=== PATIENT | female | born 1940 | race Caucasian/White ===

== ENCOUNTER 2019-07-09 17:12 | Inpatient (IN) ==
[2019-07-09 17:50] LABS: Anion Gap 14.4 mEq/L (5-15); Bilirubin,Total 0.4 mg/dL (0.2-1.0); Globulin 4.1 gm/dl (1.3-3.2); Total Protein,Serum 8.1 gm/dL (6.4-8.2)
[2019-07-09 18:00] LABS: Basophils % 0.5 % (0.1-2.0); Eosinophils # 0.1 K/mm3 (0.0-0.4); Eosinophils % 0.8 % (0.1-12.0); Hematocrit 38.9 % (37.0-47.0); Hemoglobin 12.2 g/dL (12.2-16.2); Lymphocytes # 2.2 K/mm3 (0.7-4.5); Mean Corpuscular HGB Conc 31.4 g/dL (31.8-35.4); Mean Corpuscular Volume 96.5 fl (81-99); Mean Platelet Volume 8.8 fl (7.4-10.4); Monocytes # 0.5 K/mm3 (0.1-1.0); Monocytes % 6.1 % (1.7-9.3); Neutrophils # 4.9 K/mm3 (1.8-7.8); Neutrophils % 63.6 % (37.0-80.0); Platelet Count 229 K/mm3 (142-424); Red Blood Count 4.04 M/mm3 (4.20-5.40); Red Cell Distribution Width 12.8 % (11.5-17.5); White Blood Count 7.7 K/mm3 (4.8-10.8)
--- NOTE | 2019-07-09 18:17 | Emergency Department Note ---
ED Disposition Clinical Impression: Closed right humeral fracture Qualifiers: Encounter type: initial encounter Humerus Location: proximal Fracture morphology: other fracture Fracture alignment: nondisplaced Qualified Code(s): S42.294A - Other nondisplaced fracture of upper end of right humerus, initial encounter for closed fracture Femur fracture, right Qualifiers: Encounter type: initial encounter Femur location: intertrochanteric Fracture type: closed Fracture alignment: nondisplaced Qualified Code(s): S72.144A - Nondisplaced intertrochanteric fracture of right femur, initial encounter for closed fracture Fall Qualifiers: Encounter type: initial encounter Qualified Code(s): W19.XXXA - Unspecified fall, initial encounter Hypothermia Qualifiers: Encounter type: initial encounter Qualified Code(s): T68.XXXA - Hypothermia, initial encounter Sepsis Qualifiers: Sepsis type: sepsis due to unspecified organism Sepsis acute organ dysfunction status: without acute organ dysfunction Qualified Code(s): A41.9 - Sepsis, unspecified organism Disposition: Admitted As Inpatient Condition on Discharge: [facility] - Critical Care Critical Care Time: Yes (45) Attestation: On 07/09/19, the high probability of a clinically significant, sudden or life threatening deterioration of the following system(s) required my full and direct attention, intervention and personal management. The time I documented below is in addition to time spent performing reported procedures but includes the following listed in this critical care notation. Vital system(s) involved:: Circulatory Failure, Metabolic Failure My critical care processes included: Assessment & monitoring of V/S, Initial and Re-exams, Data Review/Interpretation, Coordinating Care, Medication Orders and management, Documentation Medical Decision Making - Devin Inquiry Pt receiving controlled substance: No Vital Signs: 07/09/19 17:12 07/09/19 17:26 07/09/19 18:22 Temperature 93.6 F L 95.9 F L Temperature Source Rectal Rectal Pulse Rate Pulse Rate [Right Brachial] 92 H 96 H 95 H Respiratory Rate 18 Blood Pressure Blood Pressure [Right Arm] 198/89 H 178/87 H Blood Pressure Mean [Right Arm] 125 117 Blood Pressure Source Blood Pressure Source [Right Arm] Automatic Cuff Blood Pressure Position Blood Pressure Position [Right Arm] Supine 02 Sat by Pulse Oximetry 97 93 L 93 L Oxygen Delivery Method Room Air Room Air Room Air 07/09/19 20:20 07/09/19 20:26 07/09/19 21:42 Temperature 98.2 F 99.2 F 98.2 F Temperature Source Oral Oral Oral Pulse Rate 81 Pulse Rate [Right Brachial] 89 92 H Respiratory Rate 18 16 19 Blood Pressure 142/80 H Blood Pressure [Right Arm] 148/67 H 148/67 H Blood Pressure Mean [Right Arm] 94 94 Blood Pressure Source Automatic Cuff Blood Pressure Source [Right Arm] Automatic Cuff Blood Pressure Position Sitting Blood Pressure Position [Right Arm] Supine 02 Sat by Pulse Oximetry 92 L 95 Oxygen Delivery Method Room Air Room Air Room Air - Lab Data Lab results reviewed: Yes: I reviewed the patient's lab results. Lab Results 07/09/19 17:00: WBC 7.7, RBC 4.04 L, Hgb 12.2, Hct 38.9, MCV 96.5, MCH 30.3, MCHC 31.4 L, RDW 12.8, Plt Count 229, MPV 8.8, Neut % (Auto) 63.6, Lymph % (Auto) 29.0, [place] % (Auto) 6.1, Eos % (Auto) 0.8, Baso % (Auto) 0.5, Neut # (Auto) 4.9, Lymph # (Auto) 2.2, [place] # (Auto) 0.5, Eos # (Auto) 0.1, Baso # (Auto) 0.0 07/09/19 17:00: Sodium 140, Potassium 4.4, Chloride 101, Carbon Dioxide 29, An ion Gap 14.4, BUN 21 H, Creatinine 0.93, Estimated Creat Clear 40, Estimated GFR 58 L, Est GFR ( Amer) 71, Glucose 139 H, Calcium 10.0, Total Bilirubin 0.4, AST 25, ALT 17, Alkaline Phosphatase 90, Total Protein 8.1, Albumin 4.0, Globulin 4.1 H, Albumin/Globulin Ratio 1.0 L 07/09/19 17:00: Troponin I < 0.02 07/09/19 17:00: PT 10.2, INR 0.98 07/09/19 21:40: Urine Color Yellow, Urine Appearance Clear, Urine pH 6.0, Ur Specific Rufus 1.020, Urine Protein Negative, Urine Glucose (UA) Negative, Urine Ketones Trace, Urine Blood Negative, Urine Nitrate Negative, Urine Bilirubin Negative, Urine Urobilinogen 0.2, Ur Leukocyte Esterase Trace, Urine WBC Occasional, Ur Squamous Epith Cells Occasional, Urine Bacteria 2+ Result diagrams: 07/09/19 17:00 07/09/19 17:00 Orders (Tests/Meds): ED MEDICATIONS Generic Name Dose Route Start Last Admin Trade Name Freq PRN Reason Stop Dose Admin Amlodipine Besylate 5 mg 07/10/19 09:00 Norvasc 5mg Tablet PO 08/09/19 08:59 DAILY [facility] Buspirone HCl 5 mg 07/09/19 21:31 07/09/19 22:39 Buspar 5mg Tablet PO 08/08/19 21:30 Not Given BID ABIEL Dextrose/Sodium Chloride 1,000 mls @ 75 mls/hr 07/09/19 21:31 07/09/19 22:22 Dextrose 5%-0.45% Nacl Iv Soln IV 08/08/19 21:30 75 mls/hr .[id number] ABIEL Administration Metolazone 2.5 mg 07/10/19 09:00 Metolazone 2.5mg Tablet PO 08/09/19 08:59 DAILY [facility] Morphine Sulfate 2 mg 07/09/19 21:31 07/09/19 22:52 Morphine 2mg/Ml Syringe IV 08/08/19 21:30 2 mg Q2HP PRN Administration Severe Pain Non-Formulary Medication 20 mg 07/10/19 09:00 Benazepril Hcl PO 08/09/19 08:59 DAILY [facility] Non-Formulary Medication 10 meq 07/10/19 09:00 Potassium Chloride [Pot Chlor 10 Meq Tab] PO 08/09/19 08:59 DAILY [facility] Non-Formulary Medication 40 mg 07/10/19 21:00 Simvastatin PO 08/09/19 20:59 HS [facility] Ondansetron HCl 4 mg 07/09/19 21:31 Zofran 4mg/2ml Vial IV 08/08/19 21:30 Q8HP PRN Nausea Pantoprazole Sodium 40 mg 07/10/19 09:00 Protonix 40mg Tablet PO 08/09/19 08:59 DAILY [facility] Promethazine HCl 25 mg 07/09/19 21:31 Phenergan 25mg/Ml 1ml Vial IV 08/08/19 21:30 Q6HP PRN Nausea And Vomiting Sodium Chloride 25 ml 12/04/19 21:31 Sod Chlor 0.9% 25ml Bag IV 08/08/19 21:30 NEEDED PRN for Use with IV Promethazine Sodium Chloride 10 ml 07/09/19 21:31 Saline Flush 10ml Syringe IV 08/08/19 21:30 NEEDED PRN Maintain IV Site Discontinued Medications Generic Name Dose Route Start Last Admin Trade Name Freq PRN Reason Stop Dose Admin Sodium Chloride 1,000 mls @ 999 mls/hr 07/09/19 17:30 07/09/19 17:19 Sod Chlor 0.9% 1000ml Bag IV 07/09/19 18:30 999 mls/hr .Q1H1M ABIEL Administration Morphine Sulfate 4 mg 07/09/19 18:46 07/09/19 18:52 Morphine 4mg/Ml Syringe IV 07/09/19 18:47 4 mg ONCE ONE Administration Ondansetron HCl 4 mg 07/09/19 18:46 07/09/19 18:52 Zofran 4mg/2ml Vial IV 07/09/19 18:47 4 mg ONCE ONE Administration ORDERS Category Date Time Status CT pelvis wo con Stat Cat Scan 07/09/19 18:30 Taken Basic Metabolic Panel AMLAB Lab 07/10/19 06:00 Ordered Complete Blood Count Auto Diff AMLAB Lab 07/10/19 06:00 Ordered Troponin I Q3H Lab 07/10/19 00:30 Ordered Troponin I Q6H Lab 07/10/19 00:30 Ordered Troponin I Q6H Lab 07/10/19 06:30 Ordered Urine Culture Stat Micro 07/09/19 21:40 Received EKG Request [ECG Request by /Nse] Stat Y 07/09/19 18:21 Stop Req - Radiology Data #1 Image(s): Pelvis, Other IMPRESSION: Nondisplaced intertrochanteric fracture of the right hip Dictated by: Cecil Norwood MD 07/09/2019 18:31 Electronically signed by Cecil Norwood MD in [place] 07/09/2019 18:31 FINDINGS: There is a nondisplaced intertrochanteric fracture of the right hip. There is diffuse osteopenia. Moderate amount of feces is present in the rectum. IMPRESSION: Nondisplaced intertrochanteric fracture of the right hip Dictated by: Cecil Norwood MD 07/09/2019 18:31 Electronically signed by Cecil Norwood MD in [place] 07/09/2019 18:31 #2 Image(s): Shoulder (X-ray of the right shoulder joint reports) IMPRESSION: Avulsion fracture of the greater tuberosity of the humerus with possible nondisplaced humeral neck fracture which may be confirmed with CT Dictated by: Cecil Norwood MD 07/09/2019 18:33 Electronically signed by Cecil Norwood MD in [place] 07/09/2019 18:33 #3 Image(s): Chest FINDINGS: The cardiomediastinal silhouette and pulmonary vascularity are within normal limits. There are mild atelectatic changes in the right lung base. The remaining lungs are clear. Minimally displaced greater tuberosity fracture of the right humerus IMPRESSION: Atelectatic change right lung base. Avulsion fracture of the right humerus greater tuberosity with possible humeral neck fracture. Dictated by: Cecil Norwood MD 07/09/2019 18:35 Electronically signed by Cecil Norwood MD in [place] 07/09/2019 18:35 - CT Data CT Scan: Head Time Received: 19:[address] Reviewed: Yes: I have reviewed the patient's CT results, I have viewed the radiologist's interpretation Findings Narrative: CT of the head reports FINDINGS: No midline shift, mass effect, intracranial hemorrhage, hydrocephalus, or extra-axial fluid collection is evident. There is generalized atrophy with hypoattenuation of the periventricular white matter consistent with microangiopathic changes.. There are mild encephalomalacia changes in the left parietal lobe. The calvarium has an unremarkable appearance. No mastoid effusion. There is opacification of the right maxillary sinus. IMPRESSION: No acute intracranial finding Dictated by: Cecil Norwood MD 07/09/2019 18:09 Electronically signed by Cecil Norwood MD in [place] 07/09/2019 18:09 CT of the C-spine reports FINDINGS: There is diffuse osteopenia. There is upper thoracic kyphosis. No acute fracture or dislocation is evident. Lung apices are clear. No prevertebral soft tissue swelling is evident. The there is mild multilevel cervical spondylosis with mild degenerative disc disease and facet arthritic change. No bony canal stenosis. There is mild wedging anteriorly of T1-T2 and T3 which may be chronic. IMPRESSION: 1. No acute fracture. 2. Cervical spondylosis with upper thoracic kyphosis with mild wedging of T1, T2, and T3 which may be chronic. Dictated by: Cecil Norwood MD 07/09/2019 18:12 Electronically signed by Cecil Norwood MD in [place] 07/09/2019 18:12 - Physician Consults Physician Consulted: Dr. De La Rosa Time: 19:00 Reason -: Admission Comment/Response: Discussed with Dr. De La Rosa regarding the patient and he wanted the patient to be admitted to the hospitalist service. He wanted to do a CT scan of the hip to confirm about the fracture. Planned to do a CT scan and then discussed the case with the hospitalist. Additional Consult: Dr. Kincaid Time: 20:00 Reason -: Admission Comment/Response: Discussed with Dr. Kincaid, regarding the patient and planned to get the patient admitted to the floor - Reevaluation(s) Reevaluation #1: Patient was stable while in the emergency department. Her temperatures were checked regularly. Her temperature gradually increased from 97 3-96 and then to 99 degrees. Bear hugger was removed after it was more than 96 degrees. Patient was given pain medications in the emergency department. She was resuscitated with IV fluids. - Tissue Perfus/Sepsis Re-Eval Sepsis Re-Evaluation Performed: Yes Date Performed: 07/09/19 Time Performed: 18:00 Fall HPI - General Chief Complaint: Fall Stated Complaint: FALL Time Seen by Provider: 07/09/19 18:12 Mode of Arrival: EMS Limitations: Physical Limitations Description of Symptoms (Recalled from ER Triage Doc. by RN): PT STATES THAT AT APPROX 1530 SHE SLIPPED AND FELL OUTSIDE AND WAS NOT FOUND FOR 1.5 HOURS. PT IS HYPOTHERMIC. PT REPORTS RIGHT SHOULDER AND RIGHT HIP PAIN. -LOC - History of Present Illness HPI Narrative: 78-year-old female was brought in to the emergency department after she had a fall at her house and she was outside in the cold weather for almost more than an hour. She was found by a bystander and the help was called. Patient states she was trying to take the grocery up to her room when she slipped and fell on her right side. After she fell she was not able to move her right lower extremity. She has been having pain in the right upper arm and the right hip area. She states she laid outside for more than an hour or so. Due to the cold weather her core temperature was 93 degrees on arrival to the emergency department. Patient was put on bear hugger's and started on warm fluids immediately after she came to the emergency department. She was able to give history slowly on arrival. Was shivering and cold chills. Denies having chest pain. Denies having nausea or vomiting. Denies having any fever or chills. He states he has history of high blood pressure and high cholesterol but no othe r acute medical problems. complaint: fall - Related Data Home Medications Medication Instructions Recorded Confirmed Amlodipine Besylate [Amlodipine 5 mg PO DAILY 07/09/19 07/09/19 5mg tab] Benazepril HCl 20 mg PO DAILY 07/09/19 07/09/19 Buspirone HCl [Buspar 5mg tablet] 5 mg PO BID 07/09/19 07/09/19 Cholecalciferol (Vitamin D3) 1,000 unit PO DAILY 07/09/19 07/09/19 [Vitamin D3 1,000 Unit Cap] Potassium Chloride [Pot Chlor 10 10 meq PO DAILY 07/09/19 07/09/19 mEq Tab] Simvastatin 40 mg PO HS 07/09/19 07/09/19 metOLazone [metOLazone 2.5mg 2.5 mg PO DAILY 07/09/19 07/09/19 Tablet] Allergies Allergy/AdvReac Type Severity Reaction Status Date / Time No Known Allergies Allergy Verified 07/09/19 17:16 [facility] History - Hepatitis A Screen Drug use history?: No High risk sexual behaviors?: No History of sexually transmitted infection?: No Currently employed?: No Childcare worker?: No Do you have indoor plumbing?: Yes Do you have electricity?: Yes Attestation statement:: This patient has been screened for Hepatitis A risk factors. I have reviewed the patient's past medical history: Yes Medical History: Reports:: Hypertension Denies:: Diabetes Mellitus Type 1, Diabetes Mellitus Type 2 - Social History Alcohol Intake: never Occupational Status: retired ROS Obtained: Yes All systems reviewed & no additional complaints Physical Exam - General General appearance: alert, lethargic (Patient feels very cold to touch.), other (Patient was very hypothermic on arrival. Her core body temperature rectally was 93 degrees. She was placed in a bear hugger and warm liquids were started through the IV.) - Head Head exam: atraumatic, normocephalic, normal inspection - Eye Eye exam: Present: normal appearance, PERRL, EOMI - ENT ENT exam: Present: normal exam, normal oropharynx, mucous membranes moist, normal external ear exam (No bleeding from the ENT site.), other (No bleeding from the ENT sites) - Neck Neck exam: Present: normal inspection, meningismus - Chest Chest inspection: Present: normal inspection, symmetric chest wall rise. Absent: tenderness - Respiratory Respiratory exam: Present: normal lung sounds bilaterally, other (Chest is nontender on palpation.). Absent: respiratory distress - Cardiovascular Cardiovascular exam: Present: regular rate, normal rhythm - Abdominal Exam Abdominal exam: Present: soft, normal bowel sounds. Absent: distention, tenderness, guarding - Extremities Exam Extremities exam: Present: other (Patient is tender on the right upper arm area near the shoulder joint. Has normal distal pulses. Right elbow is nontender. Right wrist is nontender.) - Expanded Upper Extremity Exam Right Shoulder exam: Present: tenderness (Tender on the right shoulder joint area.), tenderness over AC joint Arm exam: Present: tenderness (Tenderness on the proximal humerus.) Elbow exam: Present: normal inspection, full ROM Forearm/Wrist exam: Present: normal inspection, full ROM Hand exam: Present: normal inspection, full ROM - Expanded Lower Extremity Exam Right Hip/Pelvis exam: Present: tenderness (Right hip is tender on palpation.), shortening of leg, pain on hip/pelvis palpation, hip pain on leg movement Knee exam: Present: normal inspection. Absent: tenderness, swelling, abrasion, laceration Lower leg exam: Present: normal inspection, full ROM. Absent: tenderness, swelling, abrasion Ankle exam: Present: normal inspection. Absent: full ROM, tenderness, swelling, abrasion Neurovascular/Tendon exam: Present: extremity cold to touch - Back Exam Back exam: Present: tenderness - Neurological Exam Neurological exam: Present: alert, oriented X3, CN II-XII intact - Psychiatric Psychiatric exam: Present: normal affect, normal mood - Skin Skin exam: Present: dry, intact, mottled, other (Patient is very cold to touch.)
[2019-07-09 21:50] LABS: Microscopic, Urine URINE MICROSCOPIC (MICROSCOPIC)
[2019-07-09 21:52] LABS: INR 0.98 (0.9-1.1); Prothrombin Time 10.2 seconds (9.4-11.8)
[2019-07-09 21:56] LABS: Appearance,Urine CLEAR (Clear); Bilirubin,Urine Negative (Negative); Blood, Urine Negative (Negative); Color,Urine YELLOW (Yellow); Glucose,Urine (UA) Negative (Negative); Ketones,Urine TRACE (Negative); Leukocyte Esterase,Urine TRACE (Negative); Protein,Urine Negative (Negative); Urobilinogen,Urine 0.2 EU/dl (0.2)
[2019-07-09 22:17] LABS: Bacteria,Urine 2+ /lpf; Squamous Epithelial Cell,Urine Occasional #/hpf (0-5); WBC,Urine Occasional #/hpf (0-3)
[2019-07-10 06:22] LABS: Basophils % 0.1 % (0.1-2.0); Eosinophils % 0.2 % (0.1-12.0); Hematocrit 30.3 % (37.0-47.0); Lymphocytes % 13.3 % (10-50); Mean Corpuscular HGB Conc 31.8 g/dL (31.8-35.4); Mean Platelet Volume 8.8 fl (7.4-10.4); Monocytes # 0.5 K/mm3 (0.1-1.0); Monocytes % 7.2 % (1.7-9.3); Neutrophils # 5.6 K/mm3 (1.8-7.8); Neutrophils % 79.3 % (37.0-80.0); Platelet Count 166 K/mm3 (142-424); Red Blood Count 3.23 M/mm3 (4.20-5.40); Red Cell Distribution Width 12.8 % (11.5-17.5); White Blood Count 7.1 K/mm3 (4.8-10.8)
[2019-07-10 06:33] LABS: Hemoglobin 9.7 g/dL (12.2-16.2)
--- NOTE | 2019-07-10 07:29 | Pharmacy Consult Notes ---
[facility] Pharmacy VTE Monitoring - Patient Demographics Admission date: 07/09/19 Report Date: 07/10/19 Time: 07:28 Allergies/Adverse Reactions: Patient Allergies No Known Allergies Allergy (Verified 07/09/19 17:16) Height: 1.55 m Weight: 63.412 kg Patient Problems: Current Active Problems Closed right humeral fracture (Acute) Femur fracture, right (Acute) Fall (Acute) Hypothermia (Acute) Sepsis (Acute) - VTE Risk Labs: VTE Related Lab Results Hgb 9.7 g/dL (12.2-16.2) L D 07/10/19 06:10 Hct 30.3 % (37.0-47.0) L 07/10/19 06:10 Plt Count 166 K/mm3 (142-424) D 07/10/19 06:10 PT 10.2 seconds (9.4-11.8) 07/09/19 17:00 INR 0.98 (0.9-1.1) 07/09/19 17:00 BUN 20 mg/dL (7-18) H 07/10/19 06:10 Creatinine 0.75 mg/dL (0.55-1.02) 07/10/19 06:10 Estimated Creat Clear 46 mL/min (50-200) 07/10/19 06:10 VTE Score: 4 VTE Risk Level: Low Risk Clinical Trial Participant: No - Prophylaxis VTE Prophylaxis Ordered?: Yes Types of VTE Prophylaxis: TEDS Knee High
[2019-07-10 08:05] LABS: Calcium 8.6 mg/dL (8.5-10.1)
--- NOTE | 2019-07-10 08:38 | History & Physical Report ---
*Admission Date: 07/09/19 <Mya Arenas 07/10/19 08:47> *Chief complaint: right arm and hip pain <Mya Arenas 07/10/19 08:47> *History of present illness: Ms. Velazquez is a 78-year-old relatively healthy female who was carrying groceries from her car yesterday afternoon and slipped in the mud and fell landing on her right arm and right hip. She states she laid on the ground for approximately 1-1/2 hours until someone found her and she was transported to [facility] via ambulance. She states her temperature was extremely low when she first presented to the emergency room but has since increased. Imaging in the emergency room revealed an avulsion fractur e of the greater tuberosity of the humerus with a possible nondisplaced humeral neck fracture. Right hip x-ray showed a nondisplaced intertrochanteric fracture. She was admitted and the right leg was placed in traction. She was started on pain medication and Ortho was consulted for surgery. <Mya Arenas 07/10/19 08:47> [facility] History I have reviewed the patient's past medical history: Yes <Mya Arenas 07/10/19 08:47> Medical History: Reports:: Hyperlipidemia, Hypertension Denies:: Cancer, Diabetes Mellitus Type 1, Diabetes Mellitus Type 2, MRSA <Mya Arenas 07/10/19 08:47> *Have you ever received a pneumonia vaccine?: Yes <Mya Arenas 07/10/19 08:47> *Have you received a flu vaccine this season?: No <Mya Arenas 07/10/19 08:47> Other Medical History: Reports: Other (Vitamin D deficiency, venous insufficiency) <Mya Arenas 07/10/19 08:47> Other Surgeries: Yes: Appendectomy, Cholecystectomy, Hysterectomy-Total, Other (ovarian cyst removed) <Mya Arenas 07/10/19 08:47> Amputation: No <Mya Arenas 07/10/19 08:47> - *Social History Educational Level: Completed High School <Mya Arenas 07/10/19 08:47> Alcohol Intake: never <Mya Arenas 07/10/19 08:47> *Occupational Status:: retired <Mya Arenas 07/10/19 08:47> Housing: house <Mya Arenas 07/10/19 08:47> *Travel in the last 8 weeks: None <Mya Arenas 07/10/19 08:47> Family Hx:: Coronary Artery Disease, Diabetes, Hypertension, Mental illness <Mya Arenas 07/10/19 08:47> Review of Systems - Constitutional Reports weakness, Denies body ache(s), Denies chills, Denies fever(s) <Mya Arenas 07/10/19 08:47> - Eyes Denies blurry vision, Denies double vision <Mya Arenas 07/10/19 08:47> - ENT Reports sore throat, Denies nasal congestion <Mya Arenas 07/10/19 08:47> - *Cardiovascular Denies chest pain, Denies shortness of breath <Mya Arenas 07/10/19 08:47> - *Respiratory Denies chest congestion, Denies cough, Denies shortness of breath <Mya Arenas 07/10/19 08:47> - *Gastrointestinal Denies abdominal pain, Denies loose stools, Denies nausea, Denies vomiting <Mya Arenas 07/10/19 08:47> - *Genitourinary Denies difficulty urinating, Denies painful urination <Mya Arenas 07/10/19 08:47> - *Musculoskeletal Reports joint pain (right arm and right hip) <Mya Arenas 07/10/19 08:47> - *Neurologic Reports weakness, Denies seizure-like activity, Denies headache(s), Denies dizziness <Mya Arenas 07/10/19 08:47> Meds Home Medications Medication Instructions Recorded Confirmed Type Amlodipine Besylate [Amlodipine 5 mg PO DAILY 07/09/19 07/09/19 History 5mg tab] Benazepril HCl 20 mg PO DAILY 07/09/19 07/09/19 History Buspirone HCl [Buspar 5mg tablet] 5 mg PO BID 07/09/19 07/09/19 History Cholecalciferol (Vitamin D3) 1,000 unit PO DAILY 07/09/19 07/09/19 History [Vitamin D3 1,000 Unit Cap] Potassium Chloride [Pot Chlor 10 10 meq PO DAILY 07/09/19 07/09/19 History mEq Tab] Simvastatin 40 mg PO HS 07/09/19 07/09/19 History metOLazone [metOLazone 2.5mg 2.5 mg PO DAILY 07/09/19 07/09/19 History Tablet] <Manuel Cho - 07/10/19 16:05> Allergies Allergy/AdvReac Type Severity Reaction Status Date / Time No Known Allergies Allergy Verified 07/09/19 17:16 <TammieManuel David - 07/10/19 16:05> Exam Vital signs and Labs for Last 24 Hours: Temp Pulse Resp BP Pulse Ox 98.2 F 80 17 131/61 90 L 07/10/19 15:39 07/10/19 15:39 07/10/19 15:39 07/10/19 15:39 07/10/19 15:39 Laboratory Results - last 24 hr 07/09/19 17:00: WBC 7.7, RBC 4.04 L, Hgb 12.2, Hct 38.9, MCV 96.5, MCH 30.3, MCHC 31.4 L, RDW 12.8, Plt Count 229, MPV 8.8, Neut % (Auto) 63.6, Lymph % (Auto) 29.0, [place] % (Auto) 6.1, Eos % (Auto) 0.8, Baso % (Auto) 0.5, Neut # (Auto) 4.9, Lymph # (Auto) 2.2, [place] # (Auto) 0.5, Eos # (Auto) 0.1, Baso # (Au to) 0.0 07/09/19 17:00: Sodium 140, Potassium 4.4, Chloride 101, Carbon Dioxide 29, Anion Gap 14.4, BUN 21 H, Creatinine 0.93, Estimated Creat Clear 40, Estimated GFR 58 L, Est GFR ( Amer) 71, Glucose 139 H, Calcium 10.0, Total Bilirubin 0.4, AST 25, ALT 17, Alkaline Phosphatase 90, Total Protein 8.1, Albumin 4.0, Globulin 4.1 H, Albumin/Globulin Ratio 1.0 L 07/09/19 17:00: Troponin I < 0.02 07/09/19 17:00: PT 10.2, INR 0.98 07/09/19 21:40: Urine Color Yellow, Urine Appearance Clear, Urine pH 6.0, Ur Specific [place] 1.020, Urine Protein Negative, Urine Glucose (UA) Negative, Urine Ketones Trace, Urine Blood Negative, Urine Nitrate Negative, Urine Bilirubin Negative, Urine Urobilinogen 0.2, Ur Leukocyte Esterase Trace, Urine WBC Occasional, Ur Squamous Epith Cells Occasional, Urine Bacteria 2+ 07/10/19 00:45: Troponin I 0.11 H 07/10/19 06:10: WBC 7.1, RBC 3.23 L, Hgb 9.7 L D, Hct 30.3 L, MCV 94.0, MCH 29.9, MCHC 31.8, RDW 12.8, Plt Count 166 D, MPV 8.8, Neut % (Auto) 79.3, Lymph % (Auto) 13.3, [place] % (Auto) 7.2, Eos % (Auto) 0.2, Baso % (Auto) 0.1, Neut # (Auto) 5.6, Lymph # (Auto) 1.0, [place] # (Auto) 0.5, Eos # (Auto) 0.0, Baso # (Auto) 0.0 07/10/19 06:10: Sodium 135 L, Potassium 4.0, Chloride 100, Carbon Dioxide 30, Anion Gap 9.0, BUN 20 H, Creatinine 0.75, Estimated Creat Clear 46, Estimated GFR 75, Est GFR ( Amer) 90 D, Glucose 126 H, Calcium 8.6 D, Troponin I 0.14 H 07/10/19 06:10: Lactate 0.5 07/10/19 12:10: Blood Type A Positive, Antibody Screen Negative, Crossmatch (AHG) See Detail 07/10/19 13:07: Blood Type Confirm A Positive <Manuel Cho - 07/10/19 16:05> Temp Pulse Resp BP Pulse Ox 98.6 F 81 17 141/60 H 94 L 07/10/19 08:00 07/10/19 08:00 07/10/19 08:00 07/10/19 08:00 07/10/19 08:00 Laboratory Results - last 24 hr 07/09/19 17:00: WBC 7.7, RBC 4.04 L, Hgb 12.2, Hct 38.9, MCV 96.5, MCH 30.3, MCHC 31.4 L, RDW 12.8, Plt Count 229, MPV 8.8, Neut % (Auto) 63.6, Lymph % (Auto) 29.0, [place] % (Auto) 6.1, Eos % (Auto) 0.8, Baso % (Auto) 0.5, Neut # (Auto) 4.9, Lymph # (Auto) 2.2, [place] # (Auto) 0.5, Eos # (Auto) 0.1, Baso # (Auto) 0.0 07/09/19 17:00: Sodium 140, Potassium 4.4, Chloride 101, Carbon Dioxide 29, Anion Gap 14.4, BUN 21 H, Creatinine 0.93, Estimated Creat Clear 40, Estimated GFR 58 L, Est GFR ( Amer) 71, Glucose 139 H, Calcium 10.0, Total Bilirubin 0.4, AST 25, ALT 17, Alkaline Phosphatase 90, Total Protein 8.1, Albumin 4.0, Globulin 4.1 H, Albumin/Globulin Ratio 1.0 L 07/09/19 17:00: Troponin I < 0.02 07/09/19 17:00: PT 10.2, INR 0.98 07/09/19 21:40: Urine Color Yellow, Urine Appearance Clear, Urine pH 6.0, Ur Specific [place] 1.020, Urine Protein Negative, Urine Glucose (UA) Negative, Urine Ketones Trace, Urine Blood Negative, Urine Nitrate Negative, Urine Bilirubin Negative, Urine Urobilinogen 0.2, Ur Leukocyte Esterase Trace, Urine WBC Occasional, Ur Squamous Epith Cells Occasional, Urine Bacteria 2+ 07/10/19 00:45: Troponin I 0.11 H 07/10/19 06:10: WBC 7.1, RBC 3.23 L, Hgb 9.7 L D, Hct 30.3 L, MCV 94.0, MCH 29.9, MCHC 31.8, RDW 12.8, Plt Count 166 D, MPV 8.8, Neut % (Auto) 79.3, Lymph % (Auto) 13.3, [place] % (Auto) 7.2, Eos % (Auto) 0.2, Baso % (Auto) 0.1, Neut # (Auto) 5.6, Lymph # (Auto) 1.0, [place] # (Auto) 0.5, Eos # (Auto) 0.0, Baso # (Auto) 0.0 07/10/19 06:10: Sodium 135 L, Potassium 4.0, Chloride 100, Carbon Dioxide 30, Anion Gap 9.0, BUN 20 H, Creatinine 0.75, Estimated Creat Clear 46, Estimated GFR 75, Est GFR ( Amer) 90 D, Glucose 126 H, Calcium 8.6 D, Troponin I 0.14 H 07/10/19 06:10: Lactate 0.5 <Mya Arenas - 07/10/19 08:47> I & O for Last 24 hours: Intake & Output 07/08/19 07/09/19 07/10/19 07/11/19 11:59 11:59 11:59 11:59 Intake Total 733 / 733 0 / 0 Output Total 600 / 600 300 / 300 Balance 133 / 133 -300 / -300 Weight 139 lb 12.8 oz <Manuel Cho - 07/10/19 16:05> Intake & Output 07/07/19 07/08/19 07/09/19 07/10/19 11:59 11:59 11:59 11:59 Intake Total 733 / 733 Output Total 600 / 600 Balance 133 / 133 Weight 139 lb 12.8 oz <Mya Arenas - 07/10/19 08:47> Microbiology Reports for the Last 24 Hours: Microbiology 07/09/19 21:40 Urine,Catheterized Urine Culture - Preliminary <Manuel Cho - 07/10/19 16:05> - Constitutional no acute distress <Mya Arenas - 07/10/19 08:47> - *Routine HEENT Exam Head: Present: normocephalic <Mya Arenas 07/10/19 08:47> Eye: Present: EOMI, PERRL <Mya Arenas 07/10/19 08:47> ENT: Present: mucous membranes dry <Mya Arenas 07/10/19 08:47> - *Routine Neck Exam Present: supple. Absent: lymphadenopathy <Mya Arenas 07/10/19 08:47> - *Routine Respiratory Exam Present: CTA bilaterally <Mya Arenas 07/10/19 08:47> - *Routine Cardiovascular Exam Present: RRR [facility] 08:47> - *Routine Abdominal Exam Present: soft, normoactive bowel sounds. Absent: tenderness <Mya Arenas 07/10/19 08:47> - *Routine Extremities Exam Absent: cyanosis, clubbing, edema <Pelon Arenasa 07/10/19 08:47> Comments: Right leg is in traction, there is tenderness along the lateral side of the right hip and in the right groin. There is tenderness along the AC joint and the upper aspect of the right humerus. Patient cannot move her right leg her right arm without having pain. <Mya Arenas 07/10/19 08:47> - *Routine Skin Exam Present: warm. Absent: rash <Mya Arenas 07/10/19 08:47> - *Routine Neurological Exam Present: alert, oriented X3 <Pelon Arenasa 07/10/19 08:47> H&P: Result - Impressions Cervical Spine CT 1. No acute fracture. 2. Cervical spondylosis with upper thoracic kyphosis with mild wedging of T1, T2, and T3 which may be chronic. CXR - Atelectatic change right lung base. Avulsion fracture of the right humerus greater tuberosity with possible humeral neck fracture. Head CT - nothing acute Right Shoulder X-ray - Avulsion fracture of the greater tuberosity of the humerus with possible nondisplaced humeral neck fracture which may be confirmed with CT Right hip x-ray - Nondisplaced intertrochanteric fracture of the right hip Pelvic CT - Comminuted fracture of the right proximal femur with intertrochanteric and basicervical component with impaction and mild varus angulation of the distal fracture fragment <Mya Arenas 07/10/19 08:47> Assessment and Plan (1) Closed right humeral fracture Current visit: Yes Status: Acute Qualifiers: Encounter type: initial encounter Humerus Location: proximal Fracture morphology: other fracture Fracture alignment: nondisplaced Qualified Code(s): S42.294A - Other nondisplaced fracture of upper end of right humerus, initial encounter for closed fracture Category: Medical Code(s): S42.301A - Unspecified fracture of shaft of humerus, right arm, initial encounter for closed fracture (2) Fall Current visit: Yes Status: Acute Qualifiers: Encounter type: initial encounter Qualified Code(s): W19.XXXA - Unspecified fall, initial encounter Category: Medical Code(s): W19.XXXA - Unspecified fall, initial encounter (3) Femur fracture, right Current visit: Yes Status: Acute Qualifiers: Encounter type: initial encounter Femur location: intertrochanteric Fracture type: closed Fracture alignment: nondisplaced Qualified Code(s): S72.144A - Nondisplaced intertrochanteric fracture of right femur, initial encounter for closed fracture Category: Medical Code(s): S72.91XA - Unspecified fracture of right femur, initial encounter for closed fracture (4) Hypothermia Current visit: Yes Status: Acute Qualifiers: Encounter type: initial encounter Qualified Code(s): T68.XXXA - Hypothermia, initial encounter Category: Medical Code(s): T68.XXXA - Hypothermia, initial encounter (5) Elevated troponin Current visit: Yes Status: Acute Category: Medical Code(s): R79.89 - Other specified abnormal findings of blood chemistry (6) Hypertension Current visit: Yes Status: Chronic Category: Medical Code(s): I10 - Essential (primary) hypertension (7) Hyperlipidemia Current visit: Yes Status: Chronic Category: Medical Code(s): E78.5 - Hyperlipidemia, unspecified <Mya Arenas - 07/10/19 08:35> (1) Elevated troponin Current visit: Yes Status: Acute Category: Medical Code(s): R79.89 - Other specified abnormal findings of blood chemistry (2) Closed right humeral fracture Start date: 07/09/19 Current visit: Yes Status: Acute Qualifiers: Encounter type: initial encounter Humerus Location: proximal Fracture morphology: other fracture Fracture alignment: nondisplaced Qualified Code(s): S42.294A - Other nondisplaced fracture of upper end of right humerus, initial encounter for closed fracture Category: Medical Code(s): S42.301A - Unspecified fracture of shaft of humerus, right arm, initial encounter for closed fracture (3) Fall Current visit: Yes Status: Acute Qualifiers: Encounter type: initial encounter Qualified Code(s): W19.XXXA - Unspecified fall, initial encounter Category: Medical Code(s): W19.XXXA - Unspecified fall, initial encounter (4) Femur fracture, right Current visit: Yes Status: Acute Qualifiers: Encounter type: initial encounter Fracture type: closed Fracture morphology: comminuted Fracture alignment: displaced Category: Medical Code(s): S72.91XA - Unspecified fracture of right femur, initial encounter for closed fracture (5) Hypertension Current visit: Yes Status: Chronic Category: Medical Code(s): I10 - Essential (primary) hypertension (6) Hyperlipidemia Current visit: Yes Status: Chronic Category: Medical Code(s): E78.5 - Hyperlipidemia, unspecified <Manuel Cho - 07/10/19 16:05> - Assessment and plan all Dx Assessment and Plan for all problems:: Patient seen and examined. Concur with above. Elevated troponins likely related to fall and hyhpothermia. Will check echo and obtain cardiology clearance. <Manuel Cho - 07/10/19 16:05> Ortho has been consulted for patient's fractures. Will consult cardiology and get an echo due to her elevated troponins before surgery. <Mya Arenas - 07/10/19 08:47>
--- NOTE | 2019-07-10 09:23 | Consult Report ---
History of Present Illness Consult date: 07/10/19 Requesting physician: Mamadou Kincaid Consult reason: pre-op evaluation Chief complaint: R hip pain and R arm pain Additional Medical History:: 1. HTN 2. HLD History of present illness: This is a 78-year-old white female who was admitted to the hospital after falling while carrying groceries from her car to her home. The patient states that her yard, sits on a heel and she slipped in the mud and landed on her right arm and right hip. The patient reports that she laid on the ground for about an hour and a half before someone driving down the road saw her and came to help her. The patient was transported to [facility] via ambulance. She was having pain in her right hip and right shoulder. The patient was found to have an avulsion fracture of the greater tuberosity of the humerus and a non- displaced humeral neck fracture. She also had a nondisplaced intertrochanteric fracture. The patient is currently in traction and is scheduled to undergo surgical intervention on her right hip. The patient was also found to have an elevated troponin on her admission. She denies any chest pain or pressure. She denies any shortness of breath. She denies any history of coronary artery disease, AR or heart disease. She does state that she has some edema in her lower extremities and has had this chronically since she was a teenager. She de nies any fever, chills, nausea, vomiting, diarrhea, PND or orthopnea. Her preliminary echocardiogram shows a normal ejection fraction with thickened valves but they all function properly. [facility] History I have reviewed the patient's past medical history: Yes Medical History: Reports:: Hyperlipidemia, Hypertension Denies:: Cancer, Diabetes Mellitus Type 1, Diabetes Mellitus Type 2, MRSA *Have you ever received a pneumonia vaccine?: Yes *Have you received a flu vaccine this season?: No Other Medical History: Reports: Other (Vitamin D deficiency, venous insufficiency) Other Surgeries: Yes: Appendectomy, Cholecystectomy, Hysterectomy-Total, Other (ovarian cyst removed) Amputation: No - *Social History Educational Level: Completed High School Alcohol Intake: never *Occupational Status:: retired Housing: house *Travel in the last 8 weeks: None Family Hx:: Coronary Artery Disease, Diabetes, Heart Attack, Hypertension, Mental illness Meds Home Medications Medication Instructions Recorded Confirmed Type Amlodipine Besylate [Amlodipine 5 mg PO DAILY 07/09/19 07/09/19 History 5mg tab] Benazepril HCl 20 mg PO DAILY 07/09/19 07/09/19 History Buspirone HCl [Buspar 5mg tablet] 5 mg PO BID 07/09/19 07/09/19 History Cholecalciferol (Vitamin D3) 1,000 unit PO DAILY 07/09/19 07/09/19 History [Vitamin D3 1,000 Unit Cap] Potassium Chloride [Pot Chlor 10 10 meq PO DAILY 07/09/19 07/09/19 History mEq Tab] Simvastatin 40 mg PO HS 07/09/19 07/09/19 History metOLazone [metOLazone 2.5mg 2.5 mg PO DAILY 07/09/19 07/09/19 History Tablet] Allergies Allergy/AdvReac Type Severity Reaction Status Date / Time No Known Allergies Allergy Verified 07/09/19 17:16 Review of Systems - Review of Systems Review of systems:: pertinent systems reviewed and negative unless documented below - *Cardiovascular Reports leg swelling - *Musculoskeletal Reports joint pain, Reports joint swelling - *Neurologic Reports weakness, Denies seizure-like activity, Denies headache(s), Denies dizziness Exam Vital signs and Labs for Last 24 Hours: Temp Pulse Resp BP Pulse Ox 98.6 F 81 17 141/60 H 94 L 07/10/19 08:00 07/10/19 08:00 07/10/19 08:00 07/10/19 08:00 07/10/19 08:00 Laboratory Results - last 24 hr 07/09/19 17:00: WBC 7.7, RBC 4.04 L, Hgb 12.2, Hct 38.9, MCV 96.5, MCH 30.3, MCHC 31.4 L, RDW 12.8, Plt Count 229, MPV 8.8, Neut % (Auto) 63.6, Lymph % (Auto) 29.0, [place] % (Auto) 6.1, Eos % (Auto) 0.8, Baso % (Auto) 0.5, Neut # (Auto) 4.9, Lymph # (Auto) 2.2, [place] # (Auto) 0.5, Eos # (Auto) 0.1, Baso # (Auto) 0.0 07/09/19 17:00: Sodium 140, Potassium 4.4, Chloride 101, Carbon Dioxide 29, Anion Gap 14.4, BUN 21 H, Creatinine 0.93, Estimated Creat Clear 40, Estimated GFR 58 L, Est GFR ( Amer) 71, Glucose 139 H, Calcium 10.0, Total Bilirubin 0.4, AST 25, ALT 17, Alkaline Phosphatase 90, Total Protein 8.1, Albumin 4.0, Globulin 4.1 H, Albumin/Globulin Ratio 1.0 L 07/09/19 17:00: Troponin I < 0.02 07/09/19 17:00: PT 10.2, INR 0.98 07/09/19 21:40: Urine Color Yellow, Urine Appearance Clear, Urine pH 6.0, Ur Specific [place] 1.020, Urine Protein Negative, Urine Glucose (UA) Negative, Urine Ketones Trace, Urine Blood Negative, Urine Nitrate Negative, Urine Bilirubin Negative, Urine Urobilinogen 0.2, Ur Leukocyte Esterase Trace, Urine WBC Occasional, Ur Squamous Epith Cells Occasional, Urine Bacteria 2+ 07/10/19 00:45: Troponin I 0.11 H 07/10/19 06:10: WBC 7.1, RBC 3.23 L, Hgb 9.7 L D, Hct 30.3 L, MCV 94.0, MCH 29.9, MCHC 31.8, RDW 12.8, Plt Count 166 D, MPV 8.8, Neut % (Auto) 79.3, Lymph % (Auto) 13.3, [place] % (Auto) 7.2, Eos % (Auto) 0.2, Baso % (Auto) 0.1, Neut # (Auto) 5.6, Lymph # (Auto) 1.0, [place] # (Auto) 0.5, Eos # (Auto) 0.0, Baso # (Auto) 0.0 07/10/19 06:10: Sodium 135 L, Potassium 4.0, Chloride 100, Carbon Dioxide 30, Anion Gap 9.0, BUN 20 H, Creatinine 0.75, Estimated Creat Clear 46, Estimated GFR 75, Est GFR ( Amer) 90 D, Glucose 126 H, Calcium 8.6 D, Troponin I 0.14 H 07/10/19 06:10: Lactate 0.5 I & O for Last 24 hours: Intake & Output 07/07/19 07/08/19 07/09/19 07/10/19 23:59 23:59 23:59 23:59 Intake Total 733 / 733 Output Total 600 / 600 Balance 133 / 133 Weight 133 lb 1 oz 139 lb 12.8 oz Microbiology Reports for the Last 24 Hours: Microbiology 07/09/19 21:40 Urine,Catheterized Urine Culture - Preliminary Narrative: Her EKG is sinus rhythm with a rate of 86. Next Her telemetry strip is sinus rhythm with a rate of 81. - Constitutional no acute distress, average body habitus - *Routine HEENT Exam Head: Present: normocephalic, atraumatic Eye: Present: EOMI, PERRL ENT: Present: mucous membranes moist - *Routine Neck Exam Present: supple, full ROM, normal carotid upstroke. Absent: JVD, carotid bruit, lymphadenopathy - *Routine Respiratory Exam Present: CTA bilaterally - *Routine Cardiovascular Exam Present: RRR, Normal S1, Normal S2, murmur. Absent: gallop - *Routine Abdominal Exam Present: soft, normoactive bowel sounds. Absent: tenderness, distended - *Routine Extremities Exam Present: full ROM (Except right arm and right leg), pulses intact, normal capillary refill, joint swelling. Absent: cyanosis, clubbing, edema Comments: Right lower extremity in traction - *Routine Skin Exam Present: intact, warm. Absent: erythema, rash - *Routine Neurological Exam Present: alert, oriented X3, CN II-XII intact. Absent: sensory deficit, motor deficit - Routine Psychiatric Exam Present: normal affect, normal thought process - Detailed Eye Exam Eyelids: Left normal inspection Assessment and Plan (1) Elevated troponin Current visit: Yes Status: Acute Category: Medical Code(s): R79.89 - Other specified abnormal findings of blood chemistry (2) Closed right humeral fracture Current visit: Yes Status: Acute Qualifiers: Encounter type: initial encounter Humerus Location: proximal Fracture morphology: other fracture Fracture alignment: nondisplaced Qualified Code(s): S42.294A - Other nondisplaced fracture of upper end of right humerus, initial encounter for closed fracture Category: Medical Code(s): S42.301A - Unspecified fracture of shaft of humerus, right arm, initial encounter for closed fracture (3) Fall Current visit: Yes Status: Acute Qualifiers: Encounter type: initial encounter Qualified Code(s): W19.XXXA - Unspecified fall, initial encounter Category: Medical Code(s): W19.XXXA - Unspecified fall, initial encounter (4) Femur fracture, right Current visit: Yes Status: Acute Qualifiers: Encounter type: initial encounter Femur location: intertrochanteric Fracture type: closed Fracture alignment: nondisplaced Qualified Code(s): S72.144A - Nondisplaced intertrochanteric fracture of right femur, initial encounter for closed fracture Category: Medical Code(s): S72.91XA - Unspecified fracture of right femur, initial encounter for closed fracture (5) Hypertension Current visit: Yes Status: Chronic Category: Medical Code(s): I10 - Essential (primary) hypertension (6) Hyperlipidemia Current visit: Yes Status: Chronic Category: Medical Code(s): E78.5 - Hyperlipidemia, unspecified - Assessment and plan all Dx Assessment and Plan for all problems:: Plan: 1. The patient is status post fall at which time she sustained an avulsion fracture of the right humerus as well as a inter-trochanteric fracture of the right hip. The patient is scheduled to undergo surgery today for repair of her hip. However cardiology was consulted due to an elevated troponin. The patient denies any chest pain or pressure. She denies any shortness of breath. Her EKG is normal. She has no known history of coronary artery disease or AR. Her preliminary echo results show a normal EF and thickened valves but they function properly. The patient does have a small amount of TR but this is not significant. Awaiting official read. 2. Per Dr. Lopes, the patient is acceptable risk from the cardiac standpoint to proceed with hip repair surgery. 3. We do recommend perioperatively starting aspirin 81 mg daily, bisoprolol 5 mg daily and isosorbide mononitrate 30 mg daily. 4. No plans for invasive cardiac testing at this time as the patient is asymptomatic and the elevated troponin could be from her recent fall. 5. Her blood pressure is acceptable but will improve with the addition of bisoprolol and isosorbide mononitrate. 6. LDL goal is less than 100. 7. Further recommendations will be made pending the patient's response to treatment. Thank you for the opportunity to help participate in the care of this patient.
--- NOTE | 2019-07-10 09:54 | Cardiology Report ---
APPROVED REPORT EXAM: Comprehensive 2D, Doppler, and color-flow Echocardiogram Metal Treater: Ailyn Ibrahim RDCS Ht: 5 ft 1 in Wt: 139lbs BSA: 1.62 BP: 141/60 mmHg Indications: ELEVATED TROP,FX HIP/LEG,HTN,HLP 2D Dimensions LVOT 1.77 cm (M/F) 1.5-2.5 M-Mode Dimensions RVDd 0.91 cm (0.9-2.6)LVDd 5.47 cm (3.5-5.7) LVDs 3.72 cm (3.5-5.7)IVSd 0.94 cm (0.6-1.1) PWd 0.87 cm (0.6-1.1)EF (Teich) 59.50% FS 32.00% EDV (Teich) 145.60 mL ESV (Teich) 58.90 mL Left Ventricle Left atrium is mildly enlarged, left ventricle is normal size, mild concentric left ventricular hypertrophy, hyperdynamic left ventricular systolic function, visually estimated ejection fraction over 65% with no regional wall motion abnormality, grade 1 diastolic dysfunction seen without tissue Doppler evidence of raise left atrial pressure. Right Ventricle Right atrium and right ventricular mildly enlarged with normal contractility. Aortic Valve Aortic valve is minimally thickened and fibrosed. Leaflet continue to display good mobility, there is no aortic stenosis or aortic insufficiency. Mitral Valve Mitral valve is grossly normal, there is mild mitral regurgitation. Tricuspid Valve Tricuspid valve is grossly normal, there is mild tricuspid regurgitation, calculated right ventricular systolic pressure is 55 mmHg which is moderately elevated. Pulmonic Valve Pulmonic valve is poorly visualized. Great Vessels Aortic root is normal size. Pericardium There is trivial pericardial effusion and left-sided pleural effusion seen. Conclusion 1. Left atrium is mildly enlarged, left ventricle is normal size, mild concentric left ventricular hypertrophy, hyperdynamic left ventricular systolic function, visually estimated ejection fraction over 65% with no regional wall motion abnormality. Grade 1 diastolic dysfunction seen without tissue Doppler evidence of raise left atrial pressure. 2. Mild mitral and tricuspid regurgitation, calculated right ventricular systolic pressure is 55 mmHg consistent with moderately elevated right ventricular systolic pressure. 3. Trivial pericardial and left-sided pleural effusion seen. Electronically signed by : Horace Molina, 07/10/2019 09:53:59
--- NOTE | 2019-07-10 12:48 | Consult Report ---
*Admission Date: 07/09/19 *Reason for consult:: 1. Fracture neck of femur, right 2. Fracture proximal humerus, right *History of present illness: Ms. Velazquez is a 78-year-old relatively healthy female who was carrying groceries from her car yesterday afternoon and slipped in the mud and fell landing on her right arm and right hip. She states she laid on the ground for approximately 1- 1/2 hours until someone found her and she was transported to [facility] via ambulance. She states her temperature was extremely low when she first presented to the emergency room but has since increased. Imaging in the emergency room revealed an avulsion fracture of the greater tuberosity of the humerus with a possible nondisplaced humeral neck fracture. Right hip x-ray showed a nondisplaced intertrochanteric fracture. She was admitted and the right leg was placed in traction. She was started on pain medication and Ortho was consulted for surgery. Review of Systems - Review of Systems Review of systems:: pertinent systems reviewed and negative unless documented below - Constitutional Reports weakness, Denies chills, Denies fever(s), Denies headache(s) - Eyes Denies blurry vision, Denies double vision - *Cardiovascular Denies chest pain, Denies shortness of breath - *Respiratory Denies chest congestion, Denies cough, Denies shortness of breath - *Gastrointestinal Denies abdominal pain, Denies nausea, Denies vomiting - *Genitourinary Denies difficulty urinating, Denies painful urination - *Musculoskeletal Reports abnormal walking, Reports joint pain - *Neurologic Reports weakness, Denies seizure-like activity, Denies headache(s), Denies dizziness [facility] History I have reviewed the patient's past medical history: Yes Medical History: Reports:: Hyperlipidemia, Hypertension Denies:: Cancer, Diabetes Mellitus Type 1, Diabetes Mellitus Type 2, MRSA *Have you ever received a pneumonia vaccine?: Yes *Have you received a flu vaccine this season?: No Other Medical History: Reports: Other (Vitamin D deficiency, venous insufficiency) Other Surgeries: Yes: Appendectomy, Cholecystectomy, Hysterectomy-Total, Other (ovarian cyst removed) Amputation: No - *Social History Educational Level: Completed High School Alcohol Intake: never *Occupational Status:: retired Housing: house *Travel in the last 8 weeks: None Family Hx:: Coronary Artery Disease, Diabetes, Heart Attack, Hypertension, Mental illness Meds Home Medications Medication Instructions Recorded Confirmed Type Amlodipine Besylate [Amlodipine 5 mg PO DAILY 07/09/19 07/09/19 History 5mg tab] Benazepril HCl 20 mg PO DAILY 07/09/19 07/09/19 History Buspirone HCl [Buspar 5mg tablet] 5 mg PO BID 07/09/19 07/09/19 History Cholecalciferol (Vitamin D3) 1,000 unit PO DAILY 07/09/19 07/09/19 History [Vitamin D3 1,000 Unit Cap] Potassium Chloride [Pot Chlor 10 10 meq PO DAILY 07/09/19 07/09/19 History mEq Tab] Simvastatin 40 mg PO HS 07/09/19 07/09/19 History metOLazone [metOLazone 2.5mg 2.5 mg PO DAILY 07/09/19 07/09/19 History Tablet] Allergies Allergy/AdvReac Type Severity Reaction Status Date / Time No Known Allergies Allergy Verified 07/09/19 17:16 Exam Vital signs and Labs for Last 24 Hours: Temp Pulse Resp BP Pulse Ox 97.8 F 74 18 134/60 91 L 07/10/19 11:12 07/10/19 11:12 07/10/19 11:12 07/10/19 11:12 07/10/19 11:12 Laboratory Results - last 24 hr 07/09/19 17:00: WBC 7.7, RBC 4.04 L, Hgb 12.2, Hct 38.9, MCV 96.5, MCH 30.3, MCH C 31.4 L, RDW 12.8, Plt Count 229, MPV 8.8, Neut % (Auto) 63.6, Lymph % (Auto) 29.0, [place] % (Auto) 6.1, Eos % (Auto) 0.8, Baso % (Auto) 0.5, Neut # (Auto) 4.9, Lymph # (Auto) 2.2, [place] # (Auto) 0.5, Eos # (Auto) 0.1, Baso # (Auto) 0.0 07/09/19 17:00: Sodium 140, Potassium 4.4, Chloride 101, Carbon Dioxide 29, Anion Gap 14.4, BUN 21 H, Creatinine 0.93, Estimated Creat Clear 40, Estimated GFR 58 L, Est GFR ( Amer) 71, Glucose 139 H, Calcium 10.0, Total Bilirubin 0.4, AST 25, ALT 17, Alkaline Phosphatase 90, Total Protein 8.1, Albumin 4.0, Globulin 4.1 H, Albumin/Globulin Ratio 1.0 L 07/09/19 17:00: Troponin I < 0.02 07/09/19 17:00: PT 10.2, INR 0.98 07/09/19 21:40: Urine Color Yellow, Urine Appearance Clear, Urine pH 6.0, Ur Specific [place] 1.020, Urine Protein Negative, Urine Glucose (UA) Negative, Urine Ketones Trace, Urine Blood Negative, Urine Nitrate Negative, Urine Bilirubin Negative, Urine Urobilinogen 0.2, Ur Leukocyte Esterase Trace, Urine WBC Occasional, Ur Squamous Epith Cells Occasional, Urine Bacteria 2+ 07/10/19 00:45: Troponin I 0.11 H 07/10/19 06:10: WBC 7.1, RBC 3.23 L, Hgb 9.7 L D, Hct 30.3 L, MCV 94.0, MCH 29.9, MCHC 31.8, RDW 12.8, Plt Count 166 D, MPV 8.8, Neut % (Auto) 79.3, Lymph % (Auto) 13.3, [place] % (Auto) 7.2, Eos % (Auto) 0.2, Baso % (Auto) 0.1, Neut # (Auto) 5.6, Lymph # (Auto) 1.0, [place] # (Auto) 0.5, Eos # (Auto) 0.0, Baso # (Auto) 0.0 07/10/19 06:10: Sodium 135 L, Potassium 4.0, Chloride 100, Carbon Dioxide 30, Anion Gap 9.0, BUN 20 H, Creatinine 0.75, Estimated Creat Clear 46, Estimated GFR 75, Est GFR ( Amer) 90 D, Glucose 126 H, Calcium 8.6 D, Troponin I 0.14 H 07/10/19 06:10: Lactate 0.5 07/10/19 12:10: Crossmatch (AHG) See Detail I & O for Last 24 hours: Intake & Output 07/08/19 07/09/19 07/10/19 07/11/19 11:59 11:59 11:59 11:59 Intake Total 733 / 733 0 / 0 Output Total 600 / 600 Balance 133 / 133 0 / 0 Weight 139 lb 12.8 oz Microbiology Reports for the Last 24 Hours: Microbiology 07/09/19 21:40 Urine,Catheterized Urine Culture - Preliminary - Constitutional no acute distress, cooperative Results - Labs Result Diagrams: 07/10/19 06:10 07/10/19 06:10 Labs: Abnormal lab results 07/09/19 07/09/19 07/10/19 Range/Units 17:00 17:00 00:45 RBC 4.04 L (4.20-5.40) M/mm3 Hgb (12.2-16.2) g/dL Hct (37.0-47.0) % MCHC 31.4 L (31.8-35.4) g/dL Sodium (136-145) mmol/L BUN 21 H (7-18) mg/dL Estimated GFR 58 L (>60) ml/min Glucose 139 H (74-106) mg/dL Troponin I 0.11 H (0.00-0.06) ng/ml Globulin 4.1 H (1.3-3.2) gm/dl Albumin/Globulin Ratio 1.0 L (1.1-1.8) Crossmatch (AHG) 07/10/19 07/10/19 07/10/19 Range/Units 06:10 06:10 12:10 RBC 3.23 L (4.20-5.40) M/mm3 Hgb 9.7 L D (12.2-16.2) g/dL Hct 30.3 L (37.0-47.0) % MCHC (31.8-35.4) g/dL Sodium 135 L (136-145) mmol/L BUN 20 H (7-18) mg/dL Estimated GFR (>60) ml/min Glucose 126 H (74-106) mg/dL Troponin I 0.14 H (0.00-0.06) ng/ml Globulin (1.3-3.2) gm/dl Albumin/Globulin Ratio (1.1-1.8) Crossmatch ([facility]) See Detail H & H 07/09/19 07/10/19 Range/Units 17:00 06:10 Hgb 12.2 9.7 L D (12.2-16.2) g/dL Hct 38.9 30.3 L (37.0-47.0) % Coagulation 07/09/19 Range/Units 17:00 INR 0.98 (0.9-1.1) All other labs normal. Assessment and Plan (1) Elevated troponin Current visit: Yes Status: Acute Category: Medical Code(s): R79.89 - Other specified abnormal findings of blood chemistry (2) Closed right humeral fracture Start date: 07/09/19 Current visit: Yes Status: Acute Qualifiers: Encounter type: initial encounter Humerus Location: proximal Fracture morphology: other fracture Fracture alignment: nondisplaced Qualified Code(s): S42.294A - Other nondisplaced fracture of upper end of right humerus, initial encounter for closed fracture Category: Medical Code(s): S42.301A - Unspecified fracture of shaft of humerus, right arm, initial encounter for closed fracture I have reviewed the clinical and imaging findings with the patient and her broth er. I discussed the diagnosis, natural history and management options in detail including both nonsurgical and surgical. Following a detailed discussion about the various surgical and nonsurgical options, she has opted for an open reduction and internal fixation of the fracture. I discussed details of the open reduction and plating of the proximal humerus fracture with or without bone grafting. I have discussed the proposed surgical procedure, risks and benefits and alternatives. We've outlined where the incision will be on the skin. Risks of surgery discussed include but are not limited to- infection, bleeding injury to nerves, tendons and blood vessels, bleeding, primary/secondary screw perforation of the humeral head, subacromial impingement, nerve injury/ palsy especially the axillary nerve, avascular necrosis of humeral head, incisional scar (cosmesis), DVT/PE, malunion, nonunion/delayed union, refracture, shoulder/elbow stiffness, persistent pain, CRPS (complex regional pain syndrome- pain, sensory and temperature changes, swelling and stiffness), painful/prominent hardware, loss of fixation/hardware failure, incomplete relief of pain, incomplete return of function, and likely need for further surgery in future and also the risks of anesthesia including heart attack, stroke, and even . We've discussed how there is a small but real possibility of loss of use of the arm, loss of the limb or loss of life itself. We've also explained how additional surgery may be required if there are any complications or the fracture fails to heal. We explained the postoperative pain management, recovery and rehabilitation, immobilization required, the likely need for physical t herapy, the possibility of stiffness, chronic pain and we've also discussed the option of nonsurgical treatment. We also discussed about possible need for bone grafting including use of synthetic bone graft substitutes. We discussed about possible autologous bone harvesting sites including her iliac crest and middle third of fibula. The patient and her nephew expressed good understanding and have asked appropriate questions. All their questions were answered and they verbalized a good understanding. She desires to proceed with the open reduction internal fixation of her right proximal humerus fracture. (3) Fall Current visit: Yes Status: Acute Qualifiers: Encounter type: initial encounter Qualified Code(s): W19.XXXA - Unspecified fall, initial encounter Category: Medical Code(s): W19.XXXA - Unspecified fall, initial encounter (4) Femur fracture, right Current visit: Yes Status: Acute Qualifiers: Encounter type: initial encounter Fracture type: closed Fracture m orphology: comminuted Fracture alignment: displaced Category: Medical Code(s): S72.91XA - Unspecified fracture of right femur, initial encounter for closed fracture I reviewed the clinical and x-ray findings with the patient and her family including 2 of her sisters and her niece who were with her in the room. I have discussed the diagnosis and management options in detail including both nonsurgical and surgical. I have told the patient and family that the fracture is complex in that there is a comminuted peritrochanteric fracture with extension into the basicervical region of the femoral neck. I have recommended surgical remediation in the form of either a cephalo-medullary nailing left femur or a hemiarthroplasty of the left hip as deemed appropriate at the time of surgery. If performing a hemiarthroplasty, we would use a long-stem prosthesis with cementing of the stem if needed. We may also need to perform cerclage wiring/trochanteric cable plating for the proximal femur. I explained the procedure, risks and benefits, alternatives and the expected postoperative course. I have shown them copies of her x-rays and explained to the patient and her family with drawings of the fracture and the proposed surgical procedure. The complications discussed include but are not limited to infection, injury to nerves and blood vessels, DVT and PE, femur fracture, screw cut-out/implant failure, loss of fixation, nonunion, malunion/malrotation, osteonecrosis of the femoral head, femoral shaft fracture, painful hardware, limb length inequality, dislocation, implant failure, loosening, acetabular wear, osteolysis, periprosthetic femur fracture, heterotopic ossification, abductor weakness and a limp, incomplete relief of pain, incomplete return of function or motion, likely need for further surgery in future including revision, and anesthetic/medical complications including heart attack, stroke, transfusion reactions and even . We discussed how any of these events can be devastating. I have told her that we may need to perform additional fixation including a cable plating of the trochanteric region as necessary. We have discussed nonsurgical alternatives as well. I've explained that the patient is at a significant surgical risk due to her age, medical issues, and fragility of the bone. Family and patient seemed to understand and accept these risks. We have discussed nonsurgical alternatives as well. The nonoperative management would essentially consist of prolonged bed rest and traction (skeletal/skin) in bed and pain medication and has exceptionally poor outcome. This could result in nonunion and malunion of the fracture and almost certainly, the patient has a very high risk of decubitus ulcers, UTI, respiratory tract infections, DVT/PE and other complications from being bedridden. I have explained to them that the standard of care for this sort of injuries is surgical throughout the country unless the patient is very ill for surgical management. We also discussed the postoperative course including the rehab and physical therapy required. She lives with her niece and may need to go to a shelter facility for rehab after surgery. All their questions were answered and they verbalized a good understanding. Patient was cleared for surgery by Dr. Meyer with appropriate risk stratification. Well also obtain a preoperative anesthetic evaluation. The limb was marked appropriately and initialed by me. I have recommended- Type and screen; crossmatch 2 units of PRBC Continue nothing by mouth Continue IV fluids Analgesia as needed DVT prophylaxis as per protocol Consent patient for- 1. "Hemiarthroplasty RIGHT hip. 2. "Open reduction and internal fixation RIGHT proximal humerus". Order 2 g of IV Ancef for preoperative prophylaxis to start half an hour before surgery. I am planning to take her for surgery at the earliest opportunity today. Continue medical management as per Dr. Meyer. Thank you for the opportunity to take part in the care of this very pleasant patient. (5) Hypertension Current visit: Yes Status: Chronic Category: Medical Code(s): I10 - Essential (primary) hypertension (6) Hyperlipidemia Current visit: Yes Status: Chronic Category: Medical Code(s): E78.5 - Hyperlipidemia, unspecified
--- NOTE | 2019-07-10 16:27 | Progress Note ---
[facility] Anesthesia Checklist - Patient Identification Patient Identification: Arm Band - Structural Data Admitted From: Inpatient Planned Operative Procedure/s: ORIF right proximal humerous, right Hemiarthroplasty Consent for Planned Operative Procedure(s) Verified: Yes Verified Documents: Surgical Consent, History and Physical - NPO Status Verified Time NPO: 00:00 - Additional verifications Anesthesia Reactions: No - Airway Assessment C-Spine Mobility Assessed: Yes (mp2) TMJ Mobility Assessed: Yes Dentition: Poor Dentition - Neurological Assessment Level of Consciousness: Awake, Alert - Anesthesia Plan Anesthesia Risk discussed: Yes Anesthesia Plan: Verified ASA Class: II (e) Anesthesia Type: General (with ISB. Risks/benefits of nerve block explained. Pt verbalizes understanding) [facility] History I have reviewed the patient's past medical history: Yes Medical History: Reports:: Hyperlipidemia, Hypertension Denies:: Cancer, Diabetes Mellitus Type 1, Diabetes Mellitus Type 2, MRSA *Have you ever received a pneumonia vaccine?: Yes *Have you received a flu vaccine this season?: No Other Medical History: Reports: Other (Vitamin D deficiency, venous insufficiency) Anesthesia experience/problems:: nac Other Surgeries: Yes: Appendectomy, Cholecystectomy, Hysterectomy-Total, Other (ovarian cyst removed) Amputation: No - *Social History Educational Level: Completed High School Alcohol Intake: never Substance Use Type: denies use *Occupational Status:: retired Housing: house *Travel in the last 8 weeks: None Family Hx:: Coronary Artery Disease, Diabetes, Heart Attack, Hypertension, Mental illness
--- NOTE | 2019-07-11 01:05 | Progress Note ---
[facility] Anesthesia Record Part II Discharge Time: 01:25 Destination: Medical Surgical Department PACU nurse assessment reviewed?: Yes Patient Condition:: Good Anesthesia Complications:: None Swallowing reflex intact?: Yes Cyanosis?: No
--- NOTE | 2019-07-11 01:05 | Progress Note ---
[facility] Anesthesia Record Part I Intake, IV Amount: 3,000 Estimated blood loss (mL): 400 Urine output (mL): 600 Blood Pressure: 114/64 SaO2: 95 Pulse Rate: 65 Respiratory Rate: 16 Temperature: 97.7 F Patient is:: Drowsy, Stable Stable to PACU at:: 00:55
--- NOTE | 2019-07-11 02:03 | Operative Note ---
Date of procedure: 07/10/19 Pre-op Diagnosis:: 1. Closed, comminuted, displaced proximal humerus fracture, right shoulder 2. Closed, complex, comminuted, displaced femoral neck fracture, right hip Post-op Diagnosis:: Same Procedure performed:: 1. Open reduction and internal fixation, right proximal humerus 2. Uncemented bipolar hemiarthroplasty with long revision femoral stem, right hip 3. Quinton-Ranjeet trochanteric wardrobe assistant plate fixation, right proximal femur Surgeon:: Uday De La Rosa MD CAR SEAT UPHOLSTERER:: Last Field Anesthesia: GETA, regional (Interscalene block) Estimated blood loss (mL): 400 Clinical Note:: Patient is a 78-year-old female who sustained a displaced, comminuted complex fracture of the right proximal femur and displaced impacted proximal humerus fracture right shoulder following a mechanical fall. A right hip hemiarthroplasty with trochanteric wardrobe assistant plate fixation and open reduction internal fixation of right proximal humerus is indicated to relieve pain and restore function. The operation is clinically indicated and is the standard of care for this type of fracture. Given the multiple fractures it is felt necessary to fix the right proximal humerus fracture as well to relieve her pain and help with mobilization. Please refer to my consult note for full details. Operative findings:: 1. Complex, displaced femoral neck fracture of the right hip as noted on the preoperative hip x-rays and CT scan. The articular cartilage of the acetabulum is well maintained without evidence of significant arthritis. The proximal femur bone quality is poor with significant osteopenia. 2. Comminuted and displaced fracture of the proximal humerus with the varus impaction of the proximal fragment. There was some medial comminution along the calcar as noted on the preoperative imaging. The rotator cuff was noted to be intact. Significant osteopenia of the proximal humerus noted. Operative note:: On the day of the procedure the patient and family were met on the floor, and a physical examination was performed and documented. The operating side and sites were marked and initialed by me. I have again reviewed the diagnosis, natural history and management options in detail including both the nonsurgical and surgical. Given the nature of the fractures, I have recommended surgery in the form of a hemiarthroplasty of the left hip and an open reduction internal fixation of the left proximal humerus. I have discussed the procedure, risks and benefits, alternatives, potential complications and expected outcomes with the patient and family. The complications discussed include but are not limited to infection, injury to nerves and blood vessels, DVT and PE, femur fracture, limb length inequality, dislocation, implant failure, loosening, acetabular wear, osteolysis, periprosthetic femur fracture, heterotopic ossification, abductor weakness and a limp, implant failure, screw penetration to the shoulder joint, avascular necrosis of the humeral head, axillary nerve injury, incomplete relief of pain, incomplete return of function or motion, likely need for further surgery in future including revision, anesthetic/medical complications including heart attack, stroke, transfusion reactions and even . We discussed how any of these events can be devastating. We have discussed nonsurgical alternatives as well. We also discussed the postoperative course including the rehab and physical therapy required. Patient/family understood the risks, agreed to proceed with surgery, signed the consent form and no guarantees or assurances were given or implied. 1. Hemiarthroplasty right hip: The patient was brought to the operating room and a general anesthesia was administered by the drilling machine runner. The patient was then transferred onto the operating table and positioned in the left lateral decubitus position with the left hip facing upwards. All the bony prominences were well-padded. The right lower extremity was then prepped and draped in the usual sterile fashion. The entire operative team used isolation suits and room traffic was controlled. The surgical landmarks and incision was marked over the skin with a marking pen. Ioban sterile drape was used to cover the operative site and isolate the perineum completely from the operative field. Administration of 2 g of prophylactic IV Ancef was confirmed with the drilling machine runner. A preprocedure timeout was performed as per hospital protocol. A posterior approach was used to the hip joint. An electrocautery was used for hemostasis. The skin incision was made centering over the posterior border of the greater trochanter extending posteriorly in a curvilinear fashion across the buttock. The dissection was carried through subcutaneous tissue down to the fascia gurdeep. The fascia gurdeep and gluteus fascia were split and a Charnley retractor was placed. The trochanteric bursa was then removed with blunt dissection. The sciatic nerve was identified and kept out of the harm's way throughout the rest of the procedure. The hip was then internally rotated and the fat over the external rotators was cleared with a sponge. The short external rotator muscles were identified, a tag stitch was placed near their insertion, and they were divided close to the greater trochanter with electrocautery. This exposed the joint capsule which was opened with a T shaped incision and tag stitches were applied to both the leaves of the capsule. Upon entering the joint capsule, a fracture hematoma was noted as well as the displaced sub-capital femoral neck fracture. A corkscrew was then used to remove the femoral head from the acetabulum and passed to the lead slot technician to be sized on the back table. It measured 46 mm. All bony fragments were then removed from the acetabulum and surrounding soft tissue. The acetabulum was then inspected and found to be clear. The articular cartilage was noted to be well maintained without any significant arthritic changes. Our attention was then turned to the preparation of proximal femur where a cutting guide was used to jess the neck for the femoral neck cut. An oscillating saw was then used to finish the femoral cut. A box osteotome was then used to remove the bone from the proximal femur. A canal entry reamer was then used to open the femoral canal paying close attention to keep the reamer in a lateral position. Next we performed femoral broaching starting with a small broach, making efforts to lateralize the broach. The broaching was continued sequentially up to size 8 broach. We found this to be a very good fit without any rocking. We then used the calcar reamer to finish the femoral preparation. We then performed a trial reduction using the size 8 broach, -4 neck and 46 mm bipolar head. The hip was taken through range of motion and tested in adduction, internal and external rotation as well as with a shuck and posteriorly directed force on a flexed hip. It was noted that the hip was very stable with these trial components throughout the range of motion. We also noted that the limb lengths were equal with these components. Next, the trial components were removed and the femur and acetabulum were irrigated with pulse lavage and suctioned out. The size 8 [place] accolade 127 degree femoral stem was introduced and seated to the appropriate level. This gave us a very good fit without any play whatsoever. We then irrigated and dried the Bridges taper and then placed the definitive 46 mm bipolar femoral head assembly on the stem and tapped into place. The hip was then reduced and again taken through range of motion and noted to be stable. The limb length was also well corrected. We obtained intraoperative fluoroscopic images to make sure the alignment is satisfactory and no periprosthetic fractures or other complications occurred during the procedure. The hip joint was then soaked with dilute Betadine solution for 3 minutes, then suctioned out and irrigated with normal saline pulse lavage. We confirmed good hemostasis and then proceeded to close the wound. The capsule was closed with interrupted #1 Vicryl sutures followed by reattachment of the external rotators to the greater trochanter with #1 Vicryl sutures. Next the fascia gurdeep and the gluteus fascia were closed with #1 Vicryl sutures. The wound was then again irrigated copiously with pulse lavage and suctioned dry. Next the subcutaneous tissues were closed with 2-0 Vicryl sutures. The skin was closed with 4-0 Monocryl subcuticular sutures, Dermabond and Steri-Strips. Sterile dressings were applied consisting of Xeroform, 4 x 4 and ABDs as well as adhesive tape]. No drains were placed. The patient was then turned into supine position on the operating table to proceed with fixation of left proximal humerus fracture as documented below. The leg lengths were again checked in supine position and noted to be equal. An abduction pillow was placed between the legs. Patient tolerated the procedure well and there were no immediate complications. Swab, needle and instrument counts were correct according to the scrub team at the end of the procedure. EBL: 300 mL Implants: Fawn Latter-Day Modular Hip System- 152 mm x 19 mm stem [place] Latter-Day Modular Hip System-23, +10, V 40 Fawn LFIT V40 femoral head, 28 mm outer diameter, +0 mm offset [place] UHR universal head bipolar component-45 mm outer diameter/28 mm inner diameter Greg trochanteric replete with 2 cables, medium 100 mm (Industry sales representative advertising: Brown Madrigal from [id number]) 2. ORIF right proximal humerus: After completion of the left hip hemiarthroplasty, the patient was turned into supine position on the operating table. A general anesthesia and interscalene nerve block was administered by the drilling machine runner. She was placed in a well- padded beach chair position. The C-arm was brought from the top and the fracture was screened under fluoroscopic guidance in multiple planes. The right upper ex tremity was then prepped and draped in the usual sterile fashion. Administration of prophylactic antibiotics was confirmed with the drilling machine runner. A preprocedure timeout was performed as per the hospital protocol. An anterolateral acromial approach was planned for the proximal humerus fixation. The bony landmarks of the shoulder were marked with a skin marker on the location of the axillary nerve was marked on the skin at about 6 cm from the acromial edge. Then the skin incision was made starting at the anterolateral edge of the acromion and extending distally just proximal to the deltoid insert ion. The dissection was carried through the subcutaneous tissue down to the deltoid muscle. The anterior raphae of the deltoid was identified and the muscle was split in line with the fibers. A wad of muscle tissue was left as a bridge at the level of the axillary nerve to protect the nerve from injury. The muscle was again split below the level of the nerve. This gave us a very good exposure to the proximal humerus. Then the subdeltoid and subacromial bursa was excised exposing the rotator cuff and proximal humerus. The rotator cuff was noted to be intact. Then the biceps tendon was identified in the groove and protected throughout. Stay sutures were placed through the subscapularis, supraspinatus and infraspinatus tendons near their insertion. Then the fracture line was identified and dis-impacted with an elevator. The fracture was essentially a two-part fracture with the tuberosities intact. There was some medial comminution along the calcar. The fracture was then reduced and provisionally fixed in position with K wires. Then a 3 holed [place] proximal humerus locking plate was selected and slid along the lateral border of the proximal humerus under the axillary nerve. The nerve was carefully protected throughout the procedure. The plate was then provisionally fixed to the distal fragment with a cortical screw through the oval hole. Then the humeral head was reduced back o nto the plate under fluoroscopic guidance and provisionally fixed with K wires. After confirming satisfactory reduction and provisional fixation under fluoroscopic guidance in multiple planes we proceeded with definitive fixation. Using the angle guides multiple locking screws were placed into the humeral head sequentially from proximal to distal. After this the plate was fixed to the distal fragment with cortical screws. This gave us a very stable construct. This was screened under fluoroscopic guidance in multiple planes and we made sure that none of the screws were penetrating through the humeral head. Then the previously placed sutures through the rotator cuff tendons were passed through the suture holes in the plate and tied securely providing a very good hybrid fixation. After this, through the central hole in the plate Hydroset synthetic bone graft was injected into the fracture site. We screened the construct under image intensifier and noted that overall a very satisfactory reduction was obtained and stable fixation was performed. Fluoroscopic images were obtained and stored digitally. The wound was then thoroughly irrigated with normal saline. Hemostasis was obtained with diathermy cautery. The wound was then closed in layers with 2-0 Vicryl, 2-0 Vicryl and 4-0 subcuticular Monocryl sutures and Steri-Strips to the skin. Sterile dressings were applied. The arm was then placed in an arm sling. The patient was then reversed from the anesthetic and transferred onto the bed. She was then transferred to the postoperative recovery area in a stable condition. She tolerated the procedures well and there were no immediate complications. At the end of the procedure swab, needle and instrument counts were correct according to the scrub team. Portable x-rays of the left hip and left shoulder were obtained in the recovery area showing a satisfactory reduction and fixation of the fracture proximal humerus fracture and a well-placed left hip hemiarthroplasty. After recovering from the anesthesia, patient was transferred to the floor. Postoperatively, continue standard precautions for a posterior hip approach and continue arm sling to the left shoulder. To mobilize weightbearing as tolerated on the left lower extremity with the help of physical therapy and to commence standard physical therapy and precautions for a posterior hip approach; recommend strict nonweightbearing on the left shoulder. EBL (ml): 200 Implant: [place] AxSOS 3 Titanium Locking Plate and screws- 3 holed plate and multiple locking and nonlocking screws used. (Industry sales representative advertising: Delfin Florence from [employer]) Condition: stable Disposition: PACU Specimens:: None Complications:: None
--- NOTE | 2019-07-11 08:40 | Progress Note ---
<Mya Arenas - Last Filed: 07/11/19 08:34> Internal Medicine - PN: Subj *Date: 07/11/19 *Time: 08:34 Interval history: Patient had surgery on her shoulder and her hip yesterday. She states her pain has been pretty severe. She rates it as a 6 out of 10 now, but just received pain medication. She was able to rest throughout the night with pain medication. She does not feel like eating breakfast this morning. Exam Vital signs and Labs for Last 24 Hours: Temp Pulse Resp BP Pulse Ox 98.7 F 89 18 111/53 L 95 07/11/19 07:30 07/11/19 07:30 07/11/19 07:30 07/11/19 07:30 07/11/19 07:30 Laboratory Results - last 24 hr 07/09/19 21:40: Urine Color Yellow, Urine Appearance Clear, Urine pH 6.0, Ur Specific [place] 1.020, Urine Protein Negative, Urine Glucose (UA) Negative, Urine Ketones Trace, Urine Blood Negative, Urine Nitrate Negative, Urine Bilirubin Negative, Urine Urobilinogen 0.2, Ur Leukocyte Esterase Trace, Urine WBC Occasional, Ur Squamous Epith Cells Occasional, Urine Bacteria 2+ 07/10/19 12:10: Blood Type A Positive, Antibody Screen Negative, Crossmatch (AHG) See Detail 07/10/19 13:07: Blood Type Confirm A Positive I & O for Last 24 hours: Intake & Output 07/08/19 07/09/19 07/10/19 07/11/19 11:59 11:59 11:59 11:59 Intake Total 733 / 733 3000 / 3000 Output Total 600 / 600 300 / 300 Balance 133 / 133 2700 / 2700 Weight 139 lb 12.8 oz Microbiology Reports for the Last 24 Hours: Microbiology 07/09/19 21:40 Urine,Catheterized Urine Culture - Preliminary Gram Negative Rods - Constitutional no acute distress - *Routine Respiratory Exam Present: CTA bilaterally - *Routine Cardiovascular Exam Present: RRR - *Routine Abdominal Exam Present: soft, normoactive bowel sounds. Absent: tenderness - *Routine Extremities Exam Present: edema (bilateral LE's, slightly worse on the right). Absent: cyanosis, clubbing - *Routine Skin Exam Present: warm. Absent: rash - *Routine Neurological Exam Present: alert, oriented X3 Assessment and Plan (1) Elevated troponin Current visit: Yes Status: Acute Category: Medical Code(s): R79.89 - Other specified abnormal findings of blood chemistry (2) Closed right humeral fracture Start date: 07/09/19 Current visit: Yes Status: Acute Qualifiers: Encounter type: initial encounter Humerus Location: proximal Fracture morphology: other fracture Fracture alignment: nondisplaced Qualified Code(s): S42.294A - Other nondisplaced fracture of upper end of right humerus, initial encounter for closed fracture Category: Medical Code(s): S42.301A - Unspecified fracture of shaft of humerus, right arm, initial encounter for closed fracture (3) Fall Current visit: Yes Status: Acute Qualifiers: Encounter type: initial encounter Qualified Code(s): W19.XXXA - Unspecified fall, initial encounter Category: Medical Code(s): W19.XXXA - Unspecified fall, initial encounter (4) Femur fracture, right Current visit: Yes Status: Acute Qualifiers: Encounter type: initial encounter Fracture type: closed Fracture morphology: comminuted Fracture alignment: displaced Category: Medical Code(s): S72.91XA - Unspecified fracture of right femur, initial encounter for closed fracture (5) Hypertension Current visit: Yes Status: Chronic Category: Medical Code(s): I10 - Esse ntial (primary) hypertension (6) Hyperlipidemia Current visit: Yes Status: Chronic Category: Medical Code(s): E78.5 - Hyperlipidemia, unspecified - Assessment and plan all Dx Assessment and Plan for all problems:: We will get labs today. As per Dr. De La Rosa's note, patient will commence with physical therapy. This will likely be difficult at this time due to the humerus fracture. <Manuel Cho - Last Filed: 07/11/19 13:16> Internal Medicine - PN: Subj *Date: 07/11/19 *Time: 13:14 Exam Vital signs and Labs for Last 24 Hours: Temp Pulse Resp BP Pulse Ox 98.6 F 78 20 106/51 L 96 07/11/19 09:00 07/11/19 09:00 07/11/19 09:00 07/11/19 09:00 07/11/19 09:06 Laboratory Results - last 24 hr 07/09/19 21:40: Urine Color Yellow, Urine Appearance Clear, Urine pH 6.0, Ur Specific [place] 1.020, Urine Protein Negative, Urine Glucose (UA) Negative, Urine Ketones Trace, Urine Blood Negative, Urine Nitrate Negative, Urine Bilirubin Negative, Urine Urobilinogen 0.2, Ur Leukocyte Esterase Trace, Urine WBC Occasional, Ur Squamous Epith Cells Occasional, Urine Bacteria 2+ 07/10/19 12:10: Blood Type A Positive, Antibody Screen Negative, Crossmatch (AHG) See Detail 07/10/19 13:07: Blood Type Confirm A Positive 07/11/19 09:07: WBC 11.0 H D, RBC 2.61 L, Hgb 7.9 L*, Hct 24.9 L, MCV 95.5, MCH 30.1, MCHC 31.5 L, RDW 12.8, Plt Count 160, MPV 8.6, Neut % (Auto) 82.2 H, Lymph % (Auto) 11.2, Kane % (Auto) 6.4, Eos % (Auto) 0.2, Baso % (Auto) 0.1, Neut # (Auto) 9.1 H, Lymph # (Auto) 1.2, [place] # (Auto) 0.7, Eos # (Auto) 0.0, Baso # (Auto) 0.0 07/11/19 09:07: Sodium 131 L, Potassium 3.9, Chloride 98, Carbon Dioxide 27, Anion Gap 9.9, BUN 20 H, Creatinine 1.10 H D, Estimated Creat Clear 42, Estimated GFR 48 L, Est GFR ( Amer) 58 L D, Glucose 122 H, Calcium 7.9 L I & O for Last 24 hours: Intake & Output 07/09/19 07/10/19 07/11/19 07/12/19 11:59 11:59 11:59 11:59 Intake Total 733 / 733 3360 / 3360 Output Total 600 / 600 300 / 300 Balance 133 / 133 3060 / 3060 Weight 139 lb 12.8 oz Microbiology Reports for the Last 24 Hours: Microbiology 07/09/19 21:40 Urine,Catheterized Urine Culture - Preliminary Gram Negative Rods Assessment and Plan (1) Elevated troponin Current visit: Yes Status: Acute Category: Medical Code(s): R79.89 - Other specified abnormal findings of blood chemistry (2) Closed right humeral fracture Start date: 07/09/19 Current visit: Yes Status: Acute Qualifiers: Encounter type: initial encounter Humerus Location: proximal Fracture morphology: other fracture Fracture alignment: nondisplaced Qualified Code(s): S42.294A - Other nondisplaced fracture of upper end of right humerus, initial encounter for closed fracture Category: Medical Code(s): S42.301A - Unspecified fracture of shaft of humerus, right arm, initial encounter for closed fracture (3) Fall Current visit: Yes Status: Acute Qualifiers: Encounter type: initial encounter Qualified Code(s): W19.XXXA - Unspecified fall, initial encounter Category: Medical Code(s): W19.XXXA - Unspecified fall, initial encounter (4) Femur fracture, right Current visit: Yes Status: Acute Qualifiers: Encounter type: initial encounter Fracture type: closed Fracture morphology: comminuted Fracture alignment: displaced Category: Medical Code(s): S72.91XA - Unspecified fracture of right femur, initial encounter for closed fracture (5) Hypertension Current visit: Yes Status: Chronic Category: Medical Code(s): I10 - Essential (primary) hypertension (6) Hyperlipidemia Current visit: Yes Status: Chronic Category: Medical Code(s): E78.5 - Hyperlipidemia, unspecified (7) UTI (urinary tract infection) Current visit: Yes Status: Acute Category: Medical Code(s): N39.0 - Urinary tract infection, site not specified (8) Postoperative anemia Current visit: Yes Status: Acute Category: Medical Code(s): D64.9 - Anemia, unspecified - Assessment and plan all Dx Assessment and Plan for all problems:: Patient seen and examined. Concur with above. Will add Levaquin for her UTI pending cultures. Blood transfusion per Dr. De La Rosa. Cardiology recommendations noted.
--- NOTE | 2019-07-11 08:53 | Progress Note ---
Subjective Date: 07/11/19 Time: 08:50 Principal diagnosis: Hip and humerus fracture after fall, elevated troponin Interval history: 78-year-old white female in bed in no acute distress. Discomfort related to the surgery sites but denies chest pain, pressure or tightness. Some swelling of the right side of the face without loss of vision or use of the right side of the face. Question related to patient's fall. Exam Vital signs and Labs for Last 24 Hours: Temp Pulse Resp BP Pulse Ox 98.7 F 89 18 111/53 L 95 07/11/19 07:30 07/11/19 07:30 07/11/19 07:30 07/11/19 07:30 07/11/19 07:30 Laboratory Results - last 24 hr 07/09/19 21:40: Urine Color Yellow, Urine Appearance Clear, Urine pH 6.0, Ur Specific [place] 1.020, Urine Protein Negative, Urine Glucose (UA) Negative, Ur ine Ketones Trace, Urine Blood Negative, Urine Nitrate Negative, Urine Bilirubin Negative, Urine Urobilinogen 0.2, Ur Leukocyte Esterase Trace, Urine WBC Occasional, Ur Squamous Epith Cells Occasional, Urine Bacteria 2+ 07/10/19 12:10: Blood Type A Positive, Antibody Screen Negative, Crossmatch (AHG) See Detail 07/10/19 13:07: Blood Type Confirm A Positive I & O for Last 24 hours: Intake & Output 07/08/19 07/09/19 07/10/19 07/11/19 11:59 11:59 11:59 11:59 Intake Total 733 / 733 3000 / 3000 Output Total 600 / 600 300 / 300 Balance 133 / 133 2700 / 2700 Weight 139 lb 12.8 oz Microbiology Reports for the Last 24 Hours: Microbiology 07/09/19 21:40 Urine,Catheterized Urine Culture - Preliminary Gram Negative Rods - *Routine Respiratory Exam Present: CTA bilaterally. Absent: accessory muscle use, rales, rhonchi, wheezes - *Routine Cardiovascular Exam Present: RRR. Absent: murmur, gallop, rubs - *Routine Extremities Exam Absent: edema, calf tenderness Comments: Right shoulder postop bandage in place. - *Routine Neurological Exam Present: alert, oriented X3, moving all extremities Progress Note: A&P (1) Elevated troponin Status: Acute Current Visit: Yes (2) Closed right humeral fracture Status: Acute Current Visit: Yes (3) Fall Status: Acute Current Visit: Yes (4) Femur fracture, right Status: Acute Current Visit: Yes (5) Hypertension Status: Chronic Current Visit: Yes (6) Hyperlipidemia Status: Chronic Current Visit: Yes Assessment and Plan for All Diagnoses:: 1. Status post surgical correction of right humerus and right hip fracture after fall. 2. Elevated troponin possibly related to demand ischemia surrounding the fall a nd pain related to fractures. Echocardiogram shows normal left ventricular ejection fraction. Patient treated medically with aspirin, beta-karla and isosorbide. No further cardiac work-up at this time. Consider further evaluation as an outpatient after patient is recovered from her surgery. 3. Elevated end-diastolic pressure noted on echocardiogram with evidence of hypertensive heart disease and hyperdynamic left ventricular ejection fraction on echocardiogram. Would recommend discontinuing metolazone and changing lisinopril from 20 mg daily to 10 mg daily with the addition of HCTZ 12.5 mg daily. Continue beta-karla and amlodipine at this time. May need to consider switching amlodipine to verapamil or diltiazem for better treatment of her hypertensive heart disease in the future. 4. Follow-up in our office in 1 to 2 weeks after discharge.
[2019-07-11 09:31] LABS: Basophils % 0.1 % (0.1-2.0); Eosinophils % 0.2 % (0.1-12.0); Hematocrit 24.9 % (37.0-47.0); Lymphocytes # 1.2 K/mm3 (0.7-4.5); Lymphocytes % 11.2 % (10-50); Mean Corpuscular HGB Conc 31.5 g/dL (31.8-35.4); Mean Corpuscular Volume 95.5 fl (81-99); Mean Platelet Volume 8.6 fl (7.4-10.4); Monocytes # 0.7 K/mm3 (0.1-1.0); Monocytes % 6.4 % (1.7-9.3); Neutrophils # 9.1 K/mm3 (1.8-7.8); Neutrophils % 82.2 % (37.0-80.0); Platelet Count 160 K/mm3 (142-424); Red Blood Count 2.61 M/mm3 (4.20-5.40); Red Cell Distribution Width 12.8 % (11.5-17.5)
[2019-07-11 09:42] LABS: Anion Gap 9.9 mEq/L (5-15); Calcium 7.9 mg/dL (8.5-10.1)
[2019-07-11 09:43] LABS: Hemoglobin 7.9 g/dL (12.2-16.2)
--- NOTE | 2019-07-11 12:56 | Progress Note ---
Subjective Date: 07/11/19 Time: 11:30 Principal diagnosis: Hip and humerus fracture after fall, elevated troponin Interval history: Patient is status post right hip bipolar hemiarthroplasty and ORIF right proximal humerus post op day #1. Patient is lying down on the bed and says she is doing well and reports no problems. Patient has some right hip pain and says it's well-controlled with medication. No history of any nausea or vomiting. No history of any cough, chest pain, shortness of breath or palpitations. PN: Obj Ex Vital signs: Temp Pulse Resp BP Pulse Ox 98.6 F 78 20 106/51 L 96 07/11/19 09:00 07/11/19 09:00 07/11/19 09:00 07/11/19 09:00 07/11/19 09:06 Narrative: Laboratory Results - last 24 hr 07/09/19 21:40: Urine Color Yellow, Urine Appearance Clear, Urine pH 6.0, Ur Specific [place] 1.020, Urine Protein Negative, Urine Glucose (UA) Negative, Urine Ketones Trace, Urine Blood Negative, Urine Nitrate Negative, Urine Bilirubin Negative, Urine Urobilinogen 0.2, Ur Leukocyte Esterase Trace, Urine WBC Occasional, Ur Squamous Epith Cells Occasional, Urine Bacteria 2+ 07/10/19 12:10: Blood Type A Positive, Antibody Screen Negative, Crossmatch (AHG) See Detail 07/10/19 13:07: Blood Type Confirm A Positive 07/11/19 09:07: WBC 11.0 H D, RBC 2.61 L, Hgb 7.9 L*, Hct 24.9 L, MCV 95.5, MCH 30.1, MCHC 31.5 L, RDW 12.8, Plt Count 160, MPV 8.6, Neut % (Auto) 82.2 H, Lymph % (Auto) 11.2, [place] % (Auto) 6.4, Eos % (Auto) 0.2, Baso % (Auto) 0.1, Neut # (Auto) 9.1 H, Lymph # (Auto) 1.2, [place] # (Auto) 0.7, Eos # (Auto) 0.0, Baso # (Auto) 0.0 07/11/19 09:07: Sodium 131 L, Potassium 3.9, Chloride 98, Carbon Dioxide 27, Anion Gap 9.9, BUN 20 H, Creatinine 1.10 H D, Estimated Creat Clear 42, Estimated GFR 48 L, Est GFR ( Amer) 58 L D, Glucose 122 H, Calcium 7.9 L Intake & Output 07/09/19 07/10/19 07/11/19 07/12/19 11:59 11:59 11:59 11:59 Intake Total 733 / 733 3360 / 3360 Output Total 600 / 600 300 / 300 Balance 133 / 133 3060 / 3060 Weight 139 lb 12.8 oz Microbiology 07/09/19 21:40 Urine,Catheterized Urine Culture - Preliminary Gram Negative Rods Exam General appearance: alert, active, awake, no acute distress Cardiovascular: regular rate & rhythm, normal peripheral pulses Respiratory: No respiratory distress noted, speaks in full sentences ABD: soft and non tender Neuro: alert, awake, oriented x 3 Psych: normal mood and affect Genitourinary: Catheter in situ. On examination of the lower extremities the limb lengths are equal. She has abduction wedge between the legs. Thigh and calf are soft and nontender. On examination of the right hip the surgical dressings are clean, dry and intact. There is no soakage of the dressings. No evidence of any infection or other complications is noted. Chronic bilateral lower extremity edema present; distal pulses are 1+. Distal sensation is intact to light touch throughout. No motor d eficits noted distally. On examination of her right shoulder, the arm is in a sling. The surgical dressings over the right shoulder are clean, dry and intact. No soakage or strikethrough noted. Distal pulses are 2+ and capillary refill is brisk. She has active range of finger movements. Diagnostic imaging: Postoperative check x-rays of her right shoulder and right hip reviewed along with the radiologist report. The x-rays are satisfactory with good alignment and no complications are noted. I have given paper copies of the x-rays to patient. - Urinary Catheter Management Juarez Cath placed during this visit: no Urethral indwelling: Yes Reason for continuing: Surgical procedure Progress Note: A&P (1) Elevated troponin Status: Acute Current Visit: Yes (2) Closed right humeral fracture Status: Acute Current Visit: Yes (3) Fall Status: Acute Current Visit: Yes (4) Femur fracture, right Status: Acute Current Visit: Yes (5) Hypertension Status: Chronic Current Visit: Yes (6) Hyperlipidemia Status: Chronic Current Visit: Yes Assessment and Plan for All Diagnoses:: I have reviewed the clinical and operative findings and procedure performed progress with the patient. Postoperative H&H is low-recommend transfusion of 2 units of PRBC today. Recheck labs tomorrow morning. Start PT/OT today; mobilize weightbearing as tolerated on the right lower extremity; nonweightbearing on the right upper extremity. Rehab is going to be difficult given the right proximal humerus fracture. Continue DVT prophylaxis. Continue abduction pillow when in bed and continue standard precautions for the posterior approach hip replacement. Discontinue IV fluids when eating and drinking well. Discontinue the urinary catheter. Microbiology results suggest possible UTI- management according to Dr. Cho. Case management consult regarding discharge planning. Continue medical management as per Dr. Cho.
--- NOTE | 2019-07-11 16:38 | Electrocardiograph Report ---
APPROVED REPORT Exam: Resting ECG HR:86 bpm ECG Measurements Heart Rate [address] 158 P 63 QRSd 76 QRS 60 QT 388 T59 QTc 464 <Conclusion> Normal sinus rhythm Normal ECG Electronically signed by : Dov Meyer, 07/11/2019 16:38:16
[2019-07-12 06:53] LABS: Monocytes # 0.5 K/mm3 (0.1-1.0); Monocytes % 5.2 % (1.7-9.3); Red Blood Count 3.27 M/mm3 (4.20-5.40)
[2019-07-12 07:03] LABS: Eosinophils % 0.1 % (0.1-12.0); Lymphocytes % 9.6 % (10-50); Mean Corpuscular Volume 91.8 fl (81-99); Neutrophils # 8.5 K/mm3 (1.8-7.8); Platelet Count 126 K/mm3 (142-424)
[2019-07-12 07:05] LABS: Hemoglobin 9.9 g/dL (12.2-16.2)
[2019-07-12 07:42] LABS: Albumin Level 2.1 gm/dL (3.4-5.0); Albumin/Globulin Ratio 0.6 (1.1-1.8); Anion Gap 10.4 mEq/L (5-15); Bilirubin,Total 0.7 mg/dL (0.2-1.0); Calcium 7.9 mg/dL (8.5-10.1); Globulin 3.3 gm/dl (1.3-3.2); Total Protein,Serum 5.4 gm/dL (6.4-8.2)
[2019-07-12 08:14] LABS: Eosinophils % 1 % (0-3); Lymphocytes % 8 % (10-50); Monocytes % 8 % (2-9); Neutrophils % 83 % (42-76); Nucleated Red Blood Cells 1; RBC Morphology Normal; Total Cells Counted 100
--- NOTE | 2019-07-12 09:22 | Progress Note ---
Internal Medicine - PN: Subj *Date: 07/12/19 *Time: 09:31 Interval history: She rested a little better last night but still having a fair amount of pain. She tolerated her blood transfusion well yesterday. Still not eating well. No nausea or abdominal pain. Exam Vital signs and Labs for Last 24 Hours: Temp Pulse Resp BP Pulse Ox 98.4 F 78 20 135/59 L 93 L 07/12/19 08:00 07/12/19 08:00 07/12/19 08:00 07/12/19 08:00 07/12/19 08:00 Laboratory Results - last 24 hr 07/10/19 12:10: Blood Type A Positive, Antibody Screen Negative, Crossmatch (AHG) See Detail 07/11/19 09:07: WBC 11.0 H D, RBC 2.61 L, Hgb 7.9 L*, Hct 24.9 L, MCV 95.5, MCH 30.1, MCHC 31.5 L, RDW 12.8, Plt Count 160, MPV 8.6, Neut % (Auto) 82.2 H, Lymph % (Auto) 11.2, [place] % (Auto) 6.4, Eos % (Auto) 0.2, Baso % (Auto) 0.1, Neut # (Auto) 9.1 H, Lymph # (Auto) 1.2, [place] # (Auto) 0.7, Eos # (Auto) 0.0, Baso # (Auto) 0.0 07/11/19 09:07: Sodium 131 L, Potassium 3.9, Chloride 98, Carbon Dioxide 27, Anion Gap 9.9, BUN 20 H, Creatinine 1.10 H D, Estimated Creat Clear 42, Estimated GFR 48 L, Est GFR ( Amer) 58 L D, Glucose 122 H, Calcium 7.9 L 07/12/19 06:00: WBC 10.0, RBC 3.27 L D, Hgb 9.9 L D, Hct 30.0 L, MCV 91.8, MCH 30.3, MCHC 33.0, RDW 14.0, Plt Count 126 L, MPV 9.0, Neut % (Auto) 85.0 H, Lymph % (Auto) 9.6 L, [place] % (Auto) 5.2, Eos % (Auto) 0.1, Baso % (Auto) 0.0 L, Neut # (Auto) 8.5 H, Lymph # (Auto) 1.0, [place] # (Auto) 0.5, Eos # (Auto) 0.0, Baso # (Auto) 0.0, Total Counted 100, Neutrophils % (Manual) 83 H, Lymphocytes % (Manual) 8 L, Monocytes % (Manual) 8, Eosinophils % (Manual) 1, Nucleated RBCs 1, Platelet Estimate Normal, RBC Morphology Normal 07/12/19 06:00: Sodium 130 L, Potassium 3.4 L, Chloride 94 L, Carbon Dioxide 29, Anion Gap 10.4, BUN 24 H, Creatinine 1.15 H, Estimated Creat Clear 42, Estimated GFR 46 L, Est GFR ( Amer) 55 L, Glucose 103, Calcium 7.9 L, Total Bilirubin 0.7, AST 87 H D, ALT 20, Alkaline Phosphatase 59, Total Protein 5.4 L D, Albumin 2.1 L, Globulin 3.3 H, Albumin/Globulin Ratio 0.6 L I & O for Last 24 hours: Intake & Output 07/09/19 07/10/19 07/11/19 07/12/19 11:59 11:59 11:59 11:59 Intake Total 733 / 733 3360 / 3360 1797 / 1797 Output Total 600 / 600 300 / 300 600 / 600 Balance 133 / 133 3060 / 3060 1197 / 1197 Weight 139 lb 12.8 oz 147 lb 1 oz Microbiology Reports for the Last 24 Hours: Microbiology 07/09/19 21:40 Urine,Catheterized Urine Culture - Final Escherichia coli 07/10/19 06:10 Blood Blood Culture - Preliminary NO GROWTH AFTER 48 HOURS 07/10/19 06:10 Blood Blood Culture - Preliminary NO GROWTH AFTER 48 HOURS Narrative: She is alert and oriented. Color is improved. Lungs are clear anteriorly. Few crackles in the bases. Heart is regular with a grade 2/6 systolic murmur. Abdomen is soft and nondistended with no tenderness. Extremities with trace edema. Assessment and Plan (1) Elevated troponin Current visit: Yes Status: Acute Category: Medical Code(s): R79.89 - Other specified abnormal findings of blood chemistry (2) Closed right humeral fracture Start date: 07/09/19 Current visit: Yes Status: Acute Qualifiers: Encounter type: initial encounter Humerus Location: proximal Fracture morphology: other fracture Fracture alignment: nondisplaced Qualified Code(s): S42.294A - Other nondisplaced fracture of upper end of right humerus, initial encounter for closed fracture Category: Medical Code(s): S42.301A - Unspecified fracture of shaft of humerus, right arm, initial encounter for closed fracture (3) Fall Current visit: Yes Status: Acute Qualifiers: Encounter type: initial encounter Qualified Code(s): W19.XXXA - Unspecified fall, initial encounter Category: Medical Code(s): W19.XXXA - Unspecified fall, initial encounter (4) Femur fracture, right Current visit: Yes Status: Acute Qualifiers: Encounter type: initial encounter Fracture type: closed Fracture morphology: comminuted Fracture alignment: displaced Category: Medical Code(s): S72.91XA - Unspecified fracture of right femur, initial encounter for closed fracture (5) Hypertension Current visit: Yes Status: Chronic Category: Medical Code(s): I10 - Essential (primary) hypertension (6) Hyperlipidemia Current visit: Yes Status: Chronic Category: Medical Code(s): E78.5 - Hyperlipidemia, unspecified (7) UTI (urinary tract infection) Current visit: Yes Status: Acute Category: Medical Code(s): N39.0 - Urinary tract infection, site not specified (8) Postoperative anemia Current visit: Yes Status: Acute Category: Medical Code(s): D64.9 - Anemia, unspecified - Assessment and plan all Dx Assessment and Plan for all problems:: H&H has improved after transfusion. Blood pressure has been a little low but stable. We will continue with physical therapy today. Care management is arranging skilled care placement for discharge.
--- NOTE | 2019-07-12 20:23 | Progress Note ---
Subjective Date: 07/12/19 Time: 19:35 Principal diagnosis: Hip and humerus fracture after fall, elevated troponin Interval history: Patient is status post right hip bipolar hemiarthroplasty and ORIF right proximal humerus post op day # 2. Patient is lying down on the bed and says she is doing well and reports no problems. She says she is feeling a lot better today than yesterday. Patient still has some right hip and shoulder pain and says it's well-controlled with pain medication. No history of any nausea or vomiting. No history of any cough, chest pain, shortness of breath or palpitations. She says she sat out in the chair for few hours today. PN: Obj Ex Vital signs: Temp Pulse Resp BP Pulse Ox 98.3 F 79 18 112/58 L 90 L 07/12/19 19:39 07/12/19 19:39 07/12/19 19:39 07/12/19 19:39 07/12/19 19:39 Narrative: Laboratory Results - last 24 hr 07/10/19 12:10: Crossmatch (AHG) See Detail 07/12/19 06:00: WBC 10.0, RBC 3.27 L D, Hgb 9.9 L D, Hct 30.0 L, MCV 91.8, MCH 30.3, MCHC 33.0, RDW 14.0, Plt Count 126 L, MPV 9.0, Neut % (Auto) 85.0 H, Lymph % (Auto) 9.6 L, [place] % (Auto) 5.2, Eos % (Auto) 0.1, Baso % (Auto) 0.0 L, Neut # (Auto) 8.5 H, Lymph # (Auto) 1.0, [place] # (Auto) 0.5, Eos # (Auto) 0.0, Baso # (Auto) 0.0, Total Counted 100, Neutrophils % (Manual) 83 H, Lymphocytes % (Manual) 8 L, Monocytes % (Manual) 8, Eosinophils % (Manual) 1, Nucleated RBCs 1, Platelet Estimate Normal, RBC Morphology Normal 07/12/19 06:00: Sodium 130 L, Potassium 3.4 L, Chloride 94 L, Carbon Dioxide 29, Anion Gap 10.4, BUN 24 H, Creatinine 1.15 H, Estimated Creat Clear 42, Estimated GFR 46 L, Est GFR ( Amer) 55 L, Glucose 103, Calcium 7.9 L, Total Bilirubin 0.7, AST 87 H D, ALT 20, Alkaline Phosphatase 59, Total Protein 5.4 L D, Albumin 2.1 L, Globulin 3.3 H, Albumin/Globulin Ratio 0.6 L Exam General appearance: alert, active, awake, no acute distress Cardiovascular: regular rate & rhythm, normal peripheral pulses Respiratory: No respiratory distress noted, speaks in full sentences ABD: soft and non tender Neuro: alert, awake, oriented x 3 Psych: normal mood and affect On examination of the lower extremities the limb lengths are equal. She has abduction wedge between the legs. Thigh and calf are soft and nontender. On examination of the right hip the surgical dressings are clean, dry and intact. There is no soakage of the dressings. No evidence of any infection or other complications is noted. Chronic bilateral lower extremity edema present; distal pulses are 1+. Distal sensation is intact to light touch throughout. No motor deficits noted distally. On examination of her right shoulder, the arm is in a sling. The surgical dressings over the right shoulder are clean, dry and intact. No soakage or strikethrough noted. Distal pulses are 2+ and capillary refill is brisk. She has good active range of elbow, wrist and finger movements. - Urinary Catheter Management Juarez Cath placed during this visit: no Urethral indwelling: Yes Progress Note: A&P (1) Elevated troponin Status: Acute Current Visit: Yes (2) Closed right humeral fracture Status: Acute Current Visit: Yes (3) Fall Status: Acute Current Visit: Yes (4) Femur fracture, right Status: Acute Current Visit: Yes (5) Hypertension Status: Chronic Current Visit: Yes (6) Hyperlipidemia Status: Chronic Current Visit: Yes (7) UTI (urinary tract infection) Status: Acute Current Visit: Yes (8) Postoperative anemia Status: Acute Current Visit: Yes Assessment and Plan for All Diagnoses:: I have reviewed the clinical findings and progress with the patient. Her H&H bumped up appropriately after 2 units of blood transfusion yesterday. Patient is looking and feeling better today compared to the previous day. Continue PT/OT and mobilize weightbearing as tolerated on the right lower extremity; strict nonweightbearing on the right upper extremity. Her rehab is going to be difficult given the right proximal humerus fracture along with the hip fracture. Continue DVT prophylaxis. Continue abduction pillow when in bed and continue standard precautions for the posterior approach hip replacement. Discontinue IV fluids when eating and drinking well. Care management management to look into discharge planning. Continue medical management as per Dr. Cho.
[2019-07-13 06:58] LABS: Basophils % 0.1 % (0.1-2.0); Eosinophils % 0.2 % (0.1-12.0); Hematocrit 30.9 % (37.0-47.0); Hemoglobin 9.8 g/dL (12.2-16.2); Lymphocytes # 0.8 K/mm3 (0.7-4.5); Lymphocytes % 8.7 % (10-50); Mean Corpuscular HGB Conc 31.8 g/dL (31.8-35.4); Mean Corpuscular Volume 92.4 fl (81-99); Mean Platelet Volume 8.2 fl (7.4-10.4); Monocytes # 0.5 K/mm3 (0.1-1.0); Monocytes % 5.3 % (1.7-9.3); Neutrophils # 8.1 K/mm3 (1.8-7.8); Neutrophils % 85.7 % (37.0-80.0); Platelet Count 137 K/mm3 (142-424); Red Blood Count 3.34 M/mm3 (4.20-5.40); Red Cell Distribution Width 13.5 % (11.5-17.5); White Blood Count 9.4 K/mm3 (4.8-10.8)
[2019-07-13 07:04] LABS: Anion Gap 11.4 mEq/L (5-15); Calcium 8.2 mg/dL (8.5-10.1)
[2019-07-13 07:27] LABS: Hypochromasia 1+; Lymphocytes % 7 % (10-50); Neutrophils % 89 % (42-76); Total Cells Counted 100
--- NOTE | 2019-07-13 09:10 | Progress Note ---
Internal Medicine - PN: Subj *Date: 07/13/19 *Time: 09:06 Interval history: She rested fairly well last night. She was able to sit up in the chair for a few hours yesterday but states she had a lot of hip pain. Appetite is a little better. Denies shortness of breath, pleuritic chest pain, cough, abdominal pain or nausea. Exam Vital signs and Labs for Last 24 Hours: Temp Pulse Resp BP Pulse Ox 98.1 F 86 19 135/48 L 98 07/13/19 08:00 07/13/19 08:00 07/13/19 08:00 07/13/19 08:00 07/13/19 08:00 Laboratory Results - last 24 hr 07/13/19 06:26: WBC 9.4, RBC 3.34 L, Hgb 9.8 L, Hct 30.9 L, MCV 92.4, MCH 29.4, MCHC 31.8, RDW 13.5, Plt Count 137 L, MPV 8.2, Neut % (Auto) 85.7 H, Lymph % (Auto) 8.7 L, [place] % (Auto) 5.3, Eos % (Auto) 0.2, Baso % (Auto) 0.1, Neut # (Auto) 8.1 H, Lymph # (Auto) 0.8, [place] # (Auto) 0.5, Eos # (Auto) 0.0, Baso # (Auto) 0.0, Total Counted 100, Neutrophils % (Manual) 89 H, Band Neutrophils % 4.0, Lymphocytes % (Manual) 7 L, Platelet Estimate Slight decrease, Hypochromasia 1+ 07/13/19 06:26: Sodium 130 L, Potassium 3.4 L, Chloride 93 L, Carbon Dioxide 29, Anion Gap 11.4, BUN 15 D, Creatinine 0.90 D, Estimated Creat Clear 50, Estimated GFR 61, Est GFR ( Amer) 73 D, Glucose 107 H, Calcium 8.2 L I & O for Last 24 hours: Intake & Output 07/10/19 07/11/19 07/12/19 07/13/19 11:59 11:59 11:59 11:59 Intake Total 733 / 733 3360 / 3360 1797 / 1797 1750 / 1750 Output Total 600 / 600 300 / 300 600 / 600 1000 / 1000 Balance 133 / 133 3060 / 3060 1197 / 1197 750 / 750 Weight 139 lb 12.8 oz 147 lb 1 oz 151 lb 3 oz Microbiology Reports for the Last 24 Hours: Microbiology 07/09/19 21:40 Urine,Catheterized Urine Culture - Final Escherichia coli 07/10/19 06:10 Blood Blood Culture - Preliminary NO GROWTH AFTER 48 HOURS 07/10/19 06:10 Blood Blood Culture - Preliminary NO GROWTH AFTER 48 HOURS Narrative: He is more alert this morning and color is normal. Lungs are clear anteriorly. Heart is regular. Extremities with no edema. Assessment and Plan (1) Elevated troponin Current visit: Yes Status: Acute Category: Medical Code(s): R79.89 - Other specified abnormal findings of blood chemistry (2) Closed right humeral fracture Start date: 07/09/19 Current visit: Yes Status: Acute Qualifiers: Encounter type: initial encounter Humerus Location: proximal Fracture morphology: other fracture Fracture alignment: nondisplaced Qualified Code(s): S42.294A - Other nondisplaced fracture of upper end of right humerus, initial encounter for closed fracture Category: Medical Code(s): S42.301A - Unspecified fracture of shaft of humerus, right arm, initial encounter for closed fracture (3) Fall Current visit: Yes Status: Acute Qualifiers: Encounter type: initial encounter Qualified Code(s): W19.XXXA - Unspecified fall, initial encounter Category: Medical Code(s): W19.XXXA - Unspecified fall, initial encounter (4) Femur fracture, right Current visit: Yes Status: Acute Qualifiers: Encounter type: initial encounter Fracture type: closed Fracture morphology: comminuted Fracture alignment: displaced Category: Medical Code(s): S72.91XA - Unspecified fracture of right femur, initial encounter for closed fracture (5) Hypertension Current visit: Yes Status: Chronic Category: Medical Code(s): I10 - Essential (primary) hypertension (6) Hyperlipidemia Current visit: Yes Status: Chronic Category: Medical Code(s): E78.5 - Hyperlipidemia, unspecified (7) UTI (urinary tract infection) Current visit: Yes Status: Acute Category: Medical Code(s): N39.0 - Urinary tract infection, site not specified (8) Postoperative anemia Current visit: Yes Status: Acute Category: Medical Code(s): D64.9 - Anemia, unspecified - Assessment and plan all Dx Assessment and Plan for all problems:: She is progressing as expected. Blood pressure has improved. Encourage more out of bed activity today. Care management is arranging disposition in consultation with her brother who is her [id number].
--- NOTE | 2019-07-13 14:12 | Progress Note ---
Subjective Date: 07/13/19 Time: 13:30 Principal diagnosis: Hip and humerus fracture after fall, elevated troponin Interval history: Patient is status post right hip bipolar hemiarthroplasty with the trochanteric coo & co founder plate fixation and ORIF right proximal humerus post op day # 3. Patient is sitting out on a chair and says she is doing well. She says she is feeling a lot better today compared to last couple of days. Patient still has mainly some right hip pain and says it's well-controlled with pain medication. No history of any nausea or vomiting. No history of any cough, chest pain, shortness of breath or palpitations. She also seems a lot more alert and active today. PN: Obj Ex Vital signs: Temp Pulse Resp BP Pulse Ox 97.9 F 66 20 101/47 L 96 07/13/19 12:00 07/13/19 12:00 07/13/19 12:00 07/13/19 12:00 07/13/19 12:00 Narrative: Laboratory Results - last 24 hr 07/10/19 12:10: Crossmatch ([facility]) See Detail 07/13/19 06:26: WBC 9.4, RBC 3.34 L, Hgb 9.8 L, Hct 30.9 L, MCV 92.4, MCH 29.4, MCHC 31.8, RDW 13.5, Plt Count 137 L, MPV 8.2, Neut % (Auto) 85.7 H, Lymph % (Auto) 8.7 L, Russell % (Auto) 5.3, Eos % (Auto) 0.2, Baso % (Auto) 0.1, Neut # (Auto) 8.1 H, Lymph # (Auto) 0.8, Russell # (Auto) 0.5, Eos # (Auto) 0.0, Baso # (Auto) 0.0, Total Counted 100, Neutrophils % (Manual) 89 H, Band Neutrophils % 4.0, Lymphocytes % (Manual) 7 L, Platelet Estimate Slight decrease, Hypochromasia 1+ 07/13/19 06:26: Sodium 130 L, Potassium 3.4 L, Chloride 93 L, Carbon Dioxide 29, Anion Gap 11.4, BUN 15 D, Creatinine 0.90 D, Estimated Creat Clear 50, Estimated GFR 61, Est GFR ( Amer) 73 D, Glucose 107 H, Calcium 8.2 L Exam General appearance: alert, active, awake, no acute distress Cardiovascular: regular rate & rhythm, normal peripheral pulses Respiratory: No respiratory distress noted, speaks in full sentences ABD: soft and non tender Neuro: alert, awake, oriented x 3 Psych: normal mood and affect On examination of the lower extremities the limb lengths are equal. Thigh and calf are soft and nontender. On examination of the right hip the surgical dressings are clean, dry and intact. There is no soakage of the dressings. I have changed the dressings and the incision looks nice and clean. No erythema, induration or discharge noted. No evidence of any infection or other co mplications is noted. Chronic bilateral lower extremity edema present; distal pulses are 1+. Distal sensation is intact to light touch throughout. No motor deficits noted distally. On examination of her right shoulder, the arm is in a sling. The surgical dressings over the right shoulder are clean, dry and intact. No soakage or strikethrough noted. I have changed the dressings and the incision looks clean and healthy. No signs of any infection or complications noted. Sensation intact over the axillary nerve distribution. Distal pulses are 2+ and capillary refill is brisk. She has good active range of elbow, wrist and finger movements. Distal sensation is intact to light touch throughout. - Urinary Catheter Management Juarez Cath placed during this visit: no Urethral indwelling: Yes Progress Note: A&P (1) Elevated troponin Status: Acute Current Visit: Yes (2) Closed right humeral fracture Status: Acute Current Visit: Yes (3) Fall Status: Acute Current Visit: Yes (4) Femur fracture, right Status: Acute Current Visit: Yes (5) Hypertension Status: Chronic Current Visit: Yes (6) Hyperlipidemia Status: Chronic Current Visit: Yes (7) UTI (urinary tract infection) Status: Acute Current Visit: Yes (8) Postoperative anemia Status: Acute Current Visit: Yes Assessment and Plan for All Diagnoses:: I have reviewed the clinical findings and progress with the patient. The surgical dressings were changed and both the incisions are looking healthy. Patient is looking and feeling a lot better today compared to the previous couple of days. Continue PT/OT and mobilize weightbearing as tolerated on the right lower extremity; continue strict nonweightbearing on the right upper extremity. Her rehab is going to be difficult given the right proximal humerus fracture along with the hip fracture. Continue DVT prophylaxis. Continue abduction pillow when in bed and continue standard precautions for the posterior approach hip replacement. Care management to look into discharge planning. Continue medical management as per Dr. Cho.
[2019-07-14 06:19] LABS: Anion Gap 10.4 mEq/L (5-15); Calcium 8.3 mg/dL (8.5-10.1)
--- NOTE | 2019-07-14 08:18 | Progress Note ---
<Larissa Phillips - Last Filed: 07/14/19 08:24> Internal Medicine - PN: Subj *Date: 07/14/19 *Time: 08:24 Interval history: Patient feels she is doing better. Pain in the right arm is less. She states that she did not sit in the chair yesterday although notes indicate that she was up in the chair.. She was somewhat nauseated this morning. She does not have an appetite and not eating as usual. She denies chest pain and shortness of breath. She is using the incentive spirometer. She is voiding without difficulty. She thinks her bowels did move a couple of days ago. She is passing flatus. Urine culture reveals E. coli sensitive to the Levaquin Exam Vital signs and Labs for Last 24 Hours: Temp Pulse Resp BP Pulse Ox 98.5 F 70 17 121/49 L 100 07/14/19 04:00 07/14/19 04:00 07/14/19 04:00 07/14/19 04:00 07/14/19 04:00 Laboratory Results - last 24 hr 07/10/19 12:10: Crossmatch ([facility]) See Detail 07/14/19 05:37: Sodium 131 L, Potassium 3.4 L, Chloride 96 L, Carbon Dioxide 28, Anion Gap 10.4, BUN 21 H D, Creatinine 0.96, Estimated Creat Clear 50, Estimated GFR 56 L, Est GFR ( Amer) 68, Glucose 111 H, Calcium 8.3 L I & O for Last 24 hours: Intake & Output 07/11/19 07/12/19 07/13/19 07/14/19 11:59 11:59 11:59 11:59 Intake Total 3360 / 3360 1797 / 1797 1750 / 1750 540 / 540 Output Total 300 / 300 600 / 600 1200 / 1200 Balance 3060 / 3060 1197 / 1197 550 / 550 540 / 540 Weight 147 lb 1 oz 151 lb 3 oz 151 lb 3 oz - Constitutional no acute distress - *Routine Respiratory Exam Present: CTA bilaterally (Anteriorly and posteriorly) - *Routine Cardiovascular Exam Present: RRR - *Routine Abdominal Exam Present: soft, normoactive bowel sounds. Absent: tenderness - *Routine Extremities Exam Absent: edema Comments: Right arm and right upper leg dressings are clean dry and intact. Full range of motion of fingers and hands and toes. Circulation intact. Assessment and Plan (1) Elevated troponin Current visit: Yes Status: Acute Category: Medical Code(s): R79.89 - Other specified abnormal findings of blood chemistry (2) Closed right humeral fracture Start date: 07/09/19 Current visit: Yes Status: Acute Qualifiers: Encounter type: initial encounter Humerus Location: proximal Fracture morphology: other fracture Fracture alignment: nondisplaced Qualified Code(s): S42.294A - Other nondisplaced fracture of upper end of right humerus, initial encounter for closed fracture Category: Medical Code(s): S42.301A - Unspecified fracture of shaft of humerus, right arm, initial encounter for closed fracture (3) Fall Current visit: Yes Status: Acute Qualifiers: Encounter type: initial encounter Qualified Code(s): W19.XXXA - Unspecified fall, initial encounter Category: Medical Code(s): W19.XXXA - Unspecified fall, initial encounter (4) Femur fracture, right Current visit: Yes Status: Acute Qualifiers: Encounter type: initial encounter Fracture type: closed Fracture morphology: comminuted Fracture alignment: displaced Category: Medical Code(s): S72.91XA - Unspecified fracture of right femur, initial encounter for closed fracture (5) Hypertension Current visit: Yes Status: Chronic Category: Medical Code(s): I10 - Essential (primary) hypertension (6) Hyperlipidemia Current visit: Yes Status: Chronic Category: Medical Code(s): E78.5 - Hyperlipidemia, unspecified (7) UTI (urinary tract infection) Current visit: Yes Status: Acute Category: Medical Code(s): N39.0 - Urinary tract infection, site not specified (8) Postoperative anemia Current visit: Yes Status: Acute Category: Medical Code(s): D64.9 - Anemia, unspecified (9) E. coli urinary tract infection Current visit: Yes Status: Acute Category: Medical Code(s): N39.0 - Urinary tract infection, site not specified; B96.20 - Unspecified Escherichia coli [E. coli] as the cause of diseases classified elsewhere - Assessment and plan all Dx Assessment and Plan for all problems:: Continue with Levaquin for UTI. Ready for discharge for rehab. According to notes location for rehab is not final. <Manuel Cho - Last Filed: 07/14/19 13:59> Internal Medicine - PN: Subj *Date: 07/14/19 *Time: 13:59 Exam Vital signs and Labs for Last 24 Hours: Temp Pulse Resp BP Pulse Ox 98.4 F 65 20 119/51 L 90 L 07/14/19 12:00 07/14/19 12:00 07/14/19 12:00 07/14/19 12:00 07/14/19 12:00 Laboratory Results - last 24 hr 07/14/19 05:37: Sodium 131 L, Potassium 3.4 L, Chloride 96 L, Carbon Dioxide 28, Anion Gap 10.4, BUN 21 H D, Creatinine 0.96, Estimated Creat Clear 50, Estimated GFR 56 L, Est GFR ( Amer) 68, Glucose 111 H, Calcium 8.3 L I & O for Last 24 hours: Intake & Output 07/12/19 07/13/19 07/14/19 07/15/19 11:59 11:59 11:59 11:59 Intake Total 1797 / 1797 1750 / 1750 780 / 780 Output Total 600 / 600 1200 / 1200 1000 / 1000 Balance 1197 / 1197 550 / 550 -220 / -220 Weight 147 lb 1 oz 151 lb 3 oz 151 lb 3 oz Assessment and Plan (1) Elevated troponin Current visit: Yes Status: Acute Category: Medical Code(s): R79.89 - Other specified abnormal findings of blood chemistry (2) Closed right humeral fracture Start date: 07/09/19 Current visit: Yes Status: Acute Qualifiers: Encounter type: initial encounter Humerus Location: proximal Fracture morphology: other fracture Fracture alignment: nondisplaced Qualified Code(s): S42.294A - Other nondisplaced fracture of upper end of right humerus, initial encounter for closed fracture Category: Medical Code(s): S42.301A - Unspecified fracture of shaft of humerus, right arm, initial encounter for closed fracture (3) Fall Current visit: Yes Status: Acute Qualifiers: Encounter type: initial encounter Qualified Code(s): W19.XXXA - Unspecified fall, initial encounter Category: Medical Code(s): W19.XXXA - Unspecified fall, initial encounter (4) Femur fracture, right Current visit: Yes Status: Acute Qualifiers: Encounter type: initial encounter Fracture type: closed Fracture morphology: comminuted Fracture alignment: displaced Category: Medical Code(s): S72.91XA - Unspecified fracture of right femur, initial encounter for closed fracture (5) Hypertension Current visit: Yes Status: Chronic Category: Medical Code(s): I10 - Essential (primary) hypertension (6) Hyperlipidemia Current visit: Yes Status: Chronic Category: Medical Code(s): E78.5 - Hyperlipidemia, unspecified (7) UTI (urinary tract infection) Current visit: Yes Status: Acute Category: Medical Code(s): N39.0 - Urinary tract infection, site not specified (8) Postoperative anemia Current visit: Yes Status: Acute Category: Medical Code(s): D64.9 - Anemia, unspecified (9) E. coli urinary tract infection Current visit: Yes Status: Acute Category: Medical Code(s): N39.0 - Urinary tract infection, site not specified; B96.20 - Unspecified Escherichia coli [E. coli] as the cause of diseases classified elsewhere - Assessment and plan all Dx Assessment and Plan for all problems:: Patient seen and examined this morning. She is medically stable for discharge to skilled rehab for ongoing therapy when disposition is arranged for care management.
--- NOTE | 2019-07-14 09:06 | Progress Note ---
Internal Medicine - PN: Subj *Date: 07/14/19 *Time: 09:06 Exam Vital signs and Labs for Last 24 Hours: Temp Pulse Resp BP Pulse Ox 99.0 F 78 18 128/92 H 94 L 07/14/19 08:00 07/14/19 08:00 07/14/19 08:00 07/14/19 08:00 07/14/19 08:00 Laboratory Results - last 24 hr 07/10/19 12:10: Crossmatch ([facility]) See Detail 07/14/19 05:37: Sodium 131 L, Potassium 3.4 L, Chloride 96 L, Carbon Dioxide 28, Anion Gap 10.4, BUN 21 H D, Creatinine 0.96, Estimated Creat Clear 50, Estimated GFR 56 L, Est GFR ( Amer) 68, Glucose 111 H, Calcium 8.3 L I & O for Last 24 hours: Intake & Output 07/11/19 07/12/19 07/13/19 07/14/19 23:59 23:59 23:59 23:59 Intake Total 4210 / 4210 2517 / 2517 480 / 480 480 / 480 Output Total 1600 / 1600 200 / 200 1000 / 1000 Balance 4210 / 3810 917 / 917 280 / 280 -520 / -520 Weight 66.706 kg 68.577 kg 68.577 kg Assessment and Plan (1) Elevated troponin Current visit: Yes Status: Acute Category: Medical Code(s): R79.89 - Other specified abnormal findings of blood chemistry (2) Closed right humeral fracture Start date: 07/09/19 Current visit: Yes Status: Acute Qualifiers: Encounter type: initial encounter Humerus Location: proximal Fracture morphology: other fracture Fracture alignment: nondisplaced Qualified Code(s): S42.294A - Other nondisplaced fracture of upper end of right humerus, initial encounter for closed fracture Category: Medical Code(s): S42.301A - Unspecified fracture of shaft of humerus, right arm, initial encounter for closed fracture (3) Fall Current visit: Yes Status: Acute Qualifiers: Encounter type: initial encounter Qualified Code(s): W19.XXXA - Unspecified fall, initial encounter Category: Medical Code(s): W19.XXXA - Unspecified fall, initial encounter (4) Femur fracture, right Current visit: Yes Status: Acute Qualifiers: Encounter type: initial encounter Fracture type: closed Fracture morphology: comminuted Fracture alignment: displaced Category: Medical Code(s): S72.91XA - Unspecified fracture of right femur, initial encounter for closed fracture (5) Hypertension Current visit: Yes Status: Chronic Category: Medical Code(s): I10 - Essential (primary) hypertension (6) Hyperlipidemia Current visit: Yes Status: Chronic Category: Medical Code(s): E78.5 - Hyperlipidemia, unspecified (7) UTI (urinary tract infection) Current visit: Yes Status: Acute Category: Medical Code(s): N39.0 - Urinary tract infection, site not specified (8) Postoperative anemia Current visit: Yes Status: Acute Category: Medical Code(s): D64.9 - Anemia, unspecified (9) E. coli urinary tract infection Current visit: Yes Status: Acute Category: Medical Code(s): N39.0 - Urinary tract infection, site not specified; B96.20 - Unspecified Escherichia coli [E. coli] as the cause of diseases classified elsewhere The patient's infection will respond to the chosen ABx?: Yes Is the patient receiving the right drug, dose, and route?: Yes Could a more targeted ABx be ordered?: No (E COLI SENSITIVE TO LEVAQUIN)
--- NOTE | 2019-07-14 10:21 | Discharge Summary ---
General - General Admission date:: 07/09/19 <TammieManuel ricketts - 07/26/19 08:47> 07/09/19 <Larissa Phillips - 07/14/19 10:21> Discharge date: 07/14/19 <JacquelineLarissa - 07/14/19 10:21> HPI HPI: Ms. Velazquez is a 78-year-old relatively healthy female who was carrying groceries from her car when she slipped in the mud and fell landing on her right arm and right hip. She stated she laid on the ground for approximately 1-1/2 hours until someone found her. She was transported to [facility] via ambulance. She stated her temperature was extremely low when she first presented to the emergency room but has since increased. Imaging in the emergency room revealed an avulsion fracture of the greater tuberosity of the humerus with a possible nondisplaced humeral neck fracture. Right hip x-ray showed a nondisplaced intertrochanteric fracture. She was admitted and the right leg was placed in traction. She was started on pain medication and Ortho was consulted for surgery. <Larissa Phillips - 07/14/19 10:21> Hospital Course Hospital Course: With evaluation on admission patient was found to have an elevated troponin. Therefore cardiology was consulted for clearance for surgical intervention of the fractured right humerus and right femur. With cardiology felt troponin elevation was felt due to demand ischemia surrounding the fall and the pain related to the fractures. EKG was normal. Cardiology cleared the patient for surgery and did follow patient throughout her stay. Dr. De La Rosa the orthopedic surgeon performed Hemiarthroplasty of the right hip and open ORIF of the right proximal humerus on 07/10/2019. Patient's hemoglobin postoperatively did drop to 7.9 and she received 2 units of packed red blood cells after which hemoglobin improved to 9.9 and remained stable. She did have quite a bit of pain postoperatively which was controlled with pain medicine. She started physical therapy on 07/11/2019. She was also noted to have a urinary tract infection with cultures revealing E. coli sensitive to the Levaquin which she was already receiving. Potassium was low at 3.4 and she received p.o. potassium. She had ongoing DVT prophylaxis. Patient was nonweightbearing for the right arm and weightbearing for the right leg. She was able to sit up in a wheelchair and tolerated this well. At one point she did have a low blood pressure but this stabilized. Right arm and right leg incisions were found to be healthy when assessed by Dr. De La Rosa with dressing changes. Patient's appetite did improve slightly although she continued with brief nausea at times. She was voiding QS and bowels did move. On 07/14/2019 care management worked with the son and patient and obtained a bed at [facility]. On this date she was felt to have improved and was stable for transfer to this facility for ongoing rehab. Thus she was transferred in stable and satisfactory condition. She was to continue with her abduction pillow and with physical and Occupational Therapy. Medications as per discharge instructions. Follow-up to be at [facility] per physician in that facility. <Larissa Phillips - 07/14/19 13:16> Objective Vital signs: Temp Pulse Resp BP Pulse Ox 98.4 F 65 20 119/51 L 90 L 07/14/19 12:00 07/14/19 12:00 07/14/19 12:00 07/14/19 12:00 07/14/19 12:00 <Manuel Cho - 07/26/19 08:47> Temp Pulse Resp BP Pulse Ox 99.0 F 78 18 128/92 H 94 L 07/14/19 08:00 07/14/19 08:00 07/14/19 08:00 07/14/19 08:00 07/14/19 08:00 <Larissa Phillips - 07/14/19 10:21> Narrative: Exam Vital signs and Labs for Last 24 Hours: Temp Pulse Resp BP Pulse Ox 98.5 F 70 17 121/49 L 100 07/14/19 04:00 07/14/19 04:00 07/14/19 04:00 07/14/19 04:00 07/14/19 04:00 Laboratory Results - last 24 hr 07/10/19 12:10: Crossmatch (AHG) See Detail 07/14/19 05:37: Sodium 131 L, Potassium 3.4 L, Chloride 96 L, Carbon Dioxide 28, Anion Gap 10.4, BUN 21 H D, Creatinine 0.96, Estimated Creat Clear 50, Estimated GFR 56 L, Est GFR ( Amer) 68, Glucose 111 H, Calcium 8.3 L I & O for Last 24 hours: Intake & Output 07/11/19 07/12/19 07/13/19 07/14/19 11:59 11:59 11:59 11:59 Intake Total 3360 / 3360 1797 / 1797 1750 / 1750 540 / 540 Output Total 300 / 300 600 / 600 1200 / 1200 Balance 3060 / 3060 1197 / 1197 550 / 550 540 / 540 Weight 147 lb 1 oz 151 lb 3 oz 151 lb 3 oz - Constitutional no acute distress - *Routine Respiratory Exam Present: CTA bilaterally (Anteriorly and posteriorly) - *Routine Cardiovascular Exam Present: RRR - *Routine Abdominal Exam Present: soft, normoactive bowel sounds. Absent: tenderness - *Routine Extremities Exam Absent: edema Comments: Right arm and right upper leg dressings are clean dry and intact. Full range of motion of fingers and hands and toes. Circulation intact. <Larissa Phillips - 07/14/19 12:50> Results Completed studies during hospitalization [Text1]: 07/09/2019 CT of cervical spine IMPRESSION: 1. No acute fracture. 2. Cervical spondylosis with upper thoracic kyphosis with mild wedging of T1, T2, and T3 which may be chronic. 07/09/2019 chest x-ray IMPRESSION: Atelectatic change right lung base. Avulsion fracture of the right humerus greater tuberosity with possible humeral neck fracture. 07/09/2019 CT of the head IMPRESSION: No acute intracranial finding 07/09/2019 right shoulder x-ray IMPRESSION: Avulsion fracture of the greater tuberosity of the humerus with possible nondisplaced humeral neck fracture which may be confirmed with CT 07/09/2019 x-ray of the right hip IMPRESSION: Nondisplaced intertrochanteric fracture of the right hip 07/09/2019 CT of the pelvis IMPRESSION: Comminuted fracture of the right proximal femur with intertrochanteric and basicervical component with impaction and mild varus angulation of the distal fracture fragment 07/09/2019 CT of the right shoulder IMPRESSION: Impacted mildly displaced right humeral neck fracture with associated avulsion of the greater tuberosity 07/10/2019 echocardiogram Conclusion 1. Left atrium is mildly enlarged, left ventricle is normal size, mild concentric left ventricular hypertrophy, hyperdynamic left ventricular systolic function, visually estimated ejection fraction over 65% with no regional wall motion abnormality. Grade 1 diastolic dysfunction seen without tissue Doppler evidence of raise left atrial pressure. 2. Mild mitral and tricuspid regurgitation, calculated right ventricular systolic pressure is 55 mmHg consistent with moderately elevated right ventricular systolic pressure. 3. Trivial pericardial and left-sided pleural effusion seen. 07/10/2019 x-ray of the right femur IMPRESSION: Known right femoral neck fracture poorly demonstrated on these images.. Mid distal aspect of the right femur are unremarkable. 07/10/2019 right femur x-ray IMPRESSION: Status post right hip hemiarthroplasty with good alignment 07/10/2019 right humerus x-ray IMPRESSION: Good alignment status post ORIF humeral neck fracture 07/11/2019 right femur x-ray IMPRESSION: Good alignment status post right hip hemiarthroplasty placement 07/11/2019 right humeral x-ray IMPRESSION: Good alignment status post ORIF humeral neck fracture <Larissa Phillips - 07/14/19 10:37> Labs on day of discharge: Labs from last 24 hours 07/14/19 07/10/19 05:37 12:10 Sodium 131 L Potassium 3.4 L Chloride 96 L Carbon Dioxide 28 Anion Gap 10.4 BUN 21 H D Creatinine 0.96 Estimated Creat Clear 50 Estimated GFR 56 L Est GFR ( Amer) 68 Glucose 111 H Calcium 8.3 L Crossmatch (AHG) See Detail Preliminary micro results at discharge 07/10/19 06:10 Blood Culture - Preliminary Blood NO GROWTH AFTER 48 HOURS 07/10/19 06:10 Blood Culture - Preliminary Blood NO GROWTH AFTER 48 HOURS <Larissa Phillips - 07/14/19 10:21> DS: Diagnosis - Discharge Diagnosis (1) Elevated troponin Status: Acute (2) Closed right humeral fracture Status: Acute (3) Fall Status: Acute (4) Femur fracture, right Status: Acute (5) Hypertension Status: Chronic (6) Hyperlipidemia Status: Chronic (7) UTI (urinary tract infection) Status: Acute (8) Postoperative anemia Status: Acute (9) E. coli urinary tract infection Status: Acute <Manuel Cho - 07/26/19 08:47> (1) Elevated troponin Status: Acute (2) Closed right humeral fracture Status: Acute (3) Fall Status: Acute (4) Femur fracture, right Status: Acute (5) Hypertension Status: Chronic (6) Hyperlipidemia Status: Chronic (7) UTI (urinary tract infection) Status: Acute (8) Postoperative anemia Status: Acute (9) E. coli urinary tract infection Status: Acute <PhillipsLarissa - 07/14/19 13:05> Discharge Plan - Patient Discharge Instructions ACTIVITY: Continue current activity <JacquelineLarissa - 07/14/19 10:21> DIET: low salt diet <Linda Phillipshy - 07/14/19 10:21> Patient Instructions: Femoral Fracture, Anemia, DI for Femoral Fracture, DI for Hip Replacement, DI for Urinary Tract Infection (UTI), How to Prevent Falls, Open Reduction and Internal Fixation Surgery, DI for Open Reduction Internal Fixation Surgery, DI for Surgical Site Infection, DI for Humeral Fracture <Manuel Cho - 07/26/19 08:47> Forms: <Manuel Cho - 07/26/19 08:47> - Follow up Plan Follow up with: Manuel Cho MD [Primary Care Provider] - Uday De La Rosa MD [Staff Physician] - 07/23/19 1:30 pm (please arrive at 1:00 for x-ray prior to appointment with Dr. De La Rosa) <Manuel Cho - 07/26/19 08:47> Disposition: Xfer SNF <Manuel Cho - 07/26/19 08:47> Home Medications: Home Medications Medication Instructions Recorded Confirmed Type Amlodipine Besylate [Amlodipine 5 mg PO DAILY 07/09/19 07/09/19 History 5mg tab] Cholecalciferol (Vitamin D3) 1,000 unit PO DAILY 07/09/19 07/09/19 History [Vitamin D3 1,000 Unit Cap] Simvastatin 40 mg PO HS 07/09/19 07/09/19 History Acetaminophen [Tylenol 325mg 650 mg PO Q6HP PRN #30 tab 07/14/19 Rx Tablet] Aspirin [Aspirin 81mg EC Tab] 81 mg PO DAILY #30 tablet. 07/14/19 Rx Bisoprolol Fumarate [Bisoprolol 5 mg PO DAILY #30 tab 07/14/19 Rx 5mg Tablet] Ferrous Sulfate 325 mg PO DAILY #30 tab 07/14/19 Rx Hydrocodone/Acetaminophen [[place] 1 each PO Q4HP PRN #30 tab 07/14/19 Rx 5-325 Tablet] Omeprazole [Omeprazole 40mg 40 mg PO DAILY #30 cap 12/09/19 Rx Capsule] Polyethylene Glycol 3350 [Miralax 17 gm PO DAILYP PRN #1 bottle 07/14/19 Rx 17gm Packet] Rivaroxaban [Xarelto 10mg tablet] 10 mg PO DAILY #35 tab 07/14/19 Rx hydroCHLOROthiazide [HCTZ 12.5mg 12.5 mg PO DAILY #30 cap 07/14/19 Rx capsule] levoFLOXacin [Levaquin 500mg 500 mg PO DAILY #7 tab 07/14/19 Rx tab] lisinopriL [Lisinopril 10mg Tab] 10 mg PO DAILY #30 tab 07/14/19 Rx <Manuel Cho - 07/26/19 08:47> Prescriptions/Medication Reconciliation: New Hydrocodone/Acetaminophen [[place] 5-325 Tablet] 1 each PO Q4HP PRN #30 tab PRN Reason: Moderate To Severe Pain Bisoprolol Fumarate [Bisoprolol 5mg Tablet] 5 mg PO DAILY #30 tab Ferrous Sulfate 325 mg PO DAILY #30 tab hydroCHLOROthiazide [HCTZ 12.5mg capsule] 12.5 mg PO DAILY #30 cap levoFLOXacin [Levaquin 500mg tab] 500 mg PO DAILY #7 tab lisinopriL [Lisinopril 10mg Tab] 10 mg PO DAILY #30 tab Polyethylene Glycol 3350 [Miralax 17gm Packet] 17 gm PO DAILYP PRN #1 bottle PRN Reason: Constipation Omeprazole [Omeprazole 40mg Capsule] 40 mg PO DAILY #30 cap Rivaroxaban [Xarelto 10mg tablet] 10 mg PO DAILY #35 tab Aspirin [Aspirin 81mg EC Tab] 81 mg PO DAILY #30 tablet.dr Acetaminophen [Tylenol 325mg Tablet] 650 mg PO Q6HP PRN #30 tab PRN Reason: As Needed For Fever Or Pain Continued Cholecalciferol (Vitamin D3) [Vitamin D3 1,000 Unit Cap] 1,000 unit PO DAILY Simvastatin 40 mg PO HS Amlodipine Besylate [Amlodipine 5mg tab] 5 mg PO DAILY Discontinued Buspirone HCl [Buspar 5mg tablet] 5 mg PO BID Potassium Chloride [Pot Chlor 10 mEq Tab] 10 meq PO DAILY metOLazone [metOLazone 2.5mg Tablet] 2.5 mg PO DAILY Benazepril HCl 20 mg PO DAILY <Manuel Cho - 07/26/19 08:47> - Problem Reconciliation Problems Reviewed?: Yes <Manuel Cho - 07/26/19 08:47> Yes <Larissa Phillips - 07/14/19 13:16> - Additional Information Additional Information: Patient seen and examined. Concur with plan for discharge as outlined above. <Manuel Cho - 07/26/19 08:47>
== END 2019-07-14 16:42 | DRG 470 ==
LOC: ER 17:12 → 2ND 20:42
PROVIDERS: ADMIT Family Medicine; ATTEND Family Medicine
CPT/HCPCS: 36415; 70450; 71010; 71045; 72125; 72192; 73030; 73060; 73200; 73502; 73552; 76000; 80048; 80053; 81001; 83605; 84484; 85007; 85025; 85610; 86850; 87040; 87086; 87088; 87186; 93005; 93306; 94761; 96365; 97163; 97166; 97530; 99284; C1713; C1776; J2405; J2710; P9016

== ENCOUNTER → 2019-07-23 13:54 | Outpatient (CLI) | payer MEDICARE, OTHER, SELFPAY ==
--- NOTE | 2019-07-23 14:02 | XR_ITS ---
PROCEDURE: XR FEMUR RT 2V CLINICAL INDICATION: sp RT bipolar matthew, dos 07/10/19 Follow-up surgery COMPARISON: CT PELVIS WO CON from 07/09/2019 XR FEMUR RT 2V from 07/10/2019 XR HIP RT 2-3V W/PELVIS from 07/11/2019 FINDINGS: Status post right hip hemiarthroplasty with medium size intramedullary kerry and curves bone plate proximally and laterally. Proximal aspect of the plate is over the greater tuberosity with 2 cerclage wires. Good alignment. No evidence of Orthopedic complication. There is a transverse lucency along the inferior aspect of the superior pubic ramus. Nondisplaced fracture is a consideration. IMPRESSION: Status post ORIF right hip with good alignment as described above Possible nondisplaced fracture along the inferior aspect of the superior pubic ramus Dictated by: Cecil Norwood MD 07/23/2019 16:20 Electronically signed by Cecil Norwood MD in [place] 07/23/2019 16:20
--- NOTE | 2019-07-23 14:02 | XR_ITS ---
PROCEDURE: XR SHOULDER RT MIN 2V CLINICAL INDICATION: sp RT proximal humerus ORIF, dos 07/10/19 Follow-up fracture/ COMPARISON: XR SHOULDER RT MIN 2V from 07/09/2019 XR HUMERUS RT from 07/11/2019 FINDINGS: Lateral bone plate is been placed along the proximal humerus stabilizing the comminuted humeral neck fracture. There is good alignment. No significant displacement. The humeral head is located. IMPRESSION: No change, good alignment status post ORIF humeral neck fracture Dictated by: Cecil Norwood MD 07/23/2019 15:00 Electronically signed by Cecil Norwood MD in [facility] 07/23/2019 15:00
== END ==
PROVIDERS: PCP Family Medicine; Visit Provider Orthopaedic Surgery
DX: Z48.89 Encounter for other specified surgical aftercare (principal); S42.301A Unspecified fracture of shaft of humerus, right arm, initial encounter for closed fracture
CPT/HCPCS: 73030; 73552

== ENCOUNTER → 2019-08-20 13:59 | Outpatient (CLI) | payer MEDICARE, OTHER, SELFPAY ==
--- NOTE | 2019-08-20 14:06 | XR_ITS ---
PROCEDURE: XR SHOULDER RT MIN 2V CLINICAL INDICATION: sp ORIF rt humerus Follow-up ORIF COMPARISON: 07/23/2019 FINDINGS: Status post ORIF right humeral neck with lateral bone plate with good alignment of the fracture fragments and no evidence of dislocation or prosthesis malfunction. IMPRESSION: No change good alignment status post ORIF of the right proximal humerus Dictated by: Cecil Norwood MD 08/20/2019 17:48 Electronically signed by Cecil Norwood MD in [facility] 08/20/2019 17:48
--- NOTE | 2019-08-20 14:06 | XR_ITS ---
PROCEDURE: XR HIP RT 2-3V W/PELVIS CLINICAL INDICATION: right hip bipolar hemiarthroplasty Follow-up hip replacement COMPARISON: XR HIP RT 2-3V W/PELVIS from 07/11/2019 FINDINGS: Right bipolar hemiarthroplasty noted with lateral curvilinear bone plate and cerclage wires. The intramedullary component extends to the mid femur region. There is good alignment with no evidence of new fracture or dislocation. IMPRESSION: Good alignment status post right hip hemiarthroplasty with no complications apparent Dictated by: Cecil Norwood MD 08/20/2019 17:47 Electronically signed by Cecil Norwood MD in [facility] 08/20/2019 17:47
== END ==
PROVIDERS: PCP Family Medicine; Visit Provider Orthopaedic Surgery
DX: Z87.81 Personal history of (healed) traumatic fracture (principal); Z98.890 Other specified postprocedural states; Z09 Encounter for follow-up examination after completed treatment for conditions other than malignant neoplasm; Z96.641 Presence of right artificial hip joint
CPT/HCPCS: 73030; 73502

== ENCOUNTER → 2019-10-01 14:03 | Outpatient (CLI) | payer MEDICARE, OTHER, SELFPAY ==
--- NOTE | 2019-10-01 14:10 | XR_ITS ---
PROCEDURE: XR SHOULDER RT MIN 2V CLINICAL INDICATION: sp ORIF RT proximal humerus, DOS 07/10/19 Follow-up fracture/ORIF COMPARISON: XR SHOULDER RT MIN 2V from 07/09/2019 XR SHOULDER RT MIN 2V from 07/23/2019 XR SHOULDER RT MIN 2V from 08/20/2019 FINDINGS: Lateral bone plate with multiple screws remain in place along the proximal aspect of the humerus. Fracture lines are less apparent consistent with healing. The humeral head is located. IMPRESSION: Good alignment status post ORIF healing proximal humeral fracture Dictated by: Cecil Norwood MD 10/01/2019 15:35 Electronically signed by Cecil Norwood MD in [facility] 10/01/2019 15:35
--- NOTE | 2019-10-01 14:10 | XR_ITS ---
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 Good alignment. No evidence of orthopedic complication. IMPRESSION: Status post bipolar prosthesis placement as described above with no significant change Dictated by: Cecil Norwood MD 10/01/2019 15:46 Electronically signed by Cecil Norwood MD in [facility] 10/01/2019 15:46
== END ==
PROVIDERS: PCP Internal Medicine Adolescent Medicine; Visit Provider Orthopaedic Surgery
DX: S72.001A Fracture of unspecified part of neck of right femur, initial encounter for closed fracture (principal); Z96.641 Presence of right artificial hip joint; S42.301A Unspecified fracture of shaft of humerus, right arm, initial encounter for closed fracture; Z09 Encounter for follow-up examination after completed treatment for conditions other than malignant neoplasm
CPT/HCPCS: 73030; 73502

== ENCOUNTER 2019-11-28 13:54 | Inpatient (IN) | payer MEDICARE, OTHER, SELFPAY ==
[2019-11-28] VITALS (18 sets, daily range): BP systolic 83–208; BP diastolic 39–120; PULSE 65–120; RESP 18–32; TEMP 36.1–36.6; O2SAT 68–100; BMI 27.4; BMI 27.6
--- NOTE | 2019-11-28 13:52 | ECG_ITS ---
APPROVED REPORT Exam: Resting ECG HR:96 bpm ECG Measurements Heart Rate 96 AXES HI 128 P 56 QRSd 72 QRS 80 QT 366 T 40 QTc 462 <Conclusion> Normal sinus rhythm Motion artifact Otherwise a normal ECG Electronically signed by : Kade Munoz, 11/30/2019 17:25:04
--- NOTE | 2019-11-28 14:00 | XR_ITS ---
PROCEDURE: XR CHEST PORTABLE CLINICAL HISTORY: chest pain COMPARISON: XR CHEST AP from 07/09/2019 FINDINGS: There is cardiomegaly with pulmonary venous congestion consistent with CHF. There is bilateral lower lobe airspace disease with small bilateral effusions. The left hilum is prominent. These findings have developed since the previous exam. Postsurgical changes noted of the right humerus IMPRESSION: Cardiomegaly with CHF. Bilateral lower lobe pneumonia with effusions Dictated by: Cecil Norwood MD 11/28/2019 14:50 Electronically signed by Cecil Norwood MD in [facility] 11/28/2019 14:50
[2019-11-28 14:28] LABS: Basophils # 0.1 K/mm3 (0-0.2); Basophils % 0.8 % (0.1-2.0); Eosinophils # 0.1 K/mm3 (0.0-0.4); Hematocrit 34.6 % (37.0-47.0); Hemoglobin 10.8 g/dL (12.2-16.2); Lymphocytes # 0.8 K/mm3 (0.7-4.5); Lymphocytes % 10.8 % (10-50); Mean Corpuscular HGB Conc 31.2 g/dL (31.8-35.4); Mean Corpuscular Hemoglobin 30.4 pg (27.0-31.2); Mean Corpuscular Volume 97.3 fl (81-99); Mean Platelet Volume 7.9 fl (7.4-10.4); Monocytes # 0.3 K/mm3 (0.1-1.0); Monocytes % 3.9 % (1.7-9.3); Neutrophils # 6.5 K/mm3 (1.8-7.8); Neutrophils % 83.5 % (37.0-80.0); Platelet Count 390 K/mm3 (142-424); Red Blood Count 3.56 M/mm3 (4.20-5.40); Red Cell Distribution Width 13.8 % (11.5-17.5); White Blood Count 7.8 K/mm3 (4.8-10.8)
[2019-11-28 14:42] LABS: Anion Gap 9.1 mEq/L (5-15); Blood Urea Nitrogen 21 mg/dl (7-17); Calcium 9.8 mg/dl (8.4-10.2); Carbon Dioxide 29 mmol/L (22.0-30.0); Chloride 103 mmol/L (98-107); Creatinine Clearance Estimated 49 mL/min (50-200); Estimated Glomerular Filt Rate 81 ml/min (>60); GFR (African American) 98 ML/MIN (>60); Glucose 121 mg/dl (74-100); Potassium 4.1 mmoL/L (3.5-5.1); Sodium 137 mmol/L (136-145)
[2019-11-28 14:55] LABS: Troponin I < 0.01 ng/ml (0.00-0.034)
[2019-11-28 15:07] LABS: ABG Base Excess -1.6 mmol/L (-2.4-2.3); ABG HCO3 23.1 mmhg (22.0-26.0); ABG Oxygen Saturation 90 % (90-100); ABG PCO2 37.7 mmhg (35.0-45.0); ABG PH 7.41 mmol/L (7.35-7.45); ABG PO2 62.4 mmhg (80-100); ABG TCO2 24.3 mmhg (23-27)
[2019-11-28 15:08] LABS: Allen's Test ACCEPTABLE; Oxygen 3 %; Source RADIAL
--- NOTE | 2019-11-28 15:12 | CT_ITS ---
PROCEDURE: CT CHEST WO CON CLINICAL INDICATION: abnormal chest xray Shortness of air, chest pain COMPARISON: XR CHEST PORTABLE from 11/28/2019 TECHNIQUE: Axial images obtained with sagittal and coronal reformats. All CT scans at the facility use one or more dose reduction, viz: automated exposure control, ma/kV adjustment per patient size (including targeted exams where dose is matched to indication, i.e. head), or iterative reconstruction technique. The FINDINGS: There is moderate cardiomegaly. Coronary artery calcifications are present. There is a medium-sized right pleural effusion and a small left pleural effusion with subpulmonic components on both sides. There are scattered areas of dense consolidation in the right upper lobe centrally and right lower lobe with moderate volume loss of the right lower lobe. There is also consolidation in the right middle lobe. There are areas of consolidation in the left upper lobe and left lower lobe with consolidation/volume loss of the lingula. IMPRESSION: Multifocal bilateral pneumonia with bilateral pleural effusions with volume loss of the lower lobes on both sides along with cardiomegaly and severe coronary artery calcification. Dictated by: Cecil Nrowood MD 11/28/2019 15:57 Electronically signed by Cecil Norwood MD in [facility] 11/28/2019 15:57
--- NOTE | 2019-11-28 15:26 | [facility].EDCP ---
ED Disposition Clinical Impression: Chest pain, Atypical chest pain, Hypertension, Suspected COVID-19 virus infection, Bilateral pneumonia, Pneumonia, Hypertensive urgency Disposition: Admitted as Observation Condition on Discharge: Serious - Critical Care Critical Care Time: Yes (20) Attestation: On 11/28/19, the high probability of a clinically significant, sudden or life threatening deterioration of the following system(s) required my full and direct attention, intervention and personal management. The time I documented below is in addition to time spent performing reported procedures but includes the following listed in this critical care notation. Patient also became extremely hypertensive 10 mg hydralazine is given IV patient's blood pressure is somewhat stable we will start her on p.o. clonidine on the floor. Total Critical Care Time: 20 Vital system(s) involved:: Respiratory Failure, Renal Failure My critical care processes included: Assessment & monitoring of V/S, Initial and Re-exams, Data Review/Interpretation, Coordinating Care, Medication Orders and management, Documentation Medical Decision Making - Medical Records Medical records reviewed: Yes: I reviewed the patient's medical records. - Devin Inquiry Pt receiving controlled substance: No Vital Signs: 11/28/19 13:55 11/28/19 15:40 Pulse Rate [Radial] 90 120 H Respiratory Rate 18 30 H Blood Pressure [Right Arm] 193/97 H Blood Pressure Mean [Right Arm] 129 Blood Pressure Source [Right Arm] Automatic Cuff Blood Pressure Position [Right Arm] Sitting 02 Sat by Pulse Oximetry 85 L 79 L Oxygen Delivery Method Room Air Nasal Cannula Oxygen Flow Rate (LPM) 4 - Lab Data Lab results reviewed: Yes: I reviewed the patient's lab results. Lab Results 11/28/19 14:00: WBC 7.8, RBC 3.56 L, Hgb 10.8 L, Hct 34.6 L, MCV 97.3, MCH 30.4, MCHC 31.2 L, RDW 13.8, Plt Count 390, MPV 7.9, Neut % (Auto) 83.5 H, Lymph % (Auto) 10.8, [place] % (Auto) 3.9, Eos % (Auto) 1.0, Baso % (Auto) 0.8, Neut # (Auto) 6.5, Lymph # (Auto) 0.8, [place] # (Auto) 0.3, Eos # (Auto) 0.1, Baso # (Auto) 0.1 11/28/19 14:26: Sodium 137, Potassium 4.1, Chloride 103, Carbon Dioxide 29, Anion Gap 9.1, BUN 21 H, Creatinine 0.70, Estimated Creat Clear 49, Estimated GFR 81, Est GFR ( Amer) 98, Glucose 121 H, Calcium 9.8, Troponin I < 0.01 11/28/19 14:49: Specimen Source Radial, O2 % 3, ABG pH 7.41, ABG pCO2 37.7, ABG pO2 62.4 L, ABG HCO3 23.1, ABG Total CO2 24.3, ABG O2 Saturation 90, ABG Base Excess -1.6, Cecil Test Acceptable Result diagrams: 11/28/19 14:00 11/28/19 14:26 Orders (Tests/Meds): ED MEDICATIONS Discontinued Medications Generic Name Dose Route Start Last Admin Trade Name Freq PRN Reason Stop Dose Admin Aspirin 324 mg 11/28/19 14:00 11/28/19 14:03 Aspirin 81mg Chewable Tablet PO 11/28/19 14:01 324 mg ONCE ONE Administration Furosemide 80 mg 11/28/19 16:06 Lasix 100mg/10ml Vial IV 11/28/19 16:07 ONCE ONE Hydralazine HCl 10 mg 11/28/19 15:56 Apresoline 20mg/Ml 1ml Vial IV 11/28/19 15:57 ONCE ONE ORDERS Category Date Time Status Lactic Acid Stat Lab 11/28/19 15:20 Ordered SARS-CoV-2, MAX Stat Lab 11/28/19 15:51 Ordered Troponin I Q3H Lab 11/28/19 17:00 Ordered Troponin I Q3H Lab 11/28/19 20:00 Ordered Blood Culture Stat Micro 11/28/19 15:20 Ordered - Radiology Data #1 Image(s): Chest Image Reviewed: Yes I reviewed the patient's radiology image w/the ED provider Preliminary Findings: Abnormal (Patient has a bilateral lower lobe pneumonias with effusions) - CT Data CT Scan: Chest Time Received: 15:[address] Reviewed: Yes: I discussed the CT results w/the radiologist, I have viewed the radiologist's interpretation Preliminary Findings: Abnormal (Multifocal bilateral pneumonia with bilateral pleural effusions with volume loss of the lower lobes on both sides along with cardiomegaly and severe coronary artery calcification
--- NOTE | 2019-11-28 15:41 | PC.NURSE ---
PT BECAME INCREASING SOA AND SATS BEGAN TO DROP INTO 70S, PT MOVED TO ROOM 4 AND OUT IN ISOLATION PRECAUTIONS
--- NOTE | 2019-11-28 16:06 | PC.NURSE ---
NOTIFIED THAT PT WAS 68 ON 5L NC, STATED TO PUT PT ON 100% NRB
--- NOTE | 2019-11-28 16:15 | PC.NURSE ---
PT BROTHER CALLED FOR UPDATE, GAVE BROTHER UPDATE ON CARE
--- NOTE | 2019-11-28 16:22 | HMH.HP ---
*Admission Date: 11/28/19 <Mya Arenas - 11/28/19 16:30> *Chief complaint: chest pain <Mya Arenas 11/28/19 16:30> *History of present illness: Ms. Velazquez is a 79-year-old female who was just recently discharged from the [facility] after a stay for rehab following a right hip and right humerus fracture. She presented to the ER with c/o chest pain for approx 24 hours. It is worse with exertion, coughing, and sneezing and better with rest. She has had fatigue and generally not felt well for the last 3 days. She did not complain of cough but started to struggle breathing while in the ER. Her blood pressure was very elevated. Her sats were initally 96% on room air but she was having difficulty forming complete sentences. She denied any fever, shakes, or chills. She stated that she had coughed a couple of times and it had been productive. She denies any sore throat or headache. She has not had any cardiac issues, but she does have a strong family history of heart disease. She had a CXR while in the ER showing bilateral lower lobe pneumonia with effusions. A chest CT was ordered. It showed multifocal bilateral pneumonia with bilateral pleural effusions with volume loss of the lower lobes on both sides along with cardiomegaly and severe coronary artery calcification. She started to desat when she came back from CT with sats in the low 80s. She was repositioned and given an albuterol neb and her sats did return back into the low 90s. ABG's showed a pO2 of 62.4. She was given hydralazine, clonidine, and lasix along with a neb treatment in the ER. She was also started on zosyn and levaquin. She was placed on a nonrebreather and she was also COVID tested and moved to the ICU. Once in the ICU, she was placed on BIPAP. <Mya Arenas 11/28/19 17:22> [facility] History I have reviewed the patient's past medical history: Yes <Mya Arenas 11/28/19 16:39> Medical History: Reports:: Hyperlipidemia, Hypertension Denies:: Cancer, Diabetes Mellitus Type 1, Diabetes Mellitus Type 2, MRSA <Mya Arenas 11/28/19 16:30> *Have you ever received a pneumonia vaccine?: Yes <Mya Arenas 11/28/19 16:30> *Have you received a flu vaccine this season?: Yes <Mya Arenas 11/28/19 16:30> Other Medical History: Reports: Other (vit D deficiency, venous insufficiency, ORIF R Humerus, Hemiarthroplasty R ) <Mya Arenas 11/28/19 16:39> Other Surgeries: Yes: Appendectomy, Cholecystectomy, Hysterectomy-Total, Other <Mya Arenas 11/28/19 16:39> Amputation: No <Mya Arenas 11/28/19 16:30> Comment: vit D deficiency, venous insufficiency, ORIF R Humerus, Hemiarthroplasty R hip <Mya Arenas 11/28/19 16:39> - *Social History Educational Level: Completed High School <Mya Arenas 11/28/19 16:30> Smoking Status: Never smoker <Mya Arenas 11/28/19 16:30> Alcohol Intake: never <Mya Arenas 11/28/19 16:30> Substance Use Type: denies use <Mya Arenas 11/28/19 16:30> *Occupational Status:: disabled <Mya Arenas 11/28/19 16:30> Housing: [facility] <Mya Arenas 11/28/19 16:30> *Travel in the last 8 weeks: None <Mya Arenas 11/28/19 16:30> Family Hx:: Coronary Artery Disease, Diabetes, Heart Attack, Hypertension, Mental illness <Mya Arenas 11/28/19 16:30> Review of Systems - Review of Systems Review of systems:: other (difficult to get complete ROS due he dyspnea and being on BiPAP) <Manuel Cho 11/28/19 18:43> - Constitutional Reports fatigue, Reports lack of energy, Denies fever(s) <Manuel Cho 11/28/19 18:43> - Eyes Denies irritation <Manuel Cho 11/28/19 18:43> - ENT Reports nasal congestion, Denies sinus pain <Manuel Cho 11/28/19 18:43> - *Cardiovascular Reports shortness of breath with activity, Reports leg swelling (started last week), Denies chest pain with activity <Manuel Cho - 11/28/19 18:43> - *Respiratory R
[2019-11-28 16:32] LABS: Microscopic, Urine URINE MICROSCOPIC (MICROSCOPIC)
[2019-11-28 16:33] LABS: Appearance,Urine CLEAR (Clear); Bilirubin,Urine Negative (Negative); Blood, Urine 1+ (Negative); Color,Urine YELLOW (Yellow); Glucose,Urine (UA) TRACE (Negative); Ketones,Urine Negative (Negative); Leukocyte Esterase,Urine Negative (Negative); Nitrate,Urine Negative (Negative); Protein,Urine 2+ (Negative); Specific Gravity, Urine 1.025 (1.005-1.030); Urobilinogen,Urine 0.2 EU/dl (0.2)
[2019-11-28 16:40] LABS: Mucus,Urine 2+ /lpf; WBC,Urine 20-50 #/hpf (0-3)
--- NOTE | 2019-11-28 17:15 | PC.NURSE ---
Due to CDC guidelines of limited use of Bipap with r/o Covid patients, verified order for BIPAP with Dr Cho was obtained. Pt in negative pressure isolation room and extra viral/bacterial filter added between mask and circuit.
[2019-11-28 17:59] LABS: ABG Base Excess 3.4 mmol/L (-2.4-2.3); ABG HCO3 27.4 mmhg (22.0-26.0); ABG Oxygen Saturation 97 % (90-100); ABG PCO2 40.4 mmhg (35.0-45.0); ABG PH 7.45 mmol/L (7.35-7.45); ABG PO2 96.3 mmhg (80-100); ABG TCO2 28.6 mmhg (23-27)
[2019-11-28 18:02] LABS: Allen's Test ACCEPTABLE; Oxygen 50 %; Source Left Radial; Vent Rate 20
[2019-11-28 18:18] LABS: Troponin I 0.04 ng/ml (0.00-0.034)
--- NOTE | 2019-11-28 18:35 | PC.NURSE ---
spoke with family/attending md. he is aware of sudden drop of bp and relating to bp meds given in er. md finds patient at this time in no need of intubation. to call md prevocational/rehabilitation counselor with any changes. patient tolerating bipap well. decrease in respiratory rate from 30s to mid 20s. heart rate 70s. complaints of some abdominal and back pain md aware. will continue to monitor.
--- NOTE | 2019-11-28 18:40 | PC.NURSE ---
admission limited because of bipap
--- NOTE | 2019-11-28 18:47 | PC.NURSE ---
patient kaity called stating he did not want information given out to other people except the the noc engineer milad benitez. however patient is alert and oriented x4. she requests that information be able to be given to to yessenia briceno, [place] and her niece alec
[2019-11-28 20:43] LABS: Basophils # 0.1 K/mm3 (0-0.2); Basophils % 0.6 % (0.1-2.0); Eosinophils # 0.1 K/mm3 (0.0-0.4); Eosinophils % 0.7 % (0.1-12.0); Hematocrit 32.2 % (37.0-47.0); Hemoglobin 10.1 g/dL (12.2-16.2); Lymphocytes # 0.7 K/mm3 (0.7-4.5); Lymphocytes % 7.7 % (10-50); Mean Corpuscular HGB Conc 31.5 g/dL (31.8-35.4); Mean Corpuscular Hemoglobin 29.7 pg (27.0-31.2); Mean Corpuscular Volume 94.3 fl (81-99); Mean Platelet Volume 7.7 fl (7.4-10.4); Monocytes # 0.5 K/mm3 (0.1-1.0); Monocytes % 5.1 % (1.7-9.3); Neutrophils # 7.8 K/mm3 (1.8-7.8); Platelet Count 346 K/mm3 (142-424); Red Blood Count 3.41 M/mm3 (4.20-5.40); Red Cell Distribution Width 13.6 % (11.5-17.5)
[2019-11-28 20:48] LABS: MANUAL DIFFERENTIAL MANUAL DIFFERENTIAL (MANUAL DIFF)
[2019-11-28 21:25] LABS: Chloride 101 mmol/L (98-107); Sodium 138 mmol/L (136-145)
[2019-11-28 21:28] LABS: Alanine Aminotransferase 36 U/L (12-78); Albumin Level 3.2 g/dl (3.5-5.0); Alkaline Phosphatase 130 U/L (38-126); Aspartate Amino Transferase 47 U/L (14-36); Bilirubin,Total 0.4 mg/dl (0.2-1.3); Blood Urea Nitrogen 20 mg/dl (7-17); Carbon Dioxide 30 mmol/L (22.0-30.0); Creatinine Clearance Estimated 49 mL/min (50-200); Estimated Glomerular Filt Rate 81 ml/min (>60); GFR (African American) 98 ML/MIN (>60); Globulin 3.1 g/dL (1.3-3.2); Total Protein,Serum 6.3 g/dl (6.3-8.2)
[2019-11-28 21:29] LABS: Calcium 9.3 mg/dl (8.4-10.2); Glucose 112 mg/dl (74-100)
[2019-11-28 21:40] LABS: Troponin I 0.05 ng/ml (0.00-0.034)
[2019-11-28 21:40] LABS: Lymphocytes % 14 % (10-50); Monocytes % 5 % (2-9); Neutrophils % 81 % (42-76); Platelet Estimate Normal; RBC Morphology Normal; Total Cells Counted 100
--- NOTE | 2019-11-28 22:11 | PC.NURSE ---
updated on last troponin of 0.05 and status of pt. Pt is currently resting well at this time. Pt denies any pain or discomfort at this time. VSS. Pt is currently NSR on telemetry. She remains on Bipap. Abdomen distended. No N/V noted. BLE +2 edematous and skin scaly. F/C draining to bedside with pale, yellow urine. 525 cc urine output. Call light at bedside. Will continue to monitor.
[2019-11-29] VITALS (17 sets, daily range): BP systolic 110–166; BP diastolic 51–82; PULSE 62–100; RESP 18–23; TEMP 36.6–37.4; O2SAT 90–100; BMI 24.9
--- NOTE | 2019-11-29 04:44 | PC.NURSE ---
Pt A&O x3, sitting up in bed eating applesauce at this time. She is currently on 2L NC with O2 sats maintaining in lower 90s. Pt c/o this AM of headache. Temp 99.3 Axillary. Tylenol 1000 mg PO administered per oct. Pt has also c/o discomfort to back. She continues to decline to turn. Pt states that it will make her back hurt more. She did say that it has improved since yesterday. Pt has remained NSR on telemetry. BP has been stable this shift. BLE edematous and scaly. Erythema also noted. Abdomen continues to be distended and firm. Pt denies any tenderness. BS x4. Pt states BM have been regular. F/C draining to bedside. Total urine output 1075 cc. No other concerns at this time. Will continue to monitor.
[2019-11-29 06:11] LABS: Basophils % 0.3 % (0.1-2.0); Eosinophils # 0.1 K/mm3 (0.0-0.4); Lymphocytes # 1.2 K/mm3 (0.7-4.5); Lymphocytes % 18.8 % (10-50); Mean Corpuscular HGB Conc 31.4 g/dL (31.8-35.4); Mean Corpuscular Hemoglobin 29.8 pg (27.0-31.2); Mean Corpuscular Volume 94.9 fl (81-99); Mean Platelet Volume 7.4 fl (7.4-10.4); Monocytes # 0.4 K/mm3 (0.1-1.0); Monocytes % 6.4 % (1.7-9.3); Neutrophils # 4.8 K/mm3 (1.8-7.8); Neutrophils % 73.5 % (37.0-80.0); Platelet Count 323 K/mm3 (142-424); Red Cell Distribution Width 13.7 % (11.5-17.5); White Blood Count 6.6 K/mm3 (4.8-10.8)
[2019-11-29 06:15] LABS: Chloride 101 mmol/L (98-107); Potassium 3.9 mmoL/L (3.5-5.1); Sodium 136 mmol/L (136-145)
[2019-11-29 06:18] LABS: Alanine Aminotransferase 26 U/L (12-78); Albumin Level 2.8 g/dl (3.5-5.0); Alkaline Phosphatase 101 U/L (38-126); Anion Gap 8.9 mEq/L (5-15); Aspartate Amino Transferase 33 U/L (14-36); Bilirubin,Total 0.5 mg/dl (0.2-1.3); Blood Urea Nitrogen 20 mg/dl (7-17); Carbon Dioxide 30 mmol/L (22.0-30.0); Creatinine Clearance Estimated 44 mL/min (50-200); Estimated Glomerular Filt Rate 60 ml/min (>60); GFR (African American) 73 ML/MIN (>60); Globulin 2.8 g/dL (1.3-3.2); Total Protein,Serum 5.6 g/dl (6.3-8.2)
[2019-11-29 06:19] LABS: Glucose 90 mg/dl (74-100)
[2019-11-29 07:26] LABS: Hematocrit 26.6 % (37.0-47.0); Hemoglobin 8.4 g/dL (12.2-16.2); Red Blood Count 2.81 M/mm3 (4.20-5.40)
--- NOTE | 2019-11-29 08:00 | XR_ITS ---
PROCEDURE: XR CHEST PORTABLE CLINICAL HISTORY: pneumonia COMPARISON: XR CHEST AP from 07/09/2019 XR CHEST PORTABLE from 11/28/2019 CT CHEST WO CON from 11/28/2019 FINDINGS: There is cardiomegaly without failure. There is continued bilateral lower lobe consolidation with effusions. The consolidation appears slightly worse compared to the previous exam. Upper lobes are clear. The left hilum is less prominent on today's exam. Prior ORIF of the right humerus IMPRESSION: Slight worsening bilateral lower lobe pneumonia with bilateral effusions Dictated by: Cecil Norwood MD 11/29/2019 09:41 Electronically signed by Cecil Norwood MD in [place] 11/29/2019 09:41
[2019-11-29 08:50] LABS: Covid-19 Nasal PCR Sendout Lex Not Detected
--- NOTE | 2019-11-29 10:00 | HMH.ACPN2 ---
Internal Medicine - PN: Subj *Date: 11/29/19 *Time: 10:00 Interval history: She did well through the night. She was weaned off the BiPAP and onto 2 L of nasal oxygen at about 4 AM and is done well with sats in the low 90s since then. Subjectively states she feels much better and is breathing easier. She still has some mild left-sided pleuritic pain. No significant cough. She ate breakfast this morning. No nausea or abdominal pain. Exam Vital signs and Labs for Last 24 Hours: Temp Pulse Resp BP Pulse Ox 97.9 F 80 23 111/54 L 93 L 11/29/19 08:00 11/29/19 08:00 11/29/19 08:00 11/29/19 08:00 11/29/19 08:00 Laboratory Results - last 24 hr 11/28/19 14:00: WBC 7.8, RBC 3.56 L, Hgb 10.8 L, Hct 34.6 L, MCV 97.3, MCH 30.4, MCHC 31.2 L, RDW 13.8, Plt Count 390, MPV 7.9, Neut % (Auto) 83.5 H, Lymph % (Auto) 10.8, [place] % (Auto) 3.9, Eos % (Auto) 1.0, Baso % (Auto) 0.8, Neut # (Auto) 6.5, Lymph # (Auto) 0.8, [place] # (Auto) 0.3, Eos # (Auto) 0.1, Baso # (Auto) 0.1 11/28/19 14:26: Sodium 137, Potassium 4.1, Chloride 103, Carbon Dioxide 29, Anion Gap 9.1, BUN 21 H, Creatinine 0.70, Estimated Creat Clear 49, Estimated GFR 81, Est GFR ( Amer) 98, Glucose 121 H, Calcium 9.8, Troponin I < 0.01 11/28/19 14:49: Specimen Source Radial, O2 % 3, ABG pH 7.41, ABG pCO2 37.7, ABG pO2 62.4 L, ABG HCO3 23.1, ABG Total CO2 24.3, ABG O2 Saturation 90, ABG Base Excess -1.6, Cecil Test Acceptable 11/28/19 15:40: Lactate 2.0 04/24/20 15:55: COVID-19 (MAX) Not detected 11/28/19 16:00: Urine Color Yellow, Urine Appearance Clear, Urine pH 7.0, Ur Specific [place] 1.025, Urine Protein 2+, Urine Glucose (UA) Trace, Urine Ketones Negative, Urine Blood 1+, Urine Nitrate Negative, Urine Bilirubin Negative, Urine Urobilinogen 0.2, Ur Leukocyte Esterase Negative, Urine RBC 5-10, Urine WBC 20-50, Ur Squamous Epith Cells 3-5, Urine Mucus 2+ 11/28/19 17:45: Troponin I 0.04 H 11/28/19 17:56: Specimen Source Left radial, O2 % 50, ABG pH 7.45, ABG pCO2 40.4, ABG pO2 96.3, ABG HCO3 27.4 H, ABG Total CO2 28.6 H, ABG O2 Saturation 97, ABG Base Excess 3.4 H, Cecil Test Acceptable, Vent Rate 20 11/28/19 20:15: WBC 9.0, RBC 3.41 L, Hgb 10.1 L, Hct 32.2 L, MCV 94.3, MCH 29.7, MCHC 31.5 L, RDW 13.6, Plt Count 346, MPV 7.7, Neut % (Auto) 86.0 H, Lymph % (Auto) 7.7 L, [place] % (Auto) 5.1, Eos % (Auto) 0.7, Baso % (Auto) 0.6, Neut # (Auto) 7.8, Lymph # (Auto) 0.7, [place] # (Auto) 0.5, Eos # (Auto) 0.1, Baso # (Auto) 0.1, Total Counted 100, Neutrophils % (Manual) 81 H, Lymphocytes % (Manual) 14, Monocytes % (Manual) 5, Platelet Estimate Normal, RBC Morphology Normal 11/28/19 20:48: Troponin I 0.05 H 11/28/19 20:48: Sodium 138, Potassium 4.0, Chloride 101, Carbon Dioxide 30, Anion Gap 11.0, BUN 20 H, Creatinine 0.70, Estimated Creat Clear 49, Estimated GFR 81, Est GFR ( Amer) 98, Glucose 112 H, Calcium 9.3, Total Bilirubin 0.4, AST 47 H, ALT 36, Alkaline Phosphatase 130 H, Total Protein 6.3, Albumin 3.2 L, Globulin 3.1, Albumin/Globulin Ratio 1.0 L 11/29/19 05:30: WBC 6.6 D, RBC 2.81 L, Hgb 8.4 L D, Hct 26.6 L, MCV 94.9, MCH 29.8, MCHC 31.4 L, RDW 13.7, Plt Count 323, MPV 7.4, Neut % (Auto) 73.5, Lymph % (Auto) 18.8, [place] % (Auto) 6.4, Eos % (Auto) 1.0, Baso % (Auto) 0.3, Neut # (Auto) 4.8, Lymph # (Auto) 1.2, [place] # (Auto) 0.4, Eos # (Auto) 0.1, Baso # (Auto) 0.0 11/29/19 05:30: Sodium 136, Potassium 3.9, Chloride 101, Carbon Dioxide 30, Anion Gap 8.9, BUN 20 H, Creatinine 0.90 D, Estimated Creat Clear 44, Estimated GFR 60, Est GFR ( Amer) 73 D, Glucose 90, Calcium 9.0, Total Bilirubin 0.5, AST 33 D, ALT 26 D, Alkaline Phosphatase 101, Total Protein 5.6 L, Albumin 2.8 L D, Globulin 2.8, Albumin/Globulin Ratio 1.0 L I & O for Last 24 hours: Intake & Output 11/26/19 11/27/19 11/28/19 11/29/19 11:59 11:59 11:59 11:59 Intake Total 1059 / 1059 Output Total 1875 / 1875 Balance -816 / -816 Weight 135 lb 4 oz Microbiology Reports for the Last 24 Hours: Microbiol
--- NOTE | 2019-11-29 10:12 | PC.NURSE ---
Notified Dr Bejarano of negative covid results and faxed to [facility]. Notified nurses supervisor that patient could be moved to the medsurge floor per dr bejarano, he stated he would assess the patient first, then decide if she would be moved to stepdown bed or acute bed.
--- NOTE | 2019-11-29 10:53 | PC.NURSE ---
pt moved to med/surg bed per md. bejarano at [phone]
--- NOTE | 2019-11-29 11:29 | HMH.PHAVTE ---
[facility] Pharmacy VTE Monitoring - Patient Demographics Admission date: 11/29/19 Report Date: 11/29/19 Time: 11:29 Allergies/Adverse Reactions: Patient Allergies No Known Allergies Allergy (Verified 10/01/19 15:56) Height: 1.57 m Weight: 61.348 kg Patient Problems: Current Active Problems Hypertension (Chronic) Chest pain (Acute) Atypical chest pain (Acute) Suspected COVID-19 virus infection (Acute) Bilateral pneumonia (Acute) Pneumonia (Acute) Hypertensive urgency (Acute) Hypertension (Chronic) Pleural effusion (Acute) Anemia (Acute) Hypoxia (Acute) (HFpEF) heart failure with preserved ejection fraction (Acute) - VTE Risk Labs: VTE Related Lab Results Hgb 8.4 g/dL (12.2-16.2) L D 11/29/19 05:30 Hct 26.6 % (37.0-47.0) L 11/29/19 05:30 Plt Count 323 K/mm3 (142-424) 11/29/19 05:30 BUN 20 mg/dl (7-17) H 11/29/19 05:30 Creatinine 0.90 mg/dl (0.52-1.04) D 11/29/19 05:30 Estimated Creat Clear 44 mL/min (50-200) 11/29/19 05:30 VTE Score: 3 VTE Risk Level: Low Risk - Prophylaxis Types of VTE Prophylaxis: TEDS Knee High (JEANIE HOSE ORDER PLACED)
[2019-11-29 12:04] LABS: Ferritin 128 ng/ml (11.1-264)
--- NOTE | 2019-11-29 18:30 | PC.NURSE ---
Pt has rested in bed this afternoon. Denies shortness of breath/pain. Spoke with brother at length this afternoon on phone, and expressed that she felt much better being able to speak with him.
[2019-11-30] VITALS (17 sets, daily range): BP systolic 133–157; BP diastolic 60–92; PULSE 70–99; RESP 18–24; TEMP 36.5–37.6; O2SAT 84–100; BMI 25.4
--- NOTE | 2019-11-30 04:43 | PC.NURSE ---
A&OX4. PT TOLERATING 2.5LNC WHILE AWAKE AND BIPAP WHILE ASLEEP. PT STATED SHE WAS HAVING SOME TROUBLE BREATHING AT THE BEGINNING OF SHIFT. O2 SAT WAS 93%, AND PT STATED THAT SHE FELT SCARED AND ANXIOUS. ON REASSESSMENT, PT RESTING IN BED. PT HAS +2 EDEMA, REDNESS, AND WARMTH PRESENT TO BLE. ELEVATED T/O SHIFT. F/C PRESENT DRAINING BRIGHT YELLOW URINE. PT HAS HAD NO C/O PAIN, NA/VO THIS SHIFT. PT HAS SLEPT WELL MAJORITY OF SHIFT. PT TOLERATED SNACK. VSS WILL CONTINUE TO MONITOR.
[2019-11-30 06:48] LABS: Basophils % 0.5 % (0.1-2.0); Eosinophils # 0.1 K/mm3 (0.0-0.4); Eosinophils % 1.6 % (0.1-12.0); Hemoglobin 8.3 g/dL (12.2-16.2); Lymphocytes # 1.2 K/mm3 (0.7-4.5); Mean Corpuscular HGB Conc 30.2 g/dL (31.8-35.4); Mean Corpuscular Hemoglobin 29.3 pg (27.0-31.2); Mean Corpuscular Volume 97.2 fl (81-99); Mean Platelet Volume 7.6 fl (7.4-10.4); Monocytes # 0.4 K/mm3 (0.1-1.0); Monocytes % 7.2 % (1.7-9.3); Neutrophils % 69.7 % (37.0-80.0); Platelet Count 290 K/mm3 (142-424); Red Blood Count 2.82 M/mm3 (4.20-5.40); Red Cell Distribution Width 13.8 % (11.5-17.5); White Blood Count 5.8 K/mm3 (4.8-10.8)
[2019-11-30 06:49] LABS: Hematocrit 27.4 % (37.0-47.0)
[2019-11-30 06:58] LABS: Anion Gap 7.6 mEq/L (5-15); Blood Urea Nitrogen 24 mg/dl (7-17); Calcium 8.8 mg/dl (8.4-10.2); Carbon Dioxide 32 mmol/L (22.0-30.0); Chloride 101 mmol/L (98-107); Creatinine Clearance Estimated 45 mL/min (50-200); Estimated Glomerular Filt Rate 60 ml/min (>60); GFR (African American) 73 ML/MIN (>60); Glucose 95 mg/dl (74-100); Potassium 3.6 mmoL/L (3.5-5.1); Sodium 137 mmol/L (136-145)
[2019-11-30 07:07] LABS: Iron 31 ug/dL (27-139); Iron Saturation 14 % (15-55); UIBC 198 ug/dL (118-369)
[2019-11-30 08:11] LABS: Folate 9.9 ng/mL (>3.0); Vitamin B12 151 pg/mL (232-1245)
--- NOTE | 2019-11-30 08:36 | PC.NURSE ---
my observation at 0730, no oral care was given on machine bender. PT's mouth was clean thoroughly by me this morning pt was very grateful and also did not recall oral care given throughout the night. RN was notified of observation.
--- NOTE | 2019-11-30 09:52 | HMH.ACPN2 ---
Internal Medicine - PN: Subj *Date: 11/30/19 *Time: 10:36 Interval history: She had some difficulty falling asleep last night which she attributed to anxiety but then slept well through the night. She still feels a bit short of breath but overall much better. She has minimal cough. The left-sided pleuritic chest pain has improved. Appetite is good. Exam Vital signs and Labs for Last 24 Hours: Temp Pulse Resp BP Pulse Ox 97.7 F 79 24 137/92 H 100 11/30/19 08:00 11/30/19 08:00 11/30/19 08:00 11/30/19 08:00 11/30/19 08:00 Laboratory Results - last 24 hr 11/28/19 16:00: Urine Color Yellow, Urine Appearance Clear, Urine pH 7.0, Ur Specific [place] 1.025, Urine Protein 2+, Urine Glucose (UA) Trace, Urine Ketones Negative, Urine Blood 1+, Urine Nitrate Negative, Urine Bilirubin Negative, Urine Urobilinogen 0.2, Ur Leukocyte Esterase Negative, Urine RBC 5-10, Urine WBC 20-50, Ur Squamous Epith Cells 3-5, Urine Mucus 2+ 11/29/19 11:12: Ferritin 128 11/29/19 11:12: Vitamin B12 151 L 11/29/19 11:12: Iron 31, TIBC 229 L, Iron Saturation 14 L, Unsaturated IBC 198, Folate 9.9 11/30/19 06:31: WBC 5.8, RBC 2.82 L, Hgb 8.3 L, Hct 27.4 L, MCV 97.2, MCH 29.3, MCHC 30.2 L, RDW 13.8, Plt Count 290, MPV 7.6, Neut % (Auto) 69.7, Lymph % (Auto) 21.0, [place] % (Auto) 7.2, Eos % (Auto) 1.6, Baso % (Auto) 0.5, Neut # (Auto) 4.0, Lymph # (Auto) 1.2, [place] # (Auto) 0.4, Eos # (Auto) 0.1, Baso # (Auto) 0.0 11/30/19 06:31: Sodium 137, Potassium 3.6, Chloride 101, Carbon Dioxide 32 H, Anion Gap 7.6, BUN 24 H, Creatinine 0.90, Estimated Creat Clear 45, Estimated GFR 60, Est GFR ( Amer) 73, Glucose 95, Calcium 8.8 I & O for Last 24 hours: Intake & Output 11/27/19 11/28/19 11/29/19 11/30/19 11:59 11:59 11:59 11:59 Intake Total 1159 / 1159 1099 / 1099 Output Total 1875 / 1875 975 / 975 Balance -716 / -716 124 / 124 Weight 135 lb 4 oz 138 lb 4 oz Microbiology Reports for the Last 24 Hours: Microbiology 11/28/19 16:00 Urine,Catheterized Urine Culture - Preliminary Gram Positive Cocci Narrative: She is sitting up in the bed, alert and oriented. Color is good. Chest reveals diminished breath sounds in the bases bilaterally a few fine rales. No wheezes. Heart is regular. Extremities show trace to 1+ edema bilaterally. Assessment and Plan (1) Bilateral pneumonia Current visit: Yes Status: Acute Category: Medical Code(s): J18.9 - Pneumonia, unspecified organism (2) Hypoxia Current visit: Yes Status: Acute Category: Medical Code(s): R09.02 - Hypoxemia (3) Pleural effusion Current visit: Yes Status: Acute Category: Medical Code(s): J90 - Pleural effusion, not elsewhere classified (4) Atypical chest pain Current visit: Yes Status: Acute Category: Medical Code(s): R07.89 - Other chest pain (5) Hypertensive urgency Current visit: Yes Status: Acute Category: Medical Code(s): I16.0 - Hypertensive urgency (6) Suspected COVID-19 virus infection Current visit: Yes Status: Acute Category: Medical Code(s): Z20.828 - Contact with and (suspected) exposure to other viral communicable diseases (7) Hyperlipidemia Current visit: No Status: Chronic Category: Medical Code(s): E78.5 - Hyperlipidemia, unspecified (8) Hypertension Current visit: Yes Status: Chronic Category: Medical Code(s): I10 - Essential (primary) hypertension (9) Anemia Current visit: Yes Status: Acute Category: Medical Code(s): D64.9 - Anemia, unspecified (10) (HFpEF) heart failure with preserved ejection fraction Current visit: Yes Status: Acute Category: Medical Code(s): I50.30 - Unspecified diastolic (congestive) heart failure - Assessment and plan all Dx Assessment and Plan for all problems:: Clinically stable and slowly improving. Blood pressure is beginning to run a little high therefore will resume some of her home medication.
--- NOTE | 2019-11-30 15:41 | PC.NURSE ---
PATIENT ON NC O2 SINCE THIS AM. O2 STATS RANGE FROM LOW 90'S TO MID 90'S. PATIENT OFFERED TO SIT IN CHAIR THRU THIS RN SHIFT, PATIENT HAS REFUSED, STATING SHE IS TOO TIRED. PATIENT FED SELF AND TOLERATED MEALS. THIS RN SPOKE WITH PATIENT'S BROTHER, TANNER WHOM INQUIRED ABOUT STAFF ENCOURAGING HIS SISTER TO GET UP AND WALK. THIS RN INFORMED BROTHER THAT STAFF HERE IS DOING ALL WE CAN TO ENCOURAGE HER. NO OTHER CONCERNS AT THIS TIME.
--- NOTE | 2019-11-30 18:45 | PC.NURSE ---
Addendum entered by Elyssa Soriano RN 11/30/19 19:33: WHILE PATIENT WAS SITTING IN SHOWER CHAIR, THIS RN ASSESSED PATIENT ON ROOM AIR. PATIENT WAS 84 ON ROOM AIR. NC O2 2.5L APPLIED, O2 STATS 95 Original Note: THIS RN ASSISTED BREANNA RAYMOND IN PROVIDING PATIENT WITH A SHOWER USING THE SHOWER CHAIR. PATIENT TOLERATED WELL. PATIENT'S FEET BECAME RED WHILE IN A SITTING POSITION. PATIENT WEAK WHEN STANDING TO GO FROM BED TO SHOWER CHAIR. NO OTHER CONCERNS AT THIS TIME.
--- NOTE | 2019-11-30 19:15 | PC.NURSE ---
WEANED PT TO 2 LNC AT THIS TIME. NO C/O SOA. 02 SATS REMAIN AT 95% ON 2 LNC. WILL CONTINUE TO MONITOR. HOB ELEVATED AT THIS TIME.
[2019-12-01] VITALS (27 sets, daily range): BP systolic 127–177; BP diastolic 61–85; PULSE 60–112; RESP 16–24; TEMP 36.4–37.1; O2SAT 87–100; BMI 24.7
--- NOTE | 2019-12-01 | IR_ITS ---
APPROVED REPORT Patient Location: Inpatient Speeder Hand: JOHN Salazar RT (R) PROCEDURES Left heart catheterization Left ventriculogram Selective coronary angiogram Drug-eluting stent deployment to the proximal and mid LAD in a contiguous manner using 3 drug-eluting stents Drug-eluting stent deployment to the ostial proximal mid large first diagonal artery Serial proximal and mid dominant right coronary artery INDICATION Coronary artery disease, Acute non-ST elevation myocardial infarction Informed consent was obtained prior to the procedure. COMPLICATIONS NONE Estimated Blood Loss: LESS THAN 10 MLS TECHNIQUE One percent lidocaine used to anesthetize the right anterior aspect of the wrist. The right radial artery was accessed via the Seldinger technique. A 6 Arabic sheath was placed in the right radial artery. 2.5 mg of verapamil, 800 mcg of nitroglycerin, 1mg Lidocaine and 5000 U Heparin were given through the arterial sheath. The trap catheter was also used to perform left heart catheterization, left ventriculogram and selective coronary angiogram. At the end of the diagnostic angiogram additional heparin was administered producing a therapeutic ACT. And I Kelly left guide catheter was placed in the left main artery and a Choice PT extra-support wire was placed in the LAD. The guide liner was used for additional support and multiple balloons were used to predilate the stenosis. See nursing report for specifics. Ultimately a resolute 2.75 x 38 mm barrett stent was deployed at 20 nicki in the proximal to mid LAD. An additional 3 mm x 15 mm resolute barrett stent was deployed at 20 nicki in the proximal LAD. An additional 2.5 x 12 mm resolute barrett stent was then placed distal to the first stent placed yet still overlapping it and deployed at 20 nicki. The balloon was brought back and deployed at 24 nicki up and down the LAD. Previously a wire was placed in the diagonal artery where it was predilated and a 2 mm x 22 mm resolute barrett stent was deployed at 20 nicki in the ostial proximal mid segment of this large diagonal artery. Following the stent in the diagonal artery multiple balloons were used to dilate the LAD. Excellent angiographic results were obtained with QUINTON-3 flow down the LAD and diagonal artery before and after the procedure. Following this the same catheter was used to intubate the right coronary artery and the guide liner was advanced along with a Choice PT extra-support wire. Predilatation was made with a 2.5 mm balloon and a 2.75 x 38 mm resolute barrett stent was deployed at 20 nicki in the mid to proximal LAD. An additional 3 mm x 15 mm resolute barrett stent was then placed proximal to this in the very proximal segment and deployed at 20 nicki to post dilate. QUINTON-3 flow was present before and after the procedure. After achieving excellent angiographic results the apparatus was removed the sheath was removed good hemostasis was achieved using TR banding patient was transferred to the postop waiting in stable condition ANGIOGRAPHIC RESULTS The left main artery Normal The left anterior descending artery Has proximal complex concentric 80 to 90% stenoses which extend through the entire proximal LAD into the mid LAD. There are additional 40% stenoses in the mid to distal LAD. A large first diagonal artery has an ostial and proximal 90% stenosis The circumflex artery Is a large nondominant vessel and has mild 10 to 20% [id number] calcified stenosis The right coronary artery Is a dominant vessel and has proximal 50% stenosis along with a mid vessel 90% stenosis and distal 30 to 40% stenoses The MEDINA ventriculogram reveals Hyperdynamic at 70% The left ventricular end-diastolic pressure 20
--- NOTE | 2019-12-01 03:41 | PC.NURSE ---
A&O X4. PT DID NOT REST WELL THIS SHIFT. PT STATES SHE DOES NOT SLEEP AT HOME, AND HAS BEEN SLEEPING IN A CHAIR. ALSO STATES SHE HAS NOT MADE HER PCP AWARE OF HER INSOMNIA. WILL PASS ALONG TO ONCOMING NURSE THIS AM. PT STATES SHE HAS BEEN WANTING TO TRY MELATONIN GUMMIES AT HOME FOR SLEEP AID, BUT HAS NOT GONE TO THE STORE SINCE THE QUARANTINE STARTED TO PURCHASE SOME. SHE HAS CONSULTED WITH HER PHARMACIST, AND WAS GIVEN THE OKAY TO TAKE MELATONIN PRN AT HOME. PT REFUSED FOR THE LIGHTS TO BE TURNED OUT IN HER ROOM, DOOR HAD TO REMAIN OPEN, AND TV HAD TO REMAIN ON. THIS RN ENCOURAGED HER TO TURN OFF TV, CLOSE DOOR TO BLOCK LIGHT AND SOUND, AND TURN ON A DIMMER LIGHT IN THE ROOM TO FENCE GATE ASSEMBLER IN SLEEP THIS SHIFT. PT CONTINUED TO REFUSE. BILATERAL LUNGS NOTED CLEAR T/O. PT STATES HAVING A DRY INTERMITTENT COUGH, MAINLY POST BREATHING TX. ENCOURAGED PT TO COUGH AND EXPECTORATE ANY PHLEGM SHE MAY HAVE COME UP. REMAINS ON 2LNC T/O SHIFT, TOLERATING WELL. WILL OBTAIN A RA SAT ON 0400 ROUND AND CONTINUE TO WEAN O2 IF POSSIBLE. DENIES SOA. NO RESPIRATORY DISTRESS NOTED. NO BM THUS FAR THIS SHIFT. STILL NEEDS OCCULT STOOL SAMPLE. F/C SITE NOTED C/D/I. URINE NOTED CLEAR, BRIGHT YELLOW WITH NORMAL ODOR. ADEQUATE URINE NOTED THIS SHIFT THUS FAR. MILD NON-PITTING EDEMA NOTED IN BLE. NSR AND SINUS TACH NOTED ON MATH PROFESSOR. PT TURNS SELF. VSS. REFUSED TEDS. REMAINS SAFE. CALL LIGHT WITHIN REACH. WILL CONTINUE TO MONITOR.
[2019-12-01 06:56] LABS: Chloride 99 mmol/L (98-107); Sodium 135 mmol/L (136-145)
[2019-12-01 06:57] LABS: Basophils % 0.5 % (0.1-2.0); Eosinophils # 0.1 K/mm3 (0.0-0.4); Hematocrit 29.7 % (37.0-47.0); Hemoglobin 9.1 g/dL (12.2-16.2); Lymphocytes % 15.5 % (10-50); Mean Corpuscular HGB Conc 30.7 g/dL (31.8-35.4); Mean Corpuscular Hemoglobin 29.5 pg (27.0-31.2); Mean Corpuscular Volume 95.9 fl (81-99); Mean Platelet Volume 7.6 fl (7.4-10.4); Monocytes # 0.4 K/mm3 (0.1-1.0); Monocytes % 6.2 % (1.7-9.3); Neutrophils # 4.9 K/mm3 (1.8-7.8); Neutrophils % 75.8 % (37.0-80.0); Platelet Count 322 K/mm3 (142-424); Potassium 4.1 mmoL/L (3.5-5.1); Red Cell Distribution Width 13.7 % (11.5-17.5); White Blood Count 6.4 K/mm3 (4.8-10.8)
[2019-12-01 06:59] LABS: Blood Urea Nitrogen 16 mg/dl (7-17); Creatinine Clearance Estimated 44 mL/min (50-200); Estimated Glomerular Filt Rate 60 ml/min (>60); GFR (African American) 73 ML/MIN (>60)
[2019-12-01 07:00] LABS: Anion Gap 9.1 mEq/L (5-15); Carbon Dioxide 31 mmol/L (22.0-30.0); Glucose 95 mg/dl (74-100)
--- NOTE | 2019-12-01 07:40 | PC.NURSE ---
pt c/o soa at this time. o2 sats noted at 91% on 1.5 lnc. increased o2 to 2.5 at this time. o2 sats now noted at 93%.
--- NOTE | 2019-12-01 07:51 | ECG_ITS ---
APPROVED REPORT Exam: Resting ECG HR:112 bpm ECG Measurements Heart Rate 112 AXES [place] 148 P 17 QRSd 70 QRS 16 QT 328 T 11 QTc 447 <Conclusion> Sinus tachycardia with premature atrial complexes and premature ventricular complexes or fusion complexes Otherwise normal ECG Electronically signed by : Kade Munoz, 12/02/2019 14:41:00
--- NOTE | 2019-12-01 07:52 | XR_ITS ---
PROCEDURE: XR CHEST PORTABLE CLINICAL HISTORY: CP and increase SOB COMPARISON: XR CHEST AP from 07/09/2019 XR CHEST PORTABLE from 11/28/2019 CT CHEST WO CON from 11/28/2019 XR CHEST PORTABLE from 11/29/2019 FINDINGS: There is cardiomegaly without failure. Bilateral lower lobe pneumonia with bilateral effusions are once again noted. The right-sided pneumonia may be slightly worse in the mid lung region. The lungs are clear without infiltrates, suspicious nodules, or pleural effusions. No acute bony abnormalities. Prior ORIF right shoulder. IMPRESSION: Bilateral pneumonia with bilateral effusions slightly worse on the right Dictated by: Cecil Norwood MD 12/01/2019 08:56 Electronically signed by Cecil Norwood MD in [place] 12/01/2019 08:56
--- NOTE | 2019-12-01 07:54 | HMH.ACPN2 ---
<Larissa Phillips - Last Filed: 12/01/19 08:20> Internal Medicine - PN: Subj *Date: 12/01/19 *Time: 08:20 Interval history: MSCP began this AM right before started eating breakfast; became worse when trying to eat with SOB; feels like something stuck in the middle of her chest; then SOB imoproved and pain eased. Patient notes that bowels have not moved since admission. Patient states she did not sleep at all last night. She states she is does get anxious. She continues with Juarez catheter to bedside drainage. Labs revealed a low vitamin B12 at 151 and cardiac enzymes this morning with a troponin I of 0.08. Renal function is normal and blood chemistries otherwise satisfactory. Urine culture reveals Enterococcus faecalis sensitive to penicillin. Exam Vital signs and Labs for Last 24 Hours: Temp Pulse Resp BP Pulse Ox 98.7 F 88 20 153/77 H 91 L 12/01/19 04:26 12/01/19 06:17 12/01/19 04:26 12/01/19 04:26 12/01/19 06:17 Laboratory Results - last 24 hr 11/28/19 16:00: Urine Color Yellow, Urine Appearance Clear, Urine pH 7.0, Ur Specific [place] 1.025, Urine Protein 2+, Urine Glucose (UA) Trace, Urine Ketones Negative, Urine Blood 1+, Urine Nitrate Negative, Urine Bilirubin Negative, Urine Urobilinogen 0.2, Ur Leukocyte Esterase Negative, Urine RBC 5-10, Urine WBC 20-50, Ur Squamous Epith Cells 3-5, Urine Mucus 2+ 11/29/19 11:12: Vitamin B12 151 L 11/29/19 11:12: Iron 31, TIBC 229 L, Iron Saturation 14 L, Unsaturated IBC 198, Folate 9.9 12/01/19 06:25: WBC 6.4, RBC 3.10 L, Hgb 9.1 L, Hct 29.7 L, MCV 95.9, MCH 29.5, MCHC 30.7 L, RDW 13.7, Plt Count 322, MPV 7.6, Neut % (Auto) 75.8, Lymph % (Auto) 15.5, Day % (Auto) 6.2, Eos % (Auto) 2.0, Baso % (Auto) 0.5, Neut # (Auto) 4.9, Lymph # (Auto) 1.0, Day # (Auto) 0.4, Eos # (Auto) 0.1, Baso # (Auto) 0.0 12/01/19 06:25: Sodium 135 L, Potassium 4.1, Chloride 99, Carbon Dioxide 31 H, Anion Gap 9.1, BUN 16 D, Creatinine 0.90, Estimated Creat Clear 44, Estimated GFR 60, Est GFR ( Amer) 73, Glucose 95, Calcium 9.0 I & O for Last 24 hours: Intake & Output 11/28/19 11/29/19 11/30/19 12/01/19 11:59 11:59 11:59 11:59 Intake Total 1159 / 1159 1199 / 1199 1107 / 1107 Output Total 1875 / 1875 975 / 975 4025 / 4025 Balance -716 / -716 224 / 224 -2918 / -2918 Weight 135 lb 4 oz 138 lb 4 oz 134 lb 7 oz Microbiology Reports for the Last 24 Hours: Microbiology 11/28/19 16:00 Urine,Catheterized Urine Culture - Preliminary Enterococcus faecalis 11/28/19 15:40 Blood Blood Culture - Preliminary NO GROWTH AFTER 48 HOURS 11/28/19 15:40 Blood Blood Culture - Preliminary NO GROWTH AFTER 48 HOURS - Constitutional no acute distress Comments: sitting up in the bed; breathing is easy - Routine Chest/Breast/Axilla Exam Chest wall: Absent: tenderness - *Routine Respiratory Exam Present: wheezes (few and scattered), crackles (fine), diminished air movement - *Routine Cardiovascular Exam Present: RRR Comments: SR - *Routine Abdominal Exam Present: soft. Absent: tenderness Comments: Juarez catheter to bedside drainage patent and draining - *Routine Extremities Exam Present: edema. Absent: calf tenderness - *Routine Neurological Exam Present: alert, oriented X3 Assessment and Plan (1) Bilateral pneumonia Current visit: Yes Status: Acute Category: Medical Code(s): J18.9 - Pneumonia, unspecified organism (2) Hypoxia Current visit: Yes Status: Acute Category: Medical Code(s): R09.02 - Hypoxemia (3) Pleural effusion Current visit: Yes Status: Acute Category: Medical Code(s): J90 - Pleural effusion, not elsewhere classified (4) Atypical chest pain Current visit: Yes Status: Acute Category: Medical Code(s): R07.89 - Other chest pain (5) Hypertensive urgency Current visit: Yes Status: Acute Category: Medical Code(s)
[2019-12-01 08:02] LABS: Creatine Kinase 31 U/L (30-135)
--- NOTE | 2019-12-01 08:07 | PC.NURSE ---
while Franklin Phillips APRN was at bedside pt c/o chest pain, main complaint was soa, Franklin Phillips put in orders for chest xray, labs, and ekg. ekg was obtained at while RUBINA was bedside at 0750. RUBINA stated EKG was sinus tach and we would let Dr. Cho look at the ekg when he got here, no need to take it to er. pt now has no complaints.
[2019-12-01 08:12] LABS: CKMB Relative Index 1.3 U/L (0-4.0); Creatine Kinase MB 0.4 ng/ml (0.0-2.03)
[2019-12-01 08:15] LABS: Troponin I 0.08 ng/ml (0.00-0.034)
--- NOTE | 2019-12-01 08:29 | CA_ITS ---
APPROVED REPORT EXAM: Comprehensive 2D, Doppler, and color-flow Echocardiogram Packer Inspector: Dalia Phillips CRT Ht: 5 ft 1 in Wt: 134lbs BSA: 1.59 BP: 153/77 mmHg Indications: Chest Pain, Congestive Heart Failure, Shortness of Breath, Fatigue, Peripheral Edema, CAD, Hyperlipidemia, Pleural Effusion, Hypertension/HDD 2D Dimensions LVOT 1.85 cm (M/F) 1.5-2.5 M-Mode Dimensions RVDd 2.17 cm (0.9-2.6) LVDd 3.35 cm (3.5-5.7) LVDs 2.44 cm (3.5-5.7) IVSd 2.04 cm (0.6-1.1) PWd 0.88 cm (0.6-1.1) EF (Teich) 54.10% FS 27.20% EDV (Teich) 45.80 mL ESV (Teich) 21.00 mL LV Diastology E/A Ratio 0.81 Mitral Valve MV A Velocity 95.00 (40-130 cm/s) Left Ventricle Left atrium is moderately enlarged, left ventricle is normal size, mild concentric left ventricular hypertrophy, visually estimated ejection fraction 55% with no regional wall motion abnormality, grade 1 diastolic dysfunction seen without tissue Doppler evidence of raise left atrial pressure. Right Ventricle Right atrium right ventricle mildly enlarged with normal contractility. Aortic Valve Aortic valve is thickened and calcified leaflet chordae display mobility, there is no aortic stenosis or aortic insufficiency. Mitral Valve Mitral valve is minimally thickened, there is mild mitral regurgitation. Tricuspid Valve Tricuspid valve is minimally thickened, there is mild tricuspid regurgitation, calculated right ventricular systolic pressure is 53 mmHg. Pulmonic Valve Pulmonic valve is poorly visualized. Great Vessels Aortic root is normal size. Pericardium No significant pericardial effusion noted. Conclusion 1. Biatrial enlargement, normal left ventricular size, mild concentric left ventricular hypertrophy, visually estimated ejection fraction 55% with no regional wall motion abnormality, grade 1 diastolic dysfunction seen without tissue Doppler evidence of raise left atrial pressure. 2. Mildly enlarged right ventricle with normal contractility. 3. Mild mitral and tricuspid regurgitation, calculated right ventricular systolic pressure is 53 mmHg, inferior vena cava is normal size with normal inspiratory collapse 4. No significant pericardial effusion noted, there is left-sided pleural effusion seen. Electronically signed by : Horace Molina, 12/01/2019 20:53:41
--- NOTE | 2019-12-01 09:04 | HMH.ACPN ---
Internal Medicine - PN: Subj *Date: 12/01/19 *Time: 09:04 Exam Vital signs and Labs for Last 24 Hours: Temp Pulse Resp BP Pulse Ox 98.0 F 112 H 20 177/79 H 94 L 12/01/19 07:50 12/01/19 07:50 12/01/19 07:50 12/01/19 07:50 12/01/19 07:50 Laboratory Results - last 24 hr 12/01/19 06:25: WBC 6.4, RBC 3.10 L, Hgb 9.1 L, Hct 29.7 L, MCV 95.9, MCH 29.5, MCHC 30.7 L, RDW 13.7, Plt Count 322, MPV 7.6, Neut % (Auto) 75.8, Lymph % (Auto) 15.5, [place] % (Auto) 6.2, Eos % (Auto) 2.0, Baso % (Auto) 0.5, Neut # (Auto) 4.9, Lymph # (Auto) 1.0, [place] # (Auto) 0.4, Eos # (Auto) 0.1, Baso # (Auto) 0.0 12/01/19 06:25: Sodium 135 L, Potassium 4.1, Chloride 99, Carbon Dioxide 31 H, Anion Gap 9.1, BUN 16 D, Creatinine 0.90, Estimated Creat Clear 44, Estimated GFR 60, Est GFR ( Amer) 73, Glucose 95, Calcium 9.0 12/01/19 06:25: Total Creatine Kinase 31, CK-MB (CK-2) 0.4, CK-MB (CK-2) Rel Index 1.3, Troponin I 0.08 H I & O for Last 24 hours: Intake & Output 11/28/19 11/29/19 11/30/19 12/01/19 23:59 23:59 23:59 23:59 Intake Total 270 / 270 1229 / 1229 1524 / 1524 682 / 682 Output Total 1250 / 1250 1200 / 1200 3725 / 3725 700 / 700 Balance -980 / -980 -2200 / -2200 -18 / -18 Weight 68.039 kg 61.348 kg 62.709 kg 60.98 kg Microbiology Reports for the Last 24 Hours: Microbiology 11/28/19 16:00 Urine,Catheterized Urine Culture - Preliminary Enterococcus faecalis 11/28/19 15:40 Blood Blood Culture - Preliminary NO GROWTH AFTER 48 HOURS 11/28/19 15:40 Blood Blood Culture - Preliminary NO GROWTH AFTER 48 HOURS Assessment and Plan (1) Bilateral pneumonia Current visit: Yes Status: Acute Category: Medical Code(s): J18.9 - Pneumonia, unspecified organism (2) Hypoxia Current visit: Yes Status: Acute Category: Medical Code(s): R09.02 - Hypoxemia (3) Pleural effusion Current visit: Yes Status: Acute Category: Medical Code(s): J90 - Pleural effusion, not elsewhere classified (4) Atypical chest pain Current visit: Yes Status: Acute Category: Medical Code(s): R07.89 - Other chest pain (5) Hypertensive urgency Current visit: Yes Status: Acute Category: Medical Code(s): I16.0 - Hypertensive urgency (6) Suspected COVID-19 virus infection Current visit: Yes Status: Acute Category: Medical Code(s): Z20.828 - Contact with and (suspected) exposure to other viral communicable diseases (7) Hyperlipidemia Current visit: No Status: Chronic Category: Medical Code(s): E78.5 - Hyperlipidemia, unspecified (8) Hypertension Current visit: Yes Status: Chronic Category: Medical Code(s): I10 - Essential (primary) hypertension (9) Anemia Current visit: Yes Status: Acute Category: Medical Code(s): D64.9 - Anemia, unspecified (10) (HFpEF) heart failure with preserved ejection fraction Current visit: Yes Status: Acute Category: Medical Code(s): I50.30 - Unspecified diastolic (congestive) heart failure (11) UTI (urinary tract infection) due to Enterococcus Current visit: Yes Status: Acute Category: Medical Code(s): N39.0 - Urinary tract infection, site not specified; B95.2 - Enterococcus as the cause of diseases classified elsewhere The patient's infection will respond to the chosen ABx?: Yes Is the patient receiving the right drug, dose, and route?: Yes Could a more targeted ABx be ordered?: No (ENTEROCOCCUS IN URINE SENSITIVE TO PCN. ON ZOSYN.)
--- NOTE | 2019-12-01 09:20 | HMH.CNCARD ---
History of Present Illness Consult date: 12/01/19 Requesting physician: Manuel Cho Consult reason: chest pain Chief complaint: CP, NSTEMI Additional Medical History:: 1. Coronary artery calcification noted on CT of the chest, 11/2019 2. Non-ST elevation [place], 12/01/2019 3. Hypertension A. Echocardiogram, 07/2019,1. Left atrium is mildly enlarged, left ventricle is normal size, mild concentric left ventricular hypertrophy, hyperdynamic left ventricular systolic function, visually estimated ejection fraction over 65% with no regional wall motion abnormality. Grade 1 diastolic dysfunction seen without tissue Doppler evidence of raise left atrial pressure. 2. Mild mitral and tricuspid regurgitation, calculated right ventricular systolic pressure is 55 mmHg consistent with moderately elevated right ventricular systolic pressure. 3. Trivial pericardial and left-sided pleural effusion seen B. Acute on chronic diastolic congestive heart failure, 11/2019 4. Hyperlipidemia 5. Family history of coronary artery disease in her mother who in her mid 60s from an [place] 6. Recent fall with traumatic right hip and shoulder fracture status post surgical correction, 09/2019 7. Bilateral pneumonia, 11/2019 History of present illness: 79-year-old white female admitted for increasing shortness of breath over the last week. Patient noted to be hypertensive on admission along with evidence of bilateral pneumonia and pleural effusions on chest x-ray and CT of the chest. Patient was treated with IV Lasix, hydralazine, clonidine and nebulizer treatment along with BiPAP therapy for hypoxemia with subsequent improvement. Patient's initial troponin was normal but subsequent troponins have slowly elevated to a peak of 0.08 this a.m. following the patient's complains of substernal chest pain and pressure last night. Repeat EKG this morning shows no acute change with patient having sinus rhythm. Cardiology was consulted for evaluation recommendations. Patient was hospitalized in September of this year after fall with traumatic fractures of the hip and right shoulder. During that hospitalization patient was noted to have mildly elevated troponins at that time but echocardiogram performed showed normal to slightly hyperdynamic left ventricular ejection fraction with evidence of diastolic dysfunction due to LVH. No significant valvular heart disease was noted. It was elected to treat her medically at that time. Plan was to proceed with further outpatient evaluation after the patient completed her rehab. Patient was finishing up her rehab when the episodes of shortness of breath began last week. Shortness of breath was worse with activity and improved with rest. Patient was tested for the COVID-19 virus and was negative. [facility] History Medical History: Reports:: Hyperlipidemia, Hypertension Denies:: Cancer, Diabetes Mellitus Type 1, Diabetes Mellitus Type 2, MRSA *Have you ever received a pneumonia vaccine?: Yes *Have you received a flu vaccine this season?: No Other Medical History: Reports: Other (vit D deficiency, venous insufficiency, ORIF R Humerus, Hemiarthroplasty R ) Other Surgeries: Yes: Appendectomy, Cholecystectomy, Hysterectomy-Total, Other Amputation: No - *Social History Educational Level: Completed High School Smoking Status: Never smoker Alcohol Intake: never Substance Use Type: denies use *Occupational Status:: retired Housing: intermediate *Travel in the last 8 weeks: None Family Hx:: Unable to obtain Meds Home Medications Medication Instructions Recorded Confirmed Type Bisoprolol Fumarate [Bisoprolol 5 mg PO DAILY 11/28/19 11/28/19 History 5mg Tablet] Mirtazapine 7.5 mg PO HS 11/28/19 11/28/19 History Omeprazole [Omeprazole 40mg 40 mg PO DAILY 11/28/19 11/28/19 History Capsule] Furosemide [Furosemide 40MG tAB] 40 mg PO DAILY 11/29/19 11/29/19 History lisinopriL [Lisinopril 20mg Tab] 20 mg PO DAILY 11/29/19
--- NOTE | 2019-12-01 10:38 | PC.NURSE ---
cathlab nurses to floor early to get patient for heart cath. told them she was in there getting an echo still and consent had not been signed yet but was ready to be signed this RN had already educated patient on consent, nor was she clipped yet, cath was scheduled for 1100. stated they wanted to go on and take her down and would clip her down there, no problem. consent signed prior to leaving floor.
[2019-12-01 14:00] LABS: CATHL Activated Clotting Time 210 SEC (74-125)
[2019-12-01 14:00] LABS: CATHL Activated Clotting Time 237 SEC (74-125)
--- NOTE | 2019-12-01 18:47 | PC.NURSE ---
patient has done well since return from hear cath. has been slightly drowsy. r radial site has no signs fo hematoma or bleeding. telfa and tegaderm applied to site. o2 sats have done well and weaned o2 down to 1.5 l at this time. ;ess shortness of breath noted. vitals stable will continue to monitor.
--- NOTE | 2019-12-01 19:28 | PC.NURSE ---
report given to paty
[2019-12-02] VITALS (14 sets, daily range): BP systolic 113–142; BP diastolic 59–82; PULSE 60–90; RESP 15–20; TEMP 36.6–37.4; O2SAT 91–98; BMI 23.4
--- NOTE | 2019-12-02 03:58 | PC.NURSE ---
2199 pt c/o headache, tylenol given, pt has rested well since that time
[2019-12-02 06:21] LABS: Hematocrit 27.7 % (37.0-47.0); Hemoglobin 8.7 g/dL (12.2-16.2)
[2019-12-02 06:29] LABS: Anion Gap 8.3 mEq/L (5-15); Blood Urea Nitrogen 13 mg/dl (7-17); Calcium 9.2 mg/dl (8.4-10.2); Carbon Dioxide 31 mmol/L (22.0-30.0); Chloride 97 mmol/L (98-107); Creatinine Clearance Estimated 44 mL/min (50-200); Estimated Glomerular Filt Rate 60 ml/min (>60); GFR (African American) 73 ML/MIN (>60); Glucose 83 mg/dl (74-100); Potassium 4.3 mmoL/L (3.5-5.1); Sodium 132 mmol/L (136-145)
--- NOTE | 2019-12-02 08:14 | HMH.PNCARD ---
Subjective Date: 12/02/19 Time: 08:14 Principal diagnosis: NSTEMI Interval history: 79-year-old white female in bed eating breakfast in no acute distress. States she feels better than yesterday. She denies any chest pain, pressure or tightness. Her breathing is slowly improving. The results of her cardiac catheterization and stenting were reviewed with her. Exam Vital signs and Labs for Last 24 Hours: Temp Pulse Resp BP Pulse Ox 99.3 F 79 18 132/61 96 12/02/19 04:00 12/02/19 06:12 12/02/19 06:00 12/02/19 06:00 12/02/19 06:12 Laboratory Results - last 24 hr 12/01/19 06:25: CK-MB (CK-2) 0.4, CK-MB (CK-2) Rel Index 1.3, Troponin I 0.08 H 12/01/19 10:40: Activated Clotting Time 210 H* 12/01/19 11:59: Activated Clotting Time 237 H* 12/02/19 05:50: Hgb 8.7 L, Hct 27.7 L 12/02/19 05:50: Sodium 132 L, Potassium 4.3, Chloride 97 L, Carbon Dioxide 31 H, Anion Gap 8.3, BUN 13, Creatinine 0.90, Estimated Creat Clear 44, Estimated GFR 60, Est GFR ( Amer) 73, Glucose 83, Calcium 9.2 I & O for Last 24 hours: Intake & Output 11/29/19 11/30/19 12/01/19 12/02/19 11:59 11:59 11:59 11:59 Intake Total 1159 / 1159 1199 / 1199 1447 / 1447 466 / 466 Output Total 1875 / 1875 975 / 975 4025 / 4025 2750 / 2750 Balance -716 / -716 224 / 224 -2578 / -2578 -2284 / -2284 Weight 135 lb 4 oz 138 lb 4 oz 134 lb 7 oz 127 lb 7 oz Microbiology Reports for the Last 24 Hours: Microbiology 11/28/19 16:00 Urine,Catheterized Urine Culture - Preliminary Enterococcus faecalis - *Routine Respiratory Exam Absent: accessory muscle use, rales, rhonchi, wheezes Comments: Continues to have diminished breath sounds in the bases. - *Routine Cardiovascular Exam Present: RRR. Absent: murmur, gallop, rubs - *Routine Extremities Exam Present: edema. Absent: calf tenderness - *Routine Neurological Exam Present: alert, oriented X3, moving all extremities Progress Note: A&P (1) Bilateral pneumonia Status: Acute Current Visit: Yes (2) Hypoxia Status: Acute Current Visit: Yes (3) Pleural effusion Status: Acute Current Visit: Yes (4) Hypertensive urgency Status: Acute Current Visit: Yes (5) Hyperlipidemia Status: Chronic Current Visit: No (6) Hypertension Status: Chronic Current Visit: Yes (7) Anemia Status: Acute Current Visit: Yes (8) (HFpEF) heart failure with preserved ejection fraction Status: Acute Current Visit: Yes (9) UTI (urinary tract infection) due to Enterococcus Status: Acute Current Visit: Yes (10) Coronary artery calcification seen on CT scan Status: Acute Current Visit: Yes (11) Non-ST elevation [place] (NSTEMI) Status: Acute Current Visit: Yes (12) Hypertensive heart disease with acute on chronic diastolic congestive heart failure Status: Acute Current Visit: Yes Assessment and Plan for All Diagnoses:: 1. Non-ST elevation [place] status post multivessel stenting to the RCA, LAD and diagonal arteries yesterday. Patient is on aspirin and Brilinta. She has preserved ejection fraction by echocardiogram. 2. Hypertension, controlled on current medical therapy. 3. Hyperdynamic left ventricular ejection fraction with evidence of diastolic dysfunction, continue beta-karla and Lasix therapy. Monitoring renal and potassium status. 4. Hyperlipidemia, start statin therapy. 5. Bilateral pneumonia, per Dr. Cho 6. Anemia, stable
--- NOTE | 2019-12-02 08:39 | HMH.ACPN2 ---
<Larissa Phillips - Last Filed: 12/02/19 08:39> Internal Medicine - PN: Subj *Date: 12/02/19 *Time: 08:39 Interval history: Patient states she is much better today. She was able to sleep last night. She denies chest pain and feels her breathing is also better. She is anxious to be out of the bed. She does not have much of an appetite. She denies nausea. Her bowels did move last night. As per cardiology: Assessment and Plan for All Diagnoses:: 1. Non-ST elevation [place] status post multivessel stenting to the RCA, LAD and diagonal arteries yesterday. Patient is on aspirin and Brilinta. She has preserved ejection fraction by echocardiogram. 2. Hypertension, controlled on current medical therapy. 3. Hyperdynamic left ventricular ejection fraction with evidence of diastolic dysfunction, continue beta-karla and Lasix therapy. Monitoring renal and potassium status. 4. Hyperlipidemia, start statin therapy. 5. Bilateral pneumonia, per Dr. Cho 6. Anemia, stable Laboratory data this a.m. revealed a hemoglobin of 8.7 hematocrit of 27.7. Blood chemistries reveal normal potassium and normal renal function. Exam Vital signs and Labs for Last 24 Hours: Temp Pulse Resp BP Pulse Ox 98.2 F 89 16 138/65 93 L 12/02/19 08:00 12/02/19 08:00 12/02/19 08:00 12/02/19 08:00 12/02/19 08:00 Laboratory Results - last 24 hr 12/01/19 10:40: Activated Clotting Time 210 H* 12/01/19 11:59: Activated Clotting Time 237 H* 12/02/19 05:50: Hgb 8.7 L, Hct 27.7 L 12/02/19 05:50: Sodium 132 L, Potassium 4.3, Chloride 97 L, Carbon Dioxide 31 H, Anion Gap 8.3, BUN 13, Creatinine 0.90, Estimated Creat Clear 44, Estimated GFR 60, Est GFR ( Amer) 73, Glucose 83, Calcium 9.2 I & O for Last 24 hours: Intake & Output 11/29/19 11/30/19 12/01/19 12/02/19 11:59 11:59 11:59 11:59 Intake Total 1159 / 1159 1199 / 1199 1447 / 1447 706 / 706 Output Total 1875 / 1875 975 / 975 4025 / 4025 2750 / 2750 Balance -716 / -716 224 / 224 -2578 / -2578 -2044 / -2044 Weight 135 lb 4 oz 138 lb 4 oz 134 lb 7 oz 127 lb 7 oz Microbiology Reports for the Last 24 Hours: Microbiology 11/28/19 16:00 Urine,Catheterized Urine Culture - Preliminary Enterococcus faecalis Radiology Reports for the Last 24 Hours: 12/01/2019 echocardiogram Conclusion 1. Biatrial enlargement, normal left ventricular size, mild concentric left ventricular hypertrophy, visually estimated ejection fraction 55% with no regional wall motion abnormality, grade 1 diastolic dysfunction seen without tissue Doppler evidence of raise left atrial pressure. 2. Mildly enlarged right ventricle with normal contractility. 3. Mild mitral and tricuspid regurgitation, calculated right ventricular systolic pressure is 53 mmHg, inferior vena cava is normal size with normal inspiratory collapse 4. No significant pericardial effusion noted, there is left-sided pleural effusion seen. - Constitutional no acute distress Comments: Sitting up in the bed and eating her breakfast. - *Routine Respiratory Exam Comments: Bilateral basilar crackles. Better air movement today throughout. - *Routine Cardiovascular Exam Present: RRR, murmur - *Routine Abdominal Exam Present: soft, normoactive bowel sounds. Absent: tenderness - *Routine Extremities Exam Absent: edema, calf tenderness - *Routine Neurological Exam Present: alert, oriented X3 Assessment and Plan (1) Bilateral pneumonia Current visit: Yes Status: Acute Category: Medical Code(s): J18.9 - Pneumonia, unspecified organism (2) Hypoxia Current visit: Yes Status: Acute Category: Medical Code(s): R09.02 - Hypoxemia (3) Pleural effusion Current visit: Yes Status: Acute Category: Medical Code(s): J90 - Pleural effusion, not elsewhere classified (4) Hypertensive urgency Current visit: Yes Status: Acute Category: Medical Code(s): I16.0 -
--- NOTE | 2019-12-02 10:19 | HMH.PTEV ---
Physical Therapy Evaluation Rehab PT IP Evaluation Start: 12/02/19 08:31 Freq: ONCE Status: Active Protocol: Document 12/02/19 10:13 DANTE (Rec: 12/02/19 10:18 DANTE [id number]) Subjective/History History History 79-year-old female presented to the ED complaining of chest pain x24 hours. Patient also states that she has had general malaise and fatigue for the last 3 days. Patient did not complain of cough but in the ED she is starting to struggle breathing. She denied any fever shakes or chills. She states that she is coughed a couple of times and has been productive. Patient denies any sore throat or headache. Patient states that she has not had any cardiac issues but she does have a strong family history of heart disease. Patient states that her pain is a pressure-like sensation and complains that it is 3 out of 10. She states alleviating factors include rest. Pt had cardiac stenting procedure yesterday 12/01/19 w/ 3 stents placed. Subjective Subjective Pt reports c/o fatigue, weajness and SOA Rehab PT IP Eval Objective Appearance Patient Behavior Appropriate,Cooperative Patient Orientation Person,Place,Time Difficulty following instructions none Speech Pattern Clear,Appropriate,Coherent Ambulation Patient Able to Ambulate Yes Ambulation Observation IP General Gait Pattern Observation Shuffling Step Ambulation Distance (feet) 7 Ambulation Assistive Device None Ambulation Ability Contact Guard/Hand Hold Balance Ability to Arise Able, uses arms to help Sitting Balance Steady, safe Standing Balance Steady, wide stance Dynamic Sitting Balance Ability Good Dynamic Standing Balance Ability Fair Transfers Bed Transfer Ability Independent,Supervision/Stand by Chair Transfer Ability Independent,Supervision/Stand by Sit to Stand Bed Transfer Ability Supervision/Che[place]
[2019-12-02 12:28] LABS: Occult Blood,Stool Negative (Negative)
--- NOTE | 2019-12-02 12:48 | PC.NURSE ---
PLACE PUREWICK ON PATIENT
--- NOTE | 2019-12-02 17:01 | PC.NURSE ---
PATIENT HAS BEEN UP TO THE CHAIR MOST OF THIS SHIFT. SHE HAS A PUREWICK ON DUE TO HER URGENCY AND INCONTINENCE. ARMENTA CATH WAS DC EARLY IN SHIFT. PATIENT HAS BEEN VOIDING AND HAD 1 LARGE BM. DENIES PAIN AT THIS TIME. REMAINS ON 2LNC. CALL LIGHT WITHIN REACH WILL CONTINUE TO MONITOR.
[2019-12-03] VITALS (10 sets, daily range): BP systolic 112–141; BP diastolic 54–67; PULSE 70–90; RESP 16–18; TEMP 36.6–37; O2SAT 85–99; BMI 22.1; BMI 22.3
--- NOTE | 2019-12-03 04:16 | PC.NURSE ---
No acute changes noted. Pt remains A&Ox4. Has remained on 2L NC with sats in upper 90s. Will obtain RA this am. Has not c/o soa or discomfort this shift. VSS. Medication administered per oct. Daquan remains in place for incontinence. No other concerns at this time. Will continue to monitor.
[2019-12-03 06:46] LABS: Basophils % 0.2 % (0.1-2.0); Eosinophils # 0.1 K/mm3 (0.0-0.4); Eosinophils % 1.6 % (0.1-12.0); Hematocrit 28.5 % (37.0-47.0); Hemoglobin 9.1 g/dL (12.2-16.2); Lymphocytes # 0.9 K/mm3 (0.7-4.5); Lymphocytes % 12.4 % (10-50); Mean Corpuscular HGB Conc 31.9 g/dL (31.8-35.4); Mean Corpuscular Hemoglobin 30.1 pg (27.0-31.2); Mean Corpuscular Volume 94.3 fl (81-99); Mean Platelet Volume 7.5 fl (7.4-10.4); Monocytes # 0.4 K/mm3 (0.1-1.0); Monocytes % 5.8 % (1.7-9.3); Platelet Count 309 K/mm3 (142-424); Red Blood Count 3.02 M/mm3 (4.20-5.40); Red Cell Distribution Width 13.6 % (11.5-17.5); White Blood Count 7.5 K/mm3 (4.8-10.8)
[2019-12-03 06:58] LABS: Chloride 91 mmol/L (98-107); Potassium 4.3 mmoL/L (3.5-5.1); Sodium 131 mmol/L (136-145)
[2019-12-03 07:01] LABS: Anion Gap 11.3 mEq/L (5-15); Blood Urea Nitrogen 13 mg/dl (7-17); Carbon Dioxide 33 mmol/L (22.0-30.0); Chol/HDL Ratio 3.3 (1-3.5); Cholesterol 164 mg/dl (140-200); Creatinine Clearance Estimated 36 mL/min (50-200); Estimated Glomerular Filt Rate 48 ml/min (>60); GFR (African American) 58 ML/MIN (>60); HDL Cholesterol 49 mg/dl (40-60); Triglycerides 75 mg/dl (30-150); VLDL Cholesterol 15 mg/dL (0-40)
[2019-12-03 07:02] LABS: Calcium 9.1 mg/dl (8.4-10.2); Glucose 91 mg/dl (74-100)
[2019-12-03 07:12] LABS: Direct LDL Cholesterol 117.98 mg/dL (100-129)
--- NOTE | 2019-12-03 07:40 | SW/DCPLANNER ---
WENT IN TO SEE PATIENT THIS MORNING AND SPOKE WITH NURSE, TAYLER REGARDING PATIENTS 02 SATS... PATIENT HAS BEEN RUNNING IN THE LOW 80'S ON ROOM AIR AND IT APPEARS SHE MAY NEED HOME OXYGEN ONCE SHE IS READY FOR DISCHARGE... WILL COLLABORATE WITH MD AND SET PATIENT UP FOR ANY SERVICES SHE MAY NEED AT TIME OF DISPOSITION...
--- NOTE | 2019-12-03 08:44 | HMH.ACPN2 ---
<Mya Arenas - Last Filed: 12/03/19 08:44> Internal Medicine - PN: Subj *Date: 12/03/19 *Time: 08:44 Interval history: Patient is feeling better this morning. She states she actually rested last night. She denies any chest pain. She states she is still very weak, but her shortness of breath is improved. She is sitting up eating breakfast this morning. Exam Vital signs and Labs for Last 24 Hours: Temp Pulse Resp BP Pulse Ox 98.3 F 80 16 141/67 H 98 12/03/19 04:00 12/03/19 05:53 12/03/19 04:00 12/03/19 04:00 12/03/19 05:53 Laboratory Results - last 24 hr 12/02/19 11:15: Stool Occult Blood Negative 12/03/19 06:08: Sodium 131 L, Potassium 4.3, Chloride 91 L, Carbon Dioxide 33 H, Anion Gap 11.3, BUN 13, Creatinine 1.10 H D, Estimated Creat Clear 36, Estimated GFR 48 L, Est GFR ( Amer) 58 L D, Glucose 91, Calcium 9.1 12/03/19 06:08: WBC 7.5, RBC 3.02 L, Hgb 9.1 L, Hct 28.5 L, MCV 94.3, MCH 30.1, MCHC 31.9, RDW 13.6, Plt Count 309, MPV 7.5, Neut % (Auto) 80.0, Lymph % (Auto) 12.4, Boyd % (Auto) 5.8, Eos % (Auto) 1.6, Baso % (Auto) 0.2, Neut # (Auto) 6.0, Lymph # (Auto) 0.9, Boyd # (Auto) 0.4, Eos # (Auto) 0.1, Baso # (Auto) 0.0 12/03/19 06:08: Triglycerides 75, Cholesterol 164, LDL Cholesterol Direct 117.98, VLDL Cholesterol 15, HDL Cholesterol 49, Cholesterol/HDL Ratio 3.3 I & O for Last 24 hours: Intake & Output 11/30/19 12/01/19 12/02/19 12/03/19 11:59 11:59 11:59 11:59 Intake Total 1199 / 1199 1447 / 1447 756 / 756 290 / 290 Output Total 975 / 975 4025 / 4025 3151 / 3151 1600 / 1600 Balance 224 / 224 -2578 / -2578 -2395 / -2395 -1310 / -1310 Weight 138 lb 4 oz 134 lb 7 oz 127 lb 7 oz 120 lb 5 oz - Constitutional no acute distress - *Routine Respiratory Exam Present: rales (faint bibasilar). Absent: rhonchi, wheezes - *Routine Cardiovascular Exam Present: RRR - *Routine Abdominal Exam Present: soft, normoactive bowel sounds. Absent: tenderness - *Routine Extremities Exam Present: edema (trace LE edema bilaterally). Absent: cyanosis, clubbing - *Routine Skin Exam Present: warm. Absent: rash - *Routine Neurological Exam Present: alert, oriented X3 Assessment and Plan (1) Bilateral pneumonia Current visit: Yes Status: Acute Category: Medical Code(s): J18.9 - Pneumonia, unspecified organism (2) Hypoxia Current visit: Yes Status: Acute Category: Medical Code(s): R09.02 - Hypoxemia (3) Pleural effusion Current visit: Yes Status: Acute Category: Medical Code(s): J90 - Pleural effusion, not elsewhere classified (4) Hypertensive urgency Current visit: Yes Status: Acute Category: Medical Code(s): I16.0 - Hypertensive urgency (5) Hyperlipidemia Current visit: No Status: Chronic Category: Medical Code(s): E78.5 - Hyperlipidemia, unspecified (6) Hypertension Current visit: Yes Status: Chronic Category: Medical Code(s): I10 - Essential (primary) hypertension (7) Anemia Current visit: Yes Status: Acute Category: Medical Code(s): D64.9 - Anemia, unspecified (8) (HFpEF) heart failure with preserved ejection fraction Current visit: Yes Status: Acute Category: Medical Code(s): I50.30 - Unspecified diastolic (congestive) heart failure (9) UTI (urinary tract infection) due to Enterococcus Current visit: Yes Status: Acute Category: Medical Code(s): N39.0 - Urinary tract infection, site not specified; B95.2 - Enterococcus as the cause of diseases classified elsewhere (10) Coronary artery calcification seen on CT scan Current visit: Yes Status: Acute Category: Medical Code(s): I25.10 - Atherosclerotic heart disease of [place] coronary artery without angina pectoris (11) Non-ST elevation [place] (NSTEMI) Current visit: Yes Status: Acute Category: Medical Code(s): I21.4 - Non-ST elevation (NSTEMI) myocardial infarction (12) Hypertensive heart disease with acute on chronic diastolic congestive heart
--- NOTE | 2019-12-03 09:42 | HMH.PNCARD ---
Subjective Date: 12/03/19 Time: 09:15 Principal diagnosis: NSTEMI Interval history: This is a 79-year-old female who underwent left cardiac catheterization with multiple stents placed. This morning she states she is feeling much better. She denies any chest pain or pressure. She denies any shortness of breath or edema. She denies any fever, chills, nausea, vomiting, diarrhea, PND or orthopnea. She denies any cough. The patient did diurese over 2 L yesterday. She states that she feels like her breathing and swelling are much better now. Exam Vital signs and Labs for Last 24 Hours: Temp Pulse Resp BP Pulse Ox 98.6 F 86 18 120/54 L 95 12/03/19 08:00 12/03/19 08:00 12/03/19 08:00 12/03/19 08:00 12/03/19 08:00 Laboratory Results - last 24 hr 12/02/19 11:15: Stool Occult Blood Negative 12/03/19 06:08: Sodium 131 L, Potassium 4.3, Chloride 91 L, Carbon Dioxide 33 H, Anion Gap 11.3, BUN 13, Creatinine 1.10 H D, Estimated Creat Clear 36, Estimated GFR 48 L, Est GFR ( Amer) 58 L D, Glucose 91, Calcium 9.1 12/03/19 06:08: WBC 7.5, RBC 3.02 L, Hgb 9.1 L, Hct 28.5 L, MCV 94.3, MCH 30.1, MCHC 31.9, RDW 13.6, Plt Count 309, MPV 7.5, Neut % (Auto) 80.0, Lymph % (Auto) 12.4, [place] % (Auto) 5.8, Eos % (Auto) 1.6, Baso % (Auto) 0.2, Neut # (Auto) 6.0, Lymph # (Auto) 0.9, [place] # (Auto) 0.4, Eos # (Auto) 0.1, Baso # (Auto) 0.0 12/03/19 06:08: Triglycerides 75, Cholesterol 164, LDL Cholesterol Direct 117.98, VLDL Cholesterol 15, HDL Cholesterol 49, Cholesterol/HDL Ratio 3.3 I & O for Last 24 hours: Intake & Output 11/30/19 12/01/19 12/02/19 12/03/19 23:59 23:59 23:59 23:59 Intake Total 1624 / 1624 712 / 712 1016 / 1016 360 / 360 Output Total 3725 / 3725 1999 3451 / 3451 Balance -2101 / -2101 -1288 / -1288 -2435 / -2435 360 / 360 Weight 138 lb 4 oz 134 lb 7 oz 127 lb 7 oz 120 lb 5 oz Narrative: Telemetry strip shows sinus rhythm with a rate of 82. - Constitutional no acute distress, average body habitus - *Routine HEENT Exam Head: Present: normocephalic Eye: Present: EOMI, PERRL ENT: Present: mucous membranes moist - *Routine Neck Exam Present: supple, full ROM, normal carotid upstroke. Absent: JVD, carotid bruit, lymphadenopathy - *Routine Respiratory Exam Present: CTA bilaterally - *Routine Cardiovascular Exam Present: RRR, Normal S1, Normal S2. Absent: murmur - *Routine Abdominal Exam Present: soft, normoactive bowel sounds. Absent: tenderness, distended - *Routine Extremities Exam Present: full ROM, pulses intact. Absent: cyanosis, clubbing, edema - *Routine Skin Exam Present: intact, warm. Absent: erythema, rash - *Routine Neurological Exam Present: alert, oriented X3, CN II-XII intact. Absent: sensory deficit, motor deficit Progress Note: A&P (1) Non-ST elevation [place] (NSTEMI) Status: Acute Current Visit: Yes (2) Bilateral pneumonia Status: Acute Current Visit: Yes (3) Hypoxia Status: Acute Current Visit: Yes (4) Pleural effusion Status: Acute Current Visit: Yes (5) Hypertensive urgency Status: Acute Current Visit: Yes (6) Hyperlipidemia Status: Chronic Current Visit: No (7) Hypertension Status: Chronic Current Visit: Yes (8) Anemia Status: Acute Current Visit: Yes (9) (HFpEF) heart failure with preserved ejection fraction Status: Acute Current Visit: Yes (10) UTI (urinary tract infection) due to Enterococcus Status: Acute Current Visit: Yes (11) Coronary artery calcification seen on CT scan Status: Acute Current Visit: Yes (12) Hypertensive heart disease with acute on chronic diastolic congestive heart failure Status: Acute Current Visit: Yes (13) Coronary artery disease Status: Acute Current Visit: Yes (14) Status post coronary artery stent placement Status: Acute Current Visit: Yes Assessment and Plan for All Diagnoses:: Plan: 1. Patient was admitted to the hospital and un
--- NOTE | 2019-12-03 09:53 | XR_ITS ---
PROCEDURE: XR CHEST 2V CLINICAL HISTORY: f/u pneumonia COMPARISON: XR CHEST PORTABLE from 11/28/2019 CT CHEST WO CON from 11/28/2019 XR CHEST PORTABLE from 11/29/2019 XR CHEST PORTABLE from 12/01/2019 FINDINGS: Mild cardiomegaly without failure. There is dense consolidation in the right lower lobe once again noted with effusion consistent with pneumonia. Left lower lobe pneumonia also noted with small effusion. Upper lobes are clear. There is increased density over lower right lower hemithorax some which is felt to be due to soft tissue attenuation along with a combination of pneumonia and volume loss and effusion. Thoracic kyphosis is noted. Coronary artery stents are present IMPRESSION: Persistent bilateral lower lobe pneumonia with effusions. The pneumonia may be slightly worse on the right compared to the previous exam Dictated by: Cecil Norwood MD 12/03/2019 11:41 Electronically signed by Cecil Norwood MD in [facility] 12/03/2019 11:41
--- NOTE | 2019-12-03 15:57 | PC.NURSE ---
Pt is alert and oriented and able to make needs known. Have encouraged use of incentive spirometer. Pt has been up to chair this shift. Have applied dsg to coccyx for redness. Pt has been educated to call for help when needing to use bathroom or when she has gone to make staff aware , therefore in efforts to decrease skin breakdown. She verbalizes understanding. Pt has been NSR on tele and continues on 02 @ 1.5 L NC. Will cont to mx this shift.
[2019-12-04] VITALS (17 sets, daily range): BP systolic 109–139; BP diastolic 50–65; PULSE 68–83; RESP 16–22; TEMP 36.4–36.8; O2SAT 89–99; BMI 20.9
--- NOTE | 2019-12-04 04:59 | PC.NURSE ---
A&OX4 . PT UP IN ROOM WITH WALKER AND STANDBY ASSIST. PT HAS HAD NO C/O PAIN/NA/VO OR SOA THIS SHIFT. CATH SITE TO R WRIST CDI. PT NSR ON TELE. PT HAS RESTED T/O SHIFT. NO COMPLAINTS THUS FAR, VSS WILL CONTINUE TO MONITOR.
--- NOTE | 2019-12-04 05:14 | PC.NURSE ---
RN NOTIFIED OF WEIGHT LOSS.
--- NOTE | 2019-12-04 07:44 | PC.NURSE ---
NOTIFIED DAY SHIFT NURSE OF WEIGHT LOSS TO PASS ON TO
--- NOTE | 2019-12-04 08:17 | HMH.ACPN2 ---
<Mya Arenas - Last Filed: 12/04/19 08:17> Internal Medicine - PN: Subj *Date: 12/04/19 *Time: 08:17 Interval history: Patient states she is feeling better today. She sat up a lot yesterday and was fatigued by last night. She slept well and has been up sitting in a chair and eating breakfast this morning. She denies any chest pain and her shortness of breath has improved. Swelling has also improved. Exam Vital signs and Labs for Last 24 Hours: Temp Pulse Resp BP Pulse Ox 97.6 F 82 18 139/65 94 L 12/04/19 07:57 12/04/19 07:57 12/04/19 07:57 12/04/19 07:57 12/04/19 07:57 I & O for Last 24 hours: Intake & Output 12/01/19 12/02/19 12/03/19 12/04/19 11:59 11:59 11:59 11:59 Intake Total 1447 / 1447 756 / 756 650 / 650 1060 / 1060 Output Total 4025 / 4025 3151 / 3151 1601 / 1601 500 / 500 Balance -2578 / -2578 -2395 / -2395 -951 / -951 560 / 560 Weight 134 lb 7 oz 127 lb 7 oz 120 lb 5 oz 113 lb 9 oz Microbiology Reports for the Last 24 Hours: Microbiology 11/28/19 15:40 Blood Blood Culture - Final NO GROWTH AFTER 5 DAYS 11/28/19 15:40 Blood Blood Culture - Final NO GROWTH AFTER 5 DAYS Radiology Reports for the Last 24 Hours: CXR Persistent bilateral lower lobe pneumonia with effusions. The pneumonia may be slightly worse on the right compared to the previous exam - Constitutional no acute distress - *Routine Respiratory Exam Present: rales (faint bibasilar). Absent: rhonchi, wheezes - *Routine Cardiovascular Exam Present: RRR - *Routine Abdominal Exam Present: soft, normoactive bowel sounds. Absent: tenderness - *Routine Extremities Exam Present: edema (1+ pretibial edema bilaterally) - *Routine Skin Exam Present: warm. Absent: rash - *Routine Neurological Exam Present: alert, oriented X3 Assessment and Plan (1) Non-ST elevation [place] (NSTEMI) Current visit: Yes Status: Acute Category: Medical Code(s): I21.4 - Non-ST elevation (NSTEMI) myocardial infarction (2) Bilateral pneumonia Current visit: Yes Status: Acute Category: Medical Code(s): J18.9 - Pneumonia, unspecified organism (3) Hypoxia Current visit: Yes Status: Acute Category: Medical Code(s): R09.02 - Hypoxemia (4) Pleural effusion Current visit: Yes Status: Acute Category: Medical Code(s): J90 - Pleural effusion, not elsewhere classified (5) Hypertensive urgency Current visit: Yes Status: Acute Category: Medical Code(s): I16.0 - Hypertensive urgency (6) Hyperlipidemia Current visit: No Status: Chronic Category: Medical Code(s): E78.5 - Hyperlipidemia, unspecified (7) Hypertension Current visit: Yes Status: Chronic Category: Medical Code(s): I10 - Essential (primary) hypertension (8) Anemia Current visit: Yes Status: Acute Category: Medical Code(s): D64.9 - Anemia, unspecified (9) (HFpEF) heart failure with preserved ejection fraction Current visit: Yes Status: Acute Category: Medical Code(s): I50.30 - Unspecified diastolic (congestive) heart failure (10) UTI (urinary tract infection) due to Enterococcus Current visit: Yes Status: Acute Category: Medical Code(s): N39.0 - Urinary tract infection, site not specified; B95.2 - Enterococcus as the cause of diseases classified elsewhere (11) Coronary artery calcification seen on CT scan Current visit: Yes Status: Acute Category: Medical Code(s): I25.10 - Atherosclerotic heart disease of [place] coronary artery without angina pectoris (12) Hypertensive heart disease with acute on chronic diastolic congestive heart failure Current visit: Yes Status: Acute Category: Medical Code(s): I11.0 - Hypertensive heart disease with heart failure; I50.33 - Acute on chronic diastolic (congestive) heart failure (13) Coronary artery disease Current visit: Yes Status: Acute Category: Medical Code(s): I
--- NOTE | 2019-12-04 11:13 | HMH.PNCARD ---
Subjective Date: 12/04/19 Time: 11:13 Principal diagnosis: NSTEMI Interval history: This is a 79-year-old white female who has undergone cardiac catheterization with multiple stents placed to her left anterior descending artery and right coronary artery. Temps morning the patient states that she feels even better today than she did yesterday. She states that her shortness of breath is much better. She states that her edema in her legs is much better. She denies any chest pain or pressure. She states that she did not realize how bad she felt until now that she is much better. She denies any fever, chills, nausea, vomiting, diarrhea, PND, orthopnea or cough. Exam Vital signs and Labs for Last 24 Hours: Temp Pulse Resp BP Pulse Ox 97.6 F 82 18 139/65 94 L 12/04/19 07:57 12/04/19 07:57 12/04/19 07:57 12/04/19 07:57 12/04/19 07:57 I & O for Last 24 hours: Intake & Output 12/01/19 12/02/19 12/03/19 12/04/19 23:59 23:59 23:59 23:59 Intake Total 712 / 712 1016 / 1016 1300 / 1300 120 / 120 Output Total 1999 / 1999 3451 / 3451 151 / 151 350 / 350 Balance -1288 / -1288 -2435 / -2435 1149 / 1149 -230 / -230 Weight 134 lb 7 oz 127 lb 7 oz 121 lb 4.068 oz 113 lb 9 oz Microbiology Reports for the Last 24 Hours: Microbiology 11/28/19 15:40 Blood Blood Culture - Final NO GROWTH AFTER 5 DAYS 11/28/19 15:40 Blood Blood Culture - Final NO GROWTH AFTER 5 DAYS Narrative: Telemetry strip is sinus rhythm with a rate of 72. - Constitutional no acute distress, average body habitus - *Routine HEENT Exam Head: Present: normocephalic, atraumatic Eye: Present: EOMI, PERRL ENT: Present: mucous membranes moist - *Routine Neck Exam Present: supple, full ROM, normal carotid upstroke. Absent: JVD, carotid bruit, lymphadenopathy - *Routine Respiratory Exam Present: CTA bilaterally - *Routine Cardiovascular Exam Present: RRR, Normal S1, Normal S2. Absent: murmur, gallop - *Routine Abdominal Exam Present: soft, normoactive bowel sounds. Absent: tenderness, distended - *Routine Extremities Exam Present: edema (Trace bilateral lower extremity edema), full ROM, pulses intact, normal capillary refill. Absent: cyanosis, clubbing - *Routine Skin Exam Present: intact, warm. Absent: erythema, rash - *Routine Neurological Exam Present: alert, oriented X3 Progress Note: A&P (1) Non-ST elevation [place] (NSTEMI) Status: Acute Current Visit: Yes (2) Bilateral pneumonia Status: Acute Current Visit: Yes (3) Hypoxia Status: Acute Current Visit: Yes (4) Pleural effusion Status: Acute Current Visit: Yes (5) Hypertensive urgency Status: Acute Current Visit: Yes (6) Hyperlipidemia Status: Chronic Current Visit: No (7) Hypertension Status: Chronic Current Visit: Yes (8) Anemia Status: Acute Current Visit: Yes (9) (HFpEF) heart failure with preserved ejection fraction Status: Acute Current Visit: Yes (10) UTI (urinary tract infection) due to Enterococcus Status: Acute Current Visit: Yes (11) Coronary artery calcification seen on CT scan Status: Acute Current Visit: Yes (12) Hypertensive heart disease with acute on chronic diastolic congestive heart failure Status: Acute Current Visit: Yes (13) Coronary artery disease Status: Acute Current Visit: Yes (14) Status post coronary artery stent placement Status: Acute Current Visit: Yes (15) Lower extremity edema Status: Acute Current Visit: Yes Assessment and Plan for All Diagnoses:: Plan: 1. The patient was admitted to the hospital and underwent left cardiac catheterization. She had multiple stents placed to her LAD and right coronary artery. She will remain on Brilinta and aspirin for dual antiplatelet therapy. The patient is tolerating medications well. 2. The patient's blood pressure is well controlled. 3.
--- NOTE | 2019-12-04 15:46 | PC.NURSE ---
patient has done okay this shift. she rings out as needed. has been incontinent of urine. had a short spell of vomiting and nausea but states it has gotten better. radial site c/d/i. no complaints. has been in chair most of day. did participate with pt in room. vitals stable will continue to monitor.
[2019-12-05] VITALS (7 sets, daily range): BP systolic 123–134; BP diastolic 55–60; PULSE 70–90; RESP 16–22; TEMP 36.7; O2SAT 91–94; BMI 21.3
--- NOTE | 2019-12-05 05:10 | PC.NURSE ---
A&OX4. PT TOLERATING 1LNC T/O MOST OF SHIFT, PT IS NOW ON RA. PT RESTING IN BED MAJORITY OF SHIFT. PT X1 ASSIST IN ROOM. PT HAS HAD NO C/O PAIN, SOA, NA/VO THIS SHIFT. R WRIST CATH SITE CDI. NO COMPLAINTS THUS FAR, VSS WILL CONTINUE TO MONITOR.
--- NOTE | 2019-12-05 08:23 | HMH.ACPN2 ---
<Mya Arenas - Last Filed: 12/05/19 08:23> Internal Medicine - PN: Subj *Date: 12/05/19 *Time: 08:23 Interval history: Patient states she feels better today. She has been off of oxygen since around 4 AM and her sats have been in the low 90s. She denies any chest pain or shortness of breath. She ate a good breakfast this morning. She did state she was up with physical therapy yesterday and using a walker. Exam Vital signs and Labs for Last 24 Hours: Temp Pulse Resp BP Pulse Ox 98.1 F 80 22 134/60 91 L 12/05/19 03:58 12/05/19 06:36 12/05/19 03:58 12/05/19 03:58 12/05/19 06:36 I & O for Last 24 hours: Intake & Output 12/02/19 12/03/19 12/04/19 12/05/19 11:59 11:59 11:59 11:59 Intake Total 756 / 756 650 / 650 1060 / 1060 480 / 480 Output Total 3151 / 3151 1601 / 1601 500 / 500 600 / 600 Balance -2395 / -2395 -951 / -951 560 / 560 -120 / -120 Weight 127 lb 7 oz 120 lb 5 oz 113 lb 9 oz 116 lb 2 oz Microbiology Reports for the Last 24 Hours: Microbiology 11/28/19 16:00 Urine,Catheterized Urine Culture - Final Enterococcus faecalis - Constitutional no acute distress - *Routine Respiratory Exam Present: rales (faint basilar). Absent: rhonchi, wheezes - *Routine Cardiovascular Exam Present: RRR - *Routine Abdominal Exam Present: soft, normoactive bowel sounds. Absent: tenderness - *Routine Extremities Exam Present: edema (1+ LE edema bilaterally). Absent: cyanosis, clubbing - *Routine Skin Exam Present: warm. Absent: rash - *Routine Neurological Exam Present: alert, oriented X3 Assessment and Plan (1) Non-ST elevation CT (NSTEMI) Status: Acute Category: Medical Code(s): I21.4 - Non-ST elevation (NSTEMI) myocardial infarction (2) Bilateral pneumonia Status: Acute Category: Medical Code(s): J18.9 - Pneumonia, unspecified organism (3) Hypoxia Status: Acute Category: Medical Code(s): R09.02 - Hypoxemia (4) Pleural effusion Status: Acute Category: Medical Code(s): J90 - Pleural effusion, not elsewhere classified (5) Hypertensive urgency Status: Acute Category: Medical Code(s): I16.0 - Hypertensive urgency (6) Hyperlipidemia Status: Chronic Category: Medical Code(s): E78.5 - Hyperlipidemia, unspecified (7) Hypertension Status: Chronic Category: Medical Code(s): I10 - Essential (primary) hypertension (8) Anemia Status: Acute Category: Medical Code(s): D64.9 - Anemia, unspecified (9) (HFpEF) heart failure with preserved ejection fraction Status: Acute Category: Medical Code(s): I50.30 - Unspecified diastolic (congestive) heart failure (10) UTI (urinary tract infection) due to Enterococcus Status: Acute Category: Medical Code(s): N39.0 - Urinary tract infection, site not specified; B95.2 - Enterococcus as the cause of diseases classified elsewhere (11) Coronary artery calcification seen on CT scan Status: Acute Category: Medical Code(s): I25.10 - Atherosclerotic heart disease of [place] coronary artery without angina pectoris (12) Hypertensive heart disease with acute on chronic diastolic congestive heart failure Status: Acute Category: Medical Code(s): I11.0 - Hypertensive heart disease with heart failure; I50.33 - Acute on chronic diastolic (congestive) heart failure (13) Coronary artery disease Status: Acute Category: Medical Code(s): I25.10 - Atherosclerotic heart disease of [place] coronary artery without angina pectoris (14) Status post coronary artery stent placement Status: Acute Category: Surgical Code(s): Z95.5 - Presence of coronary angioplasty implant and graft (15) Lower extremity edema Status: Acute Category: Medical Code(s): R60.0 - Localized edema - Assessment and plan all Dx Assessment and Plan for all problems:: Possible discharge home today. Patient will likely need a walking oxygen saturation to see if she andrew
--- NOTE | 2019-12-05 09:34 | HMH.PHAINT ---
SPOKE TO DR BELL ABOUT DISCHARGE ANTIBIOTICS. PATIENT HAS RECEIVED ZOSYN FOR UTI LONG ENOUGH AN INPATIENT AND DOES NOT NEED TO CONTINUE A PENICILLIN AT DISCHARGE. HE WILL ORDER REPEAT URINE CULTURES WITH HOME HEALTH. PATIENT WILL CONTINUE LEVAQUIN FOR PNA.
--- NOTE | 2019-12-05 09:37 | HMH.ACPN ---
Internal Medicine - PN: Subj *Date: 12/05/19 *Time: 09:38 Exam Vital signs and Labs for Last 24 Hours: Temp Pulse Resp BP Pulse Ox 98.1 F 83 16 123/55 L 93 L 12/05/19 08:00 12/05/19 08:00 12/05/19 08:00 12/05/19 08:00 12/05/19 08:00 I & O for Last 24 hours: Intake & Output 12/02/19 12/03/19 12/04/19 12/05/19 23:59 23:59 23:59 23:59 Intake Total 1016 / 1016 1300 / 1300 600 / 600 60 / 60 Output Total 3451 / 3451 151 / 151 950 / 950 Balance -2435 / -2435 1149 / 1149 -350 / -350 60 / 60 Weight 57.805 kg 55 kg 51.511 kg 52.673 kg Microbiology Reports for the Last 24 Hours: Microbiology 11/28/19 16:00 Urine,Catheterized Urine Culture - Final Enterococcus faecalis Assessment and Plan (1) Non-ST elevation [place] (NSTEMI) Current visit: Yes Status: Acute Category: Medical Code(s): I21.4 - Non-ST elevation (NSTEMI) myocardial infarction (2) Bilateral pneumonia Current visit: Yes Status: Acute Category: Medical Code(s): J18.9 - Pneumonia, unspecified organism (3) Hypoxia Current visit: Yes Status: Acute Category: Medical Code(s): R09.02 - Hypoxemia (4) Pleural effusion Current visit: Yes Status: Acute Category: Medical Code(s): J90 - Pleural effusion, not elsewhere classified (5) Hypertensive urgency Current visit: Yes Status: Acute Category: Medical Code(s): I16.0 - Hypertensive urgency (6) Hyperlipidemia Current visit: No Status: Chronic Category: Medical Code(s): E78.5 - Hyperlipidemia, unspecified (7) Hypertension Current visit: Yes Status: Chronic Category: Medical Code(s): I10 - Essential (primary) hypertension (8) Anemia Current visit: Yes Status: Acute Category: Medical Code(s): D64.9 - Anemia, unspecified (9) (HFpEF) heart failure with preserved ejection fraction Current visit: Yes Status: Acute Category: Medical Code(s): I50.30 - Unspecified diastolic (congestive) heart failure (10) UTI (urinary tract infection) due to Enterococcus Current visit: Yes Status: Acute Category: Medical Code(s): N39.0 - Urinary tract infection, site not specified; B95.2 - Enterococcus as the cause of diseases classified elsewhere (11) Coronary artery calcification seen on CT scan Current visit: Yes Status: Acute Category: Medical Code(s): I25.10 - Atherosclerotic heart disease of [place] coronary artery without angina pectoris (12) Hypertensive heart disease with acute on chronic diastolic congestive heart failure Current visit: Yes Status: Acute Category: Medical Code(s): I11.0 - Hypertensive heart disease with heart failure; I50.33 - Acute on chronic diastolic (congestive) heart failure (13) Coronary artery disease Current visit: Yes Status: Acute Category: Medical Code(s): I25.10 - Atherosclerotic heart disease of [place] coronary artery without angina pectoris (14) Status post coronary artery stent placement Current visit: Yes Status: Acute Category: Surgical Code(s): Z95.5 - Presence of coronary angioplasty implant and graft (15) Lower extremity edema Current visit: Yes Status: Acute Category: Medical Code(s): R60.0 - Localized edema The patient's infection will respond to the chosen ABx?: Yes Is the patient receiving the right drug, dose, and route?: Yes Could a more targeted ABx be ordered?: No (WILL CONTINUE LEVAQUIN FOR PNA AT DISCHARGE)
--- NOTE | 2019-12-05 10:25 | SW/DCPLANNER ---
RECEIVED REFERRAL FOR THIS PATIENT FOR HOME HEALTH SERVICES TO PROVIDE NURSING, RESPIRATORY /CARDIAC ASSESSMENT, MED MANAGEMENT AND PT AND HOME SAFETY.....PATIENT IS A PATIENT WITH [facility] AND IS ABOUT TO FINISH UP WITH THEM AND HAS HAD A NEW HOSPITAL ADMISSION AND WISHES TO USE THEIR SERVICES AGAIN.. I CALLED AND SENT ORDERS AND REFERRAL FOR SERVICES TO START ON SUNDAY.. PATIENT DID NOT QUALIFY FOR HOME 02.... SHE WAS UP AND MOVED AROUND AND DID NOT DROP LOW ENOUGH TO QUALIFY UNDER [facility] GUIDELINES.... DISCHARGE TO HOME TODAY....
--- NOTE | 2019-12-05 12:43 | PC.NURSE ---
NOTIFIED [facility] TO LET THEM KNOW PT HAS BEEN DISCHARGED SO SHE WILL NEED ALL OF HER MEDS DELIVERED TO HER. NOTIFIED PT'S BROTHER WHO IS LISTED PT'S CONTACT TO LET HIM KNOW THAT PT'S RIDE HAD ARRIVED AND IS TAKING HER HOME. PT WILL FOLLOW UP WITH AND CARDIOLOGY.
--- NOTE | 2019-12-09 22:05 | HMH.DCSUM ---
General - General Admission date:: 11/28/19 <Manuel Cho - 12/17/19 10:27> 11/28/19 <Mya Arenas - 12/09/19 22:25> Discharge date: 12/05/19 <yMa Arenas - 12/09/19 22:25> HPI HPI: Ms. Velazquez is a 79-year-old female who was just recently discharged from the half-way after a stay for rehab following a right hip and right humerus fracture. She presented to the ER with c/o chest pain for approx 24 hours. It was worse with exertion, coughing, and sneezing and better with rest. She had fatigue and had generally not felt well for 3 days prior to admission. She did not complain of cough but started to struggle breathing while in the ER. Her blood pressure was very elevated. Her sats were initally 96% on room air but she was having difficulty forming complete sentences. She denied any fever, shakes, or chills. She had coughed a couple of times and it had been productive. She denied any sore throat or headache. She had not had any cardiac issues, but she does have a strong family history of heart disease. She had a CXR while in the ER showing bilateral lower lobe pneumonia with effusions. A chest CT was ordered. It showed multifocal bilateral pneumonia with bilateral pleural effusions with volume loss of the lower lobes on both sides along with cardiomegaly and severe coronary artery calcification. She started to desat when she came back from CT with sats in the low 80s. She was repositioned and given an albuterol neb and her sats did return back into the low 90s. ABG's showed a pO2 of 62.4. She was given hydralazine, clonidine, and lasix along with a neb treatment in the ER. She was also started on zosyn and levaquin. She was placed on a nonrebreather and she was also COVID tested and moved to the ICU. Once in the ICU, she was placed on BIPAP. <Mya Arenas - 12/09/19 22:25> Hospital Course Hospital Course: The patient was started on Zosyn and Levaquin as well as clonidine for her blood pressure and she was moved to the ICU pending her COVID test results and placed on BiPAP. Urine and blood cultures were ordered as well as serial troponins. She diuresed over 1000 mL shortly after arriving to the ICU and her blood pressure dropped into the 90s over 50s and stabilized there. Her respirations slowed and her oxygen saturations were 98% on BiPAP settings. She had a repeat chest x-ray the day after admission which showed a slight worsening of bilateral lower lobe pneumonia with bilateral effusions. She was able to be weaned off of her BiPAP onto 2 L of nasal cannula and her sats were in the low 90s. She felt better and was breathing better. She did begin having some mild left-sided chest pain. Her H&H decreased and anemia studies were ordered. Electrolytes and renal function stabilized. Her COVID test came back negative and she was moved out of the stepdown unit and continued on antibiotics. Her blood pressure began running slightly high, therefore some of her home medications were resumed and she was continued on Lasix for diuresis. She began having chest pain again on 12/01/2019 and it became worse when she was trying to eat. Her anemia studies did reveal a low vitamin B12 at 151 and her cardiac enzymes were elevated. Her urine culture revealed Enterococcus faecalis which was sensitive to penicillin. Her blood cultures were negative. She was continued on piperacillin for her UTI pneumonia and was also continued on Levaquin. She was restarted back on her beta-karla. Her EKG revealed nothing acute. An echo was ordered and cardiology was consulted due to her chest pain and elevated troponin. A repeat chest x-ray was also ordered. It showed bilateral pneumonia with bilateral effusions worse on the right. She was seen in consultation by cardiology and they felt the patient was having an NSTEMI likely secondary to bilateral pneumonia on top of her hypertensive heart disease. They recommended a heart cath. T
== END 2019-12-05 12:35 | disposition home health service (06) | DRG 981 ==
LOC: ER 15:13 → ICU 16:12 → 2ND 11-29 12:27
PROVIDERS: Internal Medicine; Nurse Practitioner Family; Physician Assistant; Admitting Provider Family Medicine; Emergency Provider Family Medicine; PCP Family Medicine; Visit Provider Family Medicine
PROC: 027 Heart and Great Vessels, Dilation (ICD-10-PCS; principal; 2019-12-01 11:00)
DX: J18.9 Pneumonia, unspecified organism (principal); I21.4 Non-ST elevation (NSTEMI) myocardial infarction; I50.33 Acute on chronic diastolic (congestive) heart failure; N39.0 Urinary tract infection, site not specified; Z03.818 Encounter for observation for suspected exposure to other biological agents ruled out; I11.0 Hypertensive heart disease with heart failure; D64.9 Anemia, unspecified; E78.5 Hyperlipidemia, unspecified; I25.10 Atherosclerotic heart disease of native coronary artery without angina pectoris; Z79.899 Other long term (current) drug therapy; I16.0 Hypertensive urgency; R09.02 Hypoxemia; E55.9 Vitamin D deficiency, unspecified
CPT/HCPCS: 94660; 36415; 71045; 71046; 71250; 80048; 80053; 80061; 81001; 82272; 82550; 82553; 82607; 82728; 82746; 82803; 83540; 83550; 83605; 84484; 85007; 85014; 85018; 85025; 85347; 87040; 87086; 87088; 87186; 92928; 92929; 93005; 93306; 93458; 94640; 94760; 94761; 96374; 96375; 97110; 97116; 97161; 97530; 99152; 99153; 99285; C1725; C1769; C1876; C9600; C9601; G0328; J1644; J1956; J2405; J2543; Q9967; U0003

== ENCOUNTER → 2019-12-19 11:38 | Outpatient (CLI) | payer MEDICARE, OTHER, SELFPAY ==
[2019-12-19 12:04] LABS: Basophils % 0.3 % (0.1-2.0); Eosinophils # 0.1 K/mm3 (0.0-0.4); Eosinophils % 1.4 % (0.1-12.0); Hemoglobin 9.9 g/dL (12.2-16.2); Lymphocytes % 14.9 % (10-50); Mean Corpuscular HGB Conc 30.9 g/dL (31.8-35.4); Mean Corpuscular Hemoglobin 29.3 pg (27.0-31.2); Mean Corpuscular Volume 94.8 fl (81-99); Mean Platelet Volume 8.1 fl (7.4-10.4); Monocytes # 0.3 K/mm3 (0.1-1.0); Monocytes % 4.8 % (1.7-9.3); Neutrophils # 5.5 K/mm3 (1.8-7.8); Neutrophils % 78.7 % (37.0-80.0); Platelet Count 246 K/mm3 (142-424); Red Blood Count 3.38 M/mm3 (4.20-5.40); Red Cell Distribution Width 14.4 % (11.5-17.5)
[2019-12-19 12:47] LABS: Blood Urea Nitrogen 22 mg/dl (7-17); Calcium 9.7 mg/dl (8.4-10.2); Carbon Dioxide 26 mmol/L (22.0-30.0); Chloride 104 mmol/L (98-107); Estimated Glomerular Filt Rate 96 ml/min (>60); GFR (African American) 117 ML/MIN (>60); Glucose 101 mg/dl (74-100); Iron 50 ug/dL (37-170); Magnesium 1.9 mg/dl (1.6-2.3); Sodium 135 mmol/L (136-145)
[2019-12-19 12:54] LABS: NT Pro Brain Natriuretic Pep. 3090 pg/mL (0-450)
[2019-12-19 13:15] LABS: Thyroid Stimulating Hormone 4.21 uIU/mL (0.465-4.68)
== END ==
PROVIDERS: Internal Medicine Cardiovascular Disease; Visit Provider Family Medicine
DX: I50.33 Acute on chronic diastolic (congestive) heart failure; D64.9 Anemia, unspecified; E78.5 Hyperlipidemia, unspecified; I25.10 Atherosclerotic heart disease of native coronary artery without angina pectoris; J18.9 Pneumonia, unspecified organism; R60.0 Localized edema; Z95.5 Presence of coronary angioplasty implant and graft
CPT/HCPCS: 36415; 80048; 83540; 83735; 83880; 84443; 85025

== ENCOUNTER → 2019-12-30 13:05 | Outpatient (CLI) | payer MEDICARE, OTHER, SELFPAY ==
--- NOTE | 2019-12-30 13:12 | XR_ITS ---
PROCEDURE: XR SHOULDER RT MIN 2V CLINICAL INDICATION: sp ORIF RT proximal humerus, DOS 07/10/19 Follow-up surgery COMPARISON: XR SHOULDER RT MIN 2V from 07/09/2019 XR SHOULDER RT MIN 2V from 07/23/2019 XR SHOULDER RT MIN 2V from 08/20/2019 XR SHOULDER RT MIN 2V from 10/01/2019 FINDINGS: Status post ORIF proximal humerus with lateral bone plate and multiple screws with good alignment and no evidence of orthopedic complication. IMPRESSION: Good alignment status post ORIF right humeral fracture Dictated by: Cecil Norwood MD 12/30/2019 13:42 Electronically signed by Cecil Norwood MD in [place] 12/30/2019 13:42
--- NOTE | 2019-12-30 13:12 | XR_ITS ---
PROCEDURE: XR HIP RT 2-3V W/PELVIS CLINICAL INDICATION: sp rt bipolar hemiarthroplasty COMPARISON: XR HIP RT 2-3V W/PELVIS from 10/01/2019 FINDINGS: Good alignment status post right bipolar hemiarthroplasty placement with curved bone plate at the greater trochanteric region is with 2 cerclage wires and medium length stem of the proximal femur IMPRESSION: Good alignment status post ORIF right proximal femur fracture Dictated by: Cecil Norwood MD 12/30/2019 13:43 Electronically signed by Cecil Norwood MD in [place] 12/30/2019 13:43
[2019-12-30 16:25] LABS: Chloride 101 mmol/L (98-107); Potassium 4.5 mmoL/L (3.5-5.1); Sodium 137 mmol/L (136-145)
[2019-12-30 16:28] LABS: Blood Urea Nitrogen 31 mg/dl (7-17); Estimated Glomerular Filt Rate 60 ml/min (>60); GFR (African American) 73 ML/MIN (>60)
[2019-12-30 16:29] LABS: Anion Gap 9.5 mEq/L (5-15); Calcium 9.9 mg/dl (8.4-10.2); Carbon Dioxide 31 mmol/L (22.0-30.0); Glucose 92 mg/dl (74-100)
[2019-12-30 16:35] LABS: NT Pro Brain Natriuretic Pep. 1880 pg/mL (0-450)
== END ==
PROVIDERS: Physician Assistant; PCP Family Medicine; Visit Provider Orthopaedic Surgery
DX: S42.301A Unspecified fracture of shaft of humerus, right arm, initial encounter for closed fracture (principal); Z09 Encounter for follow-up examination after completed treatment for conditions other than malignant neoplasm; I11.0 Hypertensive heart disease with heart failure
CPT/HCPCS: 36415; 73030; 73502; 80048; 83880

== ENCOUNTER → 2020-07-07 14:24 | Outpatient (CLI) | payer MEDICARE, OTHER, SELFPAY ==
--- NOTE | 2020-07-07 14:30 | XR_ITS ---
PROCEDURE: XR HIP RT 2-3V W/PELVIS CLINICAL INDICATION: sp RT hip bipolar matthew with long stem COMPARISON: CR XR HIP RT 2-3V W/PELVIS from 12/30/2019 FINDINGS: Status post right hip hemiarthroplasty with good alignment. The femoral stem has an unremarkable appearance. Lateral curved bone plate over the greater trochanter remains in place with cerclage wires. IMPRESSION: No change, good alignment status post right hip hemiarthroplasty. Dictated by: Cecil Norwood MD 07/07/2020 18:09 Cecil Norwood MD in [place] 07/07/2020 18:09
--- NOTE | 2020-07-07 14:30 | XR_ITS ---
PROCEDURE: XR SHOULDER RT MIN 2V CLINICAL INDICATION: sp ORIF RT proximal humerus, dos 07/10/19 COMPARISON: CR XR SHOULDER RT MIN 2V from 07/23/2019 CR XR SHOULDER RT MIN 2V from 08/20/2019 CR XR SHOULDER RT MIN 2V from 10/01/2019 CR XR SHOULDER RT MIN 2V from 12/30/2019 FINDINGS: Status post ORIF right proximal humerus with lateral bone plate present. There is good alignment with no significant change. The humeral head is located with mild osteoarthritic changes of the glenohumeral joint. Other findings:None. IMPRESSION: Good alignment status post ORIF right humeral fracture Dictated by: Cecil Norwood MD 07/07/2020 17:53 Cecil Norwood MD in [place] 07/07/2020 17:53
== END ==
PROVIDERS: PCP Family Medicine; Visit Provider Orthopaedic Surgery
DX: Z09 Encounter for follow-up examination after completed treatment for conditions other than malignant neoplasm (principal); Z87.81 Personal history of (healed) traumatic fracture; Z98.890 Other specified postprocedural states
CPT/HCPCS: 73030; 73502

== ENCOUNTER 2020-08-02 11:44 | Emergency (ER) | payer MEDICARE, OTHER, SELFPAY ==
[2020-08-02 11:50] VITALS: BP 184/74; PULSE 79; RESP 16; TEMP 36.8; O2SAT 98; BMI 23.0
--- NOTE | 2020-08-02 12:07 | HMH.EDBACK ---
ED Disposition Clinical Impression: Strain of muscle, fascia and tendon of lower back, initial encounter, Constipation Disposition: Home, Self-Care Condition on Discharge: Good Instructions: DI for Low Back Pain Additional Instructions: Return to the ED for any new or worsening symptoms including leg weakness, difficulty urinating, numbness in your groin, inability to walk. Prescriptions: polyethylene glycoL 3350 [Miralax 17gm Packet] 17 gm PO DAILY #30 packet Transmission Status: Pending to [facility] Methocarbamol [Robaxin 500mg Tab*] 500 mg PO BID 5 Days #10 tab Transmission Status: Pending to [facility] Referrals: PCP,No [Non-Staff] - Time of Disposition: 13:33 - Critical Care Critical Care Time: No Attestation: On 08/02/20, the high probability of a clinically significant, sudden or life threatening deterioration of the following system(s) required my full and direct attention, intervention and personal management. The time I documented below is in addition to time spent performing reported procedures but includes the following listed in this critical care notation. Medical Decision Making - Medical Records Medical records reviewed: Yes: I reviewed the patient's medical records. MR Comment: Renal function appropriate with no significant chronic kidney disease - Devin Inquiry Pt receiving controlled substance: No Vital Signs: 08/02/20 11:50 08/02/20 13:10 Temperature 98.2 F Temperature Source Oral Pulse Rate [Right] 79 87 Respiratory Rate 16 16 Blood Pressure [Right Arm] 184/74 H 189/77 H Blood Pressure Mean [Right Arm] 110 114 Blood Pressure Source [Right Arm] Automatic Cuff Blood Pressure Position [Right Arm] Sitting 02 Sat by Pulse Oximetry 98 99 Oxygen Delivery Method Room Air Room Air Orders (Tests/Meds): ED MEDICATIONS Discontinued Medications Generic Name Dose Route Start Last Admin Trade Name Freq PRN Reason Stop Dose Admin Acetaminophen 650 mg 08/02/20 12:10 08/02/20 13:15 Acetaminophen 325mg Tab PO 08/02/20 12:11 650 mg ONCE ONE Administration Cyclobenzaprine HCl 5 mg 08/02/20 12:09 08/02/20 13:14 Cyclobenzaprine 10mg Tablet PO 08/02/20 12:10 5 mg ONCE ONE Administration Ketorolac Tromethamine 30 mg 08/02/20 12:09 08/02/20 13:15 Ketorolac 30mg/Ml Vial IM 08/02/20 12:10 30 mg ONCE ONE Administration - Radiology Data #1 Image(s): L-Spine Image Reviewed: Yes I have reviewed radiologist's interpretation Preliminary Findings: Normal/NAD (Chronic appearing L4 compression) Medical Decision Narrative: 80-year-old female who presents with lower back pain for 3 weeks intermittently. She is well-appearing and nontoxic initial examination. Has no recent trauma and no symptoms of compressive syndrome. L-spine x-ray will be ordered. She is given Tylenol, Toradol IM 30 mg, and Flexeril 5 mg. X-ray demonstrates chronic appearing compression deformity of L4 but no other acute abnormalities. Patient's exam is consistent with musculoskeletal back strain. Patient also noted to have constipation on lumbar spine x-ray. She does endorse less bowel movements but states is having them. She was instructed on how to use the MiraLAX that will be prescribed and will be given Robaxin and instructed to alternate Tylenol and ibuprofen and discharged home in good condition. Back Pain HPI - General Stated Complaint: back pain Time Seen by Provider: 08/02/20 11:55 Mode of Arrival: EMS Source of Information: Patient Limitations: No Limitations - History of Present Illness HPI Narrative: 80-year-old female who presents with left lower back pain states that she was lifting a bag of trash 3 weeks ago and felt a sharp pain across her left lateral back. It hurt for several days at which time she treated with rest however states that it is started to hurt again worse with movement and radiates around the left from paraspinal to later
--- NOTE | 2020-08-02 12:08 | XR_ITS ---
PROCEDURE: XR LUMBAR SPINE 2-3V CLINICAL INDICATION: lower back pain new onset COMPARISON: CR XR FEMUR RT 2V from 07/10/2019 FINDINGS: Is normal curvature. There is minor non recent compression L4 and with no more than 10 percent loss anteriorly. Generalized osteopenia. Is a large amount stool and bowel gas obscuring adequate visualization of lumbar spine particularly on the oblique views. Cannot accurately evaluate the pars interarticularis. There is orthopedic hardware right hip. Mild diffuse arthrosclerotic calcification of the abdominal aorta but there is no aneurysm. IMPRESSION: Generalized osteopenia along with very mild non recent compression fractures of L4-L5 Dictated by: Dr. Mekhi Prabhakar MD 08/02/2020 13:06 Dr. Mekhi Prabhakar MD in [place] 08/02/2020 13:06
--- NOTE | 2020-08-02 12:41 | PC.NURSE ---
Pt gone to radiology
--- NOTE | 2020-08-02 12:50 | PC.NURSE ---
Pt returned from rad
[2020-08-02 13:10] VITALS: BP 189/77; PULSE 87; RESP 16; O2SAT 99
[2020-08-02 13:40] VITALS: BP 192/72; PULSE 71; O2SAT 98
[2020-08-02 14:16] VITALS: BP 172/64; PULSE 87; RESP 16; TEMP 36.8; O2SAT 98
== END 2020-08-02 14:17 | disposition home or self-care (01) ==
PROVIDERS: Emergency Provider Student in an Organized Health Care Education/Training Program; PCP Family Medicine
DX: S39.012A Strain of muscle, fascia and tendon of lower back, initial encounter (principal); K59.00 Constipation, unspecified; X50.0XXA Overexertion from strenuous movement or load, initial encounter; Y92.019 Unspecified place in single-family (private) house as the place of occurrence of the external cause; I25.10 Atherosclerotic heart disease of native coronary artery without angina pectoris; I10 Essential (primary) hypertension; E78.5 Hyperlipidemia, unspecified
CPT/HCPCS: 72100; 96372; 99282

== ENCOUNTER → 2020-08-12 16:09 | Outpatient (CLI) | payer MEDICARE, OTHER, SELFPAY ==
--- NOTE | 2020-08-12 16:12 | MR_ITS ---
PROCEDURE: MR LUMBAR SPINE WO CON CLINICAL INDICATION: ACUTE LEFT SIDED LOW BACK PAIN WITHOUT SCIATICA LOW BACK PAIN INTO LEFT HIP X1 MONTH. NO INJURY. PRIOR XRAY 08-02-20 COMPARISON: CR XR LUMBAR SPINE 2-3V from 08/02/2020 TECHNIQUE: Standard multiplanar multiecho sequences are performed without contrast. 3-D MIP and myelographic images are also rendered and reviewed FINDINGS: There is mild lumbar curvature convex left. The spinal cord ends the L2 level. T11-T12: Mild concentric bulging disc slightly toward the right with facet and ligamentum hypertrophy and mild right lateral recess narrowing and right-sided foraminal narrowing. There is 2 mm retrolisthesis T11. T12-L1: There is diffuse decreased T1 and increased T2 signal involving the L1 vertebral body. There is some minimal buckling of the cortex posteriorly and minimal compression change involving the superior endplate. The abnormal signal intensity may be related to the compression changes. There is posterior buckling of the cortex superiorly on the left protruding into the canal posteriorly by approximately 3-4 mm with mild left lateral recess narrowing. L1-L2: Unremarkable. L2-L3: Abnormal signal intensity involves the L3 vertebral body superiorly with decreased T1 and slight increased STIR signal with a zone of slight decreased T2 signal superiorly which may be due to mildly impacted trabecula. There is posterior ridging at the L2-L3 interspace with mild facet ligamentum hypertrophy with mild bilateral foraminal narrowing and mild bilateral lateral recess narrowing. L3-L4: Mild bulging disc. Minimal decreased T1 and increased T2 signal along the superior endplate of L4 with a small Schmorl's node at this area. A curvilinear thin zone of decreased T1 signal is present along the superior endplate of L4 consistent with a nondisplaced fracture with minimal impaction. L4-5: Mild bulging disc with mild facet and ligamentum hypertrophy. There is minimal concavity of the superior endplate of L5 suggesting mild compression change which may be subacute or chronic. There is mild retropulsion of the posterior superior aspect of L5 by approximately 4 mm. L5-S1: Unremarkable. IMPRESSION: Abnormal MRI of the lumbar spine. There is multilevel lumbar spondylosis as well as multilevel mild compression changes which appear acute L1 and L3 and subacute or chronic at L4 and L5. Please see above for detailed description at each level. No canal stenosis or cord compression apparent. Dictated by: Cecil Norwood MD 08/14/2020 09:22 Cecil Norwood MD in [place] 08/14/2020 09:22
== END ==
PROVIDERS: PCP Family Medicine; Visit Provider Family Medicine
DX: M54.5 Low back pain (principal)
CPT/HCPCS: 72148; 76376

== ENCOUNTER → 2020-10-07 13:23 | Outpatient (POV) | payer MEDICARE, OTHER, SELFPAY ==
[2020-10-07 13:56] VITALS: BP 125/85; PULSE 74; RESP 18; O2SAT 98; BMI 24.6
--- NOTE | 2020-10-07 15:30 | HMH.PMCON ---
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 Ambriz did review the patient's imaging. After further discussion, she is noted to have an acute L1 L3 fracture. We will schedule her for kyphoplasty at L1 and L3. We will also send the patient for DEXA scan. We will give her a back brace today. She is on Brilinta that is prescribed by Dr. Lopes's office. She has taken Brilinta for what she reports to have had an FL in 2019 and received 6 cardiac stents in the past. We will see her back in the clinic after her kyphoplasty to reevaluate her symptoms. She has been instructed to continue to wear the back brace and will be notified of approval per Dr. Lopes to hold her Plavix. She has been instructed to contact clinic if she has any concerns before her next appointment. The patient and I specifically discussed risk factors for COVID19. These risks include, but are not limited to age greater than 60, heart or lung disease, diabetes, immunosuppression, and travel. We also discussed NSAIDs may worsen COVID19 infection or symptoms. Patient should not use NSAIDs to treat COVID19 signs or symptoms. Patient was also informed that any type of corticosteroid of any form (oral or injection) will decrease the patient's immune system response and may increase the likelihood of COVID19 infection and symptoms. Risks and benefits of the procedure have been explained to the patient. Patient would like to proceed with the procedure. Dr. Rubio has reviewed this note and agrees with this plan of care. This note was dictated using voice recognition software and make contain errors or omissions. HPI - Data of Consult Patient: new to practice Consult date: 10/07/20 Requesting Physician: Nicki Garner APRN Primary Care Provider: Manuel Cho MD - Consult Narrative Reason for consult: Mid back pain History of present illness: Ms. Velazquez is a 80 year old female who presents today for consultation for mid back pain to low back pain. Patient reports that she began to have severe mid and low back pain and reported to her primary care's office. Patient says that the pain progressively got worse. She says that she had significant back pain back and 2019 as well. She did fall and break her right hip and right shoulder at that time. She says the pain was so severe she was unsure if she had any back pain at that time. She is complaining today of mid back pain radiating into her low back. She says it is worse with any type of movement. Sitting does not cause her any pain. She can no longer bend forward to tie her shoes due to the pain. She rates her pain a 0 out of 10 with sitting and a 10 out of 10 with movement. Patient has not had a recent DEXA scan. She did have imaging that noted an L1 and L3 compression fracture along with chronic L4-L5 fractures. She has not been given a brace. She was referred to our clinic for possible kyphoplasty. CC: Nicki Garner APRN [facility] History I have reviewed the patient's past medical history: Yes Medical History: Reports:: Coronary Artery Disease, Hyperlipidemia, Hypertension, Myocardial Infarction Denies:: Cancer, Diabetes Mellitus Type 1, Diabetes Mellitus Type 2, MRSA *Have you ever received a pneumonia vaccine?: Yes *Have you received a flu vaccine this season?: Yes Other Medical History: Reports: Arthritis, Other Laterality Cases: Right: Total Hip Replacement Other Surgeries: Yes: Appendectomy, Cardiac Catheterization, Cholecystectomy, Hysterectomy-Total, Other [place]
== END ==
PROVIDERS: PCP Family Medicine; Visit Provider Clinical Nurse Specialist Family Health
DX: S32.000A Wedge compression fracture of unspecified lumbar vertebra, initial encounter for closed fracture (principal)
CPT/HCPCS: 99202; G0463

== ENCOUNTER → 2020-10-12 09:57 | Outpatient (CLI) | payer MEDICARE, OTHER, SELFPAY ==
--- NOTE | 2020-10-12 10:12 | XR_ITS ---
PROCEDURE: XR DEXA AXIAL SKELETON CLINICAL HISTORY: COMPRESSION FX,POST MENOPAUSAL currently on vitamin-D COMPARISON: CR XR HIP RT 2-3V W/PELVIS from 07/07/2020, post right hip arthroplasty 07/07/2020 FINDINGS: The right forearm BMD is 0.263 grams/centimeter squared with a T-score of -5.8. The left hip BMD is 0.308 grams/centimeter squared with a T-score of -5.2. The lumbar spine BMD is 0.626 grams/centimeter squared with a T-score of -3.8. IMPRESSION: Prominent osteoporotic values lumbar spine left hip and right forearm Based on these results a follow-up exam is recommended in 1-2 years . Dictated by: Dr. Mekhi Prabhakar MD 10/12/2020 14:11 Dr. Mekhi Prabhakar MD in [place] 10/12/2020 14:11
== END ==
PROVIDERS: PCP Family Medicine; Visit Provider Clinical Nurse Specialist Family Health
DX: M48.56XA Collapsed vertebra, not elsewhere classified, lumbar region, initial encounter for fracture (principal); Z78.0 Asymptomatic menopausal state
CPT/HCPCS: 77080

== ENCOUNTER → 2020-10-25 12:55 | Outpatient (CLI) | payer MEDICARE, OTHER, SELFPAY ==
[2020-10-25 14:27] LABS: Basophils % 0.3 % (0.1-2.0); Eosinophils # 0.1 K/mm3 (0.0-0.4); Eosinophils % 1.1 % (0.1-12.0); Hematocrit 35.8 % (37.0-47.0); Hemoglobin 11.5 g/dL (12.2-16.2); Lymphocytes # 1.3 K/mm3 (0.7-4.5); Lymphocytes % 22.6 % (10-50); Mean Corpuscular HGB Conc 32.1 g/dL (31.8-35.4); Mean Corpuscular Hemoglobin 31.6 pg (27.0-31.2); Mean Corpuscular Volume 98.2 fl (81-99); Mean Platelet Volume 7.4 fl (7.4-10.4); Monocytes # 0.3 K/mm3 (0.1-1.0); Monocytes % 5.6 % (1.7-9.3); Neutrophils # 4.2 K/mm3 (1.8-7.8); Neutrophils % 70.4 % (37.0-80.0); Platelet Count 246 K/mm3 (142-424); Red Blood Count 3.65 M/mm3 (4.20-5.40); Red Cell Distribution Width 14.3 % (11.5-17.5); White Blood Count 5.9 K/mm3 (4.8-10.8)
[2020-10-25 15:03] LABS: Chloride 104 mmol/L (98-107); Potassium 4.7 mmoL/L (3.5-5.1); Sodium 140 mmol/L (136-145)
[2020-10-25 15:06] LABS: Anion Gap 13.7 mEq/L (5-15); Blood Urea Nitrogen 20 mg/dl (7-17); Calcium 10.4 mg/dl (8.4-10.2); Carbon Dioxide 27 mmol/L (22.0-30.0); Estimated Glomerular Filt Rate 69 ml/min (>60); GFR (African American) 84 ML/MIN (>60); Glucose 109 mg/dl (74-100)
[2020-10-25 16:15] LABS: Coronavirus 19 IgG Antibody Negative (Negative); Coronavirus 19 IgM Antibody Negative (Negative)
== END ==
PROVIDERS: Visit Provider Anesthesiology
DX: Z01.818 Encounter for other preprocedural examination (principal); Z20.822 Contact with and (suspected) exposure to COVID-19
CPT/HCPCS: 80048; 85025; 86328

== ENCOUNTER 2020-10-27 09:48 | Day surgery (SDC) | payer MEDICARE, OTHER, SELFPAY ==
[2020-10-25 15:25] VITALS: BMI 23.8
[2020-10-27] VITALS (8 sets, daily range): BP systolic 133–190; BP diastolic 66–96; PULSE 65–77; RESP 16–18; TEMP 6.1–43; O2SAT 91–99
--- NOTE | 2020-10-27 10:40 | P.PN_ITS ---
[facility] Anesthesia Checklist - Patient Identification Patient Identification: Arm Band - Structural Data Admitted From: Home Planned Operative Procedure/s: L1, L3 kyphoplasty under fluoroscopy Consent for Planned Operative Procedure(s) Verified: Yes Verified Documents: Surgical Consent, History and Physical - NPO Status Verified Time NPO: 00:00 - Additional verifications Anesthesia Reactions: No Hx Blood Transfusions: No Blood Transfusion Reaction: No - Airway Assessment C-Spine Mobility Assessed: Yes (mp2) TMJ Mobility Assessed: Yes Dentition: Poor Dentition - Neurological Assessment Level of Consciousness: Awake, Alert - Anesthesia Plan Anesthesia Risk discussed: Yes Anesthesia Plan: Verified ASA Class: III Anesthesia Type: MAC - Preoperative Comments Pre-Operative Comments: [facility] History I have reviewed the patient's past medical history: Yes Medical History: Reports:: Coronary Artery Disease, Hyperlipidemia, Hypertens ion, Myocardial Infarction Denies:: Cancer, Diabetes Mellitus Type 1, Diabetes Mellitus Type 2, Internal Pacemaker, MRSA, Seizures *Have you ever received a pneumonia vaccine?: Yes *Have you received a flu vaccine this season?: Yes Other Medical History: Reports: Arthritis, Other. Denies: Blood Transfusion Reaction Anesthesia experience/problems:: nac Laterality Cases: Right: Total Hip Replacement Other Surgeries: Yes: Appendectomy, Cardiac Catheterization, Cholecystectomy, Hysterectomy-Total, Other. No: Pacemaker Amputation: No Fractures: Yes - *Social History Last grade of school completed: High school graduate Smoking Status: Never smoker Alcohol Intake: never Substance Use Type: denies use *Occupational Status:: retired Housing: house Household Members: none *Travel in the last 8 weeks: None Family Hx:: Unable to obtain
--- NOTE | 2020-10-27 12:51 | P.OP_ITS ---
Date of procedure: 10/27/20 Pre-op Diagnosis:: Compression fractures of the L1 and L3 vertebral bodies Post-op Diagnosis:: Same Procedure performed:: L1 and L3 kyphoplasty Surgeon:: Waqas Rubio MD [place] ADMINISTRATOR:: Other Anesthesia: GETA Estimated blood loss (mL): 5 Clinical Note:: This patient is a pleasant 80-year-old white female who has an L1 and L3 compression fracture. She does have chronic compression fractures of L4 and L5. She has been off of her blood thinners. She has been braced. She continues to have significant pain. On MRI these are acute compression fracture of L1 and subacute compression fracture of L3. She continues have significant pain we will do a kyphoplasty to the L1 and L3 vertebral bodies today. Operative findings:: None Operative note:: Informed consent was obtained and risks and benefits of the procedure was explained to the patient. Patient was taken to the OR and was placed prone on the procedure table. The patient was prepped and draped in sterile fashion. I used 2 C arms for AP and lateral view of the L1 vertebral body. The skin and subcutaneous tissues were anesthetized using lidocaine. Bone access trochars were placed through the LEFT and RIGHT pedicle and advanced into the vertebral body. After accessing the vertebral body a balloon was inserted first on the LEFT side followed by the RIGHT side with approximately 3 mL of contrast placed in each balloon with good insufflation. After adequate spread of contrast through the balloon, the balloons were deflated. We then viewed the L3 vertebral body. The skin and subcutaneous tissues were anesthetized using lidocaine. Bone access trochars were placed through the LEFT and RIGHT pedicle and advanced into the vertebral body. After accessing the vertebral body a balloon was inserted first on the LEFT side followed by the RIGHT side with approximately 3 mL of contrast placed in each balloon with good insufflation. After adequate spread of contrast through the balloon, the balloons were deflated and cement was introduced first on the LEFT side with placement of approximately 3-1/2 mL of cement with good spread throughout the vertebral body and then on the RIGHT side was approximately 3 1/2 mL cement with good spread throughout the vertebral body. We did have some extrusion of cement as the anterior wall was compromised at the L3 vertebral body. We did stop and moved to the L1 vertebral body. There was no extrusion of cement through the lateral sands, or posterior sands. Also no extrusion through superior or inferior sands. We then moved to the L1 vertebral body. Cement was introduced first on the LEFT side with placement of approximately 3-1/2 mL of cement with good spread th roughout the vertebral body and then on the RIGHT side was approximately 3 1/2 mL cement with good spread throughout the vertebral body. There was no extrusion of cement through the lateral sands, or posterior sands. Also no extrusion through superior or inferior sands.The bone access trochars were removed with some trailing of cement at the L3 vertebral body. This was broken off at the pedicle. And dressing was placed. The patient was taken back to recovery in stable condition. She had good resolution of her back pain 5 minutes after the procedure. She tolerated the procedure well with no complications and was discharged home neurologically intact. Condition: stable Disposition: PACU Complications:: None
--- NOTE | 2020-10-27 12:52 | HMH.ANESI ---
[facility] Anesthesia Record Part I Intake, IV Amount: 1,500 Estimated blood loss (mL): 5 Urine output (mL): 0 Blood Pressure: 144/96 SaO2: 95 Pulse Rate: 74 Respiratory Rate: 16 Temperature: 98.1 F Patient is:: Awake Stable to PACU at:: 12:49
--- NOTE | 2020-10-27 15:22 | P.PN_ITS ---
[facility] Anesthesia Record Part II Discharge Time: 13:35 Destination: Surgical Day Care (OP Surgery) PACU nurse assessment reviewed?: Yes Patient Condition:: Good Anesthesia Complications:: None Swallowing reflex intact?: Yes Cyanosis?: No Blood Pressure: 133/68 Pulse Rate: 65 Temperature: 98.1 F Mental Status: Alert & Oriented Pain level:: 0 Nausea and/or vomitting:: None Intake, IV Amount: 1,500
== END 2020-10-27 13:40 | disposition home or self-care (01) ==
LOC: OR 09:49
PROVIDERS: PCP Family Medicine; Visit Provider Anesthesiology
PROC: (CPT 22514; principal; 2020-10-27 11:30)
DX: S32.010A Wedge compression fracture of first lumbar vertebra, initial encounter for closed fracture (principal); S32.030A Wedge compression fracture of third lumbar vertebra, initial encounter for closed fracture; I25.10 Atherosclerotic heart disease of native coronary artery without angina pectoris; E78.5 Hyperlipidemia, unspecified; I10 Essential (primary) hypertension; I25.2 Old myocardial infarction; Z96.641 Presence of right artificial hip joint; Z79.82 Long term (current) use of aspirin; Z79.899 Other long term (current) drug therapy; M80.88XA Other osteoporosis with current pathological fracture, vertebra(e), initial encounter for fracture
CPT/HCPCS: 22514; 22515; 96374; J3370; Q9966

== ENCOUNTER → 2020-11-11 15:29 | Outpatient (POV) | payer MEDICARE, OTHER, SELFPAY ==
--- NOTE | 2020-11-11 15:48 | HMH.PAINSOAP ---
[facility] Pain Management SOAP Note Subjective:: Patient is a pleasant 80-year-old white female who presents today for follow-up after a L1 and L3 kyphoplasty. Patient has 0 pain overall doing extremely well would like to follow-up on an as-needed basis. Patient is utilizing Tylenol for her arthritic pain. ROS General: no recent weight change, no fever, no sleep disturbances Respiratory: no cough, no shortness of air, no recurring pulmonary infections Cardiovascular/Peripheral Vascular: No chest pain, No palpitations, no edema, no shortness of breath. Gastrointestinal: no new onset incontinence, normal bowel movements reported Genitourinary: no new onset incontinence Musculoskeletal: Back pain at times Psychiatric: normal mood/ affect Neurological: [denies new onset weakness in extremities], [denies new onset balance issues] Objective:: Physical Exam General: Alert and oriented x3, no acute distress, pleasant and cooperative, [on room air] Lungs: Resps E/U, Symmetrical chest expansion, Eyes: PERRL Musculoskeletal: Flexion and extension of lumbar spine somewhat guarded secondary to pain, deep tendon reflexes normal, strength in upper and lower extremities [5/5] Neurological: speech clear, continuous pickling line pickler helper equal, no gross sensory deficits Assessment:: Compression fracture L1 and L3 levels status post kyphoplasty Plan:: We will follow up with the patient on an as-needed basis overall she is doing well at this time she has no pain she states she had no pain after the kyphoplasty. She has been instructed to call our office if any pain begins to return or if she has any other issues or questions. Dr. Rubio has reviewed this note and agrees with this plan of care. This note was dictated using voice recognition software and may contain errors or omissions [facility] History I have reviewed the patient's past medical history: Yes Medical History: Reports:: Coronary Artery Disease, Hyperlipidemia, Hypertension, Myocardial Infarction Denies:: Cancer, Diabetes Mellitus Type 1, Diabetes Mellitus Type 2, Internal Pacemaker, MRSA, Seizures *Have you ever received a pneumonia vaccine?: Yes *Have you received a flu vaccine this season?: Yes Other Medical History: Reports: Arthritis, Other. Denies: Blood Transfusion Reaction Laterality Cases: Right: Total Hip Replacement Other Surgeries: Yes: Appendectomy, Cardiac Catheterization, Cholecystectomy, Hysterectomy-Total, Other. No: Pacemaker Amputation: No Fractures: Yes - *Social History Smoking Status: Never smoker Alcohol Intake: never Substance Use Type: denies use *Occupational Status:: retired Housing: house Household Members: none *Travel in the last 8 weeks: None Family Hx:: Unable to obtain
[2020-11-11 16:09] VITALS: BP 132/77; PULSE 74; RESP 18; O2SAT 98; BMI 24.6
== END ==
PROVIDERS: PCP Family Medicine; Visit Provider Clinical Nurse Specialist Family Health
DX: S32.010A Wedge compression fracture of first lumbar vertebra, initial encounter for closed fracture (principal); S32.030A Wedge compression fracture of third lumbar vertebra, initial encounter for closed fracture
CPT/HCPCS: 99212; G0463

== ENCOUNTER → 2022-05-29 14:05 | Outpatient (POV) | payer MEDICARE, OTHER, SELFPAY ==
[2022-05-29 14:39] VITALS: BP 183/71; PULSE 97; RESP 18; TEMP 37.1; O2SAT 99; BMI 24.6
--- NOTE | 2022-05-29 14:59 | A.OFFVIS_ITS ---
[facility] Pain Management SOAP Note Subjective:: Patient is a pleasant 81-year-old female who presents today for follow-up. We are currently treating the patient for compression fracture L1 and L3 levels status post kyphoplasty, low back pain. Today the patient rates her pain a 8 out of 10. She states her pain is in her low back that radiates into the left side down to her knee. Patient stated this pain started earlier this year and has worsened over time. Patient describes this as a aching sensation that is worse with increased activity as well as weather dependent. Patient does believe a lot of it has to do with her increasing arthritis and osteoporosis. Patient does use Tylenol arthritis along with a heating pad to provide some improvement of her symptoms. Patient denies any new trauma or injury. Patient does live alone and uses an ambulatory aid of a walker. Patient states she also uses upper back brace occasionally when she is doing certain activities. Patient does use Biofreeze [id number] that provides some improvement of her symptoms. Patient does have a cardiac history. She is not currently prescribed any scheduled medications. Her Devin is [id number]. It has been reviewed and appropriate. Review of Systems: General: No recent weight changes, no fever, no sleep disturbances Respiratory: No cough, no shortness of air, no recurring pulmonary infections Cardiovascular/peripheral vascular: No chest pain, no palpitations, no edema, no shortness of breath Gastrointestinal: No new onset incontinence, normal bowel movements reported Genitourinary: No new onset incontinence Musculoskeletal: Low back pain, left leg pain Psychiatric: [Normal mood/affect] Neurological: [Denies weakness in extremities], [denies balance issues] Objective:: Physical Exam: General: Alert and oriented x3, no acute distress, pleasant and cooperative Lungs: Respirations even and unlabored, symmetrical chest expansion Eyes: PERRL Musculoskeletal: Flexion and extension of lumbar [spine] somewhat guarded secondary to pain, [antalgic gait noted]. Point tenderness along left SI and positive left Esther's, Cyndi's, Gaenslen's, compression and distraction exam Neurological: Speech clear, no gross sensory deficit Assessment:: Compression fracture L1 and L3 levels status post kyphoplasty, low back pain, sacroiliitis Plan:: Patient is experiencing significant pain in her low back that radiates into her left leg to her knee. Patient did have limited range of motion of her lumbar spine and positive left Esther's, Cyndi's, Gaenslen's, compression and distraction exam as well as point tenderness along her left SI. I have discussed with the patient regarding scheduling a left SI injection. Risk and benefits were discussed with the patient. She would like to proceed forward with this injection. I will also order the patient a compounding cream at today's visit. We will schedule the patient for a left SI injection. Patient has been instructed to contact the clinic with any concerns before the next appointment. Dr. Rubio has reviewed this note and agrees with this plan of care. This note was dictated using voice recognition software and make contain errors or omissions. [facility] Medical History (Updated 10/07/20 @ 15:35 by Nicki Garner APRN) Abnormal EKG Daytime somnolence Restless sleeper Snoring Social History Smoking Status: Never smoker alcohol intake: never substance use type: denies use current occupational status: retired Travel in the last 8 weeks: None household members: none housing: house current occupational exposures/hazards: No caffeine: Yes
== END ==
PROVIDERS: PCP Family Medicine; Visit Provider Nurse Practitioner Family
DX: S32.000A Wedge compression fracture of unspecified lumbar vertebra, initial encounter for closed fracture; M46.1 Sacroiliitis, not elsewhere classified
CPT/HCPCS: 99212; G0463

== ENCOUNTER 2022-06-06 13:38 | Day surgery (SDC) | payer MEDICARE, OTHER, SELFPAY ==
[2022-06-06 13:56] VITALS: BP 183/78; PULSE 65; RESP 18; TEMP 36.7; O2SAT 98; BMI 23.0
[2022-06-06 14:15] VITALS: BP 176/75; PULSE 74; RESP 18; O2SAT 98
--- NOTE | 2022-06-06 14:16 | EXP.PAIN.PRO ---
Procedure Date: 06/06/22 Time: 14:00 Anesthesiologist:: Rodrigo Barkley CRNA Complications:: None Pre-procedure Diagnosis:: Left sacroiliitis Post-procedure Diagnosis:: Same Indications for Procedure:: Very pleasant 81-year-old female that comes our clinic today for left sacroiliac joint injection. Patient has extreme point tenderness over the left SI joint. She rates her pain 8/10. Procedure Details:: Procedure: Left sacroiliac injection under fluoroscopy Informed consent was obtained and the risk and benefits of the procedure were explained to the patient.~ The patient was taken to the procedure room and noninvasive monitors were placed including noninvasive blood pressure cuff and pulse oximeter.~ The patient was placed prone on the procedure table.~ The~ left hip was cleansed using Betadine as a cleansing solution.~ C-arm fluorosocpy was used to view the left SI joint.~ The skin and subcutaneous tissues were anesthetized using Lidocaine 1.5% and a 25-gauge needle.~ After this, a 22-gauge spinal needle was inserted under fluoroscopic guidance into the inferior aspect of the left SI joint.~ Omnipaque dye was injected and a good spread was seen throughout the joint.~ After this, approximately 5 mL of bupivacaine 0.25% and Depo-Medrol 40 mg was incrementally injected into the sacroiliac joint.~ The patient tolerated the procedure well with no complications.~ The patient was observed in the Pain Clinic for a period of 30-45 minutes, then discharged home neurologically intact.~ Plan and Disposition:: Patient was discharged without incident.
== END 2022-06-06 14:15 | disposition home or self-care (01) ==
PROVIDERS: PCP Family Medicine; Visit Provider Nurse Anesthetist, Certified Registered
DX: M46.1 Sacroiliitis, not elsewhere classified (principal)
CPT/HCPCS: 27096; G0260; J1040

== ENCOUNTER → 2022-06-20 13:12 | Outpatient (POV) | payer MEDICARE, OTHER, SELFPAY ==
--- NOTE | 2022-06-20 13:50 | A.OFFVIS_ITS ---
[facility] Pain Management SOAP Note Subjective:: Patient is a pleasant 81-year-old female who presents today for follow-up of left SI injection on 06/06/2022. We are currently treating the patient for compression fracture of L1 and L3 levels status post kyphoplasty, low back pain, left-sided sacroiliitis. Today the patient states she has had 100% relief following this injection and feels it is still continuing to provide relief. Patient states she has been able to increase her activity following this injection with improved functionality. Patient does present today in a wheelchair. Patient continues to live alone and uses an ambulatory aid of a walker. Patient does states she continues to occasionally use a back brace for certain activities and is prescribed compounding cream that provides significant improvement short-term. Patient does have a cardiac history. Her Devin is [id number]. It is been reviewed and appropriate. Review of Systems: General: No recent weight changes, no fever, no sleep disturbances Respiratory: No cough, no shortness of air, no recurring pulmonary infections Cardiovascular/peripheral vascular: No chest pain, no palpitations, no edema, no shortness of breath Gastrointestinal: No new onset incontinence, normal bowel movements reported Genitourinary: No new onset incontinence Musculoskeletal: Low back pain Psychiatric: [Normal mood/affect] Neurological: [Denies weakness in extremities], [denies balance issues] Objective:: Physical Exam: General: Alert and oriented x3, no acute distress, pleasant and cooperative Lungs: Respirations even and unlabored, symmetrical chest expansion Eyes: PERRL Musculoskeletal: Flexion and extension of lumbar [spine] somewhat guarded secondary to pain, [antalgic gait noted] Neurological: Speech clear, no gross sensory deficit Assessment:: Compression fracture of L1 and L3 levels status post kyphoplasty, low back pain, left-sided sacroiliitis Plan:: Patient has had 100% relief of her low back pain along the left SI that radiated into her lower left leg following her injection. At this time the patient does not require any additional injective therapy. We will follow-up with the patient in 1 month. Patient will return to clinic in 1 month for reevaluation of symptoms and follow-up. Patient has been instructed to contact the clinic with any concerns before the next appointment. Dr. Rubio has reviewed this note and agrees with this plan of care. This note was dictated using voice recognition software and make contain errors or omissions. [facility] Medical History Abnormal EKG Daytime somnolence Restless sleeper Snoring Family History (Updated 06/06/22 @ 13:57 by Floresita Lomas RN) Other No significant family history Social History Smoking Status: Never smoker alcohol intake: never substance use type: denies use current occupational status: retired Travel in the last 8 weeks: None household members: none housing: house current occupational exposures/hazards: No caffeine: Yes
[2022-06-20 14:10] VITALS: BP 185/62; PULSE 73; RESP 18; O2SAT 97; BMI 24.6
== END ==
PROVIDERS: PCP Family Medicine; Visit Provider Nurse Practitioner Family
DX: M46.1 Sacroiliitis, not elsewhere classified (principal); S32.019A Unspecified fracture of first lumbar vertebra, initial encounter for closed fracture; S32.039A Unspecified fracture of third lumbar vertebra, initial encounter for closed fracture
CPT/HCPCS: 99212; G0463

== ENCOUNTER → 2023-01-16 12:05 | Outpatient (CLI) | payer MEDICARE, OTHER, SELFPAY ==
[2023-01-16 12:43] LABS: Basophils % 0.6 % (0.1-2.0); Eosinophils # 0.1 K/mm3 (0.0-0.4); Eosinophils % 1.7 % (0.1-12.0); Hematocrit 40.9 % (37.0-47.0); Hemoglobin 12.6 g/dL (12.2-16.2); Lymphocytes # 1.6 K/mm3 (0.7-4.5); Lymphocytes % 28.1 % (10-50); Mean Corpuscular HGB Conc 30.8 g/dL (31.8-35.4); Mean Corpuscular Hemoglobin 30.9 pg (27.0-31.2); Mean Corpuscular Volume 100.1 fl (81-99); Mean Platelet Volume 7.9 fl (7.4-10.4); Monocytes # 0.3 K/mm3 (0.1-1.0); Monocytes % 5.1 % (1.7-9.3); Neutrophils # 3.6 K/mm3 (1.8-7.8); Neutrophils % 64.4 % (37.0-80.0); Platelet Count 193 K/mm3 (142-424); Red Blood Count 4.09 M/mm3 (4.20-5.40); Red Cell Distribution Width 12.4 % (11.5-17.5); White Blood Count 5.6 K/mm3 (4.8-10.8)
[2023-01-16 13:12] LABS: Alanine Aminotransferase 39 U/L (12-78); Albumin Level 4.5 g/dl (3.5-5.0); Alkaline Phosphatase 113 U/L (38-126); Anion Gap 16.7 mEq/L (5-15); Aspartate Amino Transferase 42 U/L (14-36); Bilirubin,Indirect 0.5 mg/dL (0.0-0.9); Bilirubin,Total 0.5 mg/dl (0.2-1.3); Bilirubin,Unconjugated 0.6 mg/dL (0.0-1.1); Blood Urea Nitrogen 30 mg/dl (7-17); Calcium 9.8 mg/dl (8.4-10.2); Carbon Dioxide 26 mmol/L (22.0-30.0); Chloride 101 mmol/L (98-107); Chol/HDL Ratio 2.7 (1-3.5); Cholesterol 171 mg/dl (140-200); Estimated Glomerular Filt Rate 60 ml/min (>60); GFR (African American) 73 ML/MIN (>60); Glucose 104 mg/dl (74-100); HDL Cholesterol 64 mg/dl (40-60); Potassium 4.7 mmoL/L (3.5-5.1); Sodium 139 mmol/L (136-145); Total Protein,Serum 7.5 g/dl (6.3-8.2); Triglycerides 89 mg/dl (30-150); VLDL Cholesterol 18 mg/dL (0-40)
[2023-01-16 13:23] LABS: Direct LDL Cholesterol 67.73 mg/dL (100-129)
[2023-01-16 13:42] LABS: Thyroid Stimulating Hormone 1.32 uIU/mL (0.465-4.68)
== END ==
PROVIDERS: PCP Family Medicine; Visit Provider Physician Assistant
DX: E78.5 Hyperlipidemia, unspecified (principal); I11.0 Hypertensive heart disease with heart failure; I25.10 Atherosclerotic heart disease of native coronary artery without angina pectoris; I50.30 Unspecified diastolic (congestive) heart failure; I50.33 Acute on chronic diastolic (congestive) heart failure; I63.9 Cerebral infarction, unspecified; R60.9 Edema, unspecified; R94.31 Abnormal electrocardiogram [ECG] [EKG]; Z95.5 Presence of coronary angioplasty implant and graft; R06.00 Dyspnea, unspecified; E11.9 Type 2 diabetes mellitus without complications
CPT/HCPCS: 36415; 80048; 80061; 80076; 84439; 84443; 85025

== ENCOUNTER → 2023-01-29 06:51 | Outpatient (CLI) | payer MEDICARE, OTHER, SELFPAY ==
--- NOTE | 2023-01-29 06:57 | NM_ITS ---
APPROVED REPORT Exam: Nuclear Stress Test Indication: abn ECG..high cholesterol..hypertension Patient Location: Outpatient Stress Tech: Mai Saldana NM Tech:Heidi Ray IVONNEKeerthi RT (R)(N)(M) Ht: 5 ft 0 in Wt: 126 lbs Bra Size: 36a HR: 76 bpm BP: 181/82 mmHg BSA: 1.53 m2 TID: 1.10 History: abn ECG..high cholesterol..hypertension Procedure: Patient received 0.4 mg of intravenous Lexiscan, resting heart rate 76 bpm, resting blood pressure 181/82 mmHg, with Lexiscan maximum heart rate achieved was 100 bpm which is 85 % of the maximum predicted heart rate and blood pressure was 181/82 mmHg. With Lexiscan, patient denied any complaint of chest pain. The patient was unable to lay on her abdomen for prone images. Cardiac Stress and Resting SPECT Images: Cardiac Stress and Resting SPECT images were obtained using technetium 99m Myoview 31.6 mCi stress and 10.48 mCi at rest. This study is limited due to inavailability of prone stress imaging as the patient was unable to lie on her abdomen. There is also significant proximity and high uptake of the GI tract that is overlying the inferior border of the heart in both resting and stress imaging. The inferior cardiac border is not well visualized. Resting and stress imaging in supine position demonstrate no definite fixed or reversible perfusion defect. Gated imaging demonstrates normal global and regional LV systolic function. LVEF is calculated at 72%. Conclusion: This study is limited due to inavailability of prone stress imaging as the patient was unable to lie on her abdomen. There is also significant proximity and high uptake of the GI tract that is overlying the inferior border of the heart in both resting and stress imaging. The inferior cardiac border is not well visualized. Resting and stress imaging in supine position demonstrate no definite fixed or reversible perfusion defect. Gated imaging demonstrates normal global and regional LV systolic function. LVEF is calculated at 72%. Electronically signed by : Verónica Alves, 01/29/2023 23:28:20
--- NOTE | 2023-01-29 09:27 | CA_ITS ---
APPROVED REPORT Exam: Pharmacologic Technologist: Mai Saldana Ht: 5 ft 0 in Wt: 126 lbs BSA: 1.53 m2 HR: 79 bpm BP: 181/82 mmHg Rhythm: NSR Indications: Heart failure, CAD, Abnormal EKG Medical History Medications: Amlodipine,,,,, Lisinopril,,,,, Omeprazole,,,,, Aspirin,,,,, Ferrous sulfate,,,,, Atorvastatin,,,,, Buspirone,,,,, BisOPROLOL,,,,, SpirOnolactone,,,,, Furosemide,,,,, PolyethYLENE GLYCOL,,,,, Stress Test Details Test: LEXISCAN HR Resting HR: 76 bpm Max Heart Rate (APMHR): 138 bpm Max HR Achieved: 100 bpm Target HR (85% APMHR): 117 bpm % of APMHR: 72 Recovery HR: 89 bpm BP Resting BP: 181.0/82.0 mmHg Max BP: 181.0/82.0 mmHg Recovery BP: 160.0/62.0 mmHg ECG Resting ECG: Normal sinus rhythm, T wave changes in inferior leads, cannot rule out old inferior [place] Stress ECG: No change Arrhythmia: PACs, PVCs Recovery ECG: No change Recovery Arrhythmia: PACs Clinical Exercise duration: 04:04 min Highest Stage Achieved: Exercise capacity: 1.0 METs Stress ECG Conclusion Symptoms: Nausea Arrhythmias/Ectopy: PACs, occassional PVC ST-T Changes: none Conclusion: Unremarkable Lexiscan stress test. Myoview images are reported separately. Test Summary REST . . . . . . . Resting REST 03:59 . . 76 . 181/ 82 . . Stage 1 . . . . . . . Myoview Injected Stage 1 01:00 . . 97 . . . . Stage 2 01:00 . . 99 . 163/ 82 . . Stage 3 01:00 . . 94 . 167/ 68 . . Stage 4 01:00 . . 92 . 161/ 68 . . Stage 4 01:04 . . 90 . 161/ 68 . Stop exercise at 04:04 RECOVERY 01:00 . . 92 . 150/ 71 . . RECOVERY 02:00 . . 90 . 161/ 65 . . RECOVERY 03:00 . . 91 . 161/ 65 . . RECOVERY 03:21 . . 90 . 160/ 62 . . Electronically signed by : Verónica Alves, 01/29/2023 23:23:06
== END ==
PROVIDERS: PCP Family Medicine; Visit Provider Internal Medicine
DX: E78.5 Hyperlipidemia, unspecified (principal); I11.0 Hypertensive heart disease with heart failure; I25.10 Atherosclerotic heart disease of native coronary artery without angina pectoris; I50.30 Unspecified diastolic (congestive) heart failure; I50.33 Acute on chronic diastolic (congestive) heart failure; R60.9 Edema, unspecified; R94.31 Abnormal electrocardiogram [ECG] [EKG]; Z95.5 Presence of coronary angioplasty implant and graft
CPT/HCPCS: 78452; 93017; 93306; A9502; J2785

== ENCOUNTER 2024-10-17 20:31 | Inpatient (IN) | payer MEDICARE, OTHER, SELFPAY ==
[2024-10-17] VITALS (9 sets, daily range): BP systolic 92–104; BP diastolic 40–68; PULSE 109–125; RESP 18–36; TEMP 38.3–38.4; O2SAT 92–100; BMI 24.5
--- NOTE | 2024-10-17 20:38 | HMH.EDCP ---
Discharge Plan Disposition Patient Disposition: Admitted Clinical Impressions Clinical Impression: Severe sepsis, Non-ST elevation DC (NSTEMI), CHF exacerbation, BRENTON (acute kidney injury), Acute hyponatremia Discharge ED Provider: Jelani Crawford HPI <Oly Nicholson APRN - Last Filed: 10/17/24 21:43> General Chief Complaint: Shortness of Breath/Dyspnea Stated Complaint: shortness of breath Time Seen by Provider: 10/17/24 20:35 Mode of Arrival: Ambulatory Source of Information: Patient Description of Symptoms (Recalled from ER Triage Doc. by RN): Pt assisted out of vehicle by staff. Per patient's family her o2 sat was in the 80s. Pt does not wear oxygen History of Present Illness HPI narrative: patient is a 84-year-old female PMHx hypertension, hyperlipidemia, history of chest pain, history of E. coli, HFpEF, Hx NSTEMI, HHD who presents to the ED for shortness of breath and fever that started today. Patient states she did not realize she was short of breath until her friend came over and advised her that she appeared short of breath. Related Data Home Medications ?Medication ?Instructions ?Recorded ?Confirmed buspirone 5 mg tablet 5 mg PO BID Depression 03/12/20 01/16/23 ferrous sulfate 325 mg (65 mg 325 mg PO BID anemia 09/30/20 01/16/23 iron) tablet aspirin 81 mg tablet,delayed 81 mg PO DAILY heart health 10/25/20 01/16/23 release polyethylene glycol 3350 17 gram 17 g PO DAILY bowel habits 10/25/20 01/16/23 oral powder packet lisinopril 20 mg tablet 20 mg PO BID BLOOD PRESSURE 04/14/21 01/16/23 bisoprolol fumarate 5 mg tablet See Rx Instructions .Route 05/29/22 01/16/23 .COMPLEX BLOOD PRESSURE Previous Rx's ?Medication ?Instructions ?Recorded amlodipine 5 mg tablet See Rx Instructions .Route 08/30/23 .COMPLEX #90 tabs furosemide 40 mg tablet 40 mg PO DIRECTED Fluid #60 tabs 10/29/23 atorvastatin 80 mg tablet See Rx Instructions .Route 01/28/24 .COMPLEX #90 tabs spironolactone 25 mg tablet See Rx Instructions .Route 06/09/24 .COMPLEX #90 tabs omeprazole 40 mg capsule,delayed See Rx Instructions .Route 07/08/24 release .COMPLEX #90 caps Allergies Allergy/AdvReac Type Severity Reaction Status Date / Time No Known Allergies Allergy Verified 01/16/23 11:09 [facility] <Oly Nicholson APRN - Last Filed: 10/17/24 21:43> [facility] Disclaimer: The information contained in this section may have been updated after the patient was seen, as this information can be updated by other users. Medical History Abnormal EKG Daytime somnolence Restless sleeper Snoring Family History Other No significant family history Social History Smoking Status: Never smoker alcohol intake: never substance use type: denies use current occupational status: retired Travel in the last 8 weeks: None household members: none housing: house current occupational exposures/hazards: No caffeine: Yes Have you lived/traveled outside [place] in past 30 days?: No Contact w/someone who lives/traveled outside US past 30 days?: No Exposure to someone with infectious disease in past 14 days?: No Do you have a fever (greater than 100.4 F or 38 C)?: No Have you tested positive for COVID-19: No Exposed to someone with COVID-19 in past 14 days?: No Do you have a sore throat?: No Do you have a cough?: No Do you have any weakness?: No Do you have any diarrhea?: No Are you experiencing any unusual bleeding?: No Do you have any muscle aches/pain?: No Do you have any abdominal pain?: No Are you experiencing loss of taste or smell?: No Other Medical History Have you received the Flu Vaccine for this season: No Have you received the Pneumonia Vaccine: Yes <Oly Nicholson APRN - Last Filed: 10/17/24 21:43> ROS Obtained: Yes Systems reviewed as appropriate & no additional complaints except as documented Physical Exam <Oly Nicholson APRN - Last Filed: 10/17/24 21:43> General General appearance: alert Head Head exam: atraumatic and normocephalic Eye Eye exam: Present normal appearance and PERRL ENT ENT exam: Present normal exam Neck Neck exam: Present normal inspection Chest Chest inspection: Present normal inspection and symmetric chest wall rise; Absent tenderness Respiratory Respiratory exam: Present other (decreased breath sounds bilaterally ) Cardiovascular Cardiovascular exam: Present tachycardia Abdominal Exam Abdominal exam: Present soft and normal bowel sounds; Absent tenderness Extremities Exam Extremities exam: Present normal inspection, full ROM and edema Back Exam Back exam: Present normal inspection and full ROM Neurological Exam Neurological exam: Present alert and oriented X3 Psychiatric Psychiatric exam: Present normal affect and normal mood Skin Skin exam: Present warm and dry HEART Score <Oly Nicholson APRN - Last Filed: 10/17/24 21:43> HEART Score HEART Score assessment performed?: Yes History (anamnesis): Moderately suspicious ECG: Non-specific disturbance Age: >65 years Risk factors: 3 or more risk factors Troponin: 1-3x normal limit HEART Score: 7 <Jelani Crawford MD - Last Filed: 10/17/24 22:01> HEART Score HEART Score: 7 Critical Care <Oly Nicholson APRN - Last Filed: 10/17/24 21:43> Critical Care Time Critical Care Time: No <Jelani Crawford MD - Last Filed: 10/17/24 22:01> Critical Care Time Critical Care Time: Yes (Cardiac, pulmonary, ID) Attestation: On 10/17/24, the high probability of a clinically significant, sudden or life threatening deterioration of the following system(s) required my full and direct attention, intervention and personal management. The time I documented below is in addition to time spent performing reported procedures but includes the following listed in this critical care notation. Total Time Total Critical Care Time: 45 Medical Decision Making <Oly Nicholson APRN - Last Filed: 10/17/24 21:43> Devin Inquiry Pt receiving controlled substance: No Vital Signs Vital Signs: 10/17/24 20:33 10/17/24 20:50 10/17/24 21:00 Temperature 101 F H 101.1 F H Temperature Source Temporal Artery Scan Oral Pulse Rate 114 H Pulse Rate [Right] 122 H Respiratory Rate 18 31 H Blood Pressure Blood Pressure [Right Arm] 104/68 L Blood Pressure Mean [Right Arm] 80 Blood Pressure Source [Right Arm] Automatic Cuff Blood Pressure Position [Right Arm] Sitting 02 Sat by Pulse Oximetry 99 100 Oxygen Delivery Method Room Air 10/17/24 21:15 10/17/24 21:30 10/17/24 21:37 Temperature Temperature Source Pulse Rate 115 H 122 H 125 H Pulse Rate [Right] Respiratory Rate 36 H 31 H 34 H Blood Pressure 92/57 L Blood Pressure [Right Arm] Blood Pressure Mean [Right Arm] Blood Pressure Source [Right Arm] Blood Pressure Position [Right Arm] 02 Sat by Pulse Oximetry 96 97 97 Oxygen Delivery Method Lab Data Labs: Lab Results 10/17/24 20:30: SARS-CoV-2 (PCR) Not detected, Influenza A Untype (PCR) Not detected, Influenza Type B (PCR) Not detected 10/17/24 20:38: WBC 13.9 H, RBC 3.49 L, Hgb 10.8 L, Hct 33.5 L, MCV 96.0, MCH 30.9, MCHC 32.2, RDW 13.3, Plt Count 177, MPV 10.0, Neut % (Auto) 87.8 H, Lymph % (Auto) 7.5 L, [place] % (Auto) 4.0, Eos % (Auto) 0.0 L, Baso % (Auto) 0.1, Neut # (Auto) 12.2 H, Lymph # (Auto) 1.1, [place] # (Auto) 0.6, Eos # (Auto) 0.0, Baso # (Auto) 0.0, Sodium 132 L, Potassium 4.5, Chloride 94 L, Carbon Dioxide 22, Anion Gap 20.5 H, BUN 74 H, Creatinine 2.00 H, Estimated Creat Clear 20, Estimated GFR 24 L, Est GFR ( Amer) 29 L, Glucose 118 H, Lactate 6.6 H, Calcium 9.6, Total Bilirubin 1.1, AST 45 H, ALT 42, Alkaline Phosphatase 91, Troponin I 0.12 H, NT-Pro-B Natriuret Pep 3650 H, Total Protein 7.7, Albumin 4.6, Globulin 3.1, Albumin/Globulin Ratio 1.5 10/17/24 20:58: VBG pH 7.31, VBG pCO2 39.9, VBG pO2 34.3, VBG HCO3 19.7 L, VBG Total CO2 20.9 L, VBG O2 Saturation 58.0, VBG Base Excess -6.6 L, VBG Lactic Acid 4.8 H 10/17/24 21:28: Urine Color Yellow, Urine Appearance Slightly cloudy, Urine pH 5.0, Ur Specific [place] 1.020, Urine Protein 2+ A, Urine Glucose (UA) Negative, Urine Ketones Negative, Urine Blood 2+ A, Urine Nitrate Negative, Urine Bilirubin Negative, Urine Urobilinogen 0.2, Ur Leukocyte Esterase 1+ A, Urine RBC 20-50, Urine WBC 5-10, Ur Squamous Epith Cells Occasional, Urine Bacteria 1+ 10/17/24 20:38 10/17/24 20:38 Response Orders (Tests/Meds): ED MEDICATIONS Generic Name Dose Route Start Last Admin Trade Name Freq PRN Reason Stop Dose Admin Sodium Chloride 1,000 mls @ 100 mls/hr 10/17/24 21:15 10/17/24 21:10 Sod Chlor 0.9% 1000ml Bag IV 11/16/24 21:14 100 mls/hr .Q10H ABIEL Administration Vancomycin/PEG/NADA/Lysine/Water 1.25 gm in 250 mls @ 125 mls/hr 10/17/24 21:30 Vancomycin 1.25gm/250ml (Peg) Premix IV 10/17/24 23:29 ONCE ONE Miscellaneous 1 each 10/17/24 21:15 10/17/24 21:20 Vancomycin Consult Request NOTAPPLIC 11/16/24 21:14 1 each CONSULT PHARMACY ABIEL Administration Discontinued Medications Generic Name Dose Route Start Last Admin Trade Name Freq PRN Reason Stop Dose Admin Acetaminophen 1,000 mg 10/17/24 21:35 10/17/24 21:50 Acetaminophen 1,000mg/100ml Vial IV 10/17/24 21:36 1,000 mg ONCE ONE Administration Piperacillin Sod/Tazobactam 100 mls @ 200 mls/hr 10/17/24 21:15 Sod 4.5 gm/ Sodium Chloride IV 10/17/24 21:44 ONCE ONE ORDERS Category Date Time Status CXR --portable [XR chest portable] Stat Exams 10/17/24 21:04 Taken POCUS Point of Care (ER Only) Stat Exams 10/17/24 21:14 Completed BNP [NT Pro Brain Natriuretic Pep.] Stat Lab 10/17/24 20:38 Completed CBC w/Auto Diff [Complete Blood Count Auto Diff] Stat Lab 10/17/24 20:38 Completed CMP [Comprehensive Metabolic Panel] Stat Lab 10/17/24 20:38 Completed Lactic Acid Stat Lab 10/17/24 20:38 Completed Rapid PCR Covid and Flu A/B Stat Lab 10/17/24 20:30 Completed Trop I [Troponin I] Stat Lab 10/17/24 20:38 Completed Troponin I Q3H Lab 10/17/24 23:45 Ordered Troponin I Q3H Lab 10/18/24 02:45 Ordered Urinalysis and Microscopic Stat Lab 10/17/24 21:28 Completed Blood Culture Stat Micro 10/17/24 20:39 Ordered Urine Culture Stat Micro 10/17/24 21:28 Received VBG [Venous Blood Gas] Stat RT 10/17/24 20:58 Completed MDM Narrative Medical Decision Narrative: In summary, patient is a 84-year-old female PMHx hypertension, hyperlipidemia, history of chest pain, history of E. coli, HFpEF, Hx NSTEMI, HHD who presents to the ED for shortness of breath and fever that started today. Patient states she did not realize she was short of breath until her friend came over and advised her that she appeared short of breath. Patient has no additional upon initial exam, patient is alert, oriented and cooperative. Patient is tachycardic. Physical exam remarkable for bilateral lower extremity edema, patient shivering upon initial exam. Has not taken any medications prior to arrival. Denies headache, visual disturbances, posterior neck pain, chest pain, abdominal pain, nausea, vomiting, back pain, dysuria, diarrhea. Differential diagnosis includes sepsis, ACS, cardiogenic shock, dissection, BRENTON, viral illness, pneumonia, pneumothorax. Initial workup will be conducted with hematologic labs, imaging, and sepsis protocol. Initial inventions include normal saline 100 mL /hr due to HFpEF. Acetaminophen IV administered for fever. Unable to administer sepsis bolus amount due to history of heart failure, patient has lower extremity edema. Initial workup reviewed by me. CBC remarkable for leukocytosis, WBC 13.9, stable H&H. CMP remarkable for sodium of 132, anion gap 20.5, BUN 74, creatinine 2, lactate 6.6. Troponin 0.12. BNP 3650. Negative COVID and influenza. I independently and informally interpreted the chest x-ray as no overt fluid noted. After visualizing chest x-ray, I made the decision to bolus in the first liter of IV fluids. Discussed with hospital medicine and he is agreeable for admission for sepsis and new BRENTON. Patient is agreeable to admission at this time <Jelani Crawford MD - Last Filed: 10/17/24 22:01> Vital Signs Vital Signs: 10/17/24 20:33 10/17/24 20:50 10/17/24 21:00 Temperature 101 F H 101.1 F H Temperature Source Temporal Artery Scan Oral Pulse Rate 114 H Pulse Rate [Right] 122 H Respiratory Rate 18 31 H Blood Pressure Blood Pressure [Right Arm] 104/68 L Blood Pressure Mean [Right Arm] 80 Blood Pressure Source [Right Arm] Automatic Cuff Blood Pressure Position [Right Arm] Sitting 02 Sat by Pulse Oximetry 99 100 Oxygen Delivery Method Room Air 10/17/24 21:15 10/17/24 21:30 10/17/24 21:37 Temperature Temperature Source Pulse Rate 115 H 122 H 125 H Pulse Rate [Right] Respiratory Rate 36 H 31 H 34 H Blood Pressure 92/57 L Blood Pressure [Right Arm] Blood Pressure Mean [Right Arm] Blood Pressure Source [Right Arm] Blood Pressure Position [Right Arm] 02 Sat by Pulse Oximetry 96 97 97 Oxygen Delivery Method Lab Data Labs: Lab Results 10/17/24 20:30: SARS-CoV-2 (PCR) Not detected, Influenza A Untype (PCR) Not detected, Influenza Type B (PCR) Not detected 10/17/24 20:38: WBC 13.9 H, RBC 3.49 L, Hgb 10.8 L, Hct 33.5 L, MCV 96.0, MCH 30.9, MCHC 32.2, RDW 13.3, Plt Count 177, MPV 10.0, Neut % (Auto) 87.8 H, Lymph % (Auto) 7.5 L, [place] % (Auto) 4.0, Eos % (Auto) 0.0 L, Baso % (Auto) 0.1, Neut # (Auto) 12.2 H, Lymph # (Auto) 1.1, [place] # (Auto) 0.6, Eos # (Auto) 0.0, Baso # (Auto) 0.0, Sodium 132 L, Potassium 4.5, Chloride 94 L, Carbon Dioxide 22, Anion Gap 20.5 H, BUN 74 H, Creatinine 2.00 H, Estimated Creat Clear 20, Estimated GFR 24 L, Est GFR ( Amer) 29 L, Glucose 118 H, Lactate 6.6 H, Calcium 9.6, Total Bilirubin 1.1, AST 45 H, ALT 42, Alkaline Phosphatase 91, Troponin I 0.12 H, NT-Pro-B Natriuret Pep 3650 H, Total Protein 7.7, Albumin 4.6, Globulin 3.1, Albumin/Globulin Ratio 1.5 10/17/24 20:58: VBG pH 7.31, VBG pCO2 39.9, VBG pO2 34.3, VBG HCO3 19.7 L, VBG Total CO2 20.9 L, VBG O2 Saturation 58.0, VBG Base Excess -6.6 L, VBG Lactic Acid 4.8 H 10/17/24 21:28: Urine Color Yellow, Urine Appearance Slightly cloudy, Urine pH 5.0, Ur Specific [place] 1.020, Urine Protein 2+ A, Urine Glucose (UA) Negative, Urine Ketones Negative, Urine Blood 2+ A, Urine Nitrate Negative, Urine Bilirubin Negative, Urine Urobilinogen 0.2, Ur Leukocyte Esterase 1+ A, Urine RBC 20-50, Urine WBC 5-10, Ur Squamous Epith Cells Occasional, Urine Bacteria 1+ Response Orders (Tests/Meds): ED MEDICATIONS Generic Name Dose Route Start Last Admin Trade Name Freq PRN Reason Stop Dose Admin Sodium Chloride 1,000 mls @ 100 mls/hr 10/17/24 21:15 10/17/24 21:10 Sod Chlor 0.9% 1000ml Bag IV 11/16/24 21:14 100 mls/hr .Q10H ABIEL Administration Vancomycin/PEG/[place]/Lysine/Water 1.25 gm in 250 mls @ 125 mls/hr 10/17/24 21:30 Vancomycin 1.25gm/250ml (Peg) Premix IV 10/17/24 23:29 ONCE ONE Miscellaneous 1 each 10/17/24 21:15 10/17/24 21:20 Vancomycin Consult Request NOTAPPLIC 11/16/24 21:14 1 each CONSULT PHARMACY ABIEL Administration Discontinued Medications Generic Name Dose Route Start Last Admin Trade Name Freq PRN Reason Stop Dose Admin Acetaminophen 1,000 mg 10/17/24 21:35 10/17/24 21:50 Acetaminophen 1,000mg/100ml Vial IV 10/17/24 21:36 1,000 mg ONCE ONE Administration Piperacillin Sod/Tazobactam 100 mls @ 200 mls/hr 10/17/24 21:15 Sod 4.5 gm/ Sodium Chloride IV 10/17/24 21:44 ONCE ONE ORDERS Category Date Time Status CXR --portable [XR chest portable] Stat Exams 10/17/24 21:04 Taken POCUS Point of Care (ER Only) Stat Exams 10/17/24 21:14 Completed BNP [NT Pro Brain Natriuretic Pep.] Stat Lab 10/17/24 20:38 Completed CBC w/Auto Diff [Complete Blood Count Auto Diff] Stat Lab 10/17/24 20:38 Completed CMP [Comprehensive Metabolic Panel] Stat Lab 10/17/24 20:38 Completed Lactic Acid Stat Lab 10/17/24 20:38 Completed Rapid PCR Covid and Flu A/B Stat Lab 10/17/24 20:30 Completed Trop I [Troponin I] Stat Lab 10/17/24 20:38 Completed Troponin I Q3H Lab 10/17/24 23:45 Ordered Troponin I Q3H Lab 10/18/24 02:45 Ordered Urinalysis and Microscopic Stat Lab 10/17/24 21:28 Completed Blood Culture Stat Micro 10/17/24 20:39 Ordered Urine Culture Stat Micro 10/17/24 21:28 Received VBG [Venous Blood Gas] Stat RT 10/17/24 20:58 Completed ECG Data Tracing #1: Attestation: I reviewed this ECG and interpreted as documented below: (First EKG indecipherable. Second EKG independently interpreted. Also difficult to decipher given electrical baseline. No obvious acute ischemic changes. Patient appears to be tachycardic around 120 bpm with narrow QRS and normal axis.) MDM Narrative Medical Decision Narrative: In summary, patient is a 84-year-old female PMHx hypertension, hyperlipidemia, history of chest pain, history of E. coli, HFpEF, Hx NSTEMI, HHD who presents to the ED for shortness of breath and fever that started today. Patient states she did not realize she was short of breath until her friend came over and advised her that she appeared short of breath. Patient has no additional upon initial exam, patient is alert, oriented and cooperative. Patient is tachycardic. Physical exam remarkable for bilateral lower extremity edema, patient shivering upon initial exam. Has not taken any medications prior to arrival. Denies headache, visual disturbances, posterior neck pain, chest pain, abdominal pain, nausea, vomiting, back pain, dysuria, diarrhea. Differential diagnosis includes sepsis, ACS, cardiogenic shock, dissection, [place], viral illness, pneumonia, pneumothorax. Initial workup will be conducted with hematologic labs, imaging, and sepsis protocol. Initial inventions include normal saline 100 mL /hr due to HFpEF. Acetaminophen IV administered for fever. Patient also given empiric vancomycin and Zosyn Unable to administer sepsis bolus amount due to history of heart failure, patient has lower extremity edema. Initial workup reviewed by me. CBC remarkable for leukocytosis, WBC 13.9, stable H&H. CMP remarkable for sodium of 132, anion gap 20.5, BUN 74, creatinine 2, lactate 6.6. Troponin 0.12. BNP 3650. Negative COVID and influenza. I independently and informally interpreted the chest x-ray as no overt fluid noted. After visualizing chest x-ray, I made the decision to bolus in the first liter of IV fluids. Discussed with hospital medicine and he is agreeable for admission for sepsis and new BRENT[place]. Patient is agreeable to admission at this time I was consulted by the CORBY, and we discussed the complexity of the problems being addressed. I approved the treatment and management plan for this patient's care in the Emergency Department, thus performing a substantive portion of the medical decision making. Jelani Crawford MD
[2024-10-17 20:43] LABS: Coronavirus 19, PCR Not Detected (NotDetected); Influenza A, PCR Not Detected (NotDetected); Influenza B, PCR Not Detected (NotDetected)
--- NOTE | 2024-10-17 20:44 | ECG_ITS ---
APPROVED REPORT Exam: Resting ECG HR:120 bpm ECG Measurements Heart Rate 120 AXES QRSd 77 QRS 5 QT 279 T -10 QTc 350 Conclusion Largely indecipherable exam Sinus tachycardia right around 120 bpm. No obvious acute ischemic change Electronically signed by : CARROLL CARPENTER, 10/18/2024 20:41:32
[2024-10-17 20:50] LABS: Basophils % 0.1 % (0.1-2.0); Hematocrit 33.5 % (37.0-47.0); Hemoglobin 10.8 g/dL (12.2-16.2); Lymphocytes # 1.1 K/mm3 (0.7-4.5); Lymphocytes % 7.5 % (10-50); Mean Corpuscular HGB Conc 32.2 g/dL (31.8-35.4); Mean Corpuscular Hemoglobin 30.9 pg (27.0-31.2); Monocytes # 0.6 K/mm3 (0.1-1.0); Neutrophils # 12.2 K/mm3 (1.8-7.8); Neutrophils % 87.8 % (37.0-80.0); Platelet Count 177 K/mm3 (142-424); Red Blood Count 3.49 M/mm3 (4.20-5.40); Red Cell Distribution Width 13.3 % (11.5-17.5); White Blood Count 13.9 K/mm3 (4.8-10.8)
[2024-10-17 20:55] LABS: Albumin Level 4.6 g/dl (3.5-5.0); Chloride 94 mmol/L (98-107); Potassium 4.5 mmoL/L (3.5-5.1); Sodium 132 mmol/L (136-145)
[2024-10-17 20:58] LABS: Alanine Aminotransferase 42 U/L (12-78); Albumin/Globulin Ratio 1.5 (1.1-1.8); Alkaline Phosphatase 91 U/L (38-126); Anion Gap 20.5 mEq/L (5-15); Aspartate Amino Transferase 45 U/L (14-36); Bilirubin,Total 1.1 mg/dl (0.2-1.3); Blood Urea Nitrogen 74 mg/dl (7-17); Calcium 9.6 mg/dl (8.4-10.2); Carbon Dioxide 22 mmol/L (22.0-30.0); Creatinine Clearance Estimated 20 mL/min (50-200); Estimated Glomerular Filt Rate 24 ml/min (>60); GFR (African American) 29 ML/MIN (>60); Globulin 3.1 g/dL (1.3-3.2); Glucose 118 mg/dl (74-100); Total Protein,Serum 7.7 g/dl (6.3-8.2)
[2024-10-17 21:00] LABS: VBG Base Excess -6.6 mmol/L (-2.4-2.3); VBG HCO3 19.7 mmol/L (23-30); VBG PCO2 39.9 mmol/L (35-51); VBG PH 7.31 mmol/L (7.31-7.41); VBG PO2 34.3 mmol/L (28-40); VBG Total CO2 20.9 mmol/L (23-27)
[2024-10-17 21:01] LABS: Lactic Acid 6.6 mmol/L (0.7-2.1)
[2024-10-17 21:03] LABS: Lactate Venous 4.8 mmol/L (0.4-2.0)
--- NOTE | 2024-10-17 21:04 | XR_ITS ---
PROCEDURE INFORMATION: Exam: XR Chest Exam date and time: 10/17/2024 9:22 PM Age: 84 years old Clinical indication: Shortness of breath; Additional info: MARISSA brown TECHNIQUE: Imaging protocol: Radiologic exam of the chest. Views: 1 view. Total images: 1 COMPARISON: CR XR CHEST 2V 12/03/2019 10:50 AM FINDINGS: Tubes, catheters and devices: EKG leads are present. Lungs: Minor bibasilar atelectasis versus infiltrate. No airspace consolidation or vascular congestion. No pulmonary edema. Upper lungs appear emphysematous. Pleural spaces: Unremarkable. No pleural effusion. No pneumothorax. Heart/Mediastinum: Probable hiatal hernia. Mild cardiomegaly. No mediastinal widening. Right paratracheal opacity compatible tortuous vasculature. Vasculature: Atherosclerotic and tortuous thoracic aorta. Severe coronary artery calcifications versus stent artifact. Bones/joints: Status post ORIF proximal right humerus. Severe osteopenia. Limited bone detail. IMPRESSION: 1. Minor bibasilar atelectasis versus infiltrate. 2. Multiple additional chronic and incidental findings
[2024-10-17 21:08] LABS: NT Pro Brain Natriuretic Pep. 3650 pg/mL (0-450)
[2024-10-17 21:10] LABS: Troponin I 0.12 ng/ml (0.00-0.034)
[2024-10-17] MEDS: 0.9 % SODIUM CHLORIDE 1000ML 1,000 ML 100 ML IV (21:10)
[2024-10-17] MEDS: VANCOMYCIN CONSULT REQUEST 1 EACH NOTAPPLIC (21:20)
[2024-10-17] MEDS: PIPERACILLIN/TAZO 4.5 GM in 0.9 % SODIUM CHLORIDE 100 ML IV (21:20)
[2024-10-17] MEDS: VANCOMYCIN/WATER FOR INJ (PEG) 1.25 GM/250 ML PIGGYBACK IV (21:30)
[2024-10-17 21:35] LABS: Microscopic, Urine URINE MICROSCOPIC (MICROSCOPIC)
--- NOTE | 2024-10-17 21:41 | PC.NURSE ---
double reamer operator to come and attempt blood cultures.
[2024-10-17 21:48] LABS: Appearance,Urine Slightly Cloudy (Clear); Color,Urine Yellow (Yellow); Glucose,Urine (UA) Negative (Negative); Ketones,Urine Negative (Negative); Protein,Urine 2+ (Negative)
[2024-10-17 21:49] LABS: Bilirubin,Urine Negative (Negative); Blood, Urine 2+ (Negative); Leukocyte Esterase,Urine 1+ (Negative); Nitrate,Urine Negative (Negative); Urobilinogen,Urine 0.2 EU/dl (0.2)
[2024-10-17] MEDS: ACETAMINOPHEN 1,000MG/100ML VIAL 1000 MG IV (21:50)
[2024-10-17 21:52] LABS: Bacteria,Urine 1+ /lpf; RBC,Urine 20-50 #/hpf (0-3); Squamous Epithelial Cell,Urine Occasional #/hpf (0-5)
--- NOTE | 2024-10-17 21:55 | PC.NURSE ---
lab at the bedside at this time
[2024-10-17] MEDS: 0.9 % SODIUM CHLORIDE 1000ML 1,000 ML 50 ML IV (22:15)
--- NOTE | 2024-10-17 22:15 | PC.NURSE ---
pure wick placed
--- NOTE | 2024-10-17 22:31 | P.HP_ITS ---
<Statement entered by Alex Quiroga MD - 10/20/24 19:50> Personally evaluated patient and agree with plan of care as outlined by the COMPUTER AIDED DESIGN OPERATOR. History of Present Illness *Admission Date: 10/17/24 *Reason for visit:: Sepsis, acute kidney injury, fever unknown origin *History of present illness: This 84-year-old female, who is a . Noted that 3 days ago she had diarrhea and then started to have fever.. She has become increasingly weak and when a friend visited today was brought to the emergency room. The patient does live alone is a nondrinker non-smoker. She is unsure about the Pneumovax immunization but says that she has had flu and COVID immunization. She has had really no exposure to any people but her friend who has said she has been well and not exposed to anyone.. So she is unsure where she has been exposed to any COVID or flu.. Per the ER note she really started to feel bad today.. And was seen in the emergency room. Given a diagnosis of sepsis, non-STEMI, congestive heart failure with a history of peripheral eczema, acute kidney injury, hyponatremia. COVID and flu swab came back negative.. Was found to have a UA that showed a urinary tract infection.. Per the patient and her friend with her that in the past she is normally had 4+ edema to the lower extremities but has been taking diuretics and her feet are much improved at the present time. In patient's history in 2019. Patient was found to have heart failure with a normal ejection fraction. Also had a non-STEMI PA with 2 stents placed. This was noted after the patient had fallen outside in July 2019 with a fractured humerus requiring surgical repair and a femoral fracture.. Patient also noted in history and 2020 of having an L1 L3 compression fracture that required surgery for stabilization. Notes describing lower extremity edema from April 2021. I have discussed with the patient about placing her upstairs that I do not have an actual source of the fever. That it may be a urinary tract infection or we have had a false negative of the flu or COVID swabs. And may need to repeat them. Antibiotics have been started in the emergency room which will be continued on the floor. Due to my exam of the chest x-ray question whether there is a early infiltrate in the middle right lung field. Minimum UTI results from, urinalysis question that she may have flu or COVID at this point in time. Due to her history of heart failure with edema being diuresed to get her legs looking normal here in the recent past and an increase in her creatinine from her last labs. Feel that we will go ahead and place her as a stepdown and keep her on cardiac monitoring. Will consult cardiology to come in to evaluate the patient. Will continue to monitor of how much fluid I need to give as far as her sepsis without complicating any underlying congestive heart failure.. Talk to the patient about resuscitation. The patient said that her of an PA while she was in the hospital and there was no way she would ever want to be resuscitated.. Since she has no family she is alert oriented and of sound mind and body. There is a relative that also has power of employee benefits attorney with her. I talked with her friend who is in the room with her and the friend notes that the patient totally alert and oriented in her normal self. [facility] Disclaimer: The information contained in this section may have been updated after the patient was seen, as this information can be updated by other users. Medical History (Updated 10/17/24 @ 22:59 by Tacho Shetty APRN) Strain of muscle, fascia and tendon of lower back, initial encounter HHD (hypertensive heart disease) Compression fracture of lumbar vertebra Constipation Mid back pain Low back pain Closed right femoral fracture Fracture of right shoulder Falls Snoring Daytime somnolence Restless sleeper Abnormal EKG Surgical History (Updated 10/17/24 @ 22:44 by Tacho Shetty APRN) History of lumbosacral spine surgery History of arthroplasty of right shoulder Status post coronary artery stent placement Family History Other No significant family history Social History Smoking Status: Never smoker alcohol intake: never substance use type: denies use current occupational status: retired Travel in the last 8 weeks: None household members: none housing: house current occupational exposures/hazards: No caffeine: Yes Have you lived/traveled outside [place] in past 30 days?: No Contact w/someone who lives/traveled outside US past 30 days?: No Exposure to someone with infectious disease in past 14 days?: No Do you have a fever (greater than 100.4 F or 38 C)?: No Have you tested positive for COVID-19: No Exposed to someone with COVID-19 in past 14 days?: No Do you have a sore throat?: No Do you have a cough?: No Do you have any weakness?: No Do you have any diarrhea?: No Are you experiencing any unusual bleeding?: No Do you have any muscle aches/pain?: No Do you have any abdominal pain?: No Are you experiencing loss of taste or smell?: No Other Medical History Have you received the Flu Vaccine for this season: Yes Have you received the Pneumonia Vaccine: No (Not sure of) Review of Systems Review of Systems Review of systems:: pertinent systems reviewed and negative unless documented below Constitutional Constitutional: Reports as per HPI, Reports chills and Reports fever(s) Comments: Patient is awake and alert during my assessment in the emergency room Eyes Eyes: Reports as per HPI ENT Ears, Nose, Mouth, and Throat: Reports as per HPI Comments: Has poor teeth *Cardiovascular Cardiovascular: Reports as per HPI, Reports dyspnea on exertion, Reports leg edema and Reports rapid heart rate *Respiratory Respiratory: Reports as per HPI and Reports dyspnea on exertion *Gastrointestinal Gastrointestinal: Reports as per HPI *Genitourinary Genitourinary: Reports as per HPI *Musculoskeletal Musculoskeletal: Reports as per HPI, Reports abnormal gait, Reports atrophy and Reports muscle weakness Integumentary/Breasts Skin/Breast: Reports as per HPI *Neurologic Neurologic: Reports abnormal gait and Reports tremor(s) Psychiatric Psychiatric: Reports as per HPI Endocrine Endocrine: Reports as per HPI Hematologic/Lymphatic Hematologic/Lymphatic: Reports as per HPI Allergic/Immunologic Allergic/Immunologic: Reports as per HPI Meds Home Medications and Allergies Home Medications ?Medication ?Instructions ?Recorded ?Confirmed ?Type buspirone 5 mg tablet 5 mg PO BID Depression 03/12/20 01/16/23 History ferrous sulfate 325 mg (65 mg 325 mg PO BID anemia 09/30/20 01/16/23 History iron) tablet aspirin 81 mg tablet,delayed 81 mg PO DAILY heart health 10/25/20 01/16/23 History release polyethylene glycol 3350 17 gram 17 g PO DAILY bowel habits 10/25/20 01/16/23 History oral powder packet lisinopril 20 mg tablet 20 mg PO BID BLOOD PRESSURE 04/14/21 01/16/23 History bisoprolol fumarate 5 mg tablet See Rx Instructions .Route 05/29/22 01/16/23 History .COMPLEX BLOOD PRESSURE amlodipine 5 mg tablet See Rx Instructions .Route 08/30/23 Rx .COMPLEX #90 tabs furosemide 40 mg tablet 40 mg PO DIRECTED Fluid #60 tabs 10/29/23 Rx atorvastatin 80 mg tablet See Rx Instructions .Route 01/28/24 Rx .COMPLEX #90 tabs spironolactone 25 mg tablet See Rx Instructions .Route 06/09/24 Rx .COMPLEX #90 tabs omeprazole 40 mg capsule,delayed See Rx Instructions .Route 07/08/24 Rx release .COMPLEX #90 caps New Prescriptions to Start Prescriptions: Allergies Allergy/AdvReac Type Severity Reaction Status Date / Time No Known Allergies Allergy Verified 01/16/23 11:09 Exam Data for Last 24 hours Vital signs and Labs for Last 24 Hours: Temp Pulse Resp BP Pulse Ox O2 Del Method 101 F H 116 H 32 H 102/41 L 97 Room Air 10/17/24 22:16 10/17/24 22:16 10/17/24 22:16 10/17/24 22:16 10/17/24 21:37 10/17/24 22:16 Laboratory Results - last 24 hr 10/17/24 20:30: SARS-CoV-2 (PCR) Not detected, Influenza A Untype (PCR) Not detected, Influenza Type B (PCR) Not detected 10/17/24 20:38: WBC 13.9 H, RBC 3.49 L, Hgb 10.8 L, Hct 33.5 L, MCV 96.0, MCH 30.9, MCHC 32.2, RDW 13.3, Plt Count 177, MPV 10.0, Neut % (Auto) 87.8 H, Lymph % (Auto) 7.5 L, [place] % (Auto) 4.0, Eos % (Auto) 0.0 L, Baso % (Auto) 0.1, Neut # (Auto) 12.2 H, Lymph # (Auto) 1.1, [place] # (Auto) 0.6, Eos # (Auto) 0.0, Baso # (Auto) 0.0, Sodium 132 L, Potassium 4.5, Chloride 94 L, Carbon Dioxide 22, Anion Gap 20.5 H, BUN 74 H, Creatinine 2.00 H, Estimated Creat Clear 20, Estimated GFR 24 L, Est GFR ( Amer) 29 L, Glucose 118 H, Lactate 6.6 H, Calcium 9.6, Total Bilirubin 1.1, AST 45 H, ALT 42, Alkaline Phosphatase 91, Troponin I 0.12 H, NT-Pro-B Natriuret Pep 3650 H, Total Protein 7.7, Albumin 4.6, Globulin 3.1, Albumin/Globulin Ratio 1.5 10/17/24 20:58: VBG pH 7.31, VBG pCO2 39.9, VBG pO2 34.3, VBG HCO3 19.7 L, VBG Total CO2 20.9 L, VBG O2 Saturation 58.0, VBG Base Excess -6.6 L, VBG Lactic Acid 4.8 H 10/17/24 21:28: Urine Color Yellow, Urine Appearance Slightly cloudy, Urine pH 5.0, Ur Specific [place] 1.020, Urine Protein 2+ A, Urine Glucose (UA) Negative, Urine Ketones Negative, Urine Blood 2+ A, Urine Nitrate Negative, Urine Bilirubin Negative, Urine Urobilinogen 0.2, Ur Leukocyte Esterase 1+ A, Urine RBC 20-50, Urine WBC 5-10, Ur Squamous Epith Cells Occasional, Urine Bacteria 1+ I & O for Last 24 hours: Intake & Output 10/15/24 10/16/24 10/17/24 10/18/24 05:59 05:59 05:59 05:59 Weight 134 lb Radiology Reports for the Last 24 Hours: Chest x-ray normal with some right lung consolidation middle lobe and lower lobe question whether infiltrate/pneumonia Narrative: Awaiting radiology reading of chest x-ray but lungs are clear on exam. Constitutional Constitutional: mild distress and cooperative *Routine HEENT Exam Head: Present normocephalic and atraumatic Eye: Present EOMI and PERRL ENT: Present mucous membranes moist Comments: Has poor dentition *Routine Neck Exam Neck: Present supple, full ROM and trachea midline Routine Chest/Breast/Axilla Exam Comments: No tenderness to chest wall found on exam *Routine Respiratory Exam Respiratory: Present CTA bilaterally, normal respiratory effort, able to speak in complete sentences and symmetric chest movement *Routine Cardiovascular Exam Cardiovascular: Present RRR, Normal S1, Normal S2 and tachycardia Comments: There is no pitting edema in the lower extremities., Actually skin turgor just above the ankles are is kind of poor., No signs of any skin breakdown found in the heels feet lower legs of the patient *Routine Abdominal Exam Abdominal: Present soft and normoactive bowel sounds Comments: At present patient is not nauseated, has no abdominal pain on light palpation *Routine Rectal Exam Rectal:: deferred *Routine Genitalia Exam Genitalia:: deferred *Routine Extremities Exam Extremities: Present full ROM, pulses intact and normal capillary refill Comments: Patient is able to move both her upper and lower extremities without difficulties or sign of any significant discomfort Routine Back/Spine/Pelvis Exam Back/Spine: Present full ROM Comments: Patient is on stretcher I did not stand or walk her. But she denies any back pain at this time. *Routine Skin Exam Skin: Present intact, dry and warm *Routine Neurological Exam Neurological: Present alert, oriented X3, CN II-XII intact, normal tone and normal speech Comments: Neurologic exam found no acute signs of deficit., Noting that the patient is very sedentary and is in very poor physical shape. But had equal sensations bilaterally equal strength bilaterally Routine Psychiatric Exam Psychiatric: Present normal affect, normal thought process, cooperative, good insight and good judgment H&P: Result Impressions 1. Sepsis with urinary tract infection question viral component. Will start antibiotics prophylactically. Recheck for COVID flu in the morning. With sepsis protocol patient's significant history of congestive heart failure balancing fluid to need for sepsis treatment treatment of increased creatinine without placing the patient into respiratory issues are significant peripheral edema. 2. Electrolyte imbalance with elevated white count., Treating conservatively with antibiotics and fluids. 3. Long history of peripheral edema with congestive heart failure with normal ejection fraction. Will consult cardiology to evaluate the patient as we tried to treat this acute infection and monitor her increased troponin at this point in time. Imaging and Cardiology Chest x-ray: Additional comments: Some consolidation in right middle and lower lobe question early infiltrate/pneumonia versus chronic changes.. Assessment and Plan *Assessment and plan (1) Severe sepsis: Status: Acute Category: Medical Code(s): A41.9 - Sepsis, unspecified organism; R65.20 - Severe sepsis without septic shock (2) Pneumonia: Status: Acute Qualifiers: Pneumonia type: due to unspecified organism Laterality: right Lung location: lower lobe of lung Qualified Code(s): J18.9 - Pneumonia, unspecified organism Category: Medical Code(s): J18.9 - Pneumonia, unspecified organism (3) Non-ST elevation PA (NSTEMI): Status: Acute Category: Medical Code(s): I21.4 - Non-ST elevation (NSTEMI) myocardial infarction (4) E. coli urinary tract infection: Status: Acute Category: Medical Code(s): N39.0 - Urinary tract infection, site not specified; B96.20 - Unspecified Escherichia coli [E. coli] as the cause of diseases classified elsewhere (5) Acute hyponatremia: Status: Acute Category: Medical Code(s): E87.1 - Hypo-osmolality and hyponatremia (6) [place] (acute kidney injury): Status: Acute Category: Medical Code(s): N17.9 - Acute kidney failure, unspecified Plan 1. Patient appears to probably have a viral illness such as flu or COVID but unable to confirm by testing. With elevated heart rate acute kidney injury Long history of CHF. Patient will be admitted to the hospital as a stepdown patient., Will start antibiotics for a urinary tract infection continue to monitor for needs for oxygen., Due to her history of congestive heart failure with normal ejection fraction will reconsult cardiology. As stents were placed several years ago in the left main artery. 2. Will try to confirm true cause of this sudden sepsis/fever. As the urinalysis shows a UTI but not to the level that I would expect for this lady to be having the sudden onset of symptoms. 3. Patient lives alone will see how she does if she improves as far as self- care and ambulation. May require rehabilitation placement periods if she is unable to provide her own normal self care.
--- NOTE | 2024-10-17 23:05 | PC.NURSE ---
patient arrived to [facility] at 2220 and patient was changed, sacral dressingplaced and sacrum was assessed. redness noted, image taken from camera and will upload to chart.
[2024-10-18] VITALS (64 sets, daily range): BP systolic 67–136; BP diastolic 28–94; PULSE 60–102; RESP 16–33; TEMP 36.5–38.7; O2SAT 83–99; BMI 25.1
[2024-10-18 00:22] LABS: Troponin I 0.13 ng/ml (0.00-0.034)
[2024-10-18 00:47] LABS: Reflex Lactic Add Lactic Reflex
[2024-10-18 01:08] LABS: Lactic Acid Follow Up (RFLX 1) 1.2 mmol/L (0.7-2.1)
[2024-10-18] MEDS: PIPERACILLIN/TAZO 3.375 GM in 0.9 % SODIUM CHLORIDE 50 ML IV ×4 (03:05→20:08)
[2024-10-18 04:00] LABS: Troponin I 0.42 ng/ml (0.00-0.034)
--- NOTE | 2024-10-18 04:08 | ECG_ITS ---
APPROVED REPORT Exam: Resting ECG HR:102 bpm ECG Measurements Heart Rate 102 AXES QRSd 74 QRS -3 QT 306 T -16 QTc 365 Conclusion SUPRAVENTRICULAR TACHYCARDIA LOW QRS VOLTAGE IN PRECORDIAL LEADS [QRS DEFLECTION < 1.0 mV IN CHEST LEADS] VOLTAGE CRITERIA FOR LVH [MEETS CRITERIA IN ONE OF: R(aVL), S(V1), R(V5), R(V5/V6)+S(V1)] ABNORMAL ECG UNCONFIRMED REPORT Electronically signed by : Dov Meyer MD 10/20/2024 08:52:52
[2024-10-18 04:21] LABS: Lactic Acid 1.5 mmol/L (0.7-2.1)
[2024-10-18] MEDS: ACETAMINOPHEN 325MG TAB 650 MG PO ×4 (05:27→20:08)
--- NOTE | 2024-10-18 06:42 | PC.NURSE ---
Provider Tacho Crenshaw, at bedside, nursing staff informed him of lowering blood pressures and most recent being 69/30 on R bicep cuff pressure, provider aware, no new orders.
[2024-10-18 07:17] LABS: Lymphocytes # 0.4 K/mm3 (0.7-4.5); Mean Platelet Volume 10.6 fl (7.4-10.4)
[2024-10-18 07:28] LABS: Basophils % 0.1 % (0.1-2.0); Hematocrit 29.4 % (37.0-47.0); Lymphocytes % 4.9 % (10-50); Mean Corpuscular Hemoglobin 31.3 pg (27.0-31.2); Mean Corpuscular Volume 94.8 fl (81-99); Monocytes # 0.4 K/mm3 (0.1-1.0); Monocytes % 4.8 % (1.7-9.3); Neutrophils # 8.1 K/mm3 (1.8-7.8); Neutrophils % 89.6 % (37.0-80.0); Platelet Count 140 K/mm3 (142-424); Red Cell Distribution Width 13.2 % (11.5-17.5)
[2024-10-18 07:39] LABS: Alanine Aminotransferase 23 U/L (12-78); Albumin Level 2.9 g/dl (3.5-5.0); Albumin/Globulin Ratio 1.3 (1.1-1.8); Alkaline Phosphatase 80 U/L (38-126); Anion Gap 12.5 mEq/L (5-15); Aspartate Amino Transferase 45 U/L (14-36); Blood Urea Nitrogen 69 mg/dl (7-17); Calcium 8.9 mg/dl (8.4-10.2); Carbon Dioxide 20 mmol/L (22.0-30.0); Chloride 101 mmol/L (98-107); Creatinine Clearance Estimated 22 mL/min (50-200); Estimated Glomerular Filt Rate 25 ml/min (>60); GFR (African American) 30 ML/MIN (>60); Globulin 2.2 g/dL (1.3-3.2); Glucose 108 mg/dl (74-100); Magnesium 1.1 mg/dl (1.6-2.3); Potassium 3.5 mmoL/L (3.5-5.1); Sodium 130 mmol/L (136-145); Total Protein,Serum 5.1 g/dl (6.3-8.2)
[2024-10-18] MEDS: 0.9 % SODIUM CHLORIDE 1000ML 500 ML IV (07:40)
[2024-10-18 07:48] LABS: Hemoglobin 9.7 g/dL (12.2-16.2)
[2024-10-18] MEDS: NOREPINEPHRINE BITARTRATE 8 MG in 0.9 % SODIUM CHLORIDE 250 ML 15.48 MG IV (07:50)
--- NOTE | 2024-10-18 08:32 | EXP.PHA.CONS ---
Pharmacy Consult Date: 10/18/24 Time: 08:33 Referring provider: DR SANCHEZ Reason for Consult:: VANCOMYCIN DOSING CONSULT Allergies Allergy/AdvReac Type Severity Reaction Status Date / Time No Known Allergies Allergy Verified 01/16/23 11:09 Home Medications ?Medication ?Instructions ?Recorded ?Confirmed ?Type buspirone 5 mg tablet 5 mg PO BID Depression 03/12/20 01/16/23 History ferrous sulfate 325 mg (65 mg 325 mg PO BID anemia 09/30/20 01/16/23 History iron) tablet aspirin 81 mg tablet,delayed 81 mg PO DAILY heart health 10/25/20 10/18/24 History release polyethylene glycol 3350 17 gram 17 g PO DAILY bowel habits 10/25/20 01/16/23 History oral powder packet lisinopril 20 mg tablet 20 mg PO BID BLOOD PRESSURE 04/14/21 01/16/23 History bisoprolol fumarate 5 mg tablet See Rx Instructions .Route 05/29/22 01/16/23 History .COMPLEX BLOOD PRESSURE amlodipine 5 mg tablet See Rx Instructions .Route 08/30/23 Rx .COMPLEX #90 tabs furosemide 40 mg tablet 40 mg PO DIRECTED Fluid #60 tabs 10/29/23 Rx atorvastatin 80 mg tablet See Rx Instructions .Route 01/28/24 Rx .COMPLEX #90 tabs spironolactone 25 mg tablet See Rx Instructions .Route 06/09/24 Rx .COMPLEX #90 tabs omeprazole 40 mg capsule,delayed See Rx Instructions .Route 07/08/24 Rx release .COMPLEX #90 caps New Prescriptions to Start Prescriptions: Height: 1.57 m Weight: 62 kg Laboratory Results:: Laboratory Results - last 24 hr 10/17/24 20:30: SARS-CoV-2 (PCR) Not detected, Influenza A Untype (PCR) Not detected, Influenza Type B (PCR) Not detected 10/17/24 20:38: WBC 13.9 H, RBC 3.49 L, Hgb 10.8 L, Hct 33.5 L, MCV 96.0, MCH 30.9, MCHC 32.2, RDW 13.3, Plt Count 177, MPV 10.0, Neut % (Auto) 87.8 H, Lymph % (Auto) 7.5 L, [place] % (Auto) 4.0, Eos % (Auto) 0.0 L, Baso % (Auto) 0.1, Neut # (Auto) 12.2 H, Lymph # (Auto) 1.1, [place] # (Auto) 0.6, Eos # (Auto) 0.0, Baso # (Auto) 0.0, Sodium 132 L, Potassium 4.5, Chloride 94 L, Carbon Dioxide 22, Anion Gap 20.5 H, BUN 74 H, Creatinine 2.00 H, Estimated Creat Clear 20, Estimated GFR 24 L, Est GFR ( Amer) 29 L, Glucose 118 H, Lactate 6.6 H, Calcium 9.6, Total Bilirubin 1.1, AST 45 H, ALT 42, Alkaline Phosphatase 91, Troponin I 0.12 H, NT-Pro-B Natriuret Pep 3650 H, Total Protein 7.7, Albumin 4.6, Globulin 3.1, Albumin/Globulin Ratio 1.5 10/17/24 20:58: VBG pH 7.31, VBG pCO2 39.9, VBG pO2 34.3, VBG HCO3 19.7 L, VBG Total CO2 20.9 L, VBG O2 Saturation 58.0, VBG Base Excess -6.6 L, VBG Lactic Acid 4.8 H 10/17/24 21:28: Urine Color Yellow, Urine Appearance Slightly cloudy, Urine pH 5.0, Ur Specific [place] 1.020, Urine Protein 2+ A, Urine Glucose (UA) Negative, Urine Ketones Negative, Urine Blood 2+ A, Urine Nitrate Negative, Urine Bilirubin Negative, Urine Urobilinogen 0.2, Ur Leukocyte Esterase 1+ A, Urine RBC 20-50, Urine WBC 5-10, Ur Squamous Epith Cells Occasional, Urine Bacteria 1+ 10/17/24 23:42: Troponin I 0.13 H 10/18/24 00:42: Lactate 1.2 10/18/24 03:24: Lactate 1.5, Troponin I 0.42 H 10/18/24 06:50: WBC 9.0 D, RBC 3.10 L, Hgb 9.7 L D, Hct 29.4 L, MCV 94.8, MCH 31.3 H, MCHC 33.0, RDW 13.2, Plt Count 140 L, MPV 10.6 H, Neut % (Auto) 89.6 H, Lymph % (Auto) 4.9 L, [place] % (Auto) 4.8, Eos % (Auto) 0.0 L, Baso % (Auto) 0.1, Neut # (Auto) 8.1 H, Lymph # (Auto) 0.4 L, [place] # (Auto) 0.4, Eos # (Auto) 0.0, Baso # (Auto) 0.0, Sodium 130 L, Potassium 3.5 D, Chloride 101, Carbon Dioxide 20 L, Anion Gap 12.5, BUN 69 H, Creatinine 1.90 H, Estimated Creat Clear 22, Estimated GFR 25 L, Est GFR ( Amer) 30 L, Glucose 108 H, Calcium 8.9, Magnesium 1.1 L, Total Bilirubin 1.0, AST 45 H, ALT 23 D, Alkaline Phosphatase 80, Total Protein 5.1 L D, Albumin 2.9 L D, Globulin 2.2, Albumin/Globulin Ratio 1.3 Medical History: Medical History (Updated 10/17/24 @ 22:59 by Tacho Shetty APRN) Strain of muscle, fascia and tendon of lower back, initial encounter HHD (hypertensive heart disease) Compression fracture of lumbar vertebra Constipation Mid back pain Low back pain Closed right femoral fracture Fracture of right shoulder Falls Snoring Daytime somnolence Restless sleeper Abnormal EKG Assessment and Plan Assessment and plan all Dx Assessment and Plan for all problems:: Pharmacokinetic dosing service Objective: Age: 84 yo Serum creatinine: 1.9 mg/dL Height: 61.8 Inches Weight (kg): 62 Diagnosis: SEPSIS Assessment: IBW (kg): 49.64 Dosing wt(kg): 62 Estimated Creatinine clearance (ml/min): 17.3 CRCL method: Cockcroft and Gault using ibw(default). Drug selected: Vancomycin Loading dose (mg): 1250 MG Vd (liters): 46.5 (factor used: 0.75 L/kg) Harpreet (hr-1): 0.019 Half life (hrs): 36.48 CLvanco=?? 0.883 L/hr Recommended dose: 1000 mg Interval: 48 hrs Infusion time (hrs): 2.0 Predicted peak (mcg/mL): 35.3 Predicted trough (mcg/mL): 14.73 Total body weight is being used for vancomycin dosing. Recommendations: Give Vancomycin 1000 mg q 48 hrs with an expected Cpeak of 35.3 mcg/ml and an expected Ctrough of 14.73 mcg/ml TO START 10/19/24 AT 21:00, PATIENT RECEIVED ONE TIME LOADING DOSE OF VANCOMYCIN 92049 MG IV IN THE ED 10/17/24 AT 21:30. AUC 0-24 /JC Data: JC 0.5 mcg/mL:?? AUC/JC:? 1132.5 JC 1.0 mcg/mL:?? AUC/JC:? 566.3 --------- JC 1.5 mcg/mL:?? AUC/JC:? 377.5 JC 2.0 mcg/mL:?? AUC/JC:? 283.1 Thank you for the consult
--- NOTE | 2024-10-18 09:14 | PC.NURSE ---
pt currently on a levophed drip to maintain bp/map. pt on bedrest
[2024-10-18 09:20] LABS: Troponin I 1.37 ng/ml (0.00-0.034)
[2024-10-18] MEDS: ASPIRIN 325MG TABLET 325 MG PO (09:25)
[2024-10-18 09:57] LABS: Adenovirus,PCR Not Detected (NotDetected); Bordetella Pertussis Not Detected (NotDetected); Chlamydophila Pneumoniae, PCR Not Detected (NotDetected); Coronavirus 19, PCR Not Detected (NotDetected); Coronavirus 229E Not Detected (NotDetected); Coronavirus NL63 Not Detected (NotDetected); Coronavirus OC43 Not Detected (NotDetected); Coronovirus HKU1,PCR Not Detected (NotDetected); Human Metapneumovirus Not Detected (NotDetected); Influenza A, PCR Not Detected (NotDetected); Influenza AH1, 2009 Not Detected (NotDetected); Influenza AH1, PCR Not Detected (NotDetected); Influenza AH3,PCR Not Detected (NotDetected); Influenza B, PCR Not Detected (NotDetected); Mycoplasma Pneumoniae, PCR Not Detected (NotDetected); Parainfluenza 1, PCR Not Detected (NotDetected); Parainfluenza 2, PCR Not Detected (NotDetected); Parainfluenza 3, PCR Not Detected (NotDetected); Parainfluenza 4, PCR Not Detected (NotDetected); Respiratory Syncytial Virus Not Detected (NotDetected); Rhinovirus/Enterovirus Not Detected (NotDetected)
--- NOTE | 2024-10-18 12:39 | P.CONPHA_ITS ---
Pharmacy Intervention Comments: MEDICATION RECONCILIATION COMPLETE USING LIST PROVIDED BY FAMILY FROM [facility].
--- NOTE | 2024-10-18 12:39 | HMH.PHAINT1 ---
Pharmacy Intervention Comments: MEDICATION RECONCILIATION COMPLETE USING LIST PROVIDED BY FAMILY FROM [facility].
--- NOTE | 2024-10-18 17:15 | P.PN_ITS ---
Subjective *Date: 10/18/24 *Time: 18:46 Interval history: Patient is feels much better later this morning after starting treatment of septic shock for UTI. No chest pain, shortness of breath. Exam Data for Last 24 hours Vital signs and Labs for Last 24 Hours: Temp Pulse Resp BP Pulse Ox O2 Del Method 101.6 F H 65 27 H 98/43 L 94 L Room Air 10/18/24 16:15 10/18/24 16:15 10/18/24 16:15 10/18/24 16:15 10/18/24 16:15 10/18/24 16:00 Laboratory Results - last 24 hr 10/17/24 20:30: Chlamy pneumoniae PCR Not detected, Adenovirus (PCR) Not detected, B. pertussis DNA (PCR) Not detected, Coronavirus OC43 (PCR) Not detected, Coronavirus HKU1 (PCR) Not detected, Coronavirus 229E (PCR) Not detected, SARS-CoV-2 (PCR) Not detected 10/17/24 20:30: SARS-CoV-2 (PCR) Not detected, Coronavirus NL63 (PCR) Not detected, Human Metapneumovir PCR Not detected, Influenza A (H1) PCR Not detected, Influ A (H1N1/09) PCR Not detected, Influenza A (H3) PCR Not detected, Influenza Type A (PCR) Not detected, Influenza A Untype (PCR) Not detected, Influenza Type B (PCR) Not detected 10/17/24 20:30: Influenza Type B (PCR) Not detected, M. pneumoniae (PCR) Not detected, Parainfluenza 1 (PCR) Not detected, Parainfluenza 2 (PCR) Not detected, Parainfluenza 3 (PCR) Not detected, Parainfluenza 4 (PCR) Not detected, RSV (PCR) Not detected, Entero/Rhino (PCR) Not detected 10/17/24 20:38: WBC 13.9 H, RBC 3.49 L, Hgb 10.8 L, Hct 33.5 L, MCV 96.0, MCH 30.9, MCHC 32.2, RDW 13.3, Plt Count 177, MPV 10.0, Neut % (Auto) 87.8 H, Lymph % (Auto) 7.5 L, [place] % (Auto) 4.0, Eos % (Auto) 0.0 L, Baso % (Auto) 0.1, Neut # (Auto) 12.2 H, Lymph # (Auto) 1.1, [place] # (Auto) 0.6, Eos # (Auto) 0.0, Baso # (Auto) 0.0, Sodium 132 L, Potassium 4.5, Chloride 94 L, Carbon Dioxide 22, Anion Gap 20.5 H, BUN 74 H, Creatinine 2.00 H, Estimated Creat Clear 20, Estimated GFR 24 L, Est GFR ( Amer) 29 L, Glucose 118 H, Lactate 6.6 H, Calcium 9.6, Total Bilirubin 1.1, AST 45 H, ALT 42, Alkaline Phosphatase 91, Troponin I 0.12 H, NT-Pro-B Natriuret Pep 3650 H, Total Protein 7.7, Albumin 4.6, Globulin 3.1, Albumin/Globulin Ratio 1.5 10/17/24 20:58: VBG pH 7.31, VBG pCO2 39.9, VBG pO2 34.3, VBG HCO3 19.7 L, VBG Total CO2 20.9 L, VBG O2 Saturation 58.0, VBG Base Excess -6.6 L, VBG Lactic Acid 4.8 H 10/17/24 21:28: Urine Color Yellow, Urine Appearance Slightly cloudy, Urine pH 5.0, Ur Specific [place] 1.020, Urine Protein 2+ A, Urine Glucose (UA) Negative, Urine Ketones Negative, Urine Blood 2+ A, Urine Nitrate Negative, Urine Bilirubin Negative, Urine Urobilinogen 0.2, Ur Leukocyte Esterase 1+ A, Urine RBC 20-50, Urine WBC 5-10, Ur Squamous Epith Cells Occasional, Urine Bacteria 1+ 10/17/24 23:42: Troponin I 0.13 H 10/18/24 00:42: Lactate 1.2 10/18/24 03:24: Lactate 1.5, Troponin I 0.42 H 10/18/24 06:50: WBC 9.0 D, RBC 3.10 L, Hgb 9.7 L D, Hct 29.4 L, MCV 94.8, MCH 31.3 H, MCHC 33.0, RDW 13.2, Plt Count 140 L, MPV 10.6 H, Neut % (Auto) 89.6 H, Lymph % (Auto) 4.9 L, [place] % (Auto) 4.8, Eos % (Auto) 0.0 L, Baso % (Auto) 0.1, Neut # (Auto) 8.1 H, Lymph # (Auto) 0.4 L, [place] # (Auto) 0.4, Eos # (Auto) 0.0, Baso # (Auto) 0.0, Sodium 130 L, Potassium 3.5 D, Chloride 101, Carbon Dioxide 20 L, Anion Gap 12.5, BUN 69 H, Creatinine 1.90 H, Estimated Creat Clear 22, Estimated GFR 25 L, Est GFR ( Amer) 30 L, Glucose 108 H, Calcium 8.9, Magnesium 1.1 L, Total Bilirubin 1.0, AST 45 H, ALT 23 D, Alkaline Phosphatase 80, Total Protein 5.1 L D, Albumin 2.9 L D, Globulin 2.2, Albumin/Globulin Ratio 1.3 10/18/24 08:30: Troponin I 1.37 H I & O for Last 24 hours: Intake & Output 10/15/24 10/16/24 10/17/24 10/18/24 23:59 23:59 23:59 23:59 Intake Total 2440.373 / 2440.373 Output Total 250 / 250 Balance 2190.373 / 2190.373 Weight 60.781 kg 62 kg Microbiology Reports for the Last 24 Hours: Microbiology 10/17/24 21:58 Blood Blood Culture - Preliminary 10/17/24 21:58 Blood Blood Culture - Preliminary 10/17/24 21:28 Urine,Clean Catch Urine Culture - Preliminary Gram Negative Rods Constitutional Constitutional: no acute distress *Routine HEENT Exam Head: Present normocephalic Eye: Present EOMI and PERRL ENT: Present mucous membranes moist *Routine Neck Exam Neck: Present supple; Absent lymphadenopathy *Routine Respiratory Exam Respiratory: Present CTA bilaterally *Routine Cardiovascular Exam Cardiovascular: Present RRR *Routine Abdominal Exam Abdominal: Present soft and normoactive bowel sounds; Absent tenderness *Routine Extremities Exam Extremities: Absent cyanosis, clubbing or edema *Routine Skin Exam Skin: Present warm; Absent rash *Routine Neurological Exam Neurological: Present alert Assessment and Plan *Assessment and plan (1) Septic shock: Status: Acute Category: Medical Code(s): A41.9 - Sepsis, unspecified organism; R65.21 - Severe sepsis with septic shock (2) E coli bacteremia: Status: Acute Category: Medical Code(s): R78.81 - Bacteremia; B96.20 - Unspecified Escherichia coli [E. coli] as the cause of diseases classified elsewhere Plan Ksenia Velazquez is a 84-year-old female who presented with generalized weakness, malaise and was admitted for septic shock secondary to UTI. #Septic shock #UTI #E. coli bacteremia ? UA grossly abnormal, blood cultures growing E. coli. ? Continue Zosyn every 8 hours. ? Continue Levophed, wean as able. Maps as low as 35 this morning. ? Continue NS at 75 mL/h, cautious in setting of heart failure. ? Tylenol as needed for fevers. #NSTEMI type II #CAD with 5 stents #HFpEF #Hypertension ? Troponin 1.37, likely demand ischemia in the setting of septic shock. EKG without acute ischemic changes. No chest pain, shortness of breath. Spoke to Dr. Lopes, agreed and advised to continue treatment of septic shock. ? Continue aspirin. ? Hold statin, bisoprolol, lisinopril, spironolactone in the setting of septic shock. DNR/DNI DVT prophylaxis: Lovenox 40 mg
--- NOTE | 2024-10-18 17:54 | PC.NURSE ---
due to pts temperature of 101.2 rectally, pt is covered by only a flat sheet, fan is in the room and oscilating and ice packs were placed. two are applied to the axillary area RS & LS and the groin area RS & LS. will continue to monitor pts temperature hourly until pt temperature is within normal range. family at BS. call light is within reach.
--- NOTE | 2024-10-18 18:00 | PC.NURSE ---
new dressing applied to coccyx by dajuan walton and ro flower
[2024-10-18] MEDS: PANTOPRAZOLE 40MG TABLET 40 MG PO (20:08)
--- NOTE | 2024-10-18 21:58 | ECG_ITS ---
APPROVED REPORT Exam: Resting ECG HR:69 bpm ECG Measurements Heart Rate [address] 141 P 54 QRSd 95 QRS 48 QT 410 T 4 QTc 429 Conclusion SINUS RHYTHM WITH OCCASIONAL SUPRAVENTRICULAR PREMATURE COMPLEXES LOW QRS VOLTAGE IN PRECORDIAL LEADS [QRS DEFLECTION < 1.0 mV IN CHEST LEADS] Isolated Q in III BORDERLINE ECG UNCONFIRMED REPORT Electronically signed by : Dov Meyer MD 10/20/2024 08:52:47
[2024-10-19] VITALS (41 sets, daily range): BP systolic 93–157; BP diastolic 44–68; PULSE 53–106; RESP 18–32; TEMP 36.9–39; O2SAT 91–96; BMI 25.9
[2024-10-19] MEDS: NOREPINEPHRINE BITARTRATE 8 MG in 0.9 % SODIUM CHLORIDE 250 ML 11.61 MG IV (02:56)
[2024-10-19] MEDS: PIPERACILLIN/TAZO 3.375 GM in 0.9 % SODIUM CHLORIDE 50 ML IV (02:56)
[2024-10-19] MEDS: ACETAMINOPHEN 325MG TAB 650 MG PO ×2 (04:31→16:11)
--- NOTE | 2024-10-19 06:35 | PC.NURSE ---
pt alert and oriented sitting up in the bed watching tv. pt is still on levophed. throughout the night pt was weaned down to 4mcg but had to be turned back up to 6mcg. Pt has a purewick on. Pt temp broke through out the night after receiving more acetaminophen at 2030. At 0400 pt temp has went back up to 102.2. After receiving more acetaminophen pt temp was rechecked an hour to hour and half later and temp was down to 101.0. Pt also only has a sheet on over her and a fan on auscultating in the room.
[2024-10-19 07:24] LABS: MANUAL DIFFERENTIAL MANUAL DIFFERENTIAL (MANUAL DIFF)
[2024-10-19 07:35] LABS: Basophils % 0.3 % (0.1-2.0); Eosinophils % 0.3 % (0.1-12.0); Hematocrit 31.8 % (37.0-47.0); Hemoglobin 10.4 g/dL (12.2-16.2); Lymphocytes # 0.7 K/mm3 (0.7-4.5); Lymphocytes % 9.2 % (10-50); Mean Corpuscular HGB Conc 32.7 g/dL (31.8-35.4); Mean Corpuscular Hemoglobin 30.9 pg (27.0-31.2); Mean Corpuscular Volume 94.4 fl (81-99); Mean Platelet Volume 10.7 fl (7.4-10.4); Monocytes # 0.7 K/mm3 (0.1-1.0); Monocytes % 9.2 % (1.7-9.3); Neutrophils # 5.8 K/mm3 (1.8-7.8); Platelet Count 150 K/mm3 (142-424); Red Blood Count 3.37 M/mm3 (4.20-5.40); Red Cell Distribution Width 13.3 % (11.5-17.5); White Blood Count 7.2 K/mm3 (4.8-10.8)
[2024-10-19 08:41] LABS: Alanine Aminotransferase 29 U/L (12-78); Albumin/Globulin Ratio 1.1 (1.1-1.8); Alkaline Phosphatase 85 U/L (38-126); Aspartate Amino Transferase 60 U/L (14-36); Bilirubin,Total 0.7 mg/dl (0.2-1.3); Blood Urea Nitrogen 49 mg/dl (7-17); Calcium 8.9 mg/dl (8.4-10.2); Carbon Dioxide 19 mmol/L (22.0-30.0); Chloride 106 mmol/L (98-107); Creatinine Clearance Estimated 26 mL/min (50-200); Estimated Glomerular Filt Rate 31 ml/min (>60); GFR (African American) 37 ML/MIN (>60); Globulin 2.8 g/dL (1.3-3.2); Glucose 113 mg/dl (74-100); Magnesium 1.3 mg/dl (1.6-2.3); Sodium 134 mmol/L (136-145); Total Protein,Serum 5.8 g/dl (6.3-8.2)
[2024-10-19 08:46] LABS: C-Reactive Protein 208.2 mg/L (0-4)
[2024-10-19 08:58] LABS: Procalcitonin 1.72 ng/mL (0.0-2.0)
[2024-10-19 08:59] LABS: Anion Gap 12.6 mEq/L (5-15); Potassium 3.6 mmoL/L (3.5-5.1)
[2024-10-19] MEDS: ENOXAPARIN 30MG/0.3ML SYRINGE 30 MG SUBCUT (09:00)
[2024-10-19] MEDS: MEROPENEM 0.5 GM in 0.9 % SODIUM CHLORIDE 100 ML IV ×2 (09:19→20:26)
[2024-10-19] MEDS: 0.9 % SODIUM CHLORIDE 1000ML 1,000 ML 75 ML IV (09:23)
[2024-10-19] MEDS: ASPIRIN EC 81MG TABLET 81 MG PO (09:24)
[2024-10-19] MEDS: ATORVASTATIN 40MG TABLET 80 MG PO (09:24)
[2024-10-19 09:36] LABS: Lymphocytes % 8 % (10-50); Monocytes % 10 % (2-9); Neutrophils % 82 % (42-76); Platelet Estimate Normal; RBC Morphology Normal; Total Cells Counted 100
--- NOTE | 2024-10-19 09:38 | PC.NURSE ---
pt noted to be weak. pt is currently on levophed drip for bp managment
[2024-10-19 09:39] LABS: Erythrocyte Sedimentation Rate 68 mm/hr (0-30)
[2024-10-19] MEDS: MAGNESIUM SULFATE IN WATER 2 GM/50 ML PIGGYBACK IV (10:42)
[2024-10-19] MEDS: SODIUM CHLORIDE 3% 15ML NEB 3 ML IH (12:47)
--- NOTE | 2024-10-19 18:36 | P.PN_ITS ---
Subjective *Date: 10/19/24 *Time: 18:36 Interval history: Patient feels well today, not significantly improved. But no acute complaints. Continues to have fevers, switched to meropenem. Follow-up on final speciation and sensitivities. Exam Data for Last 24 hours Vital signs and Labs for Last 24 Hours: Temp Pulse Resp BP Pulse Ox O2 Del Method 100.2 F H 81 22 98/50 L 95 Room Air 10/19/24 16:00 10/19/24 18:00 10/19/24 18:00 10/19/24 18:00 10/19/24 18:00 10/19/24 18:00 Laboratory Results - last 24 hr 10/18/24 19:54: Troponin I 1.20 H 10/19/24 07:00: WBC 7.2, RBC 3.37 L, Hgb 10.4 L, Hct 31.8 L, MCV 94.4, MCH 30.9, MCHC 32.7, RDW 13.3, Plt Count 150, MPV 10.7 H, Neut % (Auto) 80.0, Lymph % (Auto) 9.2 L, [place] % (Auto) 9.2, Eos % (Auto) 0.3, Baso % (Auto) 0.3, Neut # (Auto) 5.8, Lymph # (Auto) 0.7, [place] # (Auto) 0.7, Eos # (Auto) 0.0, Baso # (Auto) 0.0, Total Counted 100, Neutrophils % (Manual) 82 H, Lymphocytes % (Manual) 8 L, Monocytes % (Manual) 10 H, Platelet Estimate Normal, RBC Morphology Normal 10/19/24 07:10: Sodium 134 L, Potassium 3.6, Chloride 106, Carbon Dioxide 19 L, Anion Gap 12.6, BUN 49 H D, Creatinine 1.60 H, Estimated Creat Clear 26, Estimated GFR 31 L, Est GFR ( Amer) 37 L D, Glucose 113 H, Calcium 8.9, Magnesium 1.3 L D, Total Bilirubin 0.7, AST 60 H D, ALT 29 D, Alkaline Phosphatase 85, C-Reactive Protein 208.2 H, Total Protein 5.8 L, Albumin 3.0 L, Globulin 2.8, Albumin/Globulin Ratio 1.1, Procalcitonin 1.72 10/19/24 08:35: ESR 68 H I & O for Last 24 hours: Intake & Output 10/16/24 10/17/24 10/18/24 10/19/24 23:59 23:59 23:59 23:59 Intake Total 2775.915 / 2785.915 1904.232 / 1904.232 Output Total 1100 / 1100 1350 / 1350 Balance 1675.915 / 1685.915 554.232 / 554.232 Weight 60.781 kg 62 kg 64 kg Microbiology Reports for the Last 24 Hours: Microbiology 10/17/24 21:58 Blood Blood Culture - Preliminary Gram Negative Rods 10/17/24 21:58 Blood Blood Culture - Preliminary Gram Negative Rods 10/17/24 21:28 Urine,Clean Catch Urine Culture - Final Escherichia coli Constitutional Constitutional: no acute distress *Routine HEENT Exam Head: Present normocephalic Eye: Present EOMI and PERRL ENT: Present mucous membranes moist *Routine Neck Exam Neck: Present supple; Absent lymphadenopathy *Routine Respiratory Exam Respiratory: Present CTA bilaterally *Routine Cardiovascular Exam Cardiovascular: Present RRR *Routine Abdominal Exam Abdominal: Present soft and normoactive bowel sounds; Absent tenderness *Routine Extremities Exam Extremities: Absent cyanosis, clubbing or edema *Routine Skin Exam Skin: Present warm; Absent rash *Routine Neurological Exam Neurological: Present alert Assessment and Plan *Assessment and plan (1) Septic shock: Status: Acute Category: Medical Code(s): A41.9 - Sepsis, unspecified organism; R65.21 - Severe sepsis with septic shock (2) E coli bacteremia: Status: Acute Category: Medical Code(s): R78.81 - Bacteremia; B96.20 - Unspecified Escherichia coli [E. coli] as the cause of diseases classified elsewhere Plan Ksenia Velazquez is a 84-year-old female who presented with generalized weakness, malaise and was admitted for septic shock secondary to UTI. #Septic shock #UTI #E. coli bacteremia ? UA grossly abnormal, blood cultures growing E. coli. Will follow-up on final speciation and sensitivities. ? Switched to meropenem today due to recurrent fevers, discontinue Zosyn. ? Continue Levophed, wean as able. Currently running at 6 mcg/h. Initial maps as low as 35, currently greater than 65. ? Continue NS at 75 mL/h, cautious in setting of heart failure. No signs of fluid overload, on room air. ? Tylenol, ice packs as needed for fevers. ? Follow-up CBC, procalcitonin, CRP, ESR in the morning. #[place] ? Initial creatinine 2.0. Improved to 1.6 with fluid resuscitation and improvement in septic shock. #NSTEMI type II #CAD with 5 stents #HFpEF #Hypertension ? Troponin 1.37, likely demand ischemia in the setting of septic shock. EKG without acute ischemic changes. No chest pain, shortness of breath. Spoke to Dr. Lopes, agreed and advised to continue treatment of septic shock. ? Continue aspirin. ? Hold statin, bisoprolol, lisinopril, spironolactone in the setting of septic shock. DNR/DNI DVT prophylaxis: Lovenox 40 mg. ICU/Critical care attestation This patient is critically ill with 35 minutes devoted solely to this patient managing life/organ supporting interventions that required physician assessment. This includes time spent making adjustments in ventilator settings, IV fluid administration, titration of pressors, adjustments of medications, discussion of patient with consultants and other care providers as well as updating patient and/or family (if patient by virtue of his/her condition is unable to participate in decision making). This does not include time spent performing separately billed procedures. Time is not concurrent with that of other providers.
[2024-10-19] MEDS: PANTOPRAZOLE 40MG TABLET 40 MG PO (20:26)
[2024-10-20] VITALS (27 sets, daily range): BP systolic 95–166; BP diastolic 52–73; PULSE 66–108; RESP 12–29; TEMP 36.8–37.9; O2SAT 91–98; BMI 25.9
[2024-10-20] MEDS: 0.9 % SODIUM CHLORIDE 1000ML 1,000 ML 75 ML IV (04:35)
[2024-10-20] MEDS: NOREPINEPHRINE BITARTRATE 8 MG in 0.9 % SODIUM CHLORIDE 250 ML 7.74 MG IV (04:36)
[2024-10-20] MEDS: ACETAMINOPHEN 325MG TAB 650 MG PO (04:37)
[2024-10-20 06:23] LABS: MANUAL DIFFERENTIAL MANUAL DIFFERENTIAL (MANUAL DIFF)
[2024-10-20 06:25] LABS: Basophils % 0.3 % (0.1-2.0); Eosinophils # 0.1 K/mm3 (0.0-0.4); Eosinophils % 0.8 % (0.1-12.0); Hematocrit 28.9 % (37.0-47.0); Hemoglobin 9.4 g/dL (12.2-16.2); Lymphocytes # 0.7 K/mm3 (0.7-4.5); Lymphocytes % 11.6 % (10-50); Mean Corpuscular HGB Conc 32.5 g/dL (31.8-35.4); Mean Corpuscular Hemoglobin 30.6 pg (27.0-31.2); Mean Corpuscular Volume 94.1 fl (81-99); Monocytes # 0.7 K/mm3 (0.1-1.0); Monocytes % 10.5 % (1.7-9.3); Neutrophils # 4.8 K/mm3 (1.8-7.8); Neutrophils % 75.7 % (37.0-80.0); Platelet Count 159 K/mm3 (142-424); Red Blood Count 3.07 M/mm3 (4.20-5.40); Red Cell Distribution Width 13.7 % (11.5-17.5); White Blood Count 6.4 K/mm3 (4.8-10.8)
[2024-10-20 07:42] LABS: Albumin Level 2.7 g/dl (3.5-5.0); Chloride 108 mmol/L (98-107); Potassium 4.1 mmoL/L (3.5-5.1); Sodium 134 mmol/L (136-145)
[2024-10-20 07:45] LABS: Alanine Aminotransferase 30 U/L (12-78); Alkaline Phosphatase 79 U/L (38-126); Anion Gap 10.1 mEq/L (5-15); Aspartate Amino Transferase 59 U/L (14-36); Bilirubin,Total 0.4 mg/dl (0.2-1.3); Blood Urea Nitrogen 40 mg/dl (7-17); Calcium 9.1 mg/dl (8.4-10.2); Carbon Dioxide 20 mmol/L (22.0-30.0); Creatinine Clearance Estimated 33 mL/min (50-200); Estimated Glomerular Filt Rate 39 ml/min (>60); GFR (African American) 47 ML/MIN (>60); Globulin 2.7 g/dL (1.3-3.2); Glucose 102 mg/dl (74-100); Total Protein,Serum 5.4 g/dl (6.3-8.2)
[2024-10-20 07:46] LABS: Magnesium 1.8 mg/dl (1.6-2.3)
[2024-10-20 07:52] LABS: Eosinophils % 1 % (0-3); Lymphocytes % 11 % (10-50); Monocytes % 7 % (2-9); Neutrophils % 81 % (42-76); Platelet Estimate Normal; RBC Morphology Normal; Total Cells Counted 100
[2024-10-20 08:12] LABS: Erythrocyte Sedimentation Rate 24 mm/hr (0-30)
[2024-10-20] MEDS: MEROPENEM 1 GM in 0.9 % SODIUM CHLORIDE 100 ML IV (08:20)
[2024-10-20] MEDS: ATORVASTATIN 40MG TABLET 80 MG PO (08:20)
[2024-10-20] MEDS: ENOXAPARIN 30MG/0.3ML SYRINGE 30 MG SUBCUT (08:20)
[2024-10-20] MEDS: ASPIRIN EC 81MG TABLET 81 MG PO (08:20)
[2024-10-20 08:30] LABS: C-Reactive Protein 144.1 mg/L (0-4)
[2024-10-20 08:33] LABS: Procalcitonin 1.07 ng/mL (0.0-2.0)
--- NOTE | 2024-10-20 08:44 | CA_ITS ---
APPROVED REPORT EXAM: Comprehensive 2D, Doppler, and color-flow Echocardiogram Fleet Administrator: Bridgette Enamorado RT(R) Ht: 5 ft 2 in Wt: 145lbs BSA: 1.67 BP: 123/63 mmHg Indications: hx DC, stents, CHF, sepsis, CAD, HTN 2D Dimensions Left Atrium 3.67 cm F: 2.7 - 3.8 EF AP4 58.30 % LVOT 1.80 cm (M/F) 1.5-2.5 GL Strain -22.2 % M-Mode Dimensions RVDd 2.88 cm (0.9-2.6) LVDd 3.51 cm (3.5-5.7) Ao Diam 2.67 cm (2.0-3.7) LVDs 2.63 cm (3.5-5.7) IVSd 0.63 cm (0.6-1.1) PWd 0.75 cm (0.6-1.1) EF (Teich) 50.60% FS 25.10% EDV (Teich) 51.20 mL ESV (Teich) 25.30 mL LV Diastology E Decel Time 158 (160-240 msec) E/A Ratio 0.8 MED E' 5.2 (>= 7 cm/sec) E'/MED E' Ratio 16.10 (<= 14) LAT E' 7.8 (>= 10 cm/sec) E/LAT E' Ratio 10.73 (<= 14) Mitral Valve MV E Max Quinn. 84.0 (40-130 cm/s) MV A Velocity 104.0 (40-130 cm/s) E/A Ratio 0.81 MV Decel. Time 158 (160-240 ms) Tricuspid Valve TR P. Velocity 347.00 cm/s RAP Estimate 10.00 mmHg RVSP 58.30 mmHg Left Ventricle The left ventricle is normal size. The left ventricular systolic function is normal. The left ventricular ejection fraction is within the normal range. There is increased LV wall thickness. There is normal LV segmental wall motion. Diastolic function is indeterminate. LVEF is 65%. Right Ventricle The right ventricle is not very well-visualized, but grossly appears normal in size and function. Atria Left atrium is severely dilated. The right atrium is not well-visualized. The interatrial septum is not well-visualized. Aortic Valve The aortic valve is mildly thickened. There is no aortic valvular stenosis. Mild aortic regurgitation. Mitral Valve The mitral valve is normal in structure. Trace mitral regurgitation. Tricuspid Valve The tricuspid valve leaflets are thin and pliable. Moderate tricuspid regurgitation. RVSP is 45 mmHg + RA pressure. Pulmonic Valve The pulmonary valve is normal in structure. Trace pulmonic regurgitation. Great Vessels The aortic root is normal in size. The IVC is not well-visualized. Pericardium There is no pericardial effusion. Other Information Study Quality: Technically Difficult Conclusion Technically difficult study due to poor acoustic windows. Normal LV systolic function. RV not well-visualized, but grossly appears normal in size and function. Biatrial dilation. Moderate TR. Mild AI. Elevated RVSP 40 mmHg + RA pressure. Electronically signed by : Vernóica Alves MD 10/20/2024 11:58:38
[2024-10-20] MEDS: MAGNESIUM SULFATE IN WATER 2 GM/50 ML PIGGYBACK IV (09:13)
[2024-10-20] MEDS: POLYETHYLENE GLYCOL 3350 17 GM PACKET PO (09:17)
--- NOTE | 2024-10-20 09:54 | P.CONCA_ITS ---
History of Present Illness History of Present Illness Consult date: 10/20/24 Requesting physician: Alex Quiroga Consult reason: congestive heart failure Chief complaint: diarrhea, weakness History of present illness: 84-year-old white female former patient of our office last seen in 2022 with a history of CAD status post stenting 2021 and chronic HFpEF. 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 Patient states she developed diarrhea approximately 3 days prior to admission but on day of arrival was very weak and short of breath. In ER she was found to have E. coli UTI with bacteremia and developed septic shock. On pressors over the weekend. Dr. Lopes was called about uptrending troponin to 1.37 but in the setting of EKG without ST elevations or complaints of chest pain. Advised continue septic shock treatment. Patient has been on antibiotics over the weekend and is feeling much better today. Pressors turned off just prior to my arrival and she is on room air. Full bedside echo results are pending for today. She has no lower extremity edema and her lungs are clear to auscultation. Patient reports she is feeling back to baseline and denies CP. She states she is DNR and not interested in office follow-up. [facility] Disclaimer: The information contained in this section may have been updated after the patient was seen, as this information can be updated by other users. Medical History Strain of muscle, fascia and tendon of lower back, initial encounter HHD (hypertensive heart disease) Compression fracture of lumbar vertebra Constipation Mid back pain Low back pain Closed right femoral fracture Fracture of right shoulder Falls Snoring Daytime somnolence Restless sleeper Abnormal EKG Surgical History History of lumbosacral spine surgery History of arthroplasty of right shoulder Status post coronary artery stent placement Family History Other No significant family history Social History Smoking Status: Never smoker alcohol intake: never substance use type: denies use current occupational status: retired Travel in the last 8 weeks: None household members: none housing: house current occupational exposures/hazards: No caffeine: Yes Have you lived/traveled outside [place] in past 30 days?: No Contact w/someone who lives/traveled outside US past 30 days?: No Exposure to someone with infectious disease in past 14 days?: No Do you have a fever (greater than 100.4 F or 38 C)?: No Have you tested positive for COVID-19: No Exposed to someone with COVID-19 in past 14 days?: No Do you have a sore throat?: No Do you have a cough?: No Do you have any weakness?: No Do you have any diarrhea?: No Are you experiencing any unusual bleeding?: No Do you have any muscle aches/pain?: No Do you have any abdominal pain?: No Are you experiencing loss of taste or smell?: No Review of Systems Constitutional Constitutional: Denies fatigue and Reports weakness Eyes Eyes: Denies loss of vision ENT Ears, Nose, Mouth, and Throat: Denies hearing loss *Cardiovascular Cardiovascular: Denies chest pain and Reports dyspnea *Respiratory Respiratory: Denies cough and Reports dyspnea *Gastrointestinal Gastrointestinal: Denies change in stool character, Denies nausea and Denies vomiting *Musculoskeletal Musculoskeletal: Reports abnormal gait Integumentary/Breasts Skin/Breast: Denies changing lesions *Neurologic Neurologic: Reports abnormal gait, Denies loss of vision, Reports tremor(s) and Reports weakness Endocrine Endocrine: Denies fatigue Exam Data for Last 24 hours Vital signs and Labs for Last 24 Hours: Temp Pulse Resp BP Pulse Ox O2 Del Method 100.2 F H 108 H 22 134/66 95 Room Air 10/20/24 04:00 10/20/24 09:30 10/20/24 09:30 10/20/24 09:30 10/20/24 09:30 10/20/24 09:30 Laboratory Results - last 24 hr 10/20/24 05:31: WBC 6.4, RBC 3.07 L, Hgb 9.4 L, Hct 28.9 L, MCV 94.1, MCH 30.6, MCHC 32.5, RDW 13.7, Plt Count 159, MPV 11.0 H, Neut % (Auto) 75.7, Lymph % (Auto) 11.6, [place] % (Auto) 10.5 H, Eos % (Auto) 0.8, Baso % (Auto) 0.3, Neut # (Auto) 4.8, Lymph # (Auto) 0.7, [place] # (Auto) 0.7, Eos # (Auto) 0.1, Baso # (Auto) 0.0, Total Counted 100, Neutrophils % (Manual) 81 H, Lymphocytes % (Manual) 11, Monocytes % (Manual) 7, Eosinophils % (Manual) 1, Platelet Estimate Normal, RBC Morphology Normal, ESR 24, Sodium 134 L, Potassium 4.1, Chloride 108 H, Carbon Dioxide 20 L, Anion Gap 10.1, BUN 40 H, Creatinine 1.30 H, Estimated Creat Clear 33, Estimated GFR 39 L, Est GFR ( Amer) 47 L D, Glucose 102 H , Calcium 9.1, Magnesium 1.8 D, Total Bilirubin 0.4, AST 59 H, ALT 30, Alkaline Phosphatase 79, C-Reactive Protein 144.1 H, Total Protein 5.4 L, Albumin 2.7 L, Globulin 2.7, Albumin/Globulin Ratio 1.0 L, Procalcitonin 1.07 I & O for Last 24 hours: Intake & Output 10/17/24 10/18/24 10/19/24 10/20/24 23:59 23:59 23:59 23:59 Intake Total 2775.915 / 2785.915 1904.232 / 2104.232 533.066 / 533.066 Output Total 1100 / 1100 1700 / 1700 650 / 650 Balance 1675.915 / 1685.915 204.232 / 404.232 -116.934 / -116.934 Weight 134 lb 136 lb 10.986 oz 141 lb 1.533 oz 141 lb 1.533 oz Microbiology Reports for the Last 24 Hours: Microbiology 10/19/24 08:35 Blood Blood Culture - Preliminary NO GROWTH AFTER 24 HOURS 10/19/24 08:35 Blood Blood Culture - Preliminary NO GROWTH AFTER 24 HOURS 10/17/24 21:58 Blood Blood Culture - Final Escherichia coli 10/17/24 21:58 Blood Blood Culture - Final Escherichia coli 10/17/24 21:28 Urine,Clean Catch Urine Culture - Final Escherichia coli Constitutional Constitutional: no acute distress and cooperative *Routine HEENT Exam Eye: Present PERRL *Routine Respiratory Exam Respiratory: Present CTA bilaterally; Absent accessory muscle use, wheezes or crackles *Routine Cardiovascular Exam Cardiovascular: Present RRR, Normal S1 and Normal S2; Absent murmur, gallop or rubs *Routine Abdominal Exam Abdominal: Present soft; Absent tenderness *Routine Extremities Exam Extremities: Present pulses intact; Absent cyanosis or edema *Routine Skin Exam Skin: Present intact; Absent erythema or wounds *Routine Neurological Exam Neurological: Present alert and oriented X3 Routine Psychiatric Exam Psychiatric: Present cooperative Meds Home Medications and Allergies Home Medications ?Medication ?Instructions ?Recorded ?Confirmed ?Type buspirone 5 mg tablet 5 mg PO BID 03/12/20 10/18/24 History ferrous sulfate 325 mg (65 mg 325 mg PO MOWEFR anemia 09/30/20 10/18/24 History iron) tablet aspirin 81 mg tablet,delayed 81 mg PO DAILY 10/25/20 10/18/24 History release lisinopril 20 mg tablet 20 mg PO BID 04/14/21 10/18/24 History bisoprolol fumarate 5 mg tablet 5 mg PO DAILY 05/29/22 10/18/24 History acetaminophen 325 mg tablet 650 mg PO Q6HP PRN Mild Pain 10/18/24 10/18/24 History (Tylenol) (Scale Score 1-4) atorvastatin 80 mg tablet 80 mg PO DAILY 10/18/24 10/18/24 History bumetanide 2 mg tablet 2 mg PO DAILY 10/18/24 10/18/24 History cholecalciferol (vitamin D3) 25 25 mcg PO DAILY 10/18/24 10/18/24 History mcg (1,000 unit) capsule (Vitamin D3) omeprazole 40 mg capsule,delayed 40 mg PO HS 10/18/24 10/18/24 History release spironolactone 25 mg tablet 25 mg PO QODHS 10/18/24 10/18/24 History New Prescriptions to Start Prescriptions: Allergies Allergy/AdvReac Type Severity Reaction Status Date / Time No Known Allergies Allergy Verified 01/16/23 11:09 Assessment and Plan *Assessment and plan (1) Septic shock: Status: Acute Category: Medical Code(s): A41.9 - Sepsis, unspecified organism; R65.21 - Severe sepsis with septic shock (2) E coli bacteremia: Status: Acute Category: Medical Code(s): R78.81 - Bacteremia; B96.20 - Unspecified Escherichia coli [E. coli] as the cause of diseases classified elsewhere (3) (HFpEF) heart failure with preserved ejection fraction: Status: Acute Category: Medical Code(s): I50.30 - Unspecified diastolic (congestive) heart failure (4) Type 2 myocardial infarction: Status: Acute Category: Medical Code(s): I21.A1 - Myocardial infarction type 2 Plan Septic Shock From Diarrhea/E. Coli Bacteremia - resolving with Ab - off pressors, on room air CAD with Type II UT - Trop peaked at 1.37 on 10/18 in setting of septic shock - pt denies angina, EKG shows SR without ischemia or ectopy - ECHO pending - prelim shows nml EF - cont ASA, Statin. Resume BB when possible. Chronic HFpEF - ECHO 2022 - EF 55-60^ biatrial dilation and septal thickening - ProBNP 3600 here with bibasilar atelectasis noted on CXR - pt denies orthopnea and LE Edema at this time - repeat ECHO here pending - GDMT on hold due to resolving shock/hypotension *10/20 summary: Pt is CV stable, will await full ECHO read but do not anticipate procedural intervention. Gradually resume GDMT as tolerated.
--- NOTE | 2024-10-20 10:01 | HMH.PTEV ---
Physical Therapy Evaluation Rehab PT IP Evaluation Start: 10/20/24 08:36 Freq: ONCE Status: Active Protocol: Document 10/20/24 09:56 BRAD (Rec: 10/20/24 10:01 BRAD [id number]) Subjective/History History History 84-year-old female, who is a . Noted that 3 days ago she had diarrhea and then started to have fever. Found to have UTI and NSTEMI after adm. She reports she lives alone, ramp to enter the home, and she is generally independent with all mobility with RW at baseline. She states, I don't really cook anymore, because people bring me plenty of food that I can microwave. I also have a cleaning lady that comes in, so I don't do any of that either. Subjective Subjective Pt has no c/o at this time and agrees to mobility assessment . [facility] How much help from another person do you currently need... Turning from your back to your side None while in a flat bed without using bedrails? Moving from lying on back to sitting on A little the side of a flat bed without using bedrails? Moving to and from a bed to a chair ( None including a wheelchair)? Standing up from a chair using your arms None ? (e.g., wheelchair, bedside chair) Walking in hospital room? None Climbing 3-5 steps with a railing? A little Mobility Score 22 Mobility Level [facility] Mobility Calculator Mobility 7 Walk 25 feet or more Rehab PT IP Eval Objective Appearance Patient Behavior Appropriate Patient Orientation Person,Place,Time Difficulty following instructions none Speech Pattern Clear Ambulation Patient Able to Ambulate Yes Ambulation Observation IP General Gait Pattern Observation Shuffling Step Ambulation Distance (feet) 40 Ambulation Assistive Device Rolling Walker Ambulation Ability Supervision/Stand by Balance Ability to Arise Able, uses arms to help Sitting Balance Steady, safe Standing Balance Steady, wide stance Dynamic Sitting Balance Ability Good Dynamic Standing Balance Ability Fair Transfers Bed Transfer Ability Minimal x 1 (25% assist) Chair Transfer Ability Supervision/Stand by Sit to Stand Bed Transfer Ability Supervision/Stand by Sit to Stand Chair Transfer Ability Supervision/Stand by Rehab PT IP prob,goals,plan Problems Date of Evaluation: 10/20/24 PT IP Problems Bed Mobility,Transfers,Gait Rehab Potential Rehab Potential Good Equipment Needs Assistive Devices Rolling / Wheeled Walker Plan PT Intervention Plan Bed Mobility,Transfers,Gait, Therapeutic Exercise PT Plan Frequency Daily Duration LOS Discharge Goals Bed Transfer Ability Contact Guard/Hand Hold Sit to Stand Chair Transfer Ability Independent Ambulation Assistive Device Rolling Walker Ambulation Distance (feet) 50 Discharge Plan PT Discharge Plan Pt is currently appropriate to return home once medically stable for d/c. Recommend RW for home use and home health therapy after d/c to home. Skilled acute therapy services are indicated to aid improved transfers and ambulation in order to return ot to [facility]. Eval Complexity Eval Charge Codes 32594 - High Complexity PHYSICIAN CERTIFICATION: I certify the specified therapy services for Ksenia Velazquez are required, authorized, and reviewed every 30 days.
--- NOTE | 2024-10-20 13:26 | SW/DCPLANNER ---
Addendum entered by Shannan Gordon 10/22/24 11:02: Patients friend called [facility] and talked to them and told her that if we could get custodial then they will be able to admit patient. Resent patient's info with custodial order and [facility] is able to accept patient and will admit her tomorrow 10/23/24. Олег Hare Addendum entered by Shannan Gordon 10/21/24 14:20: Faxed patient's info to [facility] and they are unable to accept patient at this time. Talked with patient about sending her info to another home health agency and she asked to speak with her brother. I told patient that was fine and that i would be back in the morning to see if she was able to speak with her brother. Олег Hare Original Note: Spoke with patient about home health services. Patient stated that she is interested in home health. Patient stated that she has used [facility] in the past and she would like them again once she is medically stable for d/c. I will fax all of patients info to [facility]. Олег Hare
--- NOTE | 2024-10-20 13:30 | CARE MANAGER ---
Current Medications Acetaminophen (Acetaminophen 325mg Tab) 650 mg PO Q4HP PRN PRN Reason: Fever or Mild Pain (1-3) Stop: 11/17/24 16:33 Last Admin: 10/20/24 04:37 Dose: 650 mg Aspirin (Aspirin Ec 81mg Tablet) 81 mg PO DAILY [facility] Stop: 11/17/24 08:59 Last Admin: 10/20/24 08:20 Dose: 81 mg Atorvastatin Calcium (Atorvastatin 40mg Tablet) 80 mg PO DAILY [facility] Stop: 11/18/24 08:59 Last Admin: 10/20/24 08:20 Dose: 80 mg Enoxaparin Sodium (Enoxaparin 30mg/0.3ml Syringe) 30 mg SUBCUT DAILY [facility] Stop: 11/18/24 08:59 Last Admin: 10/20/24 08:20 Dose: 30 mg Sodium Chloride (Sod Chlor 0.9% 1000ml Bag) 1,000 mls @ 75 mls/hr IV .[id number] [facility] Stop: 11/16/24 22:14 Last Admin: 10/20/24 04:35 Dose: 75 mls/hr Norepinephrine Bitartrate 8 mg (/ Sodium Chloride) 258 mls @ 7.74 mls/hr IV .Q24H [facility]; Protocol Stop: 11/17/24 08:14 Last Titration: 10/20/24 09:00 Dose: 1 mcg/min, 1.94 mls/hr Ceftriaxone Sodium 1 gm/ (Sodium Chloride) 50 mls @ 100 mls/hr IV Q24H [facility] Stop: 10/30/24 14:59 Ondansetron HCl (Ondansetron 4mg/2ml Vial) 4 mg IV Q6HP PRN PRN Reason: Nausea Stop: 11/16/24 22:02 Pantoprazole Sodium (Pantoprazole 40mg Tablet) 40 mg PO HS [facility] Stop: 11/17/24 20:59 Last Admin: 10/19/24 20:26 Dose: 40 mg Polyethylene Glycol (Polyethylene Glycol 3350 17 Gm Packet) 17 gm PO DAILY [facility] Stop: 11/19/24 09:29 Last Admin: 10/20/24 09:17 Dose: 17 gm Sodium Chloride (Sodium Chloride 0.9% 10ml Flush Syringe) 10 ml IV NEEDED PRN PRN Reason: Maintain IV Site Stop: 11/17/24 07:26 Sodium Chloride (Sodium Chloride 3% 15ml Neb) 3 ml IH ONCE PRN PRN Reason: INDUCE [employer]UM [employer]LECTION Stop: 11/18/24 08:21 Last Admin: 10/19/24 12:47 Dose: 3 ml
[2024-10-20] MEDS: CEFTRIAXONE 1 GM 1 GM in 0.9 % SODIUM CHLORIDE 50 ML IV (15:41)
--- NOTE | 2024-10-20 17:15 | PC.NURSE ---
Pt off Levo gtt this shift, BP remains normotensive. No acute events. Friend has been to visit at bedside intermittently. Pt is independent w/ADL's and ambulates w/ a walker w/ standby assistance w/ no safety concerns. Nursing staff sat pt up in chair w/ a basin and new linens and pt was able to bathe herself independently. Denies pain. No needs voiced @ this time. Call jennifer w/in reach. POC ongoing. Brother was updated on POC this shift via phone.
--- NOTE | 2024-10-20 17:37 | P.PN_ITS ---
Subjective *Date: 10/20/24 *Time: 17:37 Interval history: Patient feels much better today, more energy. Weaned off Levophed, meropenem, maintenance fluids and started ceftriaxone. Downgraded to MedSurg. Exam Data for Last 24 hours Vital signs and Labs for Last 24 Hours: Temp Pulse Resp BP Pulse Ox O2 Del Method 98.4 F 93 H 24 136/68 95 Room Air 10/20/24 16:01 10/20/24 16:00 10/20/24 16:00 10/20/24 16:01 10/20/24 16:00 10/20/24 16:59 Laboratory Results - last 24 hr 10/20/24 05:31: WBC 6.4, RBC 3.07 L, Hgb 9.4 L, Hct 28.9 L, MCV 94.1, MCH 30.6, MCHC 32.5, RDW 13.7, Plt Count 159, MPV 11.0 H, Neut % (Auto) 75.7, Lymph % (Auto) 11.6, [place] % (Auto) 10.5 H, Eos % (Auto) 0.8, Baso % (Auto) 0.3, Neut # (Auto) 4.8, Lymph # (Auto) 0.7, [place] # (Auto) 0.7, Eos # (Auto) 0.1, Baso # (Auto) 0.0, Total Counted 100, Neutrophils % (Manual) 81 H, Lymphocytes % (Manual) 11, Monocytes % (Manual) 7, Eosinophils % (Manual) 1, Platelet Estimate Normal, RBC Morphology Normal, ESR 24, Sodium 134 L, Potassium 4.1, Chloride 108 H, Carbon Dioxide 20 L, Anion Gap 10.1, BUN 40 H, Creatinine 1.30 H, Estimated Creat Clear 33, Estimated GFR 39 L, Est GFR ( Amer) 47 L D, Glucose 102 H , Calcium 9.1, Magnesium 1.8 D, Total Bilirubin 0.4, AST 59 H, ALT 30, Alkaline Phosphatase 79, C-Reactive Protein 144.1 H, Total Protein 5.4 L, Albumin 2.7 L, Globulin 2.7, Albumin/Globulin Ratio 1.0 L, Procalcitonin 1.07 I & O for Last 24 hours: Intake & Output 10/17/24 10/18/24 10/19/24 10/20/24 23:59 23:59 23:59 23:59 Intake Total 2775.915 / 2785.915 1904.232 / 2104.232 925.006 / 925.006 Output Total 1100 / 1100 1700 / 1700 650 / 650 Balance 1675.915 / 1685.915 204.232 / 404.232 275.006 / 275.006 Weight 60.781 kg 62 kg 64 kg 64 kg Microbiology Reports for the Last 24 Hours: Microbiology 10/19/24 08:35 Blood Blood Culture - Preliminary NO GROWTH AFTER 24 HOURS 10/19/24 08:35 Blood Blood Culture - Preliminary NO GROWTH AFTER 24 HOURS 10/17/24 21:58 Blood Blood Culture - Final Escherichia coli 10/17/24 21:58 Blood Blood Culture - Final Escherichia coli Constitutional Constitutional: no acute distress *Routine HEENT Exam Head: Present normocephalic Eye: Present EOMI and PERRL ENT: Present mucous membranes moist *Routine Neck Exam Neck: Present supple; Absent lymphadenopathy *Routine Respiratory Exam Respiratory: Present CTA bilaterally *Routine Cardiovascular Exam Cardiovascular: Present RRR *Routine Abdominal Exam Abdominal: Present soft and normoactive bowel sounds; Absent tenderness *Routine Extremities Exam Extremities: Absent cyanosis, clubbing or edema *Routine Skin Exam Skin: Present warm; Absent rash *Routine Neurological Exam Neurological: Present alert Assessment and Plan *Assessment and plan (1) Septic shock: Status: Acute Category: Medical Code(s): A41.9 - Sepsis, unspecified organism; R65.21 - Severe sepsis with septic shock (2) E coli bacteremia: Status: Acute Category: Medical Code(s): R78.81 - Bacteremia; B96.20 - Unspecified Escherichia coli [E. coli] as the cause of diseases classified elsewhere Plan Ksenia Velazquez is a 84-year-old female who presented with generalized weakness, malaise and was admitted for septic shock secondary to UTI. Hospital course complicated by BR[place], NSTEMI type II. #Septic shock #UTI #E. coli bacteremia ? UA grossly abnormal, blood in urine cultures growing E. coli and pansensitive. Repeat blood cultures NGTD 24 hours. ? Patient feels much better today, states she has more energy. ? Switched to ceftriaxone today, discontinue meropenem. Weaned off Levophed today. Discontinued IV maintenance fluids. ? Tylenol, ice packs as needed for fevers. ? Follow-up CBC, CMP in the morning. #BRENTON ? Initial creatinine 2.0. Improved to 1.3 with fluid resuscitation. ? Follow-up CMP in the morning. #NSTEMI type II #CAD with 5 stents #HFpEF #Hypertension ? Troponin 1.37, likely demand ischemia in the setting of septic shock. EKG without acute ischemic changes. No chest pain, shortness of breath. Spoke to Dr. Lopes, agreed and advised to continue treatment of septic shock. ? Continue aspirin. ? Hold statin, bisoprolol, lisinopril, spironolactone in the setting of resolving septic shock. ? ECHO showed normal LV function without wall motion abnormalities. DNR/DNI DVT prophylaxis: Lovenox 40 mg.
[2024-10-20] MEDS: BISOPROLOL 5MG TABLET 5 MG PO (18:08)
[2024-10-20] MEDS: BUSPIRONE HCL 5 MG TABLET PO (20:10)
[2024-10-20] MEDS: PANTOPRAZOLE 40MG TABLET 40 MG PO (20:10)
[2024-10-21] VITALS: BP 145/65; PULSE 91; RESP 18; O2SAT 94
[2024-10-21 04:00] VITALS: BP 122/69; PULSE 70; PULSE 79; TEMP 37.3; O2SAT 96; BMI 27.6
--- NOTE | 2024-10-21 05:24 | PC.NURSE ---
Took over patient care @ 0125 from ICU nurse. Alert and oriented. No complaints from patient. IV saline locked. Placed patient on 2L NC per Diogenes FIELDSN due to patient desat while sleeping to 88% and sustaining, 2L NC in place while sleeping only. Lung sounds clear. Purewick in place and draining. Call light in reach. Bed alarm on.
[2024-10-21 07:11] LABS: Basophils % 0.3 % (0.1-2.0); Eosinophils # 0.1 K/mm3 (0.0-0.4); Eosinophils % 0.8 % (0.1-12.0); Hematocrit 26.5 % (37.0-47.0); Hemoglobin 8.7 g/dL (12.2-16.2); Lymphocytes % 15.4 % (10-50); Mean Corpuscular HGB Conc 32.8 g/dL (31.8-35.4); Mean Corpuscular Hemoglobin 30.5 pg (27.0-31.2); Mean Platelet Volume 10.5 fl (7.4-10.4); Monocytes # 0.9 K/mm3 (0.1-1.0); Monocytes % 14.5 % (1.7-9.3); Neutrophils # 4.3 K/mm3 (1.8-7.8); Neutrophils % 68.2 % (37.0-80.0); Platelet Count 164 K/mm3 (142-424); Red Blood Count 2.85 M/mm3 (4.20-5.40); Red Cell Distribution Width 13.9 % (11.5-17.5); White Blood Count 6.4 K/mm3 (4.8-10.8)
[2024-10-21 07:12] LABS: MANUAL DIFFERENTIAL MANUAL DIFFERENTIAL (MANUAL DIFF)
[2024-10-21 07:32] LABS: NT Pro Brain Natriuretic Pep. 6670 pg/mL (0-450)
[2024-10-21 08:00] VITALS: BP 135/58; PULSE 80; PULSE 81; RESP 18; TEMP 37.3; O2SAT 91; O2SAT 97
[2024-10-21 08:02] LABS: Erythrocyte Sedimentation Rate 119 mm/hr (0-30)
[2024-10-21 08:08] LABS: Alanine Aminotransferase 29 U/L (12-78); Albumin Level 2.5 g/dl (3.5-5.0); Alkaline Phosphatase 80 U/L (38-126); Anion Gap 6.3 mEq/L (5-15); Aspartate Amino Transferase 44 U/L (14-36); Bilirubin,Total 0.5 mg/dl (0.2-1.3); Blood Urea Nitrogen 27 mg/dl (7-17); Carbon Dioxide 24 mmol/L (22.0-30.0); Chloride 111 mmol/L (98-107); Creatinine Clearance Estimated 41 mL/min (50-200); Estimated Glomerular Filt Rate 47 ml/min (>60); GFR (African American) 57 ML/MIN (>60); Globulin 2.4 g/dL (1.3-3.2); Glucose 95 mg/dl (74-100); Magnesium 2.1 mg/dl (1.6-2.3); Potassium 4.3 mmoL/L (3.5-5.1); Sodium 137 mmol/L (136-145); Total Protein,Serum 4.9 g/dl (6.3-8.2)
[2024-10-21 08:22] LABS: Lymphocytes % 19 % (10-50); Monocytes % 6 % (2-9); Neutrophils % 75 % (42-76); Total Cells Counted 100
[2024-10-21 08:23] LABS: Platelet Estimate Normal; RBC Morphology Normal
[2024-10-21] MEDS: BUMETANIDE 1MG/4ML VIAL 2 MG IV (09:53)
[2024-10-21] MEDS: ATORVASTATIN 40MG TABLET 80 MG PO (09:53)
[2024-10-21] MEDS: ASPIRIN EC 81MG TABLET 81 MG PO (09:53)
[2024-10-21] MEDS: BISOPROLOL 5MG TABLET 5 MG PO (09:53)
[2024-10-21] MEDS: BUSPIRONE HCL 5 MG TABLET PO ×2 (09:53→21:32)
[2024-10-21] MEDS: ENOXAPARIN 40MG/0.4ML SYRINGE 40 MG SUBCUT (09:53)
[2024-10-21] MEDS: POLYETHYLENE GLYCOL 3350 17 GM PACKET PO (10:02)
[2024-10-21 12:00] VITALS: BP 134/64; PULSE 70; PULSE 86; RESP 16; TEMP 36.9; O2SAT 97
[2024-10-21 14:07] LABS: C-Reactive Protein 93.9 mg/L (0-4)
--- NOTE | 2024-10-21 14:41 | P.PN_ITS ---
Subjective Subjective Date: 10/21/24 Time: 09:30 Principal diagnosis: sepsis Interval history: Out of ICU overnight, no events. Vitals improving. ECHO shows no change compared to 2023. Pt denies CP, SOA, palps, LE Edema. Exam Data for Last 24 hours Vital signs and Labs for Last 24 Hours: Temp Pulse Resp BP Pulse Ox O2 Del Method O2 Flow Rate 98.4 F 86 16 134/64 97 Nasal Cannula 2 10/21/24 12:10/21/24 12:10/21/24 12:10/21/24 12:10/21/24 12:10/21/24 12:10/21/24 12:00 Laboratory Results - last 24 hr 10/21/24 06:38: WBC 6.4, RBC 2.85 L, Hgb 8.7 L, Hct 26.5 L, MCV 93.0, MCH 30.5, MCHC 32.8, RDW 13.9, Plt Count 164, MPV 10.5 H, Neut % (Auto) 68.2, Lymph % (Auto) 15.4, [place] % (Auto) 14.5 H, Eos % (Auto) 0.8, Baso % (Auto) 0.3, Neut # (Auto) 4.3, Lymph # (Auto) 1.0, [place] # (Auto) 0.9, Eos # (Auto) 0.1, Baso # (Auto) 0.0, Total Counted 100, Neutrophils % (Manual) 75, Lymphocytes % (Manual) 19, Monocytes % (Manual) 6, Platelet Estimate Normal, RBC Morphology Normal, ESR 119 H, Sodium 137, Potassium 4.3, Chloride 111 H, Carbon Dioxide 24, Anion Gap 6.3, BUN 27 H D, Creatinine 1.10 H, Estimated Creat Clear 41, Estimated GFR 47 L , Est GFR ( Amer) 57 L D, Glucose 95, Calcium 9.0, Magnesium 2.1 D, Total Bilirubin 0.5, AST 44 H D, ALT 29, Alkaline Phosphatase 80, C-Reactive Protein 93.9 H D, NT-Pro-B Natriuret Pep 6670 H, Total Protein 4.9 L, Albumin 2.5 L, Globulin 2.4, Albumin/Globulin Ratio 1.0 L, Procalcitonin 0.540 I & O for Last 24 hours: Intake & Output 10/18/24 10/19/24 10/20/24 10/21/24 23:59 23:59 23:59 23:59 Intake Total 2775.915 / 2785.915 1904.232 / 2104.232 1523.006 / 1763.006 600 / 600 Output Total 1100 / 1100 1700 / 1700 1150 / 1150 1300 / 1300 Balance 1675.915 / 1685.915 204.232 / 404.232 373.006 / 613.006 -700 / -700 Weight 136 lb 10.986 oz 141 lb 1.533 oz 141 lb 1.533 oz 150 lb 3.2 oz Microbiology Reports for the Last 24 Hours: Microbiology 10/19/24 08:35 Blood Blood Culture - Preliminary NO GROWTH AFTER 48 HOURS 10/19/24 08:35 Blood Blood Culture - Preliminary NO GROWTH AFTER 48 HOURS Constitutional Constitutional: no acute distress and cooperative *Routine HEENT Exam Eye: Present PERRL *Routine Respiratory Exam Respiratory: Present CTA bilaterally; Absent accessory muscle use, wheezes or crackles *Routine Cardiovascular Exam Cardiovascular: Present RRR, Normal S1 and Normal S2; Absent murmur, gallop or rubs *Routine Abdominal Exam Abdominal: Present soft; Absent tenderness *Routine Extremities Exam Extremities: Present pulses intact; Absent cyanosis or edema *Routine Skin Exam Skin: Present intact; Absent erythema or wounds *Routine Neurological Exam Neurological: Present alert and oriented X3 Routine Psychiatric Exam Psychiatric: Present cooperative Progress Note: A&P Assessment and plan (1) Septic shock: Status: Acute (2) E coli bacteremia: Status: Acute (3) Non-ST elevation MD (NSTEMI): Status: Acute (4) Severe sepsis: Status: Acute (5) (HFpEF) heart failure with preserved ejection fraction: Status: Acute Assessment and Plan Assessment and Plan for All Diagnoses:: Septic Shock From Diarrhea/E. Coli Bacteremia - resolving with Ab - off pressors, on room air CAD with Type II MD - Trop peaked at 1.37 on 10/18 in setting of septic shock - pt denies angina, EKG shows SR without ischemia or ectopy - ECHO pending shows preserved EF and no new WMA - cont ASA, Statin. Resume BB when possible. - discussed possibility of worsening underlying ischemia and option of LHC with patient. She declines at this time. You can't live forever Chronic HFpEF - ECHO 2022 - EF 55-60^ biatrial dilation and septal thickening - ProBNP 3600 here with bibasilar atelectasis noted on CXR - appears euvolemic on exam and pt denies orthopnea and LE Edema at this time - repeat ECHO here - normal LV function, biatrial dilation, moderate TR, mild AI, elevated RVSP - GDMT on hold due to resolving shock/hypotension - resume home dose Lisinopril, Aldactone, Bumex when BP allows - consider SGLT-2 later as oupatient but not in setting of sepsis and UTI CV stable, will sign off. Please advise if we can be of further assistance prior to discharge. Recommend f/u in our office 1 week post discharge.
[2024-10-21] MEDS: CEFTRIAXONE 1 GM 1 GM in 0.9 % SODIUM CHLORIDE 50 ML IV (15:57)
[2024-10-21] MEDS: BUMETANIDE 1 MG TABLET 2 MG PO (15:57)
[2024-10-21 16:00] VITALS: BP 110/59; PULSE 70; PULSE 80; RESP 18; TEMP 37.2; O2SAT 95
--- NOTE | 2024-10-21 17:50 | PC.NURSE ---
pt resting supine in bed a&ox4. tolerating 1lnc with sats >90%. pt was weaned to ra, but dropped to 85%. placed back on 1lnc. pt had a very large, loose bm around 1700. see i&o. bumex given per oct. gilbert in place. no complaints of pain. brother called numerous times this shift and updated on POC. pt has no needs at this time. call light within reach.
--- NOTE | 2024-10-21 18:00 | EXP.ACUTE.PN ---
Subjective *Date: 10/21/24 *Time: 18:00 Interval history: Patient doing well today. Still on 2 L oxygen but does not wear oxygen home attempting to wean. Diuresing x 1 today. Working with therapy, at baseline level of function. No nausea or vomiting. Tolerating p.o. intake. Afebrile. Medical Exam Vital signs and Labs for Last 24 Hours: Vital Signs Temp Pulse Pulse Resp BP BP Pulse Ox 10/21/24 17:00 10/21/24 15:00 10/21/24 13:00 10/21/24 12:00 70 10/21/24 12:00 98.4 F 86 16 134/64 97 10/21/24 11:00 10/21/24 09:00 10/21/24 08:00 91 L 10/21/24 08:00 80 10/21/24 08:00 99.1 F 81 18 135/58 L 97 10/21/24 07:00 10/21/24 05:00 10/21/24 04:00 99.1 F 79 122/69 96 10/21/24 04:00 70 10/21/24 03:00 10/21/24 01:00 10/21/24 00:00 91 H 18 145/65 H 94 L 10/20/24 23:00 10/20/24 20:28 10/20/24 20:00 90 10/20/24 20:00 10/20/24 20:00 98.2 F 85 28 H 98 10/20/24 20:00 139/66 10/20/24 18:49 O2 Del Method O2 Flow Rate 10/21/24 17:00 Nasal Cannula 1 10/21/24 15:00 Nasal Cannula 1 10/21/24 13:00 Nasal Cannula 2 10/21/24 12:00 10/21/24 12:00 Nasal Cannula 2 10/21/24 11:00 Nasal Cannula 1 10/21/24 09:00 Nasal Cannula 1 10/21/24 08:00 Nasal Cannula 1 10/21/24 08:00 10/21/24 08:00 Nasal Cannula 2 10/21/24 07:00 Nasal Cannula 2 10/21/24 05:00 Nasal Cannula 2 10/21/24 04:00 Nasal Cannula 2 10/21/24 04:00 10/21/24 03:00 Nasal Cannula 2 10/21/24 01:00 Nasal Cannula 2 10/21/24 00:00 Nasal Cannula 2 10/20/24 23:00 Nasal Cannula 2 10/20/24 20:28 Room Air 10/20/24 20:00 10/20/24 20:00 Room Air 10/20/24 20:00 Room Air 10/20/24 20:00 10/20/24 18:49 Room Air Intake and Output 10/21/24 10/21/24 10/21/24 07:59 15:59 23:59 Intake Total 240 / 650 360 / 650 50 / 650 Output Total 300 / 2000 1000 / 1999 / 1999 Balance -60 / -1350 -640 / -1350 -650 / -1350 Intake: Intake, Oral Amount 240 / 600 360 / 600 Intake, Total IV Amount 50 / 50 Ceftriaxone 1 gm 1 gm In 0.9 % 50 / 50 Sodium Chloride 50 ml @ 100 mls /hr IV Q24H [facility] Rx#:[id number] Output: Output, Urine Amount 300 / 1999 999 / 1999 Other: Number of Unmeasured Voids 0 Number of Bowel Movements 1 Weight 68.13 kg Patient Weight 10/21/24 23:59 Weight 68.13 kg Laboratory Results - last 24 hr 10/21/24 06:38: WBC 6.4, RBC 2.85 L, Hgb 8.7 L, Hct 26.5 L, MCV 93.0, MCH 30.5, MCHC 32.8, RDW 13.9, Plt Count 164, MPV 10.5 H, Neut % (Auto) 68.2, Lymph % (Auto) 15.4, [place] % (Auto) 14.5 H, Eos % (Auto) 0.8, Baso % (Auto) 0.3, Neut # (Auto) 4.3, Lymph # (Auto) 1.0, [place] # (Auto) 0.9, Eos # (Auto) 0.1, Baso # (Auto) 0.0, Total Counted 100, Neutrophils % (Manual) 75, Lymphocytes % (Manual) 19, Monocytes % (Manual) 6, Platelet Estimate Normal, RBC Morphology Normal, ESR 119 H, Sodium 137, Potassium 4.3, Chloride 111 H, Carbon Dioxide 24, Anion Gap 6.3, BUN 27 H D, Creatinine 1.10 H, Estimated Creat Clear 41, Estimated GFR 47 L, Est GFR ( Amer) 57 L D, Glucose 95, Calcium 9.0, Magnesium 2.1 D, Total Bilirubin 0.5, AST 44 H D, ALT 29, Alkaline Phosphatase 80, C-Reactive Protein 93.9 H D, NT-Pro-B Natriuret Pep 6670 H, Total Protein 4.9 L, Albumin 2.5 L, Globulin 2.4, Albumin/Globulin Ratio 1.0 L, Procalcitonin 0.540 I & O for Labs for Last 24 Hours: Intake & Output 10/18/24 10/19/24 10/20/24 10/21/24 23:59 23:59 23:59 23:59 Intake Total 2775.915 / 2785.915 1904.232 / 2104.232 1523.006 / 1763.006 650 / 650 Output Total 1100 / 1100 1700 / 1700 1150 / 1150 2000 / 2000 Balance 1675.915 / 1685.915 204.232 / 404.232 373.006 / 613.006 -1350 / -1350 Weight 62 kg 64 kg 64 kg 68.13 kg Microbiology Reports for the Last 24 Hours: Microbiology 10/19/24 08:35 Blood Blood Culture - Preliminary NO GROWTH AFTER 48 HOURS 10/19/24 08:35 Blood Blood Culture - Preliminary NO GROWTH AFTER 48 HOURS Constitutional: Present no acute distress, average body habitus, chronically ill appearing and cooperative Head: Present atraumatic and normocephalic ENT: Present normal exam Comment:: poor dentition Respiratory: Present normal respiratory effort; Absent rhonchi, wheezes or crackles Cardiac: Present Reg Rate and Rhythm GI: Present soft and normal bowel sounds; Absent distention or tenderness Extremities: Present normal inspection, full ROM and edema (Chronic stasis changes, 1+ D-mine bilateral lower extremity) Skin: Present intact; Absent erythema Neuro: Present Grossly Intact, alert, awake, oriented x 3 and moves all extremities Assessment and Plan *Assessment and plan (1) Septic shock: Status: Acute Category: Medical Code(s): A41.9 - Sepsis, unspecified organism; R65.21 - Severe sepsis with septic shock (2) E coli bacteremia: Status: Acute Category: Medical Code(s): R78.81 - Bacteremia; B96.20 - Unspecified Escherichia coli [E. coli] as the cause of diseases classified elsewhere Plan Ksenia Velazquez is a 84-year-old female who presented with generalized weakness, malaise and was admitted for septic shock secondary to UTI. Hospital course complicated by BR[place], NSTEMI type II. Showing improvement, weaning oxygen today. Anticipate discharge in the next 24 hours #Septic shock #UTI #E. coli bacteremia ? UA grossly abnormal, blood in urine cultures growing E. coli and pansensitive. Repeat blood cultures NGTD. -Continues to feel better. Continue ceftriaxone IV today. Will transition to levofloxacin in the morning to complete empiric course of antibiotics given bacteremia. Will treat for 7 to 10 days. -White count normal at 6.4, hemoglobin 8.7. Kidney function stable with BUN 27, creatinine 1.1. ? Follow-up CBC, CMP in the morning. #BRENTON on CKD 3 ? Initial creatinine 2.0. Improved to 1.1 this morning, BUN 27. BNP elevated however at 6600. Will resume diuresis with Bumex 2 mg daily, IV dose administered today. #NSTEMI type II #CAD with 5 stents #HFpEF #Hypertension ? Troponin 1.37, likely demand ischemia in the setting of septic shock. EKG without acute ischemic changes. No chest pain, shortness of breath. Spoke to Dr. Lopes, agreed and advised to continue treatment of septic shock. ? Continue aspirin. Resume statin, bisoprolol, spironolactone, lisinopril. ? ECHO showed normal LV function without wall motion abnormalities. DNR/DNI DVT prophylaxis: Lovenox 40 mg. Regular diet
[2024-10-21 19:49] VITALS: BP 130/63; PULSE 80; RESP 17; TEMP 36.6; O2SAT 98
[2024-10-21] MEDS: PANTOPRAZOLE 40MG TABLET 40 MG PO (21:32)
[2024-10-21] MEDS: ONDANSETRON 4MG/2ML VIAL 4 MG IV (21:32)
[2024-10-22] VITALS: BP 146/73; PULSE 64; RESP 17; TEMP 37.1; O2SAT 95
[2024-10-22 04:00] VITALS: BP 132/65; PULSE 56; RESP 16; TEMP 37.4; O2SAT 93; BMI 26.8
--- NOTE | 2024-10-22 04:46 | PC.NURSE ---
Pt has tolerated RA from 1LNC. V/s, ox4. No acute events to report. Possible d/c today. Plan of care ongoing.
[2024-10-22 07:16] LABS: Alanine Aminotransferase 35 U/L (12-78); Alkaline Phosphatase 73 U/L (38-126); Aspartate Amino Transferase 50 U/L (14-36); Bilirubin,Total 0.7 mg/dl (0.2-1.3); Blood Urea Nitrogen 28 mg/dl (7-17); Calcium 9.3 mg/dl (8.4-10.2); Carbon Dioxide 29 mmol/L (22.0-30.0); Chloride 102 mmol/L (98-107); Creatinine Clearance Estimated 27 mL/min (50-200); Estimated Glomerular Filt Rate 31 ml/min (>60); GFR (African American) 37 ML/MIN (>60); Globulin 2.9 g/dL (1.3-3.2); Glucose 112 mg/dl (74-100); Magnesium 1.6 mg/dl (1.6-2.3); Sodium 134 mmol/L (136-145); Total Protein,Serum 5.9 g/dl (6.3-8.2)
[2024-10-22 07:33] LABS: Anion Gap 7.1 mEq/L (5-15); Potassium 4.1 mmoL/L (3.5-5.1)
[2024-10-22 07:36] LABS: Basophils % 0.1 % (0.1-2.0); Eosinophils % 0.4 % (0.1-12.0); Hematocrit 26.9 % (37.0-47.0); Hemoglobin 9.2 g/dL (12.2-16.2); Lymphocytes # 0.9 K/mm3 (0.7-4.5); Lymphocytes % 11.7 % (10-50); Mean Corpuscular HGB Conc 34.2 g/dL (31.8-35.4); Mean Corpuscular Hemoglobin 31.7 pg (27.0-31.2); Mean Corpuscular Volume 92.8 fl (81-99); Mean Platelet Volume 10.6 fl (7.4-10.4); Monocytes # 0.7 K/mm3 (0.1-1.0); Monocytes % 8.9 % (1.7-9.3); Neutrophils # 5.7 K/mm3 (1.8-7.8); Neutrophils % 77.4 % (37.0-80.0); Platelet Count 177 K/mm3 (142-424); Red Cell Distribution Width 14.1 % (11.5-17.5); White Blood Count 7.3 K/mm3 (4.8-10.8)
--- NOTE | 2024-10-22 07:37 | P.DS_ITS ---
General Admission date:: 10/17/24 Discharge date: 10/22/24 HPI HPI HPI: This 84-year-old female, who is a . Noted that 3 days ago she had diarrhea and then started to have fever.. She has become increasingly weak and when a friend visited today was brought to the emergency room. The patient does live alone is a nondrinker non-smoker. She is unsure about the Pneumovax immunization but says that she has had flu and COVID immunization. She has had really no exposure to any people but her friend who has said she has been well and not exposed to anyone.. So she is unsure where she has been exposed to any COVID or flu.. Per the ER note she really started to feel bad today.. And was seen in the emergency room. Given a diagnosis of sepsis, non-STEMI, congestive heart failure with a history of peripheral eczema, acute kidney injury, hyponatremia. COVID and flu swab came back negative.. Was found to have a UA that showed a urinary tract infection.. Per the patient and her friend with her that in the past she is normally had 4+ edema to the lower extremities but has been taking diuretics and her feet are much improved at the present time. In patient's history in 2019. Patient was found to have heart failure with a normal ejection fraction. Also had a non-STEMI RI with 2 stents placed. This was noted after the patient had fallen outside in July 2019 with a fractured humerus requiring surgical repair and a femoral fracture.. Patient also noted in history and 2020 of having an L1 L3 compression fracture that required surgery for stabilization. Notes describing lower extremity edema from April 2021. I have discussed with the patient about placing her upstairs that I do not have an actual source of the fever. That it may be a urinary tract infection or we have had a false negative of the flu or COVID swabs. And may need to repeat them. Antibiotics have been started in the emergency room which will be continued on the floor. Due to my exam of the chest x-ray question whether there is a early infiltrate in the middle right lung field. Minimum UTI results from, urinalysis question that she may have flu or COVID at this point in time. Due to her history of heart failure with edema being diuresed to get her legs looking normal here in the recent past and an increase in her creatinine from her last labs. Feel that we will go ahead and place her as a stepdown and keep her on cardiac monitoring. Will consult cardiology to come in to evaluate the patient. Will continue to monitor of how much fluid I need to give as far as her sepsis without comp licating any underlying congestive heart failure.. Talk to the patient about resuscitation. The patient said that her of an RI while she was in the hospital and there was no way she would ever want to be resuscitated.. Since she has no family she is alert oriented and of sound mind and body. There is a relative that also has power of deputy county attorney with her. I talked with her friend who is in the room with her and the friend notes that the patient totally alert and oriented in her normal self. Hospital Course Hospital Course Hospital Course: Ksenia Velazquez is a 84-year-old female who presented with generalized weakness, malaise and was admitted for septic shock secondary to UTI. Hospital course complicated by BRENTON, NSTEMI type II. Showed improvement during admission. Antibiotics transition to Levaquin to complete course. Oxygen weaned to 1 L by day of discharge. Room air sats above 90% on day of discharge. Stable to discharge home with further management as an outpatient. Problems addressed as follows: #Septic shock #UTI #E. coli bacteremia ? UA grossly abnormal, blood in urine cultures growing E. coli and pansensitive. Repeat blood cultures NGTD. Symptoms have defervesced. Treated initially with ceftriaxone, transitioned to Levaquin to complete empiric course of antibiotics. Levaquin renally dosed. Has 1 more dose to take after discharge home. White count normalized, 7.3 by day of discharge. Kidney function improved to baseline of BUN 28, creatinine 1.6. Afebrile. Tolerating p.o. intake. #BRENTON on CKD 3 ? Initial creatinine 2.0. Improved during admission. Baseline appears to be able at 1.2. Needs repeat labs in 1 to 2 weeks at follow-up to evaluate for stability of kidney function and electrolytes improved to 1.1 this morning, BUN 27. BNP elevated however at 6600. Will resume diuresis with Bumex 2 mg daily, IV dose administered today. #NSTEMI type II #CAD with 5 stents #HFpEF #Hypertension ? Troponin 1.37, likely demand ischemia in the setting of septic shock. BNP elevated at 6600. EKG without acute ischemic changes. No chest pain, shortness of breath. Spoke to Dr. Lopes, agreed and advised to continue treatment of septic shock. No specific treatment at this time. Will follow with cardiology as an outpatient for further ischemic eval. Continue aspirin. Resume statin, bisoprolol, spironolactone, lisinopril. ECHO showed normal LV function without wall motion abnormalities. Total time spent on discharge 32 minutes in counseling, documentation, chart review, and direct care with patient. Exam Data for Last 24 hours Vital signs and Labs for Last 24 Hours: Temp Pulse Resp BP Pulse Ox O2 Del Method O2 Flow Rate 99.4 F 56 L 16 132/65 93 L Nasal Cannula 1 10/22/24 04:00 10/22/24 04:00 10/22/24 04:00 10/22/24 04:00 10/22/24 04:00 10/22/24 06:05 10/22/24 06:05 Laboratory Results - last 24 hr 10/21/24 06:38: Total Counted 100, Neutrophils % (Manual) 75, Lymphocytes % (Manual) 19, Monocytes % (Manual) 6, Platelet Estimate Normal, RBC Morphology Normal, ESR 119 H, Sodium 137, Potassium 4.3, Chloride 111 H, Carbon Dioxide 24, Anion Gap 6.3, BUN 27 H D, Creatinine 1.10 H, Estimated Creat Clear 41, Estimated GFR 47 L, Est GFR ( Amer) 57 L D, Glucose 95, Calcium 9.0, Magnesium 2.1 D, Total Bilirubin 0.5, AST 44 H D, ALT 29, Alkaline Phosphatase 80, C-Reactive Protein 93.9 H D, Total Protein 4.9 L, Albumin 2.5 L, Globulin 2.4, Albumin/Globulin Ratio 1.0 L, Procalcitonin 0.540 10/22/24 06:35: Sodium 134 L, Potassium 4.1, Chloride 102, Carbon Dioxide 29, Anion Gap 7.1, BUN 28 H, Creatinine 1.60 H D, Estimated Creat Clear 27, Estimated GFR 31 L, Est GFR ( Amer) 37 L D, Glucose 112 H, Calcium 9.3, Magnesium 1.6 D, Total Bilirubin 0.7, AST 50 H, ALT 35, Alkaline Phosphatase 73, Total Protein 5.9 L, Albumin 3.0 L D, Globulin 2.9, Albumin/Globulin Ratio 1.0 L I & O for Last 24 hours: Intake & Output 10/19/24 10/20/24 10/21/24 10/22/24 23:59 23:59 23:59 23:59 Intake Total 1904.232 / 2104.232 1523.006 / 2954.826 8825 / 1010 Output Total 1700 / 1700 1150 / 1150 2650 / 3200 550 / 550 Balance 204.232 / 404.232 373.006 / 613.006 -1640 / -2190 -550 / -550 Weight 64 kg 64 kg 68.13 kg 66.134 kg Microbiology Reports for the Last 24 Hours: Microbiology 10/19/24 08:35 Blood Blood Culture - Preliminary NO GROWTH AFTER 48 HOURS 10/19/24 08:35 Blood Blood Culture - Preliminary NO GROWTH AFTER 48 HOURS Constitutional Constitutional: no acute distress, average body habitus, chronically ill appearing and cooperative *Routine HEENT Exam Head: Present normocephalic Eye: Present EOMI and PERRL ENT: Present mucous membranes moist Comments: poor dentition *Routine Neck Exam Neck: Present supple; Absent lymphadenopathy *Routine Respiratory Exam Respiratory: Present CTA bilaterally; Absent rhonchi, wheezes or crackles *Routine Cardiovascular Exam Cardiovascular: Present RRR *Routine Abdominal Exam Abdominal: Present soft and normoactive bowel sounds; Absent tenderness *Routine Rectal Exam Patient deferred: visual exam *Routine Exam Patient deferred: external exam *Routine Extremities Exam Extremities: Present edema; Absent cyanosis or clubbing *Routine Skin Exam Skin: Present intact and warm; Absent rash *Routine Neurological Exam Neurological: Present alert, oriented X3 and moving all extremities; Absent altered mental status Results Data Completed and Pending Labs on day of discharge: Labs from last 24 hours 10/22/24 10/21/24 06:35 06:38 Total Counted 100 Neutrophils % (Manual) 75 Lymphocytes % (Manual) 19 Monocytes % (Manual) 6 Platelet Estimate Normal RBC Morphology Normal ESR 119 H Sodium 134 L 137 Potassium 4.1 4.3 Chloride 102 111 H Carbon Dioxide 29 24 Anion Gap 7.1 6.3 BUN 28 H 27 H D Creatinine 1.60 H D 1.10 H Estimated Creat Clear 27 41 Estimated GFR 31 L 47 L Est GFR ( Amer) 37 L D 57 L D Glucose 112 H 95 Calcium 9.3 9.0 Magnesium 1.6 D 2.1 D Total Bilirubin 0.7 0.5 AST 50 H 44 H D ALT 35 29 Alkaline Phosphatase 73 80 C-Reactive Protein 93.9 H D Total Protein 5.9 L 4.9 L Albumin 3.0 L D 2.5 L Globulin 2.9 2.4 Albumin/Globulin Ratio 1.0 L 1.0 L Procalcitonin 0.540 Preliminary micro results at discharge 10/19/24 08:35 Blood Culture - Preliminary Blood NO GROWTH AFTER 48 HOURS 10/19/24 08:35 Blood Culture - Preliminary Blood NO GROWTH AFTER 48 HOURS DS: Diagnosis Discharge Diagnosis (1) Septic shock: Status: Resolved Code(s): A41.9 - Sepsis, unspecified organism; R65.21 - Severe sepsis with septic shock (2) E coli bacteremia: Status: Acute Code(s): R78.81 - Bacteremia; B96.20 - Unspecified Escherichia coli [E. coli] as the cause of diseases classified elsewhere Meds Home Medications and Allergies Home Medications ?Medication ?Instructions ?Recorded ?Confirmed ?Type buspirone 5 mg tablet 5 mg PO BID 03/12/20 10/18/24 History ferrous sulfate 325 mg (65 mg 325 mg PO MOWEFR anemia 09/30/20 10/18/24 History iron) tablet aspirin 81 mg tablet,delayed 81 mg PO DAILY 10/25/20 10/18/24 History release bisoprolol fumarate 5 mg tablet 5 mg PO DAILY 05/29/22 10/18/24 History acetaminophen 325 mg tablet 650 mg PO Q6HP PRN Mild Pain 10/18/24 10/18/24 History (Tylenol) (Scale Score 1-4) atorvastatin 80 mg tablet 80 mg PO DAILY 10/18/24 10/18/24 History cholecalciferol (vitamin D3) 25 25 mcg PO DAILY 10/18/24 10/18/24 History mcg (1,000 unit) capsule (Vitamin D3) omeprazole 40 mg capsule,delayed 40 mg PO HS 10/18/24 10/18/24 History release bumetanide 2 mg tablet 1 mg (1/2 x 2 mg) PO DAILY 30 days 10/22/24 10/18/24 Rx #0 tabs levofloxacin 750 mg tablet 750 mg PO Q48H 1 day #1 tab 10/22/24 Rx lisinopril 20 mg tablet 20 mg PO HS 30 days #0 tabs 10/22/24 10/18/24 Rx New Prescriptions to Start Prescriptions: levofloxacin Seth Olivera Allergies Allergy/AdvReac Type Severity Reaction Status Date / Time No Known Allergies Allergy Verified 01/16/23 11:09 Discharge Plan Disposition Patient Disposition: Home Health Service Condition: Fair Discharge Order Discharge Orders: Discharge Order (Routine); Ordered 10/22/24 Ordered By: Seth Olivera Follow up Plan Follow up with: Larissa Phillips APRN [Nurse Practitioner] - 10/28/24 10:00 am Jamaal Alves MD [Staff Physician] - 11/11/24 2:45 pm Prescriptions/Medication Reconciliation: New levofloxacin 750 mg Tablet 750 mg PO Q48H 1 Days Qty: 1 0RF Rx Instructions: administer once on 10/24/24 Continued buspirone 5 mg tablet 5 mg PO BID ferrous sulfate 325 mg (65 mg iron) tablet 325 mg PO MOWEFR aspirin 81 MG tablet,delayed release (DR/EC) 81 mg PO DAILY bisoprolol fumarate 5 mg tablet 5 mg PO DAILY cholecalciferol (vitamin D3) [Vitamin D3] 25 mcg (1,000 unit) Capsule 25 mcg PO DAILY atorvastatin 80 mg tablet 80 mg PO DAILY omeprazole 40 mg capsule,delayed release(DR/EC) 40 mg PO HS acetaminophen [Tylenol] 325 mg Tablet 650 mg PO Q6HP PRN (Reason: Mild Pain (Scale Score 1-4)) Changed lisinopril 20 mg tablet 20 mg PO HS 30 Days Qty: 0 0RF bumetanide 2 mg Tablet 1 mg PO DAILY 30 Days Qty: 0 0RF Discontinued spironolactone 25 mg tablet 25 mg PO QODHS Problem Reconciliation Problems Reviewed?: Yes Patient Discharge Instructions ACTIVITY: Continue current activity DIET: continue same diet Patient Instructions: Congestive Heart Failure (Alternative Therapy), Escherichia coli Infection, DI for Heart Failure, 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
[2024-10-22 07:45] LABS: C-Reactive Protein 98.5 mg/L (0-4)
[2024-10-22 08:00] VITALS: BP 137/75; PULSE 74; RESP 17; RESP 18; TEMP 36.8; O2SAT 94; O2SAT 95
[2024-10-22 08:18] LABS: Procalcitonin 0.405 ng/mL (0.0-2.0)
[2024-10-22 08:38] LABS: Erythrocyte Sedimentation Rate > 140 mm/hr (0-30)
[2024-10-22] MEDS: ATORVASTATIN 40MG TABLET 80 MG PO (09:08)
[2024-10-22] MEDS: BUSPIRONE HCL 5 MG TABLET PO (09:08)
[2024-10-22] MEDS: ASPIRIN EC 81MG TABLET 81 MG PO (09:08)
[2024-10-22] MEDS: BISOPROLOL 5MG TABLET 5 MG PO (09:08)
[2024-10-22] MEDS: BUMETANIDE 1 MG TABLET 2 MG PO (09:09)
[2024-10-22] MEDS: ENOXAPARIN 30MG/0.3ML SYRINGE 30 MG SUBCUT (09:13)
[2024-10-22] MEDS: levoFLOXacin 750 MG TABLET PO (10:35)
[2024-10-22] MEDS: MAGNESIUM SULFATE IN WATER 2 GM/50 ML PIGGYBACK IV (10:35)
[2024-10-22 12:00] VITALS: BP 122/68; PULSE 81; RESP 17; TEMP 36.6; O2SAT 94
--- NOTE | 2024-10-22 14:17 | CARE MANAGER ---
Patient requires a rolling walker for safe ambulation, a can would not provide enough support.
--- NOTE | 2024-10-23 10:30 | SW/DCPLANNER ---
Spoke with patient on the phone. Patient stated that she is doing very well. Patient stated that she is very pleased with [facility] and the treatment she got. Patient stated that she would highly recommend them to anyone. Patient stated that she was able to get her new medicine picked up from [facility]. Patient stated that she is aware of her appointments and that she has the dates all written down on her calender. Patient stated that she has no concerns or questions at this time. Олег Hare
--- OUTSIDE RECORDS SUMMARY | 2024-11-13 12:45 | XMS_ITS ---
Author Organization Unknown Problems Date Problem Result OnSetDate Icd10 SnomedCode Severity 09/01/2024 00:00:00 HTN (hypertension) I10 09/01/2024 00:00:00 Mixed hyperlipidemia E78.2 09/01/2024 00:00:00 Anemia D64.9 09/01/2024 00:00:00 Heart failure with preserved ejection fraction, unspecified HF chronicity I50.30 09/02/2024 00:00:00 Debility R53.81 09/02/2024 00:00:00 Cellulitis L03.90 09/15/2024 00:00:00 Anemia, unspecified type D64.9
== END 2024-10-22 14:17 | disposition home health service (06) | DRG 871 ==
LOC: ER 21:39 → ICU 10-18 03:53 → 2ND 10-18 09:06
PROVIDERS: Nurse Practitioner; Nurse Practitioner Family; Admitting Provider Student in an Organized Health Care Education/Training Program; Emergency Provider Emergency Medicine; PCP Family Medicine; Visit Provider Student in an Organized Health Care Education/Training Program
DX: A41.51 Sepsis due to Escherichia coli [E. coli] (principal); I21.A1 Myocardial infarction type 2; R65.21 Severe sepsis with septic shock; N39.0 Urinary tract infection, site not specified; N17.9 Acute kidney failure, unspecified; I50.32 Chronic diastolic (congestive) heart failure; I13.0 Hypertensive heart and chronic kidney disease with heart failure and stage 1 through stage 4 chronic kidney disease, or unspecified chronic kidney disease; Z60.2 Problems related to living alone; Z95.5 Presence of coronary angioplasty implant and graft; I25.10 Atherosclerotic heart disease of native coronary artery without angina pectoris; N18.30 Chronic kidney disease, stage 3 unspecified; Z66 Do not resuscitate; Z79.899 Other long term (current) drug therapy
CPT/HCPCS: 36415; 71045; 80053; 81001; 82803; 83605; 83735; 83880; 84145; 84484; 85007; 85014; 85018; 85025; 85048; 85049; 85651; 86140; 87040; 87077; 87086; 87088; 87186; 87633; 87636; 93005; 93306; 97163; 97530; 99291; J0131; J0696; J1650; J1939; J2185; J2405; J2543; J3372; J3475; J7030

== ENCOUNTER 2024-11-18 13:18 | Outpatient (CLI) | payer MEDICARE, OTHER, SELFPAY ==
[2024-11-18 13:23] LABS: Microscopic, Urine URINE MICROSCOPIC (MICROSCOPIC)
[2024-11-18 14:40] LABS: Appearance,Urine CLEAR (Clear); Bilirubin,Urine Negative (Negative); Blood, Urine Negative (Negative); Color,Urine YELLOW (Yellow); Glucose,Urine (UA) Negative (Negative); Ketones,Urine Negative (Negative); Leukocyte Esterase,Urine Negative (Negative); Nitrate,Urine Negative (Negative); PH,Urine 5.5 (5.0-8.5); Protein,Urine Negative (Negative); Specific Gravity, Urine 1.015 (1.005-1.030); Urobilinogen,Urine 0.2 EU/dl (0.2)
[2024-11-18 15:01] LABS: Bacteria,Urine Trace /lpf
[2024-11-18 16:14] LABS: Basophils % 0.5 % (0.1-2.0); Eosinophils # 0.1 K/mm3 (0.0-0.4); Eosinophils % 2.3 % (0.1-12.0); Hematocrit 31.8 % (37.0-47.0); Hemoglobin 10.2 g/dL (12.2-16.2); Lymphocytes # 1.5 K/mm3 (0.7-4.5); Lymphocytes % 26.3 % (10-50); Mean Corpuscular HGB Conc 32.1 g/dL (31.8-35.4); Mean Corpuscular Hemoglobin 31.1 pg (27.0-31.2); Mean Platelet Volume 10.9 fl (7.4-10.4); Monocytes # 0.4 K/mm3 (0.1-1.0); Monocytes % 7.1 % (1.7-9.3); Neutrophils # 3.6 K/mm3 (1.8-7.8); Neutrophils % 63.5 % (37.0-80.0); Nucleated Red Blood Cells # 0 10^3/uL; Nucleated Red Blood Cells % 0 %; Platelet Count 175 K/mm3 (142-424); Red Blood Count 3.28 M/mm3 (4.20-5.40); Red Cell Distribution Width 13.7 % (11.5-17.5); White Blood Count 5.7 K/mm3 (4.8-10.8)
[2024-11-18 16:50] LABS: Albumin Level 4.3 g/dl (3.5-5.0); Chloride 102 mmol/L (98-107); Potassium 4.5 mmoL/L (3.5-5.1); Sodium 138 mmol/L (136-145)
[2024-11-18 16:53] LABS: Alanine Aminotransferase 22 U/L (12-78); Alkaline Phosphatase 102 U/L (38-126); Anion Gap 13.5 mEq/L (5-15); Aspartate Amino Transferase 34 U/L (14-36); Bilirubin,Direct 0.1 mg/dl (0.0-0.4); Bilirubin,Indirect 0.4 mg/dL (0.0-0.9); Bilirubin,Total 0.5 mg/dl (0.2-1.3); Bilirubin,Unconjugated 0.4 mg/dL (0.0-1.1); Blood Urea Nitrogen 70 mg/dl (7-17); Carbon Dioxide 27 mmol/L (22.0-30.0); Cholesterol 198 mg/dl (140-200); Estimated Glomerular Filt Rate 43 ml/min (>60); GFR (African American) 52 ML/MIN (>60); Glucose 101 mg/dl (74-100); Magnesium 1.5 mg/dl (1.6-2.3); Total Protein,Serum 7.6 g/dl (6.3-8.2); Triglycerides 135 mg/dl (30-150); VLDL Cholesterol 27 mg/dL (0-40)
[2024-11-18 16:54] LABS: Chol/HDL Ratio 4.7 (1-3.5); HDL Cholesterol 42 mg/dl (40-60)
[2024-11-18 17:11] LABS: Free T4 (Free Thyroxine) 1.33 ng/dl (0.78-2.19)
[2024-11-18 17:23] LABS: Thyroid Stimulating Hormone 1.35 uIU/mL (0.465-4.68)
== END 2024-11-18 23:59 | disposition home or self-care (01) ==
PROVIDERS: PCP Family Medicine; Visit Provider Internal Medicine
DX: E78.5 Hyperlipidemia, unspecified (principal); R82.998 Other abnormal findings in urine; I21.4 Non-ST elevation (NSTEMI) myocardial infarction; I11.0 Hypertensive heart disease with heart failure; I50.30 Unspecified diastolic (congestive) heart failure; I25.10 Atherosclerotic heart disease of native coronary artery without angina pectoris; R40.0 Somnolence; N39.0 Urinary tract infection, site not specified; B96.1 Klebsiella pneumoniae [K. pneumoniae] as the cause of diseases classified elsewhere
CPT/HCPCS: 36415; 80048; 80061; 80076; 81001; 83735; 84439; 84443; 85025; 87086; 87088; 87186

== ENCOUNTER 2024-12-04 12:48 | Outpatient (CLI) | payer MEDICARE, OTHER, SELFPAY ==
--- NOTE | 2024-12-04 | CA_ITS ---
APPROVED REPORT Exam: Pharmacologic Technologist: Olga Lidia Campoverde Ht: 5 ft 1 in Wt: 129 lbs BSA: 1.57 m2 Medical History Medications: tylenol, aspirin, atorvastatin, bisoprolol fumarate, buspirone, vitamin D3, ferrous sulfate, levofloxacin, lisinopril, omeprazole, spironolactone. Stress Test Details Test: Lexiscan Reason for pharmacologic stress test: physical limitation. HR Resting HR: 67 bpm Max Heart Rate (APMHR): 136.185237 bpm Max HR Achieved: 102 bpm Target HR (85% APMHR): 115.876553 bpm % of APMHR: 75.00 Recovery HR: 94 bpm BP Resting BP: 183.0/72.0 mmHg Max BP: 183.0/72.0 mmHg Recovery BP: 177.0/78.0 mmHg ECG Stress ECG Conclusion Symptoms: denies symptoms. Arrhythmias/Ectopy: Rare PVC. ST-T Changes: EKG [id number]. Electronically signed by : Verónica Alves MD 12/04/2024 21:14:07
--- NOTE | 2024-12-04 13:00 | NM_ITS ---
APPROVED REPORT Exam: Nuclear Stress Test Indication: HTN, High cholesterol, Family history, CAD, Hx of [place] Patient Location: Outpatient Stress Tech: Olga Lidia Burns [place] Tech:JOHN Figueroa RT(R)(N) Ht: 5 ft 0 in Wt: 135 lbs Bra Size: 38C HR: 68 bpm BP: 183/72 mmHg BSA: 1.58 m2 TID: 1.06 History: HTN, High cholesterol, Family history, CAD, Hx of [place] Procedure: Patient received 0.4 mg of intravenous Lexiscan, resting heart rate 68 bpm, resting blood pressure 183/72 mmHg, with Lexiscan maximum heart rate achieved was 101 bpm which is % of the maximum predicted heart rate and blood pressure was 173/83 mmHg. With Lexiscan, patient denied any complaint of chest pain. Cardiac Stress and Resting SPECT Images: Cardiac Stress and Resting SPECT images were obtained using technetium 99m Myoview 32.7 mCi stress and 10.34 mCi at rest. The patient could not lie on her abdomen. Therefore, prone stress imaging could not be performed. This may affect the diagnostic interpretation of the study findings. Resting and stress imaging in supine positions demonstrate a medium sized, mild, partially reversible perfusion defect in the inferior and inferoseptal LV sands. Gated imaging demonstrates normal global LV systolic function. LVEF is calculated at > 75%. Conclusion: Medium sized, mild, partially reversible perfusion defect in the inferior and inferoseptal LV sands. Findings are suggestive of partial reversible ischemia. Gated imaging demonstrates normal global LV systolic function. LVEF is calculated at > 75%. Electronically signed by : Verónica Alves MD 12/04/2024 21:13:43
[2024-12-04] MEDS: REGADENOSON 0.4MG/5ML SYRINGE 0.4 MG IV (14:08)
[2024-12-04] MEDS: ISOTOPE MYOVIEW (PER STUDY) 1 DOSE IV (14:09)
[2024-12-04] MEDS: SODIUM CHLORIDE 0.9% 10ML SYR (RAD ONLY) 10 ML IV ×2 (14:09)
== END 2024-12-04 23:59 | disposition home or self-care (01) ==
LOC: RAD 12:49
PROVIDERS: PCP Family Medicine; Visit Provider Internal Medicine
DX: I21.4 Non-ST elevation (NSTEMI) myocardial infarction (principal); I25.10 Atherosclerotic heart disease of native coronary artery without angina pectoris
CPT/HCPCS: 78452; 93017; 93018; A9502; J2785

== ENCOUNTER 2025-01-03 20:49 | Inpatient (IN) | payer MEDICARE, OTHER, SELFPAY ==
[2025-01-03] VITALS (24 sets, daily range): BP systolic 118–187; BP diastolic 68–110; PULSE 65–80; RESP 17–33; TEMP 36.6–37.1; O2SAT 95–99; BMI 34.9
--- NOTE | 2025-01-03 20:57 | ECG_ITS ---
APPROVED REPORT Exam: Resting ECG HR:80 bpm ECG Measurements Heart Rate 80 AXES MI 182 P -12 QRSd 68 QRS 61 QT 368 T 66 QTc 404 Conclusion SINUS RHYTHM LEFT ATRIAL ENLARGEMENT [-0.15mV P-WAVE IN V1/V2] ABNORMAL ECG Electronically signed by : LAWRENCE ROBERT, 01/19/2025 07:04:22
--- NOTE | 2025-01-03 21:04 | XR_ITS ---
PROCEDURE INFORMATION: Exam: XR Chest Exam date and time: 01/03/2025 9:35 PM Age: 84 years old Clinical indication: Dyspnea TECHNIQUE: Imaging protocol: Radiologic exam of the chest. Views: 1 view. COMPARISON: CR XR CHEST PORTABLE 10/17/2024 9:22 PM FINDINGS: Lungs: Mild bibasilar atelectasis. Focal airspace disease at the right lung base. Pleural spaces: Small right-sided pleural effusion. No pneumothorax. Heart/Mediastinum: Cardiomegaly. Bones/joints: Plate and screw hardware in the proximal right humerus. Single level lower thoracic kyphoplasty. IMPRESSION: 1. Right basilar airspace disease may represent pneumonia. 2. Mild bibasilar atelectasis and small right-sided pleural effusion.
[2025-01-03 21:10] LABS: Basophils % 0.5 % (0.1-2.0); Eosinophils # 0.2 Kmm3 (0.0-0.4); Eosinophils % 2.1 % (0.1-12.0); Hematocrit 33.5 % (37.0-47.0); Hemoglobin 10.8 g/dL (12.2-16.2); Immature Granulocytes # 0.03 10^3uL; Immature Granulocytes % 0.4 %; Lymphocytes # 1.6 K/mm3 (0.7-4.5); Lymphocytes % 19.4 % (10-50); Mean Corpuscular HGB Conc 32.2 g/dL (31.8-35.4); Mean Corpuscular Hemoglobin 33.2 pg (27.0-31.2); Mean Corpuscular Volume 103.1 fl (81-99); Mean Platelet Volume 10.5 fl (7.4-10.4); Monocytes # 0.7 K/mm3 (0.1-1.0); Monocytes % 8.4 % (1.7-9.3); Neutrophils # 5.6 K/mm3 (1.8-7.8); Neutrophils % 69.2 % (37.0-80.0); Nucleated Red Blood Cells # 0 10^3/uL; Nucleated Red Blood Cells % 0 %; Platelet Count 201 K/mm3 (142-424); Red Blood Count 3.25 M/mm3 (4.20-5.40); Red Cell Distribution Width 13.1 % (11.5-17.5); Red Cell Distribution Width-SD 49.8 fL; White Blood Count 8.1 K/mm3 (4.8-10.8)
[2025-01-03] MEDS: NITROGLYCERIN IN 5 % DEXTROSE 250 ML 6 MG IV (21:15)
[2025-01-03 21:21] LABS: Albumin Level 3.8 g/dl (3.5-5.0); Chloride 107 mmol/L (98-107); Potassium 3.6 mmoL/L (3.5-5.1); Sodium 139 mmol/L (136-145)
[2025-01-03 21:23] LABS: Blood Urea Nitrogen 19 mg/dl (7-17); Creatinine Clearance Estimated 55 mL/min (50-200); Estimated Glomerular Filt Rate 60 ml/min (>60); GFR (African American) 72 ML/MIN (>60)
[2025-01-03 21:24] LABS: Alanine Aminotransferase 19 U/L (12-78); Alkaline Phosphatase 109 U/L (38-126); Anion Gap 9.6 mEq/L (5-15); Aspartate Amino Transferase 30 U/L (14-36); Bilirubin,Total 0.6 mg/dl (0.2-1.3); Calcium 9.1 mg/dl (8.4-10.2); Carbon Dioxide 26 mmol/L (22.0-30.0); Glucose 174 mg/dl (74-100)
[2025-01-03 21:27] LABS: Albumin/Globulin Ratio 1.4 (1.1-1.8); Globulin 2.7 g/dL (1.3-3.2)
[2025-01-03 21:33] LABS: NT Pro Brain Natriuretic Pep. 4220 pg/mL (0-450)
[2025-01-03 21:36] LABS: Troponin I 0.03 ng/ml (0.00-0.034)
[2025-01-03 21:37] LABS: Total Protein,Serum 6.5 g/dl (6.3-8.2)
--- NOTE | 2025-01-03 21:41 | [facility].EDCP ---
Discharge Plan Disposition Patient Disposition: Admitted Prescriptions Prescriptions: No Action buspirone 5 mg tablet 5 mg PO BID lisinopril 20 mg tablet 20 mg PO DAILY Qty: 30 5RF bisoprolol fumarate 10 mg tablet 10 mg PO DAILY Qty: 30 5RF ferrous sulfate 325 mg (65 mg iron) tablet 325 mg PO MOWEFR spironolactone 25 mg tablet 25 mg PO DAILY furosemide [Lasix] 20 mg tablet 20 mg PO DAILY Qty: 30 3RF aspirin 81 MG tablet,delayed release (DR/EC) 81 mg PO DAILY cholecalciferol (vitamin D3) [Vitamin D3] 25 mcg (1,000 unit) Capsule 25 mcg PO DAILY atorvastatin 80 mg tablet 80 mg PO DAILY omeprazole 40 mg capsule,delayed release(DR/EC) 40 mg PO HS acetaminophen [Tylenol] 325 mg Tablet 650 mg PO Q6HP PRN (Reason: Mild Pain (Scale Score 1-4)) levofloxacin 750 mg Tablet 750 mg PO Q48H 1 Days Qty: 1 0RF Rx Instructions: administer once on 10/24/24 Clinical Impressions Clinical Impression: Hypertensive emergency, Flash pulmonary edema, Bilateral pleural effusion, ACS (acute coronary syndrome) Print Language Print Language: [place] Discharge ED Provider: Aidee Landaverde HPI General Chief Complaint: Shortness of Breath/Dyspnea Stated Complaint: chest pain Time Seen by Provider: 01/03/25 20:53 Mode of Arrival: EMS Source of Information: Patient Description of Symptoms (Recalled from ER Triage Doc. by RN): EMS called for SOA and chest pain. Patient states the SOA started first. EMS gave her solu-medrol, duo neb, and metoprolol enroute. patient was hypertensive prior to arrival. History of Present Illness HPI narrative: Patient is an 84-year-old female brought in today for sudden shortness of breath and chest pain. Patient was initially activated as a possible prehospital STEMI. Prehospital EKG showed some mild ST elevations in the anterior precordial leads with some possible reciprocal changes. Patient was recently the hospital for E. coli bacteremia with a type II NSTEMI ultimately was found to have an abnormal stress test had recommended left heart cath procedure that was offered however the patient declined this. She is DNR. She presented in extremis and history is significantly limited. Related Data Home Medications ?Medication ?Instructions ?Recorded ?Confirmed buspirone 5 mg tablet 5 mg PO BID 03/12/20 12/18/24 ferrous sulfate 325 mg (65 mg 325 mg PO MOWEFR anemia 09/30/20 12/18/24 iron) tablet aspirin 81 mg tablet,delayed 81 mg PO DAILY 10/25/20 12/18/24 release acetaminophen 325 mg tablet 650 mg PO Q6HP PRN Mild Pain 10/18/24 12/18/24 (Tylenol) (Scale Score 1-4) atorvastatin 80 mg tablet 80 mg PO DAILY 10/18/24 12/18/24 cholecalciferol (vitamin D3) 25 25 mcg PO DAILY 10/18/24 12/18/24 mcg (1,000 unit) capsule (Vitamin D3) omeprazole 40 mg capsule,delayed 40 mg PO HS 10/18/24 12/18/24 release spironolactone 25 mg tablet 25 mg PO DAILY 11/18/24 12/18/24 Previous Rx's ?Medication ?Instructions ?Recorded levofloxacin 750 mg tablet 750 mg PO Q48H 1 day #1 tab 10/22/24 furosemide 20 mg tablet (Lasix) 20 mg PO DAILY #30 tabs 11/18/24 bisoprolol fumarate 10 mg tablet 10 mg PO DAILY #30 tabs 12/18/24 lisinopril 20 mg tablet 20 mg PO DAILY #30 tabs 12/18/24 Allergies Allergy/AdvReac Type Severity Reaction Status Date / Time No Known Allergies Allergy Verified 12/18/24 14:57 [facility] Disclaimer: The information contained in this section may have been updated after the patient was seen, as this information can be updated by other users. Medical History Femur fracture, right Closed right humeral fracture Strain of muscle, fascia and tendon of lower back, initial encounter HHD (hypertensive heart disease) Compression fracture of lumbar vertebra Constipation Mid back pain Low back pain Closed right femoral fracture Fracture of right shoulder Falls Snoring Daytime somnolence Restless sleeper Abnormal EKG Surgical History History of lumbosacral spine surgery History of arthroplasty of right shoulder Status post coronary artery stent placement Family History Other No significant family history Social History Smoking Status: Unknown if ever smoked alcohol intake: never substance use type: denies use current occupational status: retired Travel in the last 8 weeks?: None household members: none housing: house current occupational exposures/hazards: No caffeine: Yes Have you lived/traveled outside [place] in past 30 days?: No Contact w/someone who lives/traveled outside US past 30 days?: No Exposure to someone with infectious disease in past 14 days?: No Do you have a fever (greater than 100.4 F or 38 C)?: No Have you tested positive for COVID-19?: No Exposed to someone with COVID-19 in past 14 days?: No Do you have a sore throat?: No Do you have a cough?: No Do you have any weakness?: No Do you have any diarrhea?: No Are you experiencing any unusual bleeding?: No Do you have any muscle aches/pain?: No Do you have any abdominal pain?: No Are you experiencing loss of taste or smell?: No Other Medical History Have you received the Flu Vaccine for this season: No Have you received the Pneumonia Vaccine: Yes ROS Obtained: Yes All systems reviewed & no additional complaints except as documented Physical Exam General General appearance: in distress (Diaphoretic in respiratory distress very ill-appearing) Respiratory Respiratory exam: Present other (Tachypneic diminished bilateral basilar breath sounds) Cardiovascular Cardiovascular exam: Present tachycardia and other (Severely hypertensive diffuse bilateral lower extremity edema) Neurological Exam Neurological exam: Present alert and oriented X3 HEART Score HEART Score HEART Score assessment performed?: Yes History (anamnesis): Highly suspicious ECG: Non-specific disturbance Age: >65 years Risk factors: Atherosclerosis history Troponin: </= normal limit HEART Score: 7 Procedures Miscellaneous Procedure Procedure Performed: Limited cardiac ultrasound Indication: Dyspnea Identified structures: The heart was visualized in the parasternal long axis, parastenal short axis, apical four chamber and subxyphiod views. The IVC was visualized in the short axis and long axis at its entry into the right atrium. Findings: Patient has apical ballooning and hypokinesis of the distal septum and free wall of the left ventricle this is out of proportion to most recent echo which had normal systolic function at that time. There is septal thickening. No pericardial effusion no significant right heart strain. Impression: New systolic dysfunction with apical hypokinesis concerning for acute coronary syndrome Images were saved to permanent archive The study was technically adequate CPT: 54210-24 This study was performed by me, and I personally interpreted all images/videos. Based on my clinical judgement, these images were adequate and did not necessitate further imaging. Limited lung ultrasound A focused ultrasound exam of the pleural spaces was performed to evaluate for pneumothorax, pulmonary edema, pleural effusion and/or consolidation. The ultrasound was performed with the following indications, as noted in the H&P: Dyspnea Identified structures: Right and left thoracic cavities were examined. Findings: Lung sliding present throughout there is diffuse B-lines throughout and bilateral pleural effusions Impression: Findings consistent with bilateral pulmonary edema and bilateral small pleural effusions Images were saved to permanent archive The study was technically adequate CPT 31916-54 This study was performed by ia, and I personally interpreted all images/videos. Based on my clinical judgement, these images were adequate and did not necessitate further imaging. Critical Care Critical Care Time Critical Care Time: Yes Attestation: On 01/03/25, the high probability of a clinically significant, sudden or life threatening deterioration of the following system(s) required my full and direct attention, intervention and personal management. The time I documented below is in addition to time spent performing reported procedures but includes the following listed in this critical care notation. Total Time Total Critical Care Time: 65 Medical Decision Making Devin Inquiry Pt receiving controlled substance: No Vital Signs Vital Signs: 01/03/25 20:55 01/03/25 21:07 01/03/25 21:15 Temperature 98.7 F Temperature Source Temporal Artery Scan Pulse Rate 69 71 Pulse Rate [Right] 80 Respiratory Rate 26 H 27 H Blood Pressure 152/87 H 150/97 H Blood Pressure [Left Arm] 187/110 H Blood Pressure Mean [Left Arm] 135 Blood Pressure Source [Left Arm] Automatic Cuff Blood Pressure Position Blood Pressure Position [Left Arm] Sitting 02 Sat by Pulse Oximetry 95 97 96 Oxygen Delivery Method Room Air BiPAP 01/03/25 21:17 01/03/25 21:20 01/03/25 21:25 Temperature Temperature Source Pulse Rate 73 69 71 Pulse Rate [Right] Respiratory Rate 28 H 30 H 17 Blood Pressure 150/97 H 149/92 H 140/82 Blood Pressure [Left Arm] Blood Pressure Mean [Left Arm] Blood Pressure Source [Left Arm] Blood Pressure Position Sitting Blood Pressure Position [Left Arm] 02 Sat by Pulse Oximetry 96 96 95 Oxygen Delivery Method BiPAP 01/03/25 21:30 Temperature Temperature Source Pulse Rate 71 Pulse Rate [Right] Respiratory Rate 26 H Blood Pressure 137/85 Blood Pressure [Left Arm] Blood Pressure Mean [Left Arm] Blood Pressure Source [Left Arm] Blood Pressure Position Blood Pressure Position [Left Arm] 02 Sat by Pulse Oximetry 97 Oxygen Delivery Method Lab Data Lab results reviewed: Yes I reviewed the patient's lab results. Labs: Lab Results 01/03/25 20:54: WBC 8.1, RBC 3.25 L, Hgb 10.8 L, Hct 33.5 L, MCV 103.1 H, MCH 33.2 H, MCHC 32.2, RDW 13.1, Plt Count 201, MPV 10.5 H, Neut % (Auto) 69.2, Lymph % (Auto) 19.4, Caroline % (Auto) 8.4, Eos % (Auto) 2.1, Baso % (Auto) 0.5, Neut # (Auto) 5.6, Lymph # (Auto) 1.6, Caroline # (Auto) 0.7, Eos # (Auto) 0.2, Baso # (Auto) 0.0, Sodium 139, Potassium 3.6, Chloride 107, Carbon Dioxide 26, Anion Gap 9.6, BUN 19 H, Creatinine 0.90, Estimated Creat Clear 55, Estimated GFR 60, Est GFR ( Amer) 72, Glucose 174 H, Calcium 9.1, Total Bilirubin 0.6, AST 30, ALT 19, Alkaline Phosphatase 109, Troponin I 0.03, NT-Pro-B Natriuret Pep 4220 H, Total Protein 6.5, Albumin 3.8, Globulin 2.7, Albumin/Globulin Ratio 1.4 01/03/25 20:54 01/03/25 20:54 Response Orders (Tests/Meds): ED MEDICATIONS Generic Name Dose Route Start Last Admin Trade Name Freq PRN Reason Stop Dose Admin Nitroglycerin/Dextrose 250 mls @ 6 mls/hr 01/03/25 21:15 01/03/25 21:15 Nitroglycerin 50mg/250ml D5w IV 02/02/25 21:14 20 mcg/min .Q24H ABIEL 6 mls/hr Protocol Administration 20 MCG/MIN Discontinued Medications Generic Name Dose Route Start Last Admin Trade Name Ofelia PRN Reason Stop Dose Admin Aspirin 324 mg 01/03/25 21:05 Aspirin 81mg Chewable Tablet PO 01/03/25 21:06 ONCE ONE ORDERS Category Date Time Status CXR --portable [XR chest portable] Stat Exams 01/03/25 21:04 Ordered POCUS Point of Care (ER Only) Stat Exams 01/03/25 20:54 Ordered BNP [NT Pro Brain Natriuretic Pep.] Stat Lab 01/03/25 20:54 Completed CBC w/Auto Diff [Complete Blood Count Auto Diff] Stat Lab 01/03/25 20:54 Completed CMP [Comprehensive Metabolic Panel] Stat Lab 01/03/25 20:54 Completed Trop I [Troponin I] Stat Lab 01/03/25 20:54 Completed Troponin I Q3H Lab 01/04/25 00:15 Ordered Troponin I Q3H Lab 01/04/25 03:15 Ordered MDM Narrative Medical Decision Narrative: 84-year-old presenting today in extremis. As stated above she had recent abnormal stress test concern for prehospital STEMI twelve-lead here was performed to person interpreted shows a ventricular rate of [address] elevation MS noted no acute ischemic changes noted I did reviewed prehospital EKG which did show some anterior precordial ST elevations with some questionable ST depressions but those are resolved at this point. Patient was placed immediately on BiPAP and was given sublingual nitroglycerin and nitroglycerin infusion to treat her for flash pulmonary edema and hypertensive emergency. In the setting of new acute systolic dysfunction very highly concerning for acute coronary syndrome. Regardless of her troponin. I discussed the case with Dr. Marianne Lyons who agreed with this assessment. She will be taken to the [facility] tonight. After reassessment on being on nitroglycerin and BiPAP she has significantly improved from a respiratory standpoint and seems to have volume redistributed and she is out of the sympathetic surge at this point. I have not aggressively diuresed her but she will need that. Aspirin has been administered further anticoagulation and intervention per the hospital medicine and cardiology team. Of note patient is willing to go to the [facility] tonight but she is DNR everybody is aware that tonight. I spoke with her brother Phil Isabel who is also agreeable to this plan. Patient will be admitted to hospital medicine with plans to go to the [facility] tonight and further management of her hypertensive emergency.
--- NOTE | 2025-01-03 23:12 | IR_ITS ---
APPROVED REPORT Patient Location: Emergent PROCEDURES 1. Left heart catheterization 2. Selective coronary arteriography 3. Left ventriculography INDICATION 1. Unstable angina, 2. Coronary artery disease SCAI INDICATION Patient is an 84-year-old white female who with known coronary artery disease who presented with increasing pressure and tightness in the chest and increasing shortness of breath. Secondary to this and an abnormal EKG referred directly for left heart catheterization Informed consent was obtained prior to the procedure. COMPLICATIONS none Estimated Blood Loss: less than 10ml TECHNIQUE One percent lidocaine used to anesthetize the right groin. Right common femoral artery was accessed via the Seldinger technique. Catheters used for the procedure reduction lot number [id number] injections right #4. ANGIOGRAPHIC RESULTS The left main artery Angiographically normal The left anterior descending artery Had moderate calcification in its proximal portion. There was a long stent in the proximal/mid vessel which was free of disease. Across the first diagonal branch. First diagonal branch had a stent in its ostial/proximal/midportion. The stent was free of disease. Excellent flow into the mid and distal vessel. Left anterior descending had smooth 20% mid stenosis after the stent. Normal flow to the distal vessel The circumflex artery Large in size and nondominant. Smooth 20% proximal stenosis The right coronary artery Large and dominant. Long area of stents in the proximal/mid vessel free of disease. Normal flow into the distal vessel and into the posterior descending artery The MEDINA ventriculogram reveals Normal left ventricular systolic function with an ejection fraction of 60% The left ventricular end-diastolic pressure 10 Right, retrograde femoral arteriogram performed. Sheath placed in the right common femoral artery. Angio-Seal device deployed without difficulty IMPRESSION 1. Mild diffuse coronary artery disease 2. Patent stents in the proximal/mid left anterior descending 3. Patent stents in the ostial/proximal/mid first diagonal branch of the left anterior descending 4. Patent stents throughout the proximal/mid large dominant right coronary artery 5. Mild to moderate diffuse coronary calcification 6. Normal left jugular systolic function 7. Normal lead ventricular end-diastolic pressure 8. Successful placement of an Angio-Seal device in the right common femoral artery PLAN 1. Patient will continue with aggressive medical therapy. Mild diffuse coronary disease. Patent stents. Mild to moderate diffuse coronary calcification. Pressures in the heart look normal. Left ventricular function normal. No intervention needed at this time. Follow-up in cardiology clinic 1 to 2 weeks after discharge Electronically signed by : Jaron Michelle MD 01/04/2025 00:25:31
--- NOTE | 2025-01-03 23:41 | PC.NURSE ---
bi-pap removed per physicians order. Placed on 2L NC
[2025-01-03] MEDS: ASPIRIN 81MG CHEWABLE TABLET 324 MG PO (23:46)
[2025-01-04] VITALS (35 sets, daily range): BP systolic 133–166; BP diastolic 65–99; PULSE 65–117; RESP 15–32; TEMP 36.5–37.5; O2SAT 90–100; BMI 30.1
[2025-01-04] MEDS: LIDOCAINE 1% 10ML MDV 10 ML IJ (00:20)
[2025-01-04] MEDS: 0.9 % SODIUM CHLORIDE 500 ML 25 ML IV (00:20)
[2025-01-04] MEDS: MIDAZOLAM HCL 1MG/ML 5ML VIAL 1 MG IV (00:20)
[2025-01-04] MEDS: HEPARIN 1,000 UNITS/500ML NS (CATH LAB) 3000 UNIT IV (00:20)
[2025-01-04] MEDS: diphenhydrAMINE 50MG/ML VIAL 50 MG IV (00:20)
[2025-01-04] MEDS: IOPAMIDOL-370 (76%);100ML BOTTLE 50 ML IV (00:30)
--- NOTE | 2025-01-04 00:39 | PC.NURSE ---
pt was on nitro drip while in the er and when went to quality lab technician. when pt arrived to the unit after heart cath pt was not on a nitro drip any longer. call was made to Tacho Ivey APRN to see if needed to restart the nitro. He wanted to know pt blood pressure and pulse and after getting them he wants to hold off at this time.
--- NOTE | 2025-01-04 00:39 | PC.NURSE ---
Pt arrived on unit from [facility] @ [address]
[2025-01-04] MEDS: KETOROLAC 30MG/ML VIAL 15 MG IV (01:11)
[2025-01-04] MEDS: ONDANSETRON 4MG/2ML VIAL 4 MG IV (01:12)
--- NOTE | 2025-01-04 01:21 | P.HP_ITS ---
<Statement entered by Seth Olivera MD - 01/04/25 17:55> Rounded on patient after nurse practitioner. Personally examined and interviewed patient. Agree with exam findings and care plan as documented. ER consulted medicine for admission for suspected STEMI. Medicine agreed to admit after heart cath. Patient taken for cath with no stents placed. Will address aggressively or malignant hypertension. Resumed home regimen with bisoprolol 10 mg daily. Responding to diuresis. Continue IV diuretics twice daily with Lasix 40 mg IV. Repeat labs obtained in the morning showing BUN 19, creatinine 0.8. White count 3.3. Troponin peaked at 1.37. Repeat CBC, CMP, magnesium ordered for the morning. Wean oxygen as tolerated for goal sats greater 90%. Currently on 2 L History of Present Illness *Admission Date: 01/04/25 *Reason for visit:: Chest pain with increased shortness of breath fluid overload +4 edema lower *History of present illness: Ms. Velazquez is well-known to us that she recently was admitted in October.. She came to the emergency room with a clinical impression of hypertensive emergency flash pulmonary edema bilateral pleural effusion and acute coronary artery syndrome. Long history of multiple stents to the cardiac vessels. Also long hi story of severe peripheral edema to lower extremities, that depending on how diuretics are used and improves at times. Patient noted that she had once again has +4 edema to her lower extremities. Also noting history of urinary tract infection. Patient has been treated in the ER with DuoNebs and metoprolol. Was noted that the prehospital STEMI on EKG. Patient agreed to cardiac catheterization but just wanted to knowing that she is a DNR. Per cardiac cath note patient was taken noted previous stents but no new stents placed. Patient has been transferred to the stepdown unit in the ICU at this time. Upon coming in and seeing the patient she is complained of her left side around to her back pain which is chronic with her. And having some mild nausea medications have been ordered. Noting patient's pulse and being about 60 being on a beta-karla not unexpected. But still increased blood pressure levels. Will go ahead and give Lasix a small amount 20 mg IV, continue on DuoNebs oxygen as needed. To try to slowly diurese this lady to improve her chest film and decrease edema in lower extremities. Will proceed slowly at this time related to the lady's history, ER physician performed echo showing diffuse B-lines and bilateral pleural effusion, also cardiac changes with new systolic dysfunction with apical hypokinesis. Will order echo to be performed as soon as possible to reevaluate cardiac ejection fraction [facility] Disclaimer: The information contained in this section may have been updated after the patient was seen, as this information can be updated by other users. Medical History Femur fracture, right Closed right humeral fracture Strain of muscle, fascia and tendon of lower back, initial encounter HHD (hypertensive heart disease) Compression fracture of lumbar vertebra Constipation Mid back pain Low back pain Closed right femoral fracture Fracture of right shoulder Falls Snoring Daytime somnolence Restless sleeper Abnormal EKG Surgical History History of lumbosacral spine surgery History of arthroplasty of right shoulder Status post coronary artery stent placement Family History Other No significant family history Social History Smoking Status: Unknown if ever smoked alcohol intake: never substance use type: denies use current occupational status: retired Travel in the last 8 weeks?: None household members: none housing: house current occupational exposures/hazards: No caffeine: Yes Have you lived/traveled outside US in past 30 days?: No Contact w/someone who lives/traveled outside US past 30 days?: No Exposure to someone with infectious disease in past 14 days?: No Do you have a fever (greater than 100.4 F or 38 C)?: No Have you tested positive for COVID-19?: No Exposed to someone with COVID-19 in past 14 days?: No Do you have a sore throat?: No Do you have a cough?: No Do you have any weakness?: No Do you have any diarrhea?: No Are you experiencing any unusual bleeding?: No Do you have any muscle aches/pain?: No Do you have any abdominal pain?: No Are you experiencing loss of taste or smell?: No Other Medical History Have you received the Flu Vaccine for this season: No Have you received the Pneumonia Vaccine: Yes Review of Systems Review of Systems Review of systems:: pertinent systems reviewed and negative unless documented below Constitutional Constitutional: Reports as per HPI, Reports lethargy, Reports weakness and Reports weight gain Comments: 4+ edema lower extremities ENT Ears, Nose, Mouth, and Throat: Reports as per HPI *Cardiovascular Cardiovascular: Reports as per HPI, Reports chest pain at rest and Reports dyspnea Comments: Patient did have episodes of shortness of breath and chest pain requiring ambula nce to be called *Respiratory Respiratory: Reports as per HPI and Reports dyspnea Comments: Patient denies coughing *Gastrointestinal Comments: Denies nausea or vomiting, after cath did have some nausea *Musculoskeletal Musculoskeletal: Reports as per HPI and Reports abnormal gait Comments: Patient is elderly and debilitated ambulation is difficult *Neurologic Neurologic: Reports abnormal gait and Reports weakness Psychiatric Psychiatric: Reports as per HPI Endocrine Endocrine: Reports as per HPI Hematologic/Lymphatic Hematologic/Lymphatic: Reports as per HPI Allergic/Immunologic Allergic/Immunologic: Reports as per HPI Meds Home Medications and Allergies Home Medications ?Medication ?Instructions ?Recorded ?Confirmed ?Type buspirone 5 mg tablet 5 mg PO BID 03/12/20 5 History ferrous sulfate 325 mg (65 mg 325 mg PO MOWEFR anemia 09/30/20 01/03/25 History iron) tablet aspirin 81 mg tablet,delayed 81 mg PO DAILY 10/25/20 0 01/03/25 History release atorvastatin 80 mg tablet 80 mg PO HS 10/18/24 5 History cholecalciferol (vitamin D3) 25 25 mcg PO DAILY 01/03/25 History mcg (1,000 unit) capsule (Vitamin D3) lisinopril 20 mg tablet 20 mg PO DAILY #30 tabs 12/0401/03/25 Rx bisoprolol fumarate 10 mg tablet 10 mg PO DAILY 01/04/25 History furosemide 20 mg tablet 20 mg PO DAILY 01/04/2508/30 History omeprazole 40 mg capsule,delayed 40 mg PO HS 01/04/25 01/04/25 History release spironolactone 25 mg tablet 25 mg PO DAILY 01/04/25 History New Prescriptions to Start Prescriptions: Allergies Allergy/AdvReac Type Severity Reaction Status Date / Time No Known Allergies Allergy Verified 01/04/25 01:07 Exam Data for Last 24 hours Vital signs and Labs for Last 24 Hours: Temp Pulse Resp BP Pulse Ox O2 Del Method O2 Flow Rate 97.7 F 65 18 165/99 H 93 L Nasal Cannula 4 01/04/25 00:40 01/04/25 00:40 01/04/25 00:40 01/04/25 00:40 01/04/25 00:40 01/04/25 00:40 01/04/25 00:40 Laboratory Results - last 24 hr 01/03/25 20:54: WBC 8.1, RBC 3.25 L, Hgb 10.8 L, Hct 33.5 L, MCV 103.1 H, MCH 33.2 H, MCHC 32.2, RDW 13.1, Plt Count 201, MPV 10.5 H, Neut % (Auto) 69.2, Lymph % (Auto) 19.4, [place] % (Auto) 8.4, Eos % (Auto) 2.1, Baso % (Auto) 0.5, Neut # (Auto) 5.6, Lymph # (Auto) 1.6, [place] # (Auto) 0.7, Eos # (Auto) 0.2, Baso # (Auto) 0.0, Sodium 139, Potassium 3.6, Chloride 107, Carbon Dioxide 26, Anion Gap 9.6, BUN 19 H, Creatinine 0.90, Estimated Creat Clear 55, Estimated GFR 60, Est GFR ( Amer) 72, Glucose 174 H, Calcium 9.1, Total Bilirubin 0.6, AST 30, ALT 19, Alkaline Phosphatase 109, Troponin I 0.03, NT-Pro-B Natriuret Pep 4220 H, Total Protein 6.5, Albumin 3.8, Globulin 2.7, Albumin/Globulin Ratio 1.4 I & O for Last 24 hours: Intake & Output 01/01/25 01/02/25 01/03/25 01/04/25 05:59 05:59 05:59 05:59 Intake Total 8.2 / 8.2 Balance 8.2 / 8.2 Weight 159 lb 9.835 oz Radiology Reports for the Last 24 Hours: Right basilar airspace disease may represent pneumonia. 2. Mild bibasilar atelectasis and small right-sided pleural effusion. Constitutional Constitutional: mild distress, obese and chronically ill appearing *Routine HEENT Exam Head: Present normocephalic and atraumatic Eye: Present EOMI and PERRL ENT: Present mucous membranes moist *Routine Neck Exam Neck: Present supple *Routine Respiratory Exam Respiratory: Present decreased breath sounds, rales (Worse on right), rhonchi (On right side), distant breath sounds, normal respiratory effort, able to speak in complete sentences and symmetric chest movement Comments: Patient is not in any respiratory distress while on oxygen O2 sats were down so O2 added *Routine Cardiovascular Exam Cardiovascular: Present RRR and murmur Comments: Noting 4+ edema to lower extremities heart sounds are decreased but no sig nificant murmurs or rubs heard *Routine Abdominal Exam Abdominal: Present soft and normoactive bowel sounds Comments: No tenderness found upon abdominal exam *Routine Rectal Exam Rectal:: deferred *Routine Genitalia Exam Genitalia:: deferred *Routine Extremities Exam Extremities: Present pulses intact and normal capillary refill Comments: If lower legs and feet are extremely edematous hard to find pulses on them but the skin blanches well with brisk capillary refill to the nailbeds and the toes Routine Back/Spine/Pelvis Exam Comments: Patient showed no significant pain to the back but I did not stand her, *Routine Skin Exam Skin: Present intact, dry and warm *Routine Neurological Exam Neurological: Present alert, oriented X3, CN II-XII intact, vision grossly intact and hearing grossly intact Comments: No significant neurological deficits were noted no signs of any acute event Routine Psychiatric Exam Psychiatric: Present normal affect, normal thought process, cooperative, good insight and good judgment Comments: Very friendly lady, very aware of her present physical condition Additional Findings:: Once again did discuss CODE STATUS with her she wants to be a DNR H&P: Result Impressions 1. Worsening CHF with significant return of lower extremity edema 2. Chest pain with negative cath results no new blockages found Imaging and Cardiology Chest x-ray: Additional comments: Right basilar airspace disease may represent pneumonia. 2. Mild bibasilar atelectasis and small right-sided pleural effusion. cath report: Additional comments: Mild diffuse coronary artery disease 2. Patent stents in the proximal/mid left anterior descending 3. Patent stents in the ostial/proximal/mid first diagonal branch of the left anterior descending 4. Patent stents throughout the proximal/mid large dominant right coronary artery 5. Mild to moderate diffuse coronary calcification 6. Normal left jugular systolic function 7. Normal lead ventricular end-diastolic pressure 8. Successful placement of an Angio-Seal device in the right common femoral artery Assessment and Plan *Assessment and plan (1) ACS (acute coronary syndrome): Status: Acute Category: Medical Code(s): I24.9 - Acute ischemic heart disease, unspecified (2) Bilateral pleural effusion: Status: Acute Category: Medical Code(s): J90 - Pleural effusion, not elsewhere classified (3) Edema: Status: Acute Qualifiers: Edema type: unspecified Qualified Code(s): R60.9 - Edema, unspecified Category: Medical Code(s): R60.9 - Edema, unspecified (4) Flash pulmonary edema: Status: Acute Category: Medical Code(s): J81.0 - Acute pulmonary edema (5) Hypertensive emergency: Status: Acute Category: Medical Code(s): I16.1 - Hypertensive emergency Plan 1. Patient will be monitored as a stepdown unit patient. There was no significant new blockages found on the catheterization.. Question CHF fluid overload with pulmonary edema, will have given diuretic for tonight holding IV fluid. May have to more be more aggressive with diuresis in the a.m.. Do have elevated troponin as expected after cardiac catheterization. 2. Will need to evaluate the patient as she improves to find out her self-care status. As of last time I checked with her she lives alone. And noting through her past chart that diuretics have been used have brought her edema down but then at times increased her renal function. Cutting back on diuretics then the edema returns.. Please refer to last admission notes
[2025-01-04] MEDS: IPRATROPIUM/ALBUTEROL 3 ML NEB IH ×6 (01:28→22:20)
[2025-01-04] MEDS: ACETAMINOPHEN 325MG TAB 650 MG PO (01:59)
[2025-01-04] MEDS: PANTOPRAZOLE 40MG TABLET 40 MG PO ×2 (01:59→20:01)
[2025-01-04] MEDS: FUROSEMIDE 20 MG/2 ML VIAL IV (01:59)
[2025-01-04 02:18] LABS: Anion Gap 10.5 mEq/L (5-15); Blood Urea Nitrogen 19 mg/dl (7-17); Calcium 8.8 mg/dl (8.4-10.2); Carbon Dioxide 26 mmol/L (22.0-30.0); Chloride 106 mmol/L (98-107); Creatinine Clearance Estimated 48 mL/min (50-200); Estimated Glomerular Filt Rate 68 ml/min (>60); GFR (African American) 83 ML/MIN (>60); Glucose 142 mg/dl (74-100); Potassium 3.5 mmoL/L (3.5-5.1); Sodium 139 mmol/L (136-145)
[2025-01-04 02:46] LABS: Troponin I 0.93 ng/ml (0.00-0.034)
[2025-01-04 03:14] LABS: Basophils % 0.3 % (0.1-2.0); Hematocrit 32.4 % (37.0-47.0); Hemoglobin 10.2 g/dL (12.2-16.2); Immature Granulocytes # 0.02 10^3uL; Immature Granulocytes % 0.3 %; Lymphocytes # 0.3 K/mm3 (0.7-4.5); Lymphocytes % 5.2 % (10-50); Mean Corpuscular HGB Conc 31.5 g/dL (31.8-35.4); Mean Corpuscular Hemoglobin 32.9 pg (27.0-31.2); Mean Corpuscular Volume 104.5 fl (81-99); Mean Platelet Volume 10.7 fl (7.4-10.4); Monocytes # 0.2 K/mm3 (0.1-1.0); Neutrophils % 91.2 % (37.0-80.0); Nucleated Red Blood Cells # 0 10^3/uL; Nucleated Red Blood Cells % 0 %; Platelet Count 177 K/mm3 (142-424); Red Cell Distribution Width 13.1 % (11.5-17.5); Red Cell Distribution Width-SD 50.8 fL; White Blood Count 6.6 K/mm3 (4.8-10.8)
[2025-01-04 03:30] LABS: MANUAL DIFFERENTIAL MANUAL DIFFERENTIAL (MANUAL DIFF)
[2025-01-04 04:05] LABS: Troponin I 1.37 ng/ml (0.00-0.034)
[2025-01-04 04:10] LABS: Lymphocytes % 5 % (10-50); Neutrophils % 95 % (42-76); Total Cells Counted 100
[2025-01-04 04:15] LABS: Stomatocytes 1+
[2025-01-04 04:16] LABS: Platelet Estimate Normal
[2025-01-04] MEDS: ACETAMINOPHEN 1,000MG/100ML VIAL 1000 MG IV (06:41)
[2025-01-04 07:22] LABS: Basophils % 0.3 % (0.1-2.0); Hematocrit 31.1 % (37.0-47.0); Immature Granulocytes # 0.01 10^3uL; Immature Granulocytes % 0.3 %; Lymphocytes # 0.4 K/mm3 (0.7-4.5); Lymphocytes % 12.4 % (10-50); Mean Corpuscular HGB Conc 32.2 g/dL (31.8-35.4); Mean Corpuscular Hemoglobin 32.7 pg (27.0-31.2); Mean Corpuscular Volume 101.6 fl (81-99); Mean Platelet Volume 10.5 fl (7.4-10.4); Monocytes # 0.1 K/mm3 (0.1-1.0); Neutrophils # 2.8 K/mm3 (1.8-7.8); Nucleated Red Blood Cells # 0 10^3/uL; Nucleated Red Blood Cells % 0 %; Platelet Count 169 K/mm3 (142-424); Red Blood Count 3.06 M/mm3 (4.20-5.40); Red Cell Distribution Width-SD 48.6 fL; White Blood Count 3.3 K/mm3 (4.8-10.8)
[2025-01-04 07:24] LABS: Albumin Level 3.8 g/dl (3.5-5.0); Chloride 107 mmol/L (98-107); Potassium 3.8 mmoL/L (3.5-5.1); Sodium 138 mmol/L (136-145)
[2025-01-04 07:27] LABS: Alanine Aminotransferase 24 U/L (12-78); Albumin/Globulin Ratio 1.4 (1.1-1.8); Alkaline Phosphatase 104 U/L (38-126); Anion Gap 10.8 mEq/L (5-15); Aspartate Amino Transferase 35 U/L (14-36); Bilirubin,Total 0.5 mg/dl (0.2-1.3); Blood Urea Nitrogen 19 mg/dl (7-17); Calcium 8.9 mg/dl (8.4-10.2); Carbon Dioxide 24 mmol/L (22.0-30.0); Creatinine Clearance Estimated 48 mL/min (50-200); Estimated Glomerular Filt Rate 68 ml/min (>60); GFR (African American) 83 ML/MIN (>60); Globulin 2.7 g/dL (1.3-3.2); Glucose 168 mg/dl (74-100); Total Protein,Serum 6.5 g/dl (6.3-8.2)
[2025-01-04 07:28] LABS: Magnesium 1.5 mg/dl (1.6-2.3)
[2025-01-04] MEDS: LISINOPRIL 20MG TABLET 20 MG PO (09:24)
[2025-01-04] MEDS: BUMETANIDE 1MG/4ML VIAL 2 MG IV ×2 (09:25→16:17)
[2025-01-04] MEDS: BUSPIRONE HCL 5 MG TABLET PO ×2 (09:25→20:01)
[2025-01-04] MEDS: ASPIRIN EC 81MG TABLET 81 MG PO (09:25)
[2025-01-04] MEDS: BISOPROLOL 5MG TABLET 10 MG PO (14:25)
[2025-01-04] MEDS: ATORVASTATIN 40MG TABLET 80 MG PO (20:01)
[2025-01-05] VITALS (12 sets, daily range): BP systolic 122–158; BP diastolic 67–98; PULSE 79–99; RESP 18–30; TEMP 36.4–37; O2SAT 88–94
[2025-01-05] MEDS: MAGNESIUM SULFATE IN WATER 2 GM/50 ML PIGGYBACK IV ×2 (00:33→01:29)
[2025-01-05] MEDS: IPRATROPIUM/ALBUTEROL 3 ML NEB IH ×5 (02:25→23:59)
[2025-01-05 06:49] LABS: Basophils % 0.2 % (0.1-2.0); Eosinophils % 0.5 % (0.1-12.0); Hematocrit 28.4 % (37.0-47.0); Hemoglobin 9.3 g/dL (12.2-16.2); Immature Granulocytes # 0.03 10^3uL; Immature Granulocytes % 0.3 %; Lymphocytes # 1.3 K/mm3 (0.7-4.5); Lymphocytes % 14.7 % (10-50); Mean Corpuscular HGB Conc 32.7 g/dL (31.8-35.4); Mean Corpuscular Hemoglobin 33.2 pg (27.0-31.2); Mean Corpuscular Volume 101.4 fl (81-99); Mean Platelet Volume 10.5 fl (7.4-10.4); Monocytes # 0.9 K/mm3 (0.1-1.0); Monocytes % 10.1 % (1.7-9.3); Neutrophils # 6.4 K/mm3 (1.8-7.8); Neutrophils % 74.2 % (37.0-80.0); Nucleated Red Blood Cells # 0 10^3/uL; Nucleated Red Blood Cells % 0 %; Platelet Count 179 K/mm3 (142-424); Red Cell Distribution Width 13.2 % (11.5-17.5); Red Cell Distribution Width-SD 49.6 fL; White Blood Count 8.6 K/mm3 (4.8-10.8)
--- NOTE | 2025-01-05 07:00 | CA_ITS ---
APPROVED REPORT EXAM: Comprehensive 2D, Doppler, and color-flow Echocardiogram Service Secretary: Tamia Power RVT Ht: 5 ft 1 in Wt: 159lbs BSA: 1.71 BP: 165/99 mmHg Indications: NSTEMI,CHF,CAD,CP,EDEMA,HTN,SOA 2D Dimensions LA Volume 61.00 mL LA Volume Index 35.47 mL/m2 (M/F) 16-34 M-Mode Dimensions RVDd 2.21 cm (0.9-2.6) LA Diam 3.68 cm (1.9-4.0) LVDd 4.28 cm (3.5-5.7) LVDs 2.78 cm (3.5-5.7) IVSd 0.78 cm (0.6-1.1) PWd 0.86 cm (0.6-1.1) EF (Teich) 64.70% FS 35.00% EDV (Teich) 82.20 mL TAPSE 1.61 (<1.7) ESV (Teich) 29.00 mL LV Diastology E Decel Time 150 (160-240 msec) E/A Ratio 0.6 Aortic Valve USMAN Index 1.23 cm2/m2 AoV Peak Quinn. 162.0 (50-130 cm/s) AO Peak GR. 10.50 mmHg AO Mean GR. 5.60 (<5 mmHg) AO VTI 26.3 (18-25 cm) USMAN (VTI) 2.17 (2.5-4.5 cm2) Mitral Valve MV E Max Quinn. 60.0 (40-130 cm/s) MV A Velocity 94.0 (40-130 cm/s) E/A Ratio 0.65 MV PHT 44.0 ms Pulmonary Valve PV Peak Velocity 66.0 (50-150 cm/s) Tricuspid Valve TR P. Velocity 324.00 cm/s RAP Estimate 10.00 mmHg RVSP 51.90 mmHg Left Ventricle The left ventricle is normal size. Left ventricular systolic function is mildly decreased. Proximal septal thickening is present. There is mild global hypokinesis present. The septal and inferoseptal LV sands are moderately hypokinetic. Grade 2 diastolic dysfunction is present. LVEF is 45%. Right Ventricle Right ventricle is mildly dilated. Right ventricle is mildly hypokinetic. Atria Left atrium is moderately dilated. Right atrium is mildly dilated. There is no Doppler evidence of interatrial shunt. Aortic Valve The aortic valve is mildly thickened. Trace aortic regurgitation. There is no aortic valvular stenosis. Mitral Valve Mitral valve leaflets are mildly thickened. No evidence of mitral valve stenosis. Mild mitral regurgitation. Tricuspid Valve Tricuspid valve is grossly normal in structure and function. Mild tricuspid regurgitation. RVSP is 35-40 mmHg. Pulmonic Valve The pulmonary valve is normal in structure. Trace pulmonic regurgitation. Great Vessels The aortic root is normal in size. IVC is normal in size and collapses >50% with inspiration. Pericardium There is no pericardial effusion. Other Information Study Quality: Fair Conclusion Mildly reduced LV systolic function (LVEF 45%). The septal and inferoseptal LV sands are moderately hypokinetic. Grade 2 diastolic dysfunction. Mild RV dilation with mild reduction in RV function. Biatrial dilation. Mild MR, mild TR. Elevated RVSP 35-40 mmHg. Electronically signed by : Verónica Alves MD 01/05/2025 12:30:11
[2025-01-05 07:13] LABS: Albumin Level 3.5 g/dl (3.5-5.0); Chloride 104 mmol/L (98-107); Potassium 3.3 mmoL/L (3.5-5.1); Sodium 137 mmol/L (136-145)
[2025-01-05 07:16] LABS: Alanine Aminotransferase 19 U/L (12-78); Albumin/Globulin Ratio 1.3 (1.1-1.8); Alkaline Phosphatase 90 U/L (38-126); Anion Gap 6.3 mEq/L (5-15); Aspartate Amino Transferase 36 U/L (14-36); Bilirubin,Total 0.4 mg/dl (0.2-1.3); Blood Urea Nitrogen 21 mg/dl (7-17); Carbon Dioxide 30 mmol/L (22.0-30.0); Creatinine Clearance Estimated 48 mL/min (50-200); Estimated Glomerular Filt Rate 53 ml/min (>60); GFR (African American) 64 ML/MIN (>60); Globulin 2.6 g/dL (1.3-3.2); Total Protein,Serum 6.1 g/dl (6.3-8.2)
[2025-01-05 07:17] LABS: Calcium 8.9 mg/dl (8.4-10.2); Glucose 112 mg/dl (74-100); Magnesium 2.4 mg/dl (1.6-2.3)
[2025-01-05] MEDS: guaiFENesin 600 MG TAB.ER.12H PO ×2 (09:42→21:39)
[2025-01-05] MEDS: BISOPROLOL 5MG TABLET 10 MG PO (09:42)
[2025-01-05] MEDS: BUSPIRONE HCL 5 MG TABLET PO ×2 (09:42→21:39)
[2025-01-05] MEDS: BUMETANIDE 1MG/4ML VIAL 2 MG IV ×2 (09:42→15:58)
[2025-01-05] MEDS: ASPIRIN EC 81MG TABLET 81 MG PO (09:42)
[2025-01-05] MEDS: LISINOPRIL 20MG TABLET 20 MG PO (09:43)
--- NOTE | 2025-01-05 10:07 | EXP.PULM.CON ---
[facility] Disclaimer: The information contained in this section may have been updated after the patient was seen, as this information can be updated by other users. Medical History (Updated 01/05/25 @ 12:16 by Jenny Felix MD) Acute respiratory failure with hypoxia Femur fracture, right Closed right humeral fracture Strain of muscle, fascia and tendon of lower back, initial encounter HHD (hypertensive heart disease) Compression fracture of lumbar vertebra Constipation Mid back pain Low back pain Closed right femoral fracture Fracture of right shoulder Falls Snoring Daytime somnolence Restless sleeper Abnormal EKG Surgical History History of lumbosacral spine surgery History of arthroplasty of right shoulder Status post coronary artery stent placement Family History Other No significant family history Social History Smoking Status: Unknown if ever smoked alcohol intake: never substance use type: denies use current occupational status: retired Travel in the last 8 weeks?: None household members: none housing: house current occupational exposures/hazards: No caffeine: Yes Have you lived/traveled outside [place] in past 30 days?: No Contact w/someone who lives/traveled outside US past 30 days?: No Exposure to someone with infectious disease in past 14 days?: No Do you have a fever (greater than 100.4 F or 38 C)?: No Have you tested positive for COVID-19?: No Exposed to someone with COVID-19 in past 14 days?: No Do you have a sore throat?: No Do you have a cough?: No Do you have any weakness?: No Do you have any diarrhea?: No Are you experiencing any unusual bleeding?: No Do you have any muscle aches/pain?: No Do you have any abdominal pain?: No Are you experiencing loss of taste or smell?: No Review of Systems Constitutional Constitutional: Reports fatigue and Reports weakness Eyes Eyes: Denies eye discharge, Denies dry eyes, Denies irritation and Denies itchy eyes ENT Ears, Nose, Mouth, and Throat: Denies epistaxis, Denies facial pain, Denies lip swelling and Denies throat swelling *Cardiovascular Cardiovascular: Reports dyspnea, Reports dyspnea on exertion, Reports leg edema and Reports orthopnea *Respiratory Respiratory: Denies change in phlegm color, Reports chest congestion, Reports cough, Reports dyspnea, Reports dyspnea on exertion, Denies excessive phlegm production and Reports wheezing *Gastrointestinal Gastrointestinal: Denies abdominal pain, Denies belching and Denies cramping *Musculoskeletal Musculoskeletal: Reports abnormal gait *Neurologic Neurologic: Reports abnormal gait and Reports weakness Psychiatric Psychiatric: Denies homicidal ideation and Denies suicidal ideation Endocrine Endocrine: Reports fatigue and Denies heat intolerance Hematologic/Lymphatic Hematologic/Lymphatic: Denies easy bleeding and Denies lymphadenopathy Allergic/Immunologic Allergic/Immunologic: Denies itchy eyes, Denies lip swelling, Denies throat swelling and Reports wheezing Pulmonology Exam Inpatient Vital signs and Labs for Last 24 Hours: Temp Pulse Resp BP Pulse Ox O2 Del Method O2 Flow Rate 98.4 F 80 20 124/67 94 L Nasal Cannula 1 01/05/25 04:00 01/05/25 09:14 01/05/25 04:00 01/05/25 04:00 01/05/25 06:07 01/05/25 06:43 01/05/25 06:43 FiO2 40 01/03/25 21:00 Laboratory Results - last 24 hr 01/05/25 06:28: WBC 8.6 D, RBC 2.80 L, Hgb 9.3 L, Hct 28.4 L, MCV 101.4 H, MCH 33.2 H, MCHC 32.7, RDW 13.2, Plt Count 179, MPV 10.5 H, Neut % (Auto) 74.2, Lymph % (Auto) 14.7, [place] % (Auto) 10.1 H, Eos % (Auto) 0.5, Baso % (Auto) 0.2, Neut # (Auto) 6.4, Lymph # (Auto) 1.3, [place] # (Auto) 0.9, Eos # (Auto) 0.0, Baso # (Auto) 0.0, Sodium 137, Potassium 3.3 L, Chloride 104, Carbon Dioxide 30, Anion Gap 6.3, BUN 21 H, Creatinine 1.00 D, Estimated Creat Clear 48, Estimated GFR 53 L, Est GFR ( Amer) 64 D, Glucose 112 H D, Calcium 8.9, Magnesium 2.4 H D, Total Bilirubin 0.4, AST 36, ALT 19, Alkaline Phosphatase 90, Total Protein 6.1 L, Albumin 3.5, Globulin 2.6, Albumin/Globulin Ratio 1.3 I & O for Labs for Last 24 Hours: Intake & Output 01/02/25 01/03/25 01/04/25 01/05/25 23:59 23:59 23:59 23:59 Intake Total 8.2 / 8.2 1172.2 / 1172.2 100 / 100 Output Total 1700 / 1700 100 / 100 Balance 8.2 / 8.2 -527.8 / -527.8 0 / 0 Weight 185 lb 159 lb 9.835 oz Constitutional: Present moderate distress Head: Present normocephalic and atraumatic ENT: Present normal exam, normal oropharynx and mucous membranes moist Neck: Present normal inspection and full ROM Respiratory: Present prolonged expiratory phase, rhonchi, wheezes, crackles, diminished air movement and able to speak in complete sentences Cardiac: Present S1/S2, Tachycardia and radial pulses present GI: Present soft and distention; Absent tenderness or guarding Rectal (female): Present deferred (female): Present deferred Skin: Present intact; Absent cyanosis or jaundice Neuro: Present alert, awake and oriented x 3 Extremities: Present normal inspection and edema; Absent clubbing or cyanosis Psychiatric: Present normal affect and cooperative Meds Home Medications and Allergies Home Medications ?Medication ?Instructions ?Recorded ?Confirmed ?Type buspirone 5 mg tablet 5 mg PO BID 03/12/20 01/03/25 History ferrous sulfate 325 mg (65 mg 325 mg PO MOWEFR anemia 09/30/20 01/03/25 History iron) tablet aspirin 81 mg tablet,delayed 81 mg PO DAILY 10/25/20 01/03/25 History release atorvastatin 80 mg tablet 80 mg PO HS 10/18/24 01/04/25 History cholecalciferol (vitamin D3) 25 25 mcg PO DAILY 10/18/24 01/03/25 History mcg (1,000 unit) capsule (Vitamin D3) lisinopril 20 mg tablet 20 mg PO DAILY #30 tabs 12/18/24 01/03/25 Rx bisoprolol fumarate 10 mg tablet 10 mg PO DAILY 01/04/25 01/04/25 History furosemide 20 mg tablet 20 mg PO DAILY 01/04/25 01/04/25 History omeprazole 40 mg capsule,delayed 40 mg PO HS 01/04/25 01/04/25 History release spironolactone 25 mg tablet 25 mg PO DAILY 01/04/25 01/04/25 History New Prescriptions to Start Prescriptions: Allergies Allergy/AdvReac Type Severity Reaction Status Date / Time No Known Allergies Allergy Verified 01/04/25 01:07 Results Laboratory Findings 01/05/25 06:28 01/05/25 06:28 Abnormal lab findings: Abnormal Labs 01/03/25 01/04/25 01/04/25 20:54 01:56 03:15 WBC RBC 3.25 L 3.10 L Hgb 10.8 L 10.2 L Hct 33.5 L 32.4 L MCV 103.1 H 104.5 H MCH 33.2 H 32.9 H MCHC 31.5 L MPV 10.5 H 10.7 H Neut % (Auto) 91.2 H Lymph % (Auto) 5.2 L [place] % (Auto) Eos % (Auto) 0.0 L Lymph # (Auto) 0.3 L Neutrophils % (Manual) 95 H Lymphocytes % (Manual) 5 L Potassium BUN 19 H 19 H Estimated GFR Glucose 174 H 142 H Magnesium Troponin I 0.93 H 1.37 H NT-Pro-B Natriuret Pep 4220 H Total Protein 01/04/25 01/05/25 06:40 06:28 WBC 3.3 L D RBC 3.06 L 2.80 L Hgb 10.0 L 9.3 L Hct 31.1 L 28.4 L MCV 101.6 H 101.4 H MCH 32.7 H 33.2 H MCHC MPV 10.5 H 10.5 H Neut % (Auto) 84.0 H Lymph % (Auto) [place] % (Auto) 10.1 H Eos % (Auto) 0.0 L Lymph # (Auto) 0.4 L Neutrophils % (Manual) Lymphocytes % (Manual) Potassium 3.3 L BUN 19 H 21 H Estimated GFR 53 L Glucose 168 H 112 H D Magnesium 1.5 L 2.4 H D Troponin I NT-Pro-B Natriuret Pep Total Protein 6.1 L Assessment and Plan *Assessment and plan (1) Bilateral pleural effusion: Status: Acute Category: Medical Code(s): J90 - Pleural effusion, not elsewhere classified (2) Pneumonia: Status: Acute Qualifiers: Laterality: right Lung location: lower lobe of lung Pneumonia type: due to unspecified organism Qualified Code(s): J18.9 - Pneumonia, unspecified organism Category: Medical Code(s): J18.9 - Pneumonia, unspecified organism (3) Acute respiratory failure with hypoxia: Status: Acute Category: Medical Code(s): J96.01 - Acute respiratory failure with hypoxia Plan Ms. Scherer is a 84-year-old female history of CAD status post stenting, hypertension, heart failure with preserved EF presented to the ER with concerning for hypertensive emergency with flash pulm edema bilateral pleural effusions and ACS and pulmonary was called for further evaluation and management. Patient denies any significant smoking history. Auscultation significant wheezing noted. Minutes worsening wheezing for the last 2 weeks Afebrile. Hemodynamically stable. Leukopenia, improving. Neutrophilic predominance noted. Chest x-ray upon admission predominantly right-sided moderate pleural effusion along with right lower lobe airspace disease. Prior history of bacteremia and UTI. Echo October 2024 normal EF at 65%. Diastolic function indeterminate. RV size and function grossly normal. Elevated RVSP On examination does not appear to be in any significant respiratory distress. Weaned to room air with saturations maintained at 90% and above. The noted pleural effusion likely from volume overload. Less concern for parapneumonic effusion at this point of time given her continued improvement in her symptoms. Plan: - Continue levofloxacin to complete a total of 5-day course -Will hold off on performing thoracentesis at this point of time pending clinical follow-up -DuoNebs every 6 hours on a scheduled basis -Volume optimization as per primary team and cardiology # Thank you for involving pulmonary in this patient care. Will continue to follow.
--- NOTE | 2025-01-05 10:43 | HMH.PTEV ---
Physical Therapy Evaluation Rehab PT IP Evaluation Start: 01/04/25 09:05 Freq: ONCE Status: Active Protocol: Document 01/05/25 08:45 BRAD (Rec: 01/05/25 10:43 BRAD [id number]) Subjective/History History History Ms. Velazquez is a 84 y/o female admitted for suspected STEMI. Long history of multiple stents to the cardiac vessels. Also long history of severe peripheral edema to lower extremities, that depending on how diuretics are used and improves at times. Patient noted that she had once again has +4 edema to her lower extremities. Patient currently lives at home alone and is independent with all mobility using a RW at baseline. Her home has no CATIA and has a ramp. She states that she does not want any form of therapy after d/c. Subjective Subjective Patient is alert and oriented to person, place, and . Pt on 1L O2 via nasal cannula. She is willing to participate with therapy this morning. Pt transferred to bedside chair with CGA with call light in reach. Pt appeared short of air during transfer, but improved after sitting ~2 minutes and was able to talk throughout. [facility] How much help from another person do you currently need... Turning from your None back to your side while in a flat bed without using bedrails? Moving from lying on None back to sitting on the side of a flat bed without using bedrails? Moving to and from a None bed to a chair ( including a wheelchair)? Standing up from a A little chair using your arms? (e.g., wheelchair, bedside chair) Walking in hospital A little room? Climbing 3-5 steps A little with a railing? Mobility Score 21 Mobility Level [facility] Mobility 6 Walk 10 steps or more Mobility Calculator Rehab PT IP Eval Objective Appearance Patient Behavior Appropriate,Cooperative Patient Orientation Person,Place,Birthday Difficulty following none instructions Speech Pattern Clear,Appropriate Balance Ability to Arise Able, uses arms to help Sitting Balance Steady, safe Standing Balance Steady, wide stance Dynamic Sitting Normal Balance Ability Dynamic Standing Good Balance Ability Transfers Bed Transfer Ability Supervision/Stand by Chair Transfer Contact Guard/Hand Hold Ability Sit to Stand Bed Contact Guard/Hand Hold Transfer Ability Sit to Stand Chair Contact Guard/Hand Hold Transfer Ability Rehab PT IP prob,goals,plan Problems Date of Evaluation: 01/05/25 PT IP Problems Bed Mobility,Transfers,Gait,Balance,Safety Rehab Potential Rehab Potential Good Equipment Needs Assistive Devices Rolling / Wheeled Walker Plan PT Intervention Plan Bed Mobility,Transfers,Gait,Balance,Safety,Therapeutic Exercise PT Plan Frequency Daily Duration LOS Discharge Goals Bed Transfer Ability Independent Sit to Stand Chair Independent Transfer Ability Ambulation Distance 10 (feet) Discharge Plan PT Discharge Plan Patient is currently most appropriate for placement in a skilled rehab facility once medically stable for d/c. Patient was able to stand and transfer with [facility], requiring verbal and tactile cuing to maintain upright posture and appropriate safety awareness throughout transfer. Skilled acute therapy is currently indicated to improve cardiovascular endurance and LE strength to return to PLOF with all ADLs and mobility. Eval Complexity Eval Charge Codes 04994 - High Complexity PHYSICIAN CERTIFICATION: I certify the specified therapy services for Ksenia Velazquez are required, authorized, and reviewed every 30 days.
--- NOTE | 2025-01-05 10:45 | SW/DCPLANNER ---
Addendum entered by Sarina Correia 01/07/25 15:16: Patient is agreeable for information to be faxed to [facility] at this time. Addendum entered by Sarina Correia 01/07/25 13:59: I spoke w/ patient's POA regarding discharge planning. POA concurs w/ patient returning home, not interested in placement or home health services. POA would like to speak w/ patient in private regarding Hospice services then will follow up w/ me. I did provide patient and POA w/ my contact information. Per MD patient will discharge home today. Original Note: I spoke w/ this patient regarding plans once medically stable for discharge. PT evaluated patient and recommended SNF level of care. Patient was quick to refuse placement and stated that she just finished w/ home health and not interested in continuing. I attempted to have a conversation w/ patient regarding the importance of placement. Patient stated that she is returning home and did not want the services. I did discuss w/ patient Hospice services. Patient stated that she is interested but would need to speak w/ her brother once she returns home. Patient stated that someone is w/ her 24-7. I will continue to follow up w/ patient and MD. Discharge date is unknown at this time.
[2025-01-05] MEDS: POTASSIUM CHLORIDE 20MEQ TAB 40 MEQ PO ×2 (11:36→15:57)
[2025-01-05] MEDS: LEVOFLOXACIN/D5W 750 MG/150 ML 750 MG/150 ML PIGGYBACK 100 MG IV (11:37)
--- NOTE | 2025-01-05 11:53 | HMH.OTEV ---
OT Inpatient Evaluation Rehab OT IP Evaluation Start: 01/04/25 09:05 Freq: ONCE Status: Active Protocol: Document 01/05/25 11:37 ABRAHAM (Rec: 01/05/25 11:53 ABRAHAM [id number]) Rehab OT IP Assessment Subjective History Per HPI narrative: Patient is an 84-year-old female brought in today for sudden shortness of breath and chest pain. Patient was initially activated as a possible prehospital STEMI. Prehospital EKG showed some mild ST elevations in the anterior precordial leads with some possible reciprocal changes. Patient was recently the hospital for E. coli bacteremia with a type II NSTEMI ultimately was found to have an abnormal stress test had recommended left heart cath procedure that was offered however the patient declined this. She is DNR. She presented in extremis and history is significantly limited. Subjective I want to sit in chair. Pt was supine in bed when therapy arrived. pt was orient x3. pt reported they live by self in single story home. pt reports they have a ramp to enter home. pt reported they have a shower chair for bathing, but has been using a wash cloth to rinse and bathe. pt reported they are ind in dressing. pt reported they use a walker for functional mobility. pt reported they have a raised toilet seat. pt reported they have someone come and assist in IADLs. pt report they do not drive. pt reports they do not use O2 at home, currently on 1 L of O2. Pt reported they would like to sit in chair. Pt went from supine to EOB with SBA. pt able to complete sit to stand transfer with walker with Min A. pt then able to complete functional mobility task of 2 feet with walker with Min A. pt then able to sit in chair. Pt req cues for safety and body mechanics . pt left in chair with call light and all other needs within reach. Objective Patient Orientation Person,Place,Birthday Right Upper WFL Extremity Gross ROM Left Upper Extremity WFL Gross ROM Bed Mobility bed mobility-scooting,bed mobility - supine/sit Assist Level Supervision/Stand by Transfer Training Sit/Stand Transfer Assist Level Minimal x 1 (25% assist) Chair Transfer Minimal x 1 (25% assist) Ability Chair Transfer Sit to/from Ambulatory Technique Chair Transfer Standard Walker Assistive Devices Decrease in Yes Endurance Rehab OT IP prob,goals,plan Problems Date of Evaluation: 01/05/25 OT IP Problems Bed Mobility,Transfers,Balance,Self care,Safety Rehab Potential Rehab Potential Good Equipment Needs Assistive Devices Standard Walker,Rolling / Wheeled Walker Plan OT intervention Plan Bed Mobility,Transfers,Balance,Self care,Safety, Therapeutic Exercise OT Plan Frequency Daily Duration LOS Discharge Goals Bed Mobility Ability Independent Sit to Stand Chair Supervision/Stand by Transfer Ability Chair Transfer Supervision/Stand by Ability Chair Transfer Sit to/from Ambulatory Technique Chair Transfer Standard Walker Assistive Devices Self care skills dressing/undressing independently Feeding Ability Assist with Tray Set Up Commode/Toilet Raised Toilet Seat,Grab Bars Transfer Assistive Devices Decrease in No Endurance Discharge Plan OT Discharge Plan Patient is currently most appropriate for placement in a skilled rehab facility once medically stable for d/c from [facility] for skilled OT services and interventions to address functional limitations in occupational performance. While being seen at [facility], pt would benefit from skilled OT services and interventions to address functional limitations in occupational performance. Eval Complexity Eval Charge Codes 64893 - Moderate Complexity PHYSICIAN CERTIFICATION: I certify the specified therapy services for Ksenia Velazquez are required, authorized, and reviewed every 30 days.
--- NOTE | 2025-01-05 11:59 | EXP.CARD.CON ---
History of Present Illness History of Present Illness Consult date: 01/05/25 Requesting physician: Seth Olivera Consult reason: chest pain Chief complaint: chest pain and soa History of present illness: This is an 84-year-old white female with past medical history of coronary artery disease, hyperlipidemia and heart failure with preserved ejection fraction who presented to emergency department on 01/04/2025 with the clinical impression of hypertensive emergency, flash pulmonary edema, bilateral pleural effusion and STEMI. Patient was taken to [facility] from [facility], C showed mild to moderate diffuse coronary artery disease with patent stents noted. Labs as follow: WBC 6.6, hemoglobin 10.2 sodium 139, potassium 3.5, BUN 19, creatinine 0.8, troponin 1.37 after left heart cath. Chest x-ray shows right basilar airspace disease which may represent pneumonia and mild bibasilar atelectasis with a small right-sided pleural effusion. Patient was admitted for further evaluation and monitoring for HFrEF. This morning patient is resting comfortably in chair. Reports she is feeling better, denies chest pain, reports shortness of breath is improving. [facility] Disclaimer: The information contained in this section may have been updated after the patient was seen, as this information can be updated by other users. Medical History (Updated 01/05/25 @ 14:39 by Anila Salinas APRN) Acute respiratory failure with hypoxia Femur fracture, right Closed right humeral fracture Strain of muscle, fascia and tendon of lower back, initial encounter HHD (hypertensive heart disease) Compression fracture of lumbar vertebra Constipation Mid back pain Low back pain Closed right femoral fracture Fracture of right shoulder Falls Snoring Daytime somnolence Restless sleeper Abnormal EKG Surgical History History of lumbosacral spine surgery History of arthroplasty of right shoulder Status post coronary artery stent placement Family History Other No significant family history Social History Smoking Status: Unknown if ever smoked alcohol intake: never substance use type: denies use current occupational status: retired Travel in the last 8 weeks?: None household members: none housing: house current occupational exposures/hazards: No caffeine: Yes Have you lived/traveled outside [place] in past 30 days?: No Contact w/someone who lives/traveled outside [place] past 30 days?: No Exposure to someone with infectious disease in past 14 days?: No Do you have a fever (greater than 100.4 F or 38 C)?: No Have you tested positive for COVID-19?: No Exposed to someone with COVID-19 in past 14 days?: No Do you have a sore throat?: No Do you have a cough?: No Do you have any weakness?: No Do you have any diarrhea?: No Are you experiencing any unusual bleeding?: No Do you have any muscle aches/pain?: No Do you have any abdominal pain?: No Are you experiencing loss of taste or smell?: No Review of Systems Constitutional Constitutional: Reports weakness *Cardiovascular Cardiovascular: Reports chest pain and Reports dyspnea *Respiratory Respiratory: Reports dyspnea *Musculoskeletal Musculoskeletal: Reports abnormal gait *Neurologic Neurologic: Reports abnormal gait and Reports weakness Exam Data for Last 24 hours Vital signs and Labs for Last 24 Hours: Temp Pulse Resp BP Pulse Ox O2 Del Method O2 Flow Rate 98.4 F 80 30 H 152/84 H 92 L Nasal Cannula 1 01/05/25 08:00 01/05/25 09:14 01/05/25 08:00 01/05/25 08:00 01/05/25 08:00 01/05/25 10:54 01/05/25 10:54 FiO2 40 01/03/25 21:00 Laboratory Results - last 24 hr 01/05/25 06:28: WBC 8.6 D, RBC 2.80 L, Hgb 9.3 L, Hct 28.4 L, MCV 101.4 H, MCH 33.2 H, MCHC 32.7, RDW 13.2, Plt Count 179, MPV 10.5 H, Neut % (Auto) 74.2, Lymph % (Auto) 14.7, Bland % (Auto) 10.1 H, Eos % (Auto) 0.5, Baso % (Auto) 0.2, Neut # (Auto) 6.4, Lymph # (Auto) 1.3, Bland # (Auto) 0.9, Eos # (Auto) 0.0, Baso # (Auto) 0.0, Sodium 137, Potassium 3.3 L, Chloride 104, Carbon Dioxide 30, Anion Gap 6.3, BUN 21 H, Creatinine 1.00 D, Estimated Creat Clear 48, Estimated GFR 53 L, Est GFR ( Amer) 64 D, Glucose 112 H D, Calcium 8.9, Magnesium 2.4 H D, Total Bilirubin 0.4, AST 36, ALT 19, Alkaline Phosphatase 90, Total Protein 6.1 L, Albumin 3.5, Globulin 2.6, Albumin/Globulin Ratio 1.3 I & O for Last 24 hours: Intake & Output 01/02/25 01/03/25 01/04/25 01/05/25 23:59 23:59 23:59 23:59 Intake Total 8.2 / 8.2 1172.2 / 1172.2 370 / 370 Output Total 1700 / 1700 1000 / 1000 Balance 8.2 / 8.2 -527.8 / -527.8 -630 / -630 Weight 185 lb 159 lb 9.835 oz Constitutional Constitutional: no acute distress *Routine Respiratory Exam Respiratory: Present rhonchi, wheezes, diminished air movement and symmetric chest movement *Routine Cardiovascular Exam Cardiovascular: Present RRR, Normal S1 and Normal S2 *Routine Abdominal Exam Abdominal: Present soft and normoactive bowel sounds; Absent tenderness *Routine Extremities Exam Extremities: Present full ROM and normal capillary refill; Absent edema *Routine Skin Exam Skin: Present intact, dry and warm Detailed Neck Exam: Thyroids Thyroid: Absent bruit Meds Home Medications and Allergies Home Medications ?Medication ?Instructions ?Recorded ?Confirmed ?Type buspirone 5 mg tablet 5 mg PO BID 03/12/20 01/03/25 History ferrous sulfate 325 mg (65 mg 325 mg PO MOWEFR anemia 09/30/20 01/03/25 History iron) tablet aspirin 81 mg tablet,delayed 81 mg PO DAILY 10/25/20 01/03/25 History release atorvastatin 80 mg tablet 80 mg PO HS 10/18/24 01/04/25 History cholecalciferol (vitamin D3) 25 25 mcg PO DAILY 10/18/24 01/03/25 History mcg (1,000 unit) capsule (Vitamin D3) lisinopril 20 mg tablet 20 mg PO DAILY #30 tabs 12/18/24 01/03/25 Rx bisoprolol fumarate 10 mg tablet 10 mg PO DAILY 01/04/25 01/04/25 History furosemide 20 mg tablet 20 mg PO DAILY 01/04/25 01/04/25 History omeprazole 40 mg capsule,delayed 40 mg PO HS 01/04/25 01/04/25 History release spironolactone 25 mg tablet 25 mg PO DAILY 01/04/25 01/04/25 History New Prescriptions to Start Prescriptions: Allergies Allergy/AdvReac Type Severity Reaction Status Date / Time No Known Allergies Allergy Verified 01/04/25 01:07 Assessment and Plan *Assessment and plan (1) Non-ST elevation [place] (NSTEMI): Status: Acute Category: Medical Code(s): I21.4 - Non-ST elevation (NSTEMI) myocardial infarction (2) Coronary artery disease: Status: Chronic Qualifiers: Associated angina: without angina Coronary Disease-Associated Artery/Lesion type: [place] artery [place] vs. transplanted heart: [place] heart Qualified Code(s): I25.10 - Atherosclerotic heart disease of [place] coronary artery without angina pectoris Category: Medical Code(s): I25.10 - Atherosclerotic heart disease of [place] coronary artery without angina pectoris (3) Heart failure with reduced ejection fraction: Status: Acute Category: Medical Code(s): I50.20 - Unspecified systolic (congestive) heart failure Plan Coronary artery disease NSTEMI Left heart catheterization 01/03/2025:mild to moderate diffuse coronary artery disease. Images reviewed per Dr. Lopes with concern for a proximal LAD lesion. Dr. Lopes would like to take patient back to the [facility] for further evaluation of this lesion. Dr. Sanches spoke with patient and her brother who are both agreeable to plan Continue aspirin 81 mg and atorvastatin 80 mg p.o. daily. Acute HFrEF Chest x-ray shows mild bibasilar atelectasis and a small right-sided pleural effusion. Right basilar airspace disease may represent pneumonia. Defer to pulmonology Echo today -mildly reduced LV systolic function of 45%, septal and inferoseptal LV sands are moderately hypokinetic, grade 2 diastolic dysfunction, mild RV dilation with mild reduction in RV function, elevated RVSP 35-40. Continue to diurese patient with Bumex 2 mg IV twice daily. Change lisinopril 20 mg daily to Entresto 24/26 mg p.o. twice daily. Continue bisoprolol 10 mg p.o. daily Add Farxiga 10 mg p.o. daily Will add Aldactone tomorrow CV summary 01/05/2025: Patient agrees to proceed with left heart catheterization tomorrow for evaluation of LAD lesion. Cardiac meds Aspirin 81 mg p.o. daily Atorvastatin 80 mg p.o. daily Bumex 2 mg IV twice daily Entresto 24/26 mg p.o. twice daily Bisoprolol 2 mg p.o. daily Farxiga 10 mg p.o. daily
[2025-01-05] MEDS: DAPAGLIFLOZIN PROPANEDIOL 10 MG TABLET PO (15:31)
[2025-01-05 15:58] LABS: Basophils % 0.3 % (0.1-2.0); Eosinophils % 0.4 % (0.1-12.0); Hematocrit 31.1 % (37.0-47.0); Hemoglobin 10.1 g/dL (12.2-16.2); Immature Granulocytes # 0.03 10^3uL; Immature Granulocytes % 0.3 %; Lymphocytes # 0.8 K/mm3 (0.7-4.5); Lymphocytes % 8.3 % (10-50); Mean Corpuscular HGB Conc 32.5 g/dL (31.8-35.4); Mean Corpuscular Hemoglobin 32.7 pg (27.0-31.2); Mean Corpuscular Volume 100.6 fl (81-99); Mean Platelet Volume 9.9 fl (7.4-10.4); Monocytes # 0.8 K/mm3 (0.1-1.0); Monocytes % 8.4 % (1.7-9.3); Neutrophils # 7.7 K/mm3 (1.8-7.8); Neutrophils % 82.3 % (37.0-80.0); Nucleated Red Blood Cells # 0 10^3/uL; Nucleated Red Blood Cells % 0 %; Platelet Count 208 K/mm3 (142-424); Red Blood Count 3.09 M/mm3 (4.20-5.40); Red Cell Distribution Width 13.2 % (11.5-17.5); Red Cell Distribution Width-SD 49.1 fL; White Blood Count 9.4 K/mm3 (4.8-10.8)
[2025-01-05 16:04] LABS: Chloride 102 mmol/L (98-107); Potassium 4.2 mmoL/L (3.5-5.1); Sodium 137 mmol/L (136-145)
[2025-01-05 16:07] LABS: Anion Gap 9.2 mEq/L (5-15); Blood Urea Nitrogen 20 mg/dl (7-17); Calcium 9.1 mg/dl (8.4-10.2); Carbon Dioxide 30 mmol/L (22.0-30.0); Creatinine Clearance Estimated 44 mL/min (50-200); Estimated Glomerular Filt Rate 47 ml/min (>60); GFR (African American) 57 ML/MIN (>60); Glucose 127 mg/dl (74-100)
--- NOTE | 2025-01-05 18:53 | PC.NURSE ---
A&OX4. TOLERATING RA AIR AT THIS TIME, 90%. PATIENT HAS BEEN UP TO CHAIR MULTIPLE HOURS THIS SHIFT. PATIENT HAS BEEN IN GOOD SPIRITS. HAVING TROUBLE DECIDING WHAT SHE WANTS WHEN IT COMES TO PLAN OF CARE. ULTIMATELY, PATIENT IS LEANING ON HER BROTHER TO HELP HER WITH DECISION MAKING. PURE WICK IN PLACE, ADEQUATE U/O. NO NEEDS OR C/O THUS FAR THIS SHIFT. VSS.
--- NOTE | 2025-01-05 19:41 | EXP.ACUTE.PN ---
Subjective *Date: 01/05/25 *Time: 22:15 Interval history: Patient denies any chest pain today. Weaned to room air by morning rounds. No nausea or vomiting. Afebrile. Medical Exam Vital signs and Labs for Last 24 Hours: Vital Signs Temp Pulse Pulse Resp BP BP Pulse Ox 01/05/25 18:49 01/05/25 18:23 85 01/05/25 18:23 88 01/05/25 18:23 91 L 01/05/25 17:00 01/05/25 16:00 98 F 91 H 26 H 158/98 H 88 L 01/05/25 15:00 01/05/25 13:00 01/05/25 12:00 97.6 F 82 18 151/87 H 90 L 01/05/25 10:54 01/05/25 09:45 01/05/25 09:14 80 01/05/25 09:14 87 01/05/25 09:00 01/05/25 08:00 98.4 F 91 H 30 H 152/84 H 92 L 01/05/25 06:43 01/05/25 06:07 79 01/05/25 06:07 80 01/05/25 06:07 94 L 01/05/25 05:00 01/05/25 04:00 98.4 F 84 20 124/67 91 L 01/05/25 04:00 90 01/05/25 03:00 01/05/25 02:32 85 01/05/25 02:31 84 01/05/25 02:00 99 H 92 L 01/05/25 02:00 99 H 20 122/75 92 L 01/05/25 01:00 01/05/25 00:00 98.4 F 90 18 129/70 92 L 01/05/25 00:00 90 01/04/25 23:00 01/04/25 22:20 93 H 01/04/25 22:10 90 01/04/25 22:00 89 20 148/81 H 93 L 01/04/25 21:00 01/04/25 20:00 96 H 91 L 01/04/25 20:00 98.6 F 96 H 22 142/74 H 90 L 01/04/25 20:00 96 H O2 Del Method O2 Flow Rate 01/05/25 18:49 Room Air 01/05/25 18:23 01/05/25 18:23 01/05/25 18:23 Room Air 01/05/25 17:00 Room Air 01/05/25 16:00 01/05/25 15:00 Room Air 01/05/25 13:00 Room Air 01/05/25 12:00 Room Air 01/05/25 10:54 Nasal Cannula 1 01/05/25 09:45 Nasal Cannula 1 01/05/25 09:14 01/05/25 09:14 01/05/25 09:00 Nasal Cannula 1 01/05/25 08:00 Nasal Cannula 1 01/05/25 06:43 Nasal Cannula 1 01/05/25 06:07 01/05/25 06:07 01/05/25 06:07 Nasal Cannula 1 01/05/25 05:00 Nasal Cannula 1 01/05/25 04:00 Nasal Cannula 1 01/05/25 04:00 01/05/25 03:00 Nasal Cannula 1 01/05/25 02:32 01/05/25 02:31 01/05/25 02:00 Nasal Cannula 1 01/05/25 02:00 Nasal Cannula 1 01/05/25 01:00 Nasal Cannula 1 01/05/25 00:00 Nasal Cannula 1 01/05/25 00:00 01/04/25 23:00 Nasal Cannula 1 01/04/25 22:20 01/04/25 22:10 01/04/25 22:00 Nasal Cannula 1 01/04/25 21:00 Nasal Cannula 1 01/04/25 20:00 Nasal Cannula 1 01/04/25 20:00 Nasal Cannula 1 01/04/25 20:00 Intake and Output 01/05/25 01/05/25 01/05/25 07:59 15:59 23:59 Intake Total 100 0 540 / 910 270 / 910 Output Total 1999 Balance 0 / -1090 -1360 / -1090 270 / -1090 Intake: Intake, Oral Amount 540 / 810 270 / 810 Intake, Total IV Amount 100 / 100 Magnesium Sulfate in Water 2 gm 100 / 100 In 50 ml @ 50 mls/hr IV Q1H [facility] Rx#:[id number] Output: Output, Urine Amount 1999 Other: Number of Voids 0 Number of Unmeasured Voids 0 Laboratory Results - last 24 hr 01/05/25 06:28: WBC 8.6 D, RBC 2.80 L, Hgb 9.3 L, Hct 28.4 L, MCV 101.4 H, MCH 33.2 H, MCHC 32.7, RDW 13.2, Plt Count 179, MPV 10.5 H, Neut % (Auto) 74.2, Lymph % (Auto) 14.7, [place] % (Auto) 10.1 H, Eos % (Auto) 0.5, Baso % (Auto) 0.2, Neut # (Auto) 6.4, Lymph # (Auto) 1.3, [place] # (Auto) 0.9, Eos # (Auto) 0.0, Baso # (Auto) 0.0, Sodium 137, Potassium 3.3 L, Chloride 104, Carbon Dioxide 30, Anion Gap 6.3, BUN 21 H, Creatinine 1.00 D, Estimated Creat Clear 48, Estimated GFR 53 L, Est GFR ( Amer) 64 D, Glucose 112 H D, Calcium 8.9, Magnesium 2.4 H D, Total Bilirubin 0.4, AST 36, ALT 19, Alkaline Phosphatase 90, Total Protein 6.1 L, Albumin 3.5, Globulin 2.6, Albumin/Globulin Ratio 1.3 01/05/25 15:53: WBC 9.4, RBC 3.09 L, Hgb 10.1 L, Hct 31.1 L, MCV 100.6 H, MCH 32.7 H, MCHC 32.5, RDW 13.2, Plt Count 208, MPV 9.9, Neut % (Auto) 82.3 H, Lymph % (Auto) 8.3 L, [place] % (Auto) 8.4, Eos % (Auto) 0.4, Baso % (Auto) 0.3, Neut # (Auto) 7.7, Lymph # (Auto) 0.8, [place] # (Auto) 0.8, Eos # (Auto) 0.0, Baso # (Auto) 0.0, Sodium 137, Potassium 4.2 D, Chloride 102, Carbon Dioxide 30, Anion Gap 9.2, BUN 20 H, Creatinine 1.10 H, Estimated Creat Clear 44, Estimated GFR 47 L, Est GFR ( Amer) 57 L, Glucose 127 H, Calcium 9.1 I & O for Labs for Last 24 Hours: Intake & Output 01/02/25 01/03/25 01/04/25 01/05/25 23:59 23:59 23:59 23:59 Intake Total 8.2 / 8.2 1172.2 / 1172.2 910 / 910 Output Total 1700 / 1700 1999 Balance 8.2 / 8.2 -527.8 / -527.8 -1090 / -1090 Weight 83.915 kg 72.4 kg Constitutional: Present no acute distress, average body habitus, chronically ill appearing and cooperative Head: Present atraumatic and normocephalic ENT: Present normal exam Comment:: poor dentition Respiratory: Present normal respiratory effort; Absent rhonchi, wheezes or crackles Cardiac: Present Reg Rate and Rhythm GI: Present soft and normal bowel sounds; Absent distention or tenderness Extremities: Present normal inspection, full ROM and edema (Chronic stasis changes, 2+ edema bilateral lower extremity) Skin: Present intact; Absent erythema Neuro: Present Grossly Intact, alert, awake, oriented x 3 and moves all extremities Assessment and Plan *Assessment and plan (1) ACS (acute coronary syndrome): Status: Acute Category: Medical Code(s): I24.9 - Acute ischemic heart disease, unspecified (2) Bilateral pleural effusion: Status: Acute Category: Medical Code(s): J90 - Pleural effusion, not elsewhere classified (3) Edema: Status: Acute Qualifiers: Edema type: unspecified Qualified Code(s): R60.9 - Edema, unspecified Category: Medical Code(s): R60.9 - Edema, unspecified (4) Flash pulmonary edema: Status: Acute Category: Medical Code(s): J81.0 - Acute pulmonary edema (5) Hypertensive emergency: Status: Acute Category: Medical Code(s): I16.1 - Hypertensive emergency (6) Heart failure with reduced ejection fraction: Status: Acute Category: Medical Code(s): I50.20 - Unspecified systolic (congestive) heart failure (7) Acute respiratory failure with hypoxia: Status: Acute Category: Medical Code(s): J96.01 - Acute respiratory failure with hypoxia (8) Coronary artery disease: Status: Chronic Qualifiers: Associated angina: without angina Coronary Disease-Associated Artery/Lesion type: [place] artery [place] vs. transplanted heart: [place] heart Qualified Code(s): I25.10 - Atherosclerotic heart disease of [place] coronary artery without angina pectoris Category: Medical Code(s): I25.10 - Atherosclerotic heart disease of [place] coronary artery without angina pectoris (9) Non-ST elevation [place] (NSTEMI): Status: Acute Category: Medical Code(s): I21.4 - Non-ST elevation (NSTEMI) myocardial infarction Plan Ksenia Velazquez is a 84-year-old female who presented with generalized weakness, tachycardia. Taken for heart cath with no significant new blockages. Downgraded from stepdown to MedSurg on telemetry. Responding to diuresis. Cardiology consulted and evaluating today. Problems addressed as follows: #NSTEMI type II #CAD with 5 stents # Acute HFrEF #Hypertension ? Left heart cath performed 01/03. Mild-moderate diffuse coronary artery disease. Discussed patient with cardiology this morning, images reviewed today however with concern for proximal LAD lesion. Recommend repeat heart cath in the morning. Patient agreeable. - Continue aspirin 81 mg daily, Lipitor 80 mg daily, transition to Entresto 24/26 mg twice daily, continue bisoprolol 10 mg daily. Initiate Farxiga 10 mg daily. ? ECHO showed wall motion abnormalities and reduction in EF to 45% - Continue diuresis with Bumex 2 mg IV twice daily - Consider adding Aldactone tomorrow #CKD 3 ? Kidney function at baseline with BUN 21, creatinine 1.0. Potassium 3.3, magnesium 2.4. Repeat CBC, CMP, magnesium ordered for the morning Effusion on chest imaging with potential underlying pneumonia. - Pulmonology consulted, discussed case, recommend 5 days of levofloxacin - Hold on thoracentesis at this point pending clinical follow-up - DuoNebs every 6 hours on a scheduled basis - White count normal at 8.6 Therapy evaluated, recommend placement. Patient is adamant that she will go home and has no interest in placement for therapy or home health PT DNR/DNI DVT prophylaxis: heparin 5000u BID Cardiac diet; NPO after midnight
[2025-01-05] MEDS: ATORVASTATIN 40MG TABLET 80 MG PO (21:38)
[2025-01-05] MEDS: PANTOPRAZOLE 40MG TABLET 40 MG PO (21:39)
[2025-01-05] MEDS: SACUBITRIL/VALSARTAN 24-26MG TABLET 1 EACH PO (21:39)
[2025-01-05] MEDS: HEPARIN SODIUM 5,000 UNIT/ML VIAL 5000 UNIT SUBCUT (23:53)
[2025-01-06] VITALS (28 sets, daily range): BP systolic 85–158; BP diastolic 51–85; PULSE 73–104; RESP 16–24; TEMP 36.7–37.6; O2SAT 90–97; BMI 24.7
[2025-01-06] MEDS: IPRATROPIUM/ALBUTEROL 3 ML NEB IH ×4 (06:01→23:55)
[2025-01-06 06:51] LABS: Basophils % 0.3 % (0.1-2.0); Eosinophils % 0.4 % (0.1-12.0); Hematocrit 32.1 % (37.0-47.0); Hemoglobin 10.6 g/dL (12.2-16.2); Immature Granulocytes # 0.03 10^3uL; Immature Granulocytes % 0.4 %; Lymphocytes % 13.5 % (10-50); Mean Corpuscular Hemoglobin 32.9 pg (27.0-31.2); Mean Corpuscular Volume 99.7 fl (81-99); Mean Platelet Volume 10.2 fl (7.4-10.4); Monocytes # 0.8 K/mm3 (0.1-1.0); Monocytes % 10.5 % (1.7-9.3); Neutrophils # 5.5 K/mm3 (1.8-7.8); Neutrophils % 74.9 % (37.0-80.0); Nucleated Red Blood Cells # 0 10^3/uL; Nucleated Red Blood Cells % 0 %; Platelet Count 204 K/mm3 (142-424); Red Blood Count 3.22 M/mm3 (4.20-5.40); Red Cell Distribution Width 13.2 % (11.5-17.5); Red Cell Distribution Width-SD 48.4 fL; White Blood Count 7.4 K/mm3 (4.8-10.8)
--- NOTE | 2025-01-06 07:03 | IR_ITS ---
APPROVED REPORT Patient Location: Inpatient Structural Engineering Drafting Officer: Nish Pascual, RT (R) PROCEDURES Drug-eluting stent deployment to the proximal LAD INDICATION Acute non-ST elevation myocardial infarction, Abnormal Myoview, New regional wall motion abnormality Informed consent was obtained prior to the procedure. COMPLICATIONS NONE Estimated Blood Loss: LESS THAN 10 ML TECHNIQUE One percent lidocaine used to anesthetize the medial aspect of the right wrist. The right ulnar artery was accessed via the Seldinger technique. A 6 German sheath was placed in the right ulnar l artery. 2.5 mg of Verapamil, 800 mcg of nitroglycerin, 1mg Lidocaine and 3000 U Heparin were given through the arterial sheath. Therapeutic heparin was administered giving a therapeutic ACT the JL3 catheter was used to select the left main artery followed by a Choice PT extra-support wire. A 3 mm x 15 mm Ripley frontier stent was placed in the proximal LAD and deployed at 20 nicki reducing the severe stenosis to 0%. Within the procedure the apparatus was removed the sheath was removed and hemostasis was achieved using TR banding patient was transferred to the postop putting in stable condition. QUINTON II flow was present at the beginning of the procedure with QUINTON II flow at the end of the procedure. Most notably the distal LAD apical LAD had slow flow. IMPRESSION Successful stenting of the proximal LAD severe disease reduced to 0% with 1 drug-eluting stent PLAN 1. Dual antiplatelet therapy 2. LDL less than 55 to proceed with high intensity statin 3. Avoidance of tobacco products 4. Risk factor modification 5. Cardiac rehabilitation Electronically signed by : Uche Lopes MD 01/06/2025 14:41:30
[2025-01-06 07:12] LABS: Albumin Level 3.7 g/dl (3.5-5.0); Chloride 98 mmol/L (98-107); Sodium 137 mmol/L (136-145)
[2025-01-06 07:15] LABS: Alanine Aminotransferase 20 U/L (12-78); Albumin/Globulin Ratio 1.3 (1.1-1.8); Alkaline Phosphatase 103 U/L (38-126); Aspartate Amino Transferase 34 U/L (14-36); Bilirubin,Total 0.8 mg/dl (0.2-1.3); Blood Urea Nitrogen 19 mg/dl (7-17); Calcium 9.2 mg/dl (8.4-10.2); Carbon Dioxide 34 mmol/L (22.0-30.0); Creatinine Clearance Estimated 36 mL/min (50-200); Estimated Glomerular Filt Rate 47 ml/min (>60); GFR (African American) 57 ML/MIN (>60); Globulin 2.9 g/dL (1.3-3.2); Glucose 118 mg/dl (74-100); Total Protein,Serum 6.6 g/dl (6.3-8.2)
--- NOTE | 2025-01-06 09:25 | EXP.PULM.PN ---
Subjective *Date: 01/06/25 *Time: 10:47 Interval history: No acute respiratory vents overnight. Patient denies any new respiratory complaints. Pulmonology Exam Inpatient Vital signs and Labs for Last 24 Hours: Temp Pulse Resp BP Pulse Ox O2 Del Method O2 Flow Rate 98.7 F 93 H 16 140/76 96 Nasal Cannula 2 01/06/25 08:00 01/06/25 08:00 01/06/25 08:00 01/06/25 08:00 01/06/25 08:00 01/06/25 08:00 01/06/25 08:00 FiO2 40 01/03/25 21:00 Laboratory Results - last 24 hr 01/05/25 15:53: WBC 9.4, RBC 3.09 L, Hgb 10.1 L, Hct 31.1 L, MCV 100.6 H, MCH 32.7 H, MCHC 32.5, RDW 13.2, Plt Count 208, MPV 9.9, Neut % (Auto) 82.3 H, Lymph % (Auto) 8.3 L, [place] % (Auto) 8.4, Eos % (Auto) 0.4, Baso % (Auto) 0.3, Neut # (Auto) 7.7, Lymph # (Auto) 0.8, [place] # (Auto) 0.8, Eos # (Auto) 0.0, Baso # (Auto) 0.0, Sodium 137, Potassium 4.2 D, Chloride 102, Carbon Dioxide 30, Anion Gap 9.2, BUN 20 H, Creatinine 1.10 H, Estimated Creat Clear 44, Estimated GFR 47 L, Est GFR ( Amer) 57 L, Glucose 127 H, Calcium 9.1 01/06/25 06:37: WBC 7.4, RBC 3.22 L, Hgb 10.6 L, Hct 32.1 L, MCV 99.7 H, MCH 32.9 H, MCHC 33.0, RDW 13.2, Plt Count 204, MPV 10.2, Neut % (Auto) 74.9, Lymph % (Auto) 13.5, [place] % (Auto) 10.5 H, Eos % (Auto) 0.4, Baso % (Auto) 0.3, Neut # (Auto) 5.5, Lymph # (Auto) 1.0, [place] # (Auto) 0.8, Eos # (Auto) 0.0, Baso # (Auto) 0.0, Sodium 137, Potassium 4.0, Chloride 98, Carbon Dioxide 34 H, Anion Gap 9.0, BUN 19 H, Creatinine 1.10 H, Estimated Creat Clear 36, Estimated GFR 47 L, Est GFR ( Amer) 57 L, Glucose 118 H, Calcium 9.2, Magnesium 2.0 D, Total Bilirubin 0.8, AST 34, ALT 20, Alkaline Phosphatase 103, Total Protein 6.6, Albumin 3.7, Globulin 2.9, Albumin/Globulin Ratio 1.3 Temp Pulse Resp BP Pulse Ox O2 Del Method O2 Flow Rate 98.4 F 80 20 124/67 94 L Nasal Cannula 1 01/05/25 04:00 01/05/25 09:14 01/05/25 04:00 01/05/25 04:00 01/05/25 06:07 01/05/25 06:43 01/05/25 06:43 FiO2 40 01/03/25 21:00 Laboratory Results - last 24 hr 01/05/25 06:28: WBC 8.6 D, RBC 2.80 L, Hgb 9.3 L, Hct 28.4 L, MCV 101.4 H, MCH 33.2 H, MCHC 32.7, RDW 13.2, Plt Count 179, MPV 10.5 H, Neut % (Auto) 74.2, Lymph % (Auto) 14.7, [place] % (Auto) 10.1 H, Eos % (Auto) 0.5, Baso % (Auto) 0.2, Neut # (Auto) 6.4, Lymph # (Auto) 1.3, [place] # (Auto) 0.9, Eos # (Auto) 0.0, Baso # (Auto) 0.0, Sodium 137, Potassium 3.3 L, Chloride 104, Carbon Dioxide 30, Anion Gap 6.3, BUN 21 H, Creatinine 1.00 D, Estimated Creat Clear 48, Estimated GFR 53 L, Est GFR ( Amer) 64 D, Glucose 112 H D, Calcium 8.9, Magnesium 2.4 H D, Total Bilirubin 0.4, AST 36, ALT 19, Alkaline Phosphatase 90, Total Protein 6.1 L, Albumin 3.5, Globulin 2.6, Albumin/Globulin Ratio 1.3 I & O for Labs for Last 24 Hours: Intake & Output 01/03/25 01/04/25 01/05/25 01/06/25 23:59 23:59 23:59 23:59 Intake Total 8.2 / 8.2 1172.2 / 1172.2 910 / 910 Output Total 1700 / 1700 2000 / 2650 1150 / 1150 Balance 8.2 / 8.2 -527.8 / -527.8 -1090 / -1740 -1150 / -1150 Weight 185 lb 159 lb 9.835 oz 131 lb Intake & Output 01/02/25 01/03/25 01/04/25 01/05/25 23:59 23:59 23:59 23:59 Intake Total 8.2 / 8.2 1172.2 / 1172.2 100 / 100 Output Total 1700 / 1700 100 / 100 Balance 8.2 / 8.2 -527.8 / -527.8 0 / 0 Weight 185 lb 159 lb 9.835 oz Constitutional: Present moderate distress Head: Present normocephalic and atraumatic ENT: Present normal exam, normal oropharynx and mucous membranes moist Neck: Present normal inspection and full ROM Respiratory: Present prolonged expiratory phase, rhonchi, wheezes, crackles, diminished air movement and able to speak in complete sentences Cardiac: Present S1/S2, Tachycardia and radial pulses present GI: Present soft and distention; Absent tenderness or guarding Rectal (female): Present deferred (female): Present deferred Skin: Present intact; Absent cyanosis or jaundice Neuro: Present alert, awake and oriented x 3 Extremities: Present normal inspection and edema; Absent clubbing or cyanosis Psychiatric: Present normal affect and cooperative Assessment and Plan *Assessment and plan (1) Bilateral pleural effusion: Status: Acute Category: Medical Code(s): J90 - Pleural effusion, not elsewhere classified (2) Pneumonia: Status: Acute Qualifiers: Laterality: right Lung location: lower lobe of lung Pneumonia type: due to unspecified organism Qualified Code(s): J18.9 - Pneumonia, unspecified organism Category: Medical Code(s): J18.9 - Pneumonia, unspecified organism (3) Acute respiratory failure with hypoxia: Status: Acute Category: Medical Code(s): J96.01 - Acute respiratory failure with hypoxia Plan Ms. Scherer is a 84-year-old female history of CAD status post stenting, hypertension, heart failure with preserved EF presented to the ER with concerning for hypertensive emergency with flash pulm edema bilateral pleural effusions and ACS and pulmonary was called for further evaluation and management. Patient denies any significant smoking history. Auscultation significant wheezing noted. Minutes worsening wheezing for the last 2 weeks Afebrile. Hemodynamically stable. Leukopenia, improving. Neutrophilic predominance noted. Chest x-ray upon admission predominantly right-sided moderate pleural effusion along with right lower lobe airspace disease. Prior history of bacteremia and UTI. Echo October 2024 normal EF at 65%. Diastolic function indeterminate. RV size and function grossly normal. Elevated RVSP On initial examination does not appear to be in any significant respiratory distress. Wheezing noted on auscultation weaned to room air with saturations maintained at 90% and above. The noted pleural effusion likely from volume overload. Less concern for parapneumonic effusion at this point of time given her continued improvement in her symptoms. Interval update: No acute respiratory vents overnight. Continue to receive diuretics, net negative volume status. Cardiology following. Afebrile. Hemodynamically stable. No evidence of leukocytosis. Weaned to room air again this morning with saturations maintained at 90% and above Echocardiogram reduced EF now at 45% with grade 2 diastolic dysfunction. Regional wall motion abnormalities. RV dilated and hypokinetic. Repeat chest x-ray from this morning continue to show noted right-sided pleural effusion improving from admission. Plan: Continue levofloxacin to complete a total of 5-day course Will hold off on performing thoracentesis at this point of time pending clinical follow-up DuoNebs every 6 hours on a scheduled basis Volume optimization as per primary team and cardiology # Thank you for involving pulmonary in this patient care. Will continue to follow.
--- NOTE | 2025-01-06 09:26 | XR_ITS ---
FINAL REPORT CLINICAL HISTORY: Pneumonia and pleural effusion COMPARISON: 01/03/2025 FINDINGS: A portable view of the chest was obtained. The heart is stable in size. There has been no significant interval change in bibasilar opacities or right greater than left pleural effusions. There is no pneumothorax. IMPRESSION: No significant interval change. Reviewed, Interpreted and Dictated by Aleida Padilla MD Transcribed by [facility] [employer] Authenticated and [facility]
[2025-01-06] MEDS: BUMETANIDE 1MG/4ML VIAL 2 MG IV (09:37)
[2025-01-06] MEDS: HEPARIN SODIUM 5,000 UNIT/ML VIAL 5000 UNIT SUBCUT ×2 (09:38→20:43)
[2025-01-06] MEDS: SACUBITRIL/VALSARTAN 24-26MG TABLET 1 EACH PO ×2 (09:38→20:44)
[2025-01-06] MEDS: guaiFENesin 600 MG TAB.ER.12H PO ×2 (09:38→20:44)
[2025-01-06] MEDS: BISOPROLOL 5MG TABLET 10 MG PO (09:38)
[2025-01-06] MEDS: BUSPIRONE HCL 5 MG TABLET PO ×2 (09:38→20:44)
[2025-01-06] MEDS: ASPIRIN EC 81MG TABLET 81 MG PO (09:38)
[2025-01-06] MEDS: DAPAGLIFLOZIN PROPANEDIOL 10 MG TABLET PO (09:38)
--- NOTE | 2025-01-06 10:59 | P.PN_ITS ---
Subjective Subjective Date: 01/06/25 Time: 09:00 Principal diagnosis: chest pain and soa Interval history: Patient reports she did well throughout the evening. Denies chest pain or shortness of breath this morning. Left heart catheterization is pending. Brother is at bedside. Morning labs reviewed. Exam Data for Last 24 hours Vital signs and Labs for Last 24 Hours: Temp Pulse Resp BP Pulse Ox O2 Del Method O2 Flow Rate 98.7 F 80 16 140/76 96 Nasal Cannula 1.5 01/06/25 08:00 01/06/25 10:34 01/06/25 08:00 01/06/25 08:00 01/06/25 08:00 01/06/25 09:30 01/06/25 09:30 FiO2 40 01/03/25 21:00 Laboratory Results - last 24 hr 01/05/25 15:53: WBC 9.4, RBC 3.09 L, Hgb 10.1 L, Hct 31.1 L, MCV 100.6 H, MCH 32.7 H, MCHC 32.5, RDW 13.2, Plt Count 208, MPV 9.9, Neut % (Auto) 82.3 H, Lymph % (Auto) 8.3 L, [place] % (Auto) 8.4, Eos % (Auto) 0.4, Baso % (Auto) 0.3, Neut # (Auto) 7.7, Lymph # (Auto) 0.8, [place] # (Auto) 0.8, Eos # (Auto) 0.0, Baso # (Auto) 0.0, Sodium 137, Potassium 4.2 D, Chloride 102, Carbon Dioxide 30, Anion Gap 9.2, BUN 20 H, Creatinine 1.10 H, Estimated Creat Clear 44, Estimated GFR 47 L, Est GFR ( Amer) 57 L, Glucose 127 H, Calcium 9.1 01/06/25 06:37: WBC 7.4, RBC 3.22 L, Hgb 10.6 L, Hct 32.1 L, MCV 99.7 H, MCH 32.9 H, MCHC 33.0, RDW 13.2, Plt Count 204, MPV 10.2, Neut % (Auto) 74.9, Lymph % (Auto) 13.5, [place] % (Auto) 10.5 H, Eos % (Auto) 0.4, Baso % (Auto) 0.3, Neut # (Auto) 5.5, Lymph # (Auto) 1.0, [place] # (Auto) 0.8, Eos # (Auto) 0.0, Baso # (Auto) 0.0, Sodium 137, Potassium 4.0, Chloride 98, Carbon Dioxide 34 H, Anion Gap 9.0, BUN 19 H, Creatinine 1.10 H, Estimated Creat Clear 36, Estimated GFR 47 L, Est GFR ( Amer) 57 L, Glucose 118 H, Calcium 9.2, Magnesium 2.0 D, Total Bilirubin 0.8, AST 34, ALT 20, Alkaline Phosphatase 103, Total Protein 6.6, Albumin 3.7, Globulin 2.9, Albumin/Globulin Ratio 1.3 I & O for Last 24 hours: Intake & Output 01/03/25 01/04/25 01/05/25 01/06/25 23:59 23:59 23:59 23:59 Intake Total 8.2 / 8.2 1172.2 / 1172.2 910 / 910 Output Total 1700 / 1700 2000 / 2650 1500 / 1500 Balance 8.2 / 8.2 -527.8 / -527.8 -1090 / -1740 -1500 / -1500 Weight 185 lb 159 lb 9.835 oz 131 lb Constitutional Constitutional: no acute distress *Routine Respiratory Exam Respiratory: Present CTA bilaterally and symmetric chest movement *Routine Cardiovascular Exam Cardiovascular: Present RRR, Normal S1 and Normal S2 *Routine Abdominal Exam Abdominal: Present soft and normoactive bowel sounds; Absent tenderness *Routine Extremities Exam Extremities: Present full ROM and normal capillary refill; Absent edema *Routine Skin Exam Skin: Present intact, dry and warm Detailed Neck Exam: Thyroids Thyroid: Absent bruit Progress Note: A&P Assessment and plan (1) Bilateral pleural effusion: Status: Acute (2) Pneumonia: Status: Acute (3) Acute respiratory failure with hypoxia: Status: Acute Assessment and Plan Assessment and Plan for All Diagnoses:: Coronary artery disease NSTEMI Left heart catheterization 01/03/2025:mild to moderate diffuse coronary artery disease. Images reviewed per Dr. Lopes with concern for a proximal LAD lesion. Dr. Lopes would like to take patient back to the [facility] for further evaluation of this lesion. Dr. Sanches spoke with patient and her brother who are both agreeable to plan. Left heart catheterization is pending for jyothi lai. Brother is at bedside. Continue aspirin 81 mg and atorvastatin 80 mg p.o. daily. Acute HFrEF Chest x-ray on admission showed mild bibasilar atelectasis and a small right- sided pleural effusion. Right basilar airspace disease may represent pneumonia. Defer to pulmonology Echo-mildly reduced LV systolic function of 45%, septal and inferoseptal LV sands are moderately hypokinetic, grade 2 diastolic dysfunction, mild RV dilation with mild reduction in RV function, elevated RVSP 35-40. Decrease Bumex to 1 mg IV twice daily- creatinine is starting to rise. Continue Entresto 24/26 mg p.o. twice daily. Continue bisoprolol 10 mg p.o. daily Continue Farxiga 10 mg p.o. daily Add Aldactone 25 mg p.o. daily CV summary 01/05/2025: Left heart catheterization for today's pending. Decrease Bumex to 1 mg IV twice daily in the setting of rising creatinine. Add Aldactone 25 mg p.o. daily. Cardiac meds Aspirin 81 mg p.o. daily Atorvastatin 80 mg p.o. daily Bumex 1 mg IV twice daily Entresto 24/26 mg p.o. twice daily Bisoprolol 2 mg p.o. daily Farxiga 10 mg p.o. daily Aldactone 25 mg p.o. daily
[2025-01-06] MEDS: SODIUM CHLORIDE 3% 15ML NEB 3 ML IH (11:16)
[2025-01-06] MEDS: SPIRONOLACTONE 25MG TABLET 25 MG PO (11:19)
[2025-01-06] MEDS: HEPARIN 1,000 UNITS/500ML NS (CATH LAB) 3000 UNIT IV (13:25)
[2025-01-06] MEDS: diphenhydrAMINE 50MG/ML VIAL 50 MG IV (13:25)
[2025-01-06] MEDS: NITROGLYCERIN 800MCG/8ML SYR (CATH LAB) 800 MCG IA (13:25)
[2025-01-06] MEDS: VERAPAMIL 2.5MG/ML 2ML VIAL 2.5 MG IV (13:25)
[2025-01-06] MEDS: 0.9 % SODIUM CHLORIDE 500 ML 25 ML IV (13:26)
[2025-01-06] MEDS: HEPARIN 1,000 UNITS/ML 10ML VIAL (CATH LAB) 5000 UNIT IV (13:26)
[2025-01-06] MEDS: LIDOCAINE 1% 10ML MDV 10 ML IJ (13:26)
[2025-01-06] MEDS: FENTANYL 100MCG/2ML VIAL 50 MCG IV (13:38)
[2025-01-06] MEDS: MIDAZOLAM HCL 1MG/ML 5ML VIAL 1 MG IV (13:38)
[2025-01-06] MEDS: CLOPIDOGREL 300MG TABLET 600 MG PO (14:23)
[2025-01-06] MEDS: IOPAMIDOL-370 (76%);100ML BOTTLE 50 ML IV (15:33)
[2025-01-06 15:37] LABS: CATHL Activated Clotting Time 302 SEC (74-125)
[2025-01-06] MEDS: BUMETANIDE 1MG/4ML VIAL 1 MG IV (16:30)
--- NOTE | 2025-01-06 18:25 | PC.NURSE ---
PT HAS DONE FAIR THIS SHIFT. TOLERATED HEART CATH WELL. SHE HAS HAS A SMALL AMOUNT OF BLEEDING WITH RADIAL BAND REMOVAL AND REMOVAL HAS BEEN SLOW. UPON RETURN FROM [facility] PT'S FINGERS WERE DUSKY. THIS RN ASKED [employer] RN AND SHE STATED THAT IT WAS FROM THE RADIAL BAND AND SHOULD GET BETTER WITH AIR REMOVAL FROM BAND. FINGERS WERE STILL WARM AND ULNAR PULSE PALPABLE. THERE IS A SMALL AMOUNT OF BRUISING JUST ABOVE THE RADIAL BAND.
[2025-01-06] MEDS: ATORVASTATIN 40MG TABLET 80 MG PO (20:43)
[2025-01-06] MEDS: PANTOPRAZOLE 40MG TABLET 40 MG PO (20:44)
--- NOTE | 2025-01-06 22:19 | EXP.PN ---
Subjective *Date: 01/06/25 *Time: 22:19 Interval history: Patient doing well this afternoon after C, successfully received 1 DEONNA stent to LAD. Patient tolerated procedure well. Exam Data for Last 24 hours Vital signs and Labs for Last 24 Hours: Temp Pulse Resp BP Pulse Ox O2 Del Method O2 Flow Rate 99.7 F H 83 18 95/61 L 91 L Room Air 1.5 01/06/25 20:00 01/06/25 21:01/06/25 21:01/06/25 21:01/06/25 21:01/06/25 21:01/06/25 09:30 FiO2 40 01/03/25 21:00 Laboratory Results - last 24 hr 01/06/25 06:37: WBC 7.4, RBC 3.22 L, Hgb 10.6 L, Hct 32.1 L, MCV 99.7 H, MCH 32.9 H, MCHC 33.0, RDW 13.2, Plt Count 204, MPV 10.2, Neut % (Auto) 74.9, Lymph % (Auto) 13.5, [place] % (Auto) 10.5 H, Eos % (Auto) 0.4, Baso % (Auto) 0.3, Neut # (Auto) 5.5, Lymph # (Auto) 1.0, [place] # (Auto) 0.8, Eos # (Auto) 0.0, Baso # (Auto) 0.0, Sodium 137, Potassium 4.0, Chloride 98, Carbon Dioxide 34 H, Anion Gap 9.0, BUN 19 H, Creatinine 1.10 H, Estimated Creat Clear 36, Estimated GFR 47 L, Est GFR ( Amer) 57 L, Glucose 118 H, Calcium 9.2, Magnesium 2.0 D, Total Bilirubin 0.8, AST 34, ALT 20, Alkaline Phosphatase 103, Total Protein 6.6, Albumin 3.7, Globulin 2.9, Albumin/Globulin Ratio 1.3 01/06/25 13:43: Activated Clotting Time 302 H* I & O for Last 24 hours: Intake & Output 01/03/25 01/04/25 01/05/25 01/06/25 23:59 23:59 23:59 23:59 Intake Total 8.2 / 8.2 1172.2 / 1172.2 910 / 910 280 / 280 Output Total 1700 / 1700 1999 / 2650 1850 / 1850 Balance 8.2 / 8.2 -527.8 / -527.8 -1090 / -1740 -1570 / -1570 Weight 83.915 kg 72.4 kg 59.421 kg Microbiology Reports for the Last 24 Hours: Microbiology 01/06/25 09:51 Sputum - Expectorated Sputum Gram Stain - Final Assessment and Plan *Assessment and plan (1) ACS (acute coronary syndrome): Status: Acute Category: Medical Code(s): I24.9 - Acute ischemic heart disease, unspecified (2) Bilateral pleural effusion: Status: Acute Category: Medical Code(s): J90 - Pleural effusion, not elsewhere classified (3) Edema: Status: Acute Qualifiers: Edema type: unspecified Qualified Code(s): R60.9 - Edema, unspecified Category: Medical Code(s): R60.9 - Edema, unspecified (4) Flash pulmonary edema: Status: Acute Category: Medical Code(s): J81.0 - Acute pulmonary edema (5) Hypertensive emergency: Status: Acute Category: Medical Code(s): I16.1 - Hypertensive emergency (6) Heart failure with reduced ejection fraction: Status: Acute Category: Medical Code(s): I50.20 - Unspecified systolic (congestive) heart failure (7) Acute respiratory failure with hypoxia: Status: Acute Category: Medical Code(s): J96.01 - Acute respiratory failure with hypoxia (8) Coronary artery disease: Status: Chronic Qualifiers: Coronary Disease-Associated Artery/Lesion type: [place] artery [place] vs. transplanted heart: [place] heart Associated angina: without angina Qualified Code(s): I25.10 - Atherosclerotic heart disease of [place] coronary artery without angina pectoris Category: Medical Code(s): I25.10 - Atherosclerotic heart disease of [place] coronary artery without angina pectoris (9) Non-ST elevation [place] (NSTEMI): Status: Acute Category: Medical Code(s): I21.4 - Non-ST elevation (NSTEMI) myocardial infarction Plan Ksenia Velazquez is a 84-year-old female who presented with generalized weakness, tachycardia. Taken for heart cath with no significant new blockages. Downgraded from stepdown to MedSurg on telemetry. Responding to diuresis. Cardiology consulted and evaluating today. Problems addressed as follows: #NSTEMI type II #CAD with 5 stents # Acute HFrEF #Hypertension ? Left heart cath performed 01/03. Mild-moderate diffuse coronary artery disease. Discussed patient with cardiology this morning, images reviewed today however with concern for proximal LAD lesion. Recommend repeat heart cath in the morning. Patient agreeable. - Continue aspirin 81 mg daily, Lipitor 80 mg daily, transition to Entresto 24/26 mg twice daily, continue bisoprolol 10 mg daily. Initiate Farxiga 10 mg daily. ? ECHO showed wall motion abnormalities and reduction in EF to 45% - Continue diuresis with Bumex 1 mg IV twice daily, decrease per cardiology recommendations. - Consider adding Aldactone tomorrow #CKD 3 ? Kidney function at baseline with BUN 21, creatinine 1.0. Potassium 3.3, magnesium 2.4. Repeat CBC, CMP, magnesium ordered for the morning Effusion on chest imaging with potential underlying pneumonia. - Pulmonology consulted, discussed case, recommend 5 days of levofloxacin - Hold on thoracentesis at this point pending clinical follow-up - DuoNebs every 6 hours on a scheduled basis - White count normal at 8.6 Therapy evaluated, recommend placement. Patient is adamant that she will go home and has no interest in placement for therapy or home health PT DNR/DNI DVT prophylaxis: heparin 5000u BID Cardiac diet; NPO after midnight
[2025-01-07] VITALS (12 sets, daily range): BP systolic 82–119; BP diastolic 40–66; PULSE 70–90; RESP 16–20; TEMP 36.4–37; O2SAT 90–94; BMI 24.2; BMI 24.1
[2025-01-07] MEDS: IPRATROPIUM/ALBUTEROL 3 ML NEB IH (06:04)
[2025-01-07 06:48] LABS: Albumin Level 3.6 g/dl (3.5-5.0); Chloride 95 mmol/L (98-107); Potassium 3.8 mmoL/L (3.5-5.1); Sodium 137 mmol/L (136-145)
[2025-01-07 06:51] LABS: Alanine Aminotransferase 16 U/L (12-78); Albumin/Globulin Ratio 1.3 (1.1-1.8); Alkaline Phosphatase 87 U/L (38-126); Anion Gap 9.8 mEq/L (5-15); Aspartate Amino Transferase 32 U/L (14-36); Bilirubin,Total 0.7 mg/dl (0.2-1.3); Blood Urea Nitrogen 25 mg/dl (7-17); Calcium 8.8 mg/dl (8.4-10.2); Carbon Dioxide 36 mmol/L (22.0-30.0); Creatinine Clearance Estimated 27 mL/min (50-200); Estimated Glomerular Filt Rate 36 ml/min (>60); GFR (African American) 43 ML/MIN (>60); Globulin 2.7 g/dL (1.3-3.2); Glucose 95 mg/dl (74-100); Total Protein,Serum 6.3 g/dl (6.3-8.2)
[2025-01-07 06:59] LABS: Basophils % 0.6 % (0.1-2.0); Eosinophils # 0.1 Kmm3 (0.0-0.4); Eosinophils % 1.6 % (0.1-12.0); Hematocrit 33.6 % (37.0-47.0); Hemoglobin 10.8 g/dL (12.2-16.2); Immature Granulocytes # 0.03 10^3uL; Immature Granulocytes % 0.5 %; Lymphocytes # 1.6 K/mm3 (0.7-4.5); Lymphocytes % 24.5 % (10-50); Mean Corpuscular HGB Conc 32.1 g/dL (31.8-35.4); Mean Corpuscular Hemoglobin 32.3 pg (27.0-31.2); Mean Corpuscular Volume 100.6 fl (81-99); Mean Platelet Volume 10.2 fl (7.4-10.4); Monocytes # 0.8 K/mm3 (0.1-1.0); Monocytes % 12.2 % (1.7-9.3); Neutrophils # 3.9 K/mm3 (1.8-7.8); Neutrophils % 60.6 % (37.0-80.0); Nucleated Red Blood Cells # 0 10^3/uL; Nucleated Red Blood Cells % 0 %; Platelet Count 217 K/mm3 (142-424); Red Blood Count 3.34 M/mm3 (4.20-5.40); Red Cell Distribution Width 13.2 % (11.5-17.5); Red Cell Distribution Width-SD 49.1 fL; White Blood Count 6.5 K/mm3 (4.8-10.8)
--- NOTE | 2025-01-07 09:12 | EXP.PULM.PN ---
Subjective *Date: 01/07/25 *Time: 11:14 Interval history: No acute respiratory vents overnight Pulmonology Exam Inpatient Vital signs and Labs for Last 24 Hours: Temp Pulse Resp BP Pulse Ox O2 Del Method O2 Flow Rate 98.6 F 87 16 98/49 L 91 L Nasal Cannula 1 01/07/25 08:00 01/07/25 08:00 01/07/25 08:00 01/07/25 08:00 01/07/25 08:00 01/07/25 09:00 01/07/25 09:00 FiO2 40 01/03/25 21:00 Laboratory Results - last 24 hr 01/06/25 13:43: Activated Clotting Time 302 H* 01/07/25 06:25: WBC 6.5, RBC 3.34 L, Hgb 10.8 L, Hct 33.6 L, MCV 100.6 H, MCH 32.3 H, MCHC 32.1, RDW 13.2, Plt Count 217, MPV 10.2, Neut % (Auto) 60.6, Lymph % (Auto) 24.5, [place] % (Auto) 12.2 H, Eos % (Auto) 1.6, Baso % (Auto) 0.6, Neut # (Auto) 3.9, Lymph # (Auto) 1.6, [place] # (Auto) 0.8, Eos # (Auto) 0.1, Baso # (Auto) 0.0, Sodium 137, Potassium 3.8, Chloride 95 L, Carbon Dioxide 36 H, Anion Gap 9.8, BUN 25 H D, Creatinine 1.40 H D, Estimated Creat Clear 27, Estimated GFR 36 L, Est GFR ( Amer) 43 L D, Glucose 95, Calcium 8.8, Total Bilirubin 0.7, AST 32, ALT 16, Alkaline Phosphatase 87, Total Protein 6.3, Albumin 3.6, Globulin 2.7, Albumin/Globulin Ratio 1.3 Temp Pulse Resp BP Pulse Ox O2 Del Method O2 Flow Rate 98.4 F 80 20 124/67 94 L Nasal Cannula 1 01/05/25 04:00 01/05/25 09:14 01/05/25 04:00 01/05/25 04:00 01/05/25 06:07 01/05/25 06:43 01/05/25 06:43 FiO2 40 01/03/25 21:00 Laboratory Results - last 24 hr 01/05/25 06:28: WBC 8.6 D, RBC 2.80 L, Hgb 9.3 L, Hct 28.4 L, MCV 101.4 H, MCH 33.2 H, MCHC 32.7, RDW 13.2, Plt Count 179, MPV 10.5 H, Neut % (Auto) 74.2, Lymph % (Auto) 14.7, [place] % (Auto) 10.1 H, Eos % (Auto) 0.5, Baso % (Auto) 0.2, Neut # (Auto) 6.4, Lymph # (Auto) 1.3, [place] # (Auto) 0.9, Eos # (Auto) 0.0, Baso # (Auto) 0.0, Sodium 137, Potassium 3.3 L, Chloride 104, Carbon Dioxide 30, Anion Gap 6.3, BUN 21 H, Creatinine 1.00 D, Estimated Creat Clear 48, Estimated GFR 53 L, Est GFR ( Amer) 64 D, Glucose 112 H D, Calcium 8.9, Magnesium 2.4 H D, Total Bilirubin 0.4, AST 36, ALT 19, Alkaline Phosphatase 90, Total Protein 6.1 L, Albumin 3.5, Globulin 2.6, Albumin/Globulin Ratio 1.3 I & O for Labs for Last 24 Hours: Intake & Output 01/04/25 01/05/25 01/06/25 01/07/25 23:59 23:59 23:59 23:59 Intake Total 1172.2 / 1172.2 910 / 910 280 / 520 480 / 480 Output Total 1700 / 1700 2000 / 2650 1850 / 1850 Balance -527.8 / -527.8 -1090 / -1740 -1570 / -1330 480 / 480 Weight 159 lb 9.835 oz 131 lb 128 lb 3.2 oz Intake & Output 01/02/25 01/03/25 01/04/25 01/05/25 23:59 23:59 23:59 23:59 Intake Total 8.2 / 8.2 1172.2 / 1172.2 100 / 100 Output Total 1700 / 1700 100 / 100 Balance 8.2 / 8.2 -527.8 / -527.8 0 / 0 Weight 185 lb 159 lb 9.835 oz Microbiology Reports for the Last 24 Hours: Microbiology 01/06/25 09:51 Sputum - Expectorated Sputum Gram Stain - Final Constitutional: Present mild distress Head: Present normocephalic and atraumatic ENT: Present normal exam, normal oropharynx and mucous membranes moist Neck: Present normal inspection and full ROM Respiratory: Present prolonged expiratory phase, rhonchi, wheezes, crackles, diminished air movement and able to speak in complete sentences Cardiac: Present S1/S2, Tachycardia and radial pulses present GI: Present soft and distention; Absent tenderness or guarding Rectal (female): Present deferred (female): Present deferred Skin: Present intact; Absent cyanosis or jaundice Neuro: Present alert, awake and oriented x 3 Extremities: Present normal inspection and edema; Absent clubbing or cyanosis Psychiatric: Present normal affect and cooperative Assessment and Plan *Assessment and plan (1) Bilateral pleural effusion: Status: Acute Category: Medical Code(s): J90 - Pleural effusion, not elsewhere classified (2) Pneumonia: Status: Acute Qualifiers: Laterality: right Lung location: lower lobe of lung Pneumonia type: due to unspecified organism Qualified Code(s): J18.9 - Pneumonia, unspecified organism Category: Medical Code(s): J18.9 - Pneumonia, unspecified organism (3) Acute respiratory failure with hypoxia: Status: Acute Category: Medical Code(s): J96.01 - Acute respiratory failure with hypoxia Plan Ms. Scherer is a 84-year-old female history of CAD status post stenting, hypertension, heart failure with preserved EF presented to the ER with concerning for hypertensive emergency with flash pulm edema bilateral pleural effusions and ACS and pulmonary was called for further evaluation and management. Patient denies any significant smoking history. Auscultation significant wheezing noted. Minutes worsening wheezing for the last 2 weeks Afebrile. Hemodynamically stable. Leukopenia, improving. Neutrophilic predominance noted. Chest x-ray upon admission predominantly right-sided moderate pleural effusion along with right lower lobe airspace disease. Prior history of bacteremia and UTI. Echo October 2024 normal EF at 65%. Diastolic function indeterminate. RV size and function grossly normal. Elevated RVSP On initial examination does not appear to be in any significant respiratory distress. Wheezing noted on auscultation weaned to room air with saturations maintained at 90% and above. The noted pleural effusion likely from volume overload. Less concern for parapneumonic effusion at this point of time given her continued improvement in her symptoms. Echocardiogram reduced EF now at 45% with grade 2 diastolic dysfunction. Regional wall motion abnormalities. RV dilated and hypokinetic. Repeat chest x-ray from 01/06/2025 continue to show noted right-sided pleural effusion improving from admission. Interval update: No acute respiratory vents overnight. Stable oxygen requirements. On room air saturating 92% and above this morning. LHC, Occlusive CAD status post stenting. Plan: Continue levofloxacin to complete a total of 5-day course Will hold off on performing thoracentesis at this point of time pending clinical follow-up Advair 250 inhaler along with DuoNebs 4 times daily as needed Volume optimization as per primary team and cardiology # Thank you for involving pulmonary in this patient care. Will continue to follow.
[2025-01-07] MEDS: ASPIRIN EC 81MG TABLET 81 MG PO (09:58)
[2025-01-07] MEDS: BUSPIRONE HCL 5 MG TABLET PO ×2 (09:58→21:26)
[2025-01-07] MEDS: DAPAGLIFLOZIN PROPANEDIOL 10 MG TABLET PO (09:58)
[2025-01-07] MEDS: CLOPIDOGREL 75MG TAB 75 MG PO (09:59)
[2025-01-07] MEDS: guaiFENesin 600 MG TAB.ER.12H PO ×2 (09:59→21:26)
[2025-01-07] MEDS: 0.9 % SODIUM CHLORIDE 250 ML 999 ML IV (10:18)
[2025-01-07] MEDS: FLUTICASONE/SALMETEROL 250/50MCG DISKUS 1 PUFF IH ×2 (12:14→18:59)
[2025-01-07] MEDS: LEVOFLOXACIN/D5W 750 MG/150 ML 750 MG/150 ML PIGGYBACK 100 MG IV (12:26)
[2025-01-07] MEDS: BISOPROLOL 5MG TABLET 10 MG PO (12:27)
--- NOTE | 2025-01-07 12:56 | EXP.DC.SUM ---
General Admission date:: 01/04/25 HPI HPI HPI: Ms. Velazquez is well-known to us that she recently was admitted in October.. She came to the emergency room with a clinical impression of hypertensive emergency flash pulmonary edema bilateral pleural effusion and acute coronary artery syndrome. Long history of multiple stents to the cardiac vessels. Also long history of severe peripheral edema to lower extremities, that depending on how diuretics are used and improves at times. Patient noted that she had once again has +4 edema to her lower extremities. Also noting history of urinary tract infection. Patient has been treated in the ER with DuoNebs and metoprolol. Was noted that the prehospital STEMI on EKG. Patient agreed to cardiac catheterization but just wanted to knowing that she is a DNR. Per cardiac cath note patient was taken noted previous stents but no new stents placed. Patient has been transferred to the stepdown unit in the ICU at this time. Upon coming in and seeing the patient she is complained of her left side around to her back pain which is chronic with her. And having some mild nausea medications have been ordered. Noting patient's pulse and being about 60 being on a beta-karla not unexpected. But still increased blood pressure levels. Will go ahead and give Lasix a small amount 20 mg IV, continue on DuoNebs oxygen as needed. To try to slowly diurese this lady to improve her chest film and decrease edema in lower extremities. Will proceed slowly at this time related to the lady's history, ER physician performed echo showing diffuse B-lines and bilateral pleural effusion, also cardiac changes with new systolic dysfunction with apical hypokinesis. Will order echo to be performed as soon as possible to reevaluate cardiac ejection fraction Hospital Course Hospital Course Hospital Course: Transiently low blood pressures this morning after starting Entresto last night. Improved with 250 cc bolus. Currently stable. Will hold off on Entresto, will continue lisinopril until cardiology follow-up. Total time spent on discharge: 32 minutes on chart review, counseling, documentation, and direct care with patient. Exam Data for Last 24 hours Vital signs and Labs for Last 24 Hours: Temp Pulse Resp BP Pulse Ox O2 Del Method O2 Flow Rate 98.4 F 81 16 105/66 L 92 L Room Air 1 01/07/25 12:01/07/25 12:01/07/25 12:01/07/25 12:01/07/25 12:00 01/07/25 12:00 01/07/25 09:00 FiO2 40 01/03/25 21:00 Laboratory Results - last 24 hr 01/06/25 13:43: Activated Clotting Time 302 H* 01/07/25 06:25: WBC 6.5, RBC 3.34 L, Hgb 10.8 L, Hct 33.6 L, MCV 100.6 H, MCH 32.3 H, MCHC 32.1, RDW 13.2, Plt Count 217, MPV 10.2, Neut % (Auto) 60.6, Lymph % (Auto) 24.5, [place] % (Auto) 12.2 H, Eos % (Auto) 1.6, Baso % (Auto) 0.6, Neut # (Auto) 3.9, Lymph # (Auto) 1.6, [place] # (Auto) 0.8, Eos # (Auto) 0.1, Baso # (Auto) 0.0, Sodium 137, Potassium 3.8, Chloride 95 L, Carbon Dioxide 36 H, Anion Gap 9.8, BUN 25 H D, Creatinine 1.40 H D, Estimated Creat Clear 27, Estimated GFR 36 L, Est GFR ( Amer) 43 L D, Glucose 95, Calcium 8.8, Total Bilirubin 0.7, AST 32, ALT 16, Alkaline Phosphatase 87, Total Protein 6.3, Albumin 3.6, Globulin 2.7, Albumin/Globulin Ratio 1.3 I & O for Last 24 hours: Intake & Output 01/04/25 01/05/25 01/06/25 01/07/25 23:59 23:59 23:59 23:59 Intake Total 1172.2 / 1172.2 910 / 910 280 / 520 480 / 480 Output Total 1700 / 1700 2000 / 2650 1850 / 1850 Balance -527.8 / -527.8 -1090 / -1740 -1570 / -1330 480 / 480 Weight 72.4 kg 59.421 kg 58 kg Microbiology Reports for the Last 24 Hours: Microbiology 01/06/25 09:51 Sputum - Expectorated Sputum Gram Stain - Final Results Data Completed and Pending Labs on day of discharge: Labs from last 24 hours 01/07/25 01/06/25 06:25 13:43 WBC 6.5 RBC 3.34 L Hgb 10.8 L Hct 33.6 L MCV 100.6 H MCH 32.3 H MCHC 32.1 RDW 13.2 Plt Count 217 MPV 10.2 Neut % (Auto) 60.6 Lymph % (Auto) 24.5 [place] % (Auto) 12.2 H Eos % (Auto) 1.6 Baso % (Auto) 0.6 Neut # (Auto) 3.9 Lymph # (Auto) 1.6 [place] # (Auto) 0.8 Eos # (Auto) 0.1 Baso # (Auto) 0.0 Activated Clotting Time 302 H* Sodium 137 Potassium 3.8 Chloride 95 L Carbon Dioxide 36 H Anion Gap 9.8 BUN 25 H D Creatinine 1.40 H D Estimated Creat Clear 27 Estimated GFR 36 L Est GFR ( Amer) 43 L D Glucose 95 Calcium 8.8 Total Bilirubin 0.7 AST 32 ALT 16 Alkaline Phosphatase 87 Total Protein 6.3 Albumin 3.6 Globulin 2.7 Albumin/Globulin Ratio 1.3 DS: Diagnosis Discharge Diagnosis (1) Bilateral pleural effusion: Status: Acute Code(s): J90 - Pleural effusion, not elsewhere classified (2) Pneumonia: Status: Acute Code(s): J18.9 - Pneumonia, unspecified organism Qualifiers: Laterality: right Lung location: lower lobe of lung Pneumonia type: due to unspecified organism Qualified Code(s): J18.9 - Pneumonia, unspecified organism (3) Acute respiratory failure with hypoxia: Status: Acute Code(s): J96.01 - Acute respiratory failure with hypoxia Meds Home Medications and Allergies Home Medications ?Medication ?Instructions ?Recorded ?Confirmed ?Type buspirone 5 mg tablet 5 mg PO BID 03/12/20 01/03/25 History ferrous sulfate 325 mg (65 mg 325 mg PO MOWEFR anemia 09/30/20 01/03/25 History iron) tablet aspirin 81 mg tablet,delayed 81 mg PO DAILY 10/25/20 01/03/25 History release atorvastatin 80 mg tablet 80 mg PO HS 10/18/24 01/04/25 History cholecalciferol (vitamin D3) 25 25 mcg PO DAILY 10/18/24 01/03/25 History mcg (1,000 unit) capsule (Vitamin D3) lisinopril 20 mg tablet 20 mg PO DAILY #30 tabs 12/18/24 01/03/25 Rx bisoprolol fumarate 10 mg tablet 10 mg PO DAILY 01/04/25 01/04/25 History omeprazole 40 mg capsule,delayed 40 mg PO HS 01/04/25 01/04/25 History release spironolactone 25 mg tablet 25 mg PO DAILY 01/04/25 01/04/25 History clopidogrel 75 mg tablet (Plavix) 75 mg PO DAILY #30 tabs 01/06/25 Rx bumetanide 1 mg tablet 1 mg PO DAILY 30 days #30 tabs 01/07/25 Rx dapagliflozin propanediol 10 mg 10 mg PO DAILY 30 days #30 tabs 01/07/25 Rx tablet (Farxiga) fluticasone 250 mcg-salmeterol 50 1 inh inhalation BIDRT 30 days #60 01/07/25 Rx mcg/dose blistr powdr for ea inhalation (Advair Diskus) levofloxacin 750 mg tablet 750 mg PO Q48H 3 days #2 tabs 01/07/25 Rx New Prescriptions to Start Prescriptions: vashtide Alex Quiroga clopidogrel [Plavix] Uche Lopesagliflozin propanediol [Farxiga] Alex Quiroga fluticasone propion-salmeterol [Advair Diskus] Alex Quiroga levofloxacin Alex Quiroga Allergies Allergy/AdvReac Type Severity Reaction Status Date / Time No Known Allergies Allergy Verified 01/04/25 01:07 Discharge Plan Disposition Patient Disposition: Home, Self-Care Condition: Fair Discharge Order Discharge Orders: Discharge Order (Routine); Ordered 01/07/25 Ordered By: Alex Quiroga Follow up Plan Follow up with: Uche Lopes MD [Staff Physician, Cardiology] - 01/13/25 1:45 pm Jenny Felix MD [Physician, Pulmonology] - Enter time for follow up Prescriptions/Medication Reconciliation: New clopidogrel [Plavix] 75 mg Tablet 75 mg PO DAILY Qty: 30 6RF dapagliflozin propanediol [Farxiga] 10 mg Tablet 10 mg PO DAILY 30 Days Qty: 30 0RF fluticasone propion-salmeterol [Advair Diskus] 250-50 mcg/dose Blister With Device 1 inh inhalation BIDRT 30 Days Qty: 60 0RF bumetanide 1 mg tablet 1 mg PO DAILY 30 Days Qty: 30 0RF levofloxacin 750 mg tablet 750 mg PO Q48H 3 Days Qty: 2 0RF Continued buspirone 5 mg tablet 5 mg PO BID lisinopril 20 mg tablet 20 mg PO DAILY Qty: 30 5RF ferrous sulfate 325 mg (65 mg iron) tablet 325 mg PO MOWEFR aspirin 81 MG tablet,delayed release (DR/EC) 81 mg PO DAILY cholecalciferol (vitamin D3) [Vitamin D3] 25 mcg (1,000 unit) Capsule 25 mcg PO DAILY atorvastatin 80 mg tablet 80 mg PO HS bisoprolol fumarate 10 mg Tablet 10 mg PO DAILY omeprazole 40 mg capsule,delayed release(DR/EC) 40 mg PO HS spironolactone 25 mg tablet 25 mg PO DAILY Discontinued furosemide 20 mg tablet 20 mg PO DAILY Problem Reconciliation Problems Reviewed?: Yes Patient Discharge Instructions Patient Instructions: DI for Heart Failure, DI for Respiratory Failure, DI for Pleural Effusion, Stop Light Heart Failure, Stop Light Infection Print Language: Filipino Providers Primary Care Provider: Manuel Cho Admit Provider: Seth Olivera Attending Provider: Seth Olivera
[2025-01-07] MEDS: POLYETHYLENE GLYCOL 3350 17 GM PACKET PO (13:04)
--- NOTE | 2025-01-07 13:44 | EXP.CARD.PN ---
Subjective Subjective Date: 01/07/25 Time: 09:00 Principal diagnosis: chest pain and soa Interval history: Status post stenting to proximal LAD. Morning labs reviewed. Exam Data for Last 24 hours Vital signs and Labs for Last 24 Hours: Temp Pulse Resp BP Pulse Ox O2 Del Method O2 Flow Rate 98.4 F 81 16 105/66 L 92 L Room Air 1 01/07/25 12:00 01/07/25 12:00 01/07/25 12:00 01/07/25 12:00 01/07/25 12:00 01/07/25 13:00 01/07/25 09:00 FiO2 40 01/03/25 21:00 Laboratory Results - last 24 hr 01/06/25 13:43: Activated Clotting Time 302 H* 01/07/25 06:25: WBC 6.5, RBC 3.34 L, Hgb 10.8 L, Hct 33.6 L, MCV 100.6 H, MCH 32.3 H, MCHC 32.1, RDW 13.2, Plt Count 217, MPV 10.2, Neut % (Auto) 60.6, Lymph % (Auto) 24.5, [place] % (Auto) 12.2 H, Eos % (Auto) 1.6, Baso % (Auto) 0.6, Neut # (Auto) 3.9, Lymph # (Auto) 1.6, [place] # (Auto) 0.8, Eos # (Auto) 0.1, Baso # (Auto) 0.0, Sodium 137, Potassium 3.8, Chloride 95 L, Carbon Dioxide 36 H, Anion Gap 9.8, BUN 25 H D, Creatinine 1.40 H D, Estimated Creat Clear 27, Estimated GFR 36 L, Est GFR ( Amer) 43 L D, Glucose 95, Calcium 8.8, Total Bilirubin 0.7, AST 32, ALT 16, Alkaline Phosphatase 87, Total Protein 6.3, Albumin 3.6, Globulin 2.7, Albumin/Globulin Ratio 1.3 I & O for Last 24 hours: Intake & Output 01/04/25 01/05/25 01/06/25 01/07/25 23:59 23:59 23:59 23:59 Intake Total 1172.2 / 1172.2 910 / 910 280 / 520 720 / 720 Output Total 1700 / 1700 2000 / 2650 1850 / 1850 Balance -527.8 / -527.8 -1090 / -1740 -1570 / -1330 720 / 720 Weight 159 lb 9.835 oz 131 lb 127 lb 13.89 oz Microbiology Reports for the Last 24 Hours: Microbiology 01/06/25 09:51 Sputum - Expectorated Sputum Gram Stain - Final Constitutional Constitutional: no acute distress *Routine Respiratory Exam Respiratory: Present CTA bilaterally and symmetric chest movement *Routine Cardiovascular Exam Cardiovascular: Present RRR, Normal S1 and Normal S2 *Routine Abdominal Exam Abdominal: Present soft and normoactive bowel sounds; Absent tenderness *Routine Extremities Exam Extremities: Present full ROM and normal capillary refill; Absent edema *Routine Skin Exam Skin: Present intact, dry and warm Detailed Neck Exam: Thyroids Thyroid: Absent bruit Progress Note: A&P Assessment and plan (1) Bilateral pleural effusion: Status: Acute (2) Pneumonia: Status: Acute (3) Acute respiratory failure with hypoxia: Status: Acute Assessment and Plan Assessment and Plan for All Diagnoses:: Coronary artery disease NSTEMI Status post 1 DEONNA to LAD 01/2025 Continue aspirin 81 mg p.o. daily and Plavix 75 mg p.o. daily and atorvastatin 80 mg p.o. daily. Acute HFrEF Chest x-ray on admission showed mild bibasilar atelectasis and a small right-sided pleural effusion. Right basilar airspace disease may represent pneumonia. Defer to pulmonology Echo-mildly reduced LV systolic function of 45%, septal and inferoseptal LV sands are moderately hypokinetic, grade 2 diastolic dysfunction, mild RV dilation with mild reduction in RV function, elevated RVSP 35-40. Can discontinue Bumex. Creatinine has increased to 1.4 Continue Entresto 24/26 mg p.o. twice daily. Continue bisoprolol 10 mg p.o. daily Continue Farxiga 10 mg p.o. daily Start Aldactone 25 mg p.o. daily CV summary : Patient is CV stable for discharge home. Please have patient continue below listed medications and follow-up in cardiology clinic in 1 week for reevaluation. Cardiac meds Aspirin 81 mg p.o. daily Atorvastatin 80 mg p.o. daily Plavix 75 mg p.o. daily Entresto 24/26 mg p.o. twice daily Bisoprolol 10mg p.o. daily Farxiga 10 mg p.o. daily Aldactone 25 mg p.o. daily
--- NOTE | 2025-01-07 16:29 | PC.NURSE ---
PT'S FAMILY AND CAREGIVERS DISCUSSED WITH PT'S BP BEING SO LOW THEY ARE SOMEWHAT UNCOMFORTABLE WITH TAKING PT HOME AND WOULD LIKE FOR PT TO STAY OVERNIGHT FOR CONTINUED MONITORING. MANUAL BP WAS 80/40 AT 1600. NOTIFIED HOSPITALIST. 250 ML IVF BOLUS ORDERED.
--- NOTE | 2025-01-07 16:40 | PC.NURSE ---
PT IS SITTING UP IN THE CHAIR VISITING WITH FAMILY. ALERT AND ORIENTED X4. EATING AND DRINKING FAIR. BRUISING NOTED TO RIGHT RADIAL CATH SITE. PT HAS BEEN HYPOTENSIVE T/O THE SHIFT. LUNG SOUND CLEAR. ABDOMEN SOFT/NON TENDER WITH ACTIVE BOWEL SOUNDS. TRACE EDEMA NOTED TO BLE. WILL CONTINUE TO MONITOR.
--- NOTE | 2025-01-07 18:41 | PC.WOUNDNOTE ---
bruising and redness noted to buttocks
[2025-01-07] MEDS: PANTOPRAZOLE 40MG TABLET 40 MG PO (21:25)
[2025-01-07] MEDS: ATORVASTATIN 40MG TABLET 80 MG PO (21:27)
--- NOTE | 2025-01-07 22:09 | P.PN_ITS ---
Subjective *Date: 01/07/25 *Time: 22:09 Interval history: Patient is doing well this morning, however became hypotensive this morning and again this afternoon. In the setting of Bumex diuresis and GDMT. Will hold diuresis, GDMT and monitor overnight. Family and patient strongly considering hospice care, want evaluation with hospice at home after discharge. Exam Data for Last 24 hours Vital signs and Labs for Last 24 Hours: Temp Pulse Resp BP Pulse Ox O2 Del Method O2 Flow Rate 98.4 F 70 20 98/52 L 94 L Room Air 1 01/07/25 19:52 01/07/25 20:00 01/07/25 19:52 01/07/25 19:52 01/07/25 19:52 01/07/25 19:52 01/07/25 09:00 FiO2 40 01/03/25 21:00 Laboratory Results - last 24 hr 01/07/25 06:25: WBC 6.5, RBC 3.34 L, Hgb 10.8 L, Hct 33.6 L, MCV 100.6 H, MCH 32.3 H, MCHC 32.1, RDW 13.2, Plt Count 217, MPV 10.2, Neut % (Auto) 60.6, Lymph % (Auto) 24.5, [place] % (Auto) 12.2 H, Eos % (Auto) 1.6, Baso % (Auto) 0.6, Neut # (Auto) 3.9, Lymph # (Auto) 1.6, [place] # (Auto) 0.8, Eos # (Auto) 0.1, Baso # (Auto) 0.0, Sodium 137, Potassium 3.8, Chloride 95 L, Carbon Dioxide 36 H, Anion Gap 9.8, BUN 25 H D, Creatinine 1.40 H D, Estimated Creat Clear 27, Estimated GFR 36 L, Est GFR ( Amer) 43 L D, Glucose 95, Calcium 8.8, Total Bilirubin 0.7, AST 32, ALT 16, Alkaline Phosphatase 87, Total Protein 6.3, Albumin 3.6, Globulin 2.7, Albumin/Globulin Ratio 1.3 I & O for Last 24 hours: Intake & Output 01/04/25 01/05/25 01/06/25 01/07/25 23:59 23:59 23:59 23:59 Intake Total 1172.2 / 1172.2 910 / 910 280 / 520 1355 / 1355 Output Total 1700 / 1700 2000 / 2650 1850 / 1850 200 / 200 Balance -527.8 / -527.8 -1090 / -1740 -1570 / -1330 1155 / 1155 Weight 72.4 kg 59.421 kg 58 kg Constitutional Constitutional: no acute distress *Routine Respiratory Exam Respiratory: Present CTA bilaterally and symmetric chest movement *Routine Cardiovascular Exam Cardiovascular: Present RRR, Normal S1 and Normal S2 *Routine Abdominal Exam Abdominal: Present soft and normoactive bowel sounds; Absent tenderness *Routine Extremities Exam Extremities: Present full ROM and normal capillary refill; Absent edema *Routine Skin Exam Skin: Present intact, dry and warm Detailed Neck Exam: Thyroids Thyroid: Absent bruit Assessment and Plan *Assessment and plan (1) ACS (acute coronary syndrome): Status: Acute Category: Medical Code(s): I24.9 - Acute ischemic heart disease, unspecified (2) Bilateral pleural effusion: Status: Acute Category: Medical Code(s): J90 - Pleural effusion, not elsewhere classified (3) Edema: Status: Acute Qualifiers: Edema type: unspecified Qualified Code(s): R60.9 - Edema, unspecified Category: Medical Code(s): R60.9 - Edema, unspecified (4) Flash pulmonary edema: Status: Acute Category: Medical Code(s): J81.0 - Acute pulmonary edema (5) Hypertensive emergency: Status: Acute Category: Medical Code(s): I16.1 - Hypertensive emergency (6) Heart failure with reduced ejection fraction: Status: Acute Category: Medical Code(s): I50.20 - Unspecified systolic (congestive) heart failure (7) Acute respiratory failure with hypoxia: Status: Acute Category: Medical Code(s): J96.01 - Acute respiratory failure with hypoxia (8) Coronary artery disease: Status: Chronic Qualifiers: Coronary Disease-Associated Artery/Lesion type: [place] artery [place] vs. transplanted heart: [place] heart Associated angina: without angina Qualified Code(s): I25.10 - Atherosclerotic heart disease of [place] coronary artery without angina pectoris Category: Medical Code(s): I25.10 - Atherosclerotic heart disease of [place] coronary artery without angina pectoris (9) Non-ST elevation OR (NSTEMI): Status: Acute Category: Medical Code(s): I21.4 - Non-ST elevation (NSTEMI) myocardial infarction Plan Ksenia Velazquez is a 84-year-old female who presented with generalized weakness, tachycardia. Taken for heart cath with no significant new blockages. Downgraded from stepdown to MedSurg on telemetry. Responding to diuresis. Cardiology consulted and evaluating today. Problems addressed as follows: #NSTEMI type II #CAD with 5 stents # Acute HFrEF #Hypertension ? Left heart cath performed 01/03. Mild-moderate diffuse coronary artery disease. Discussed patient with cardiology this morning, images reviewed today however with concern for proximal LAD lesion. Recommend repeat heart cath in the morning. Patient agreeable. - Continue aspirin 81 mg daily, Lipitor 80 mg daily. holding Entresto, bisoprolol, Farxiga due to soft pressures/hypotension. ? ECHO showed wall motion abnormalities and reduction in EF to 45% -Holding Bumex, Aldactone diuresis due to soft pressures/hypotension. #CKD 3 ? Kidney function at baseline with BUN 21, creatinine 1.0. Potassium 3.3, magnesium 2.4. Repeat CBC, CMP, magnesium ordered for the morning Effusion on chest imaging with potential underlying pneumonia. - Pulmonology consulted, discussed case, recommend 5 days of levofloxacin - Hold on thoracentesis at this point pending clinical follow-up - DuoNebs every 6 hours on a scheduled basis - White count normal at 8.6 Therapy evaluated, recommend placement. Patient is adamant that she will go home and has no interest in placement for therapy or home health PT DNR/DNI DVT prophylaxis: heparin 5000u BID Cardiac diet; NPO after midnight
[2025-01-08] VITALS: BP 98/44; PULSE 70; PULSE 75; RESP 20; TEMP 36.9; O2SAT 93
[2025-01-08 04:00] VITALS: BP 114/64; PULSE 70; PULSE 74; RESP 22; TEMP 36.7; O2SAT 96; BMI 24.4
[2025-01-08] MEDS: KETOROLAC 30MG/ML VIAL 15 MG IV (04:57)
--- NOTE | 2025-01-08 05:10 | PC.NURSE ---
Pt is A&Ox4, Pt did tolerate RA for the most part of the shift, however this nurse applied 1L of O2 for decreasing saturation of 86%, pt is currently tolerating 1L well and sating @ 95%. Pt BP has been slightly soft this shift with a current BP of 112/52. Pt did c/o pain in her left shoulder and right great toe pain and was treated per OCT. Pt has had no other acute changes to note this shift
--- NOTE | 2025-01-08 05:32 | PC.NURSE ---
Pt tolerating RA well at this time and sating 90-93%. Pt admits that she feels much better and pain in shoulder and toe has gotten better.
[2025-01-08 06:02] LABS: Basophils % 0.6 % (0.1-2.0); Eosinophils # 0.2 Kmm3 (0.0-0.4); Eosinophils % 3.5 % (0.1-12.0); Hematocrit 31.2 % (37.0-47.0); Hemoglobin 9.9 g/dL (12.2-16.2); Immature Granulocytes # 0.01 10^3uL; Immature Granulocytes % 0.2 %; Lymphocytes # 1.4 K/mm3 (0.7-4.5); Lymphocytes % 25.8 % (10-50); Mean Corpuscular HGB Conc 31.7 g/dL (31.8-35.4); Mean Corpuscular Hemoglobin 31.6 pg (27.0-31.2); Mean Corpuscular Volume 99.7 fl (81-99); Mean Platelet Volume 9.9 fl (7.4-10.4); Monocytes # 0.7 K/mm3 (0.1-1.0); Neutrophils # 3.1 K/mm3 (1.8-7.8); Neutrophils % 56.9 % (37.0-80.0); Nucleated Red Blood Cells # 0 10^3/uL; Nucleated Red Blood Cells % 0 %; Platelet Count 194 K/mm3 (142-424); Red Blood Count 3.13 M/mm3 (4.20-5.40); Red Cell Distribution Width 13.2 % (11.5-17.5); Red Cell Distribution Width-SD 48.1 fL; White Blood Count 5.4 K/mm3 (4.8-10.8)
[2025-01-08 06:17] LABS: Albumin Level 3.2 g/dl (3.5-5.0); Chloride 98 mmol/L (98-107); Potassium 3.7 mmoL/L (3.5-5.1); Sodium 137 mmol/L (136-145)
[2025-01-08 06:19] LABS: Blood Urea Nitrogen 33 mg/dl (7-17); Creatinine Clearance Estimated 28 mL/min (50-200); Estimated Glomerular Filt Rate 36 ml/min (>60); GFR (African American) 43 ML/MIN (>60)
[2025-01-08 06:20] LABS: Alanine Aminotransferase 15 U/L (12-78); Albumin/Globulin Ratio 1.2 (1.1-1.8); Alkaline Phosphatase 80 U/L (38-126); Anion Gap 8.7 mEq/L (5-15); Aspartate Amino Transferase 29 U/L (14-36); Bilirubin,Total 0.6 mg/dl (0.2-1.3); Calcium 8.4 mg/dl (8.4-10.2); Carbon Dioxide 34 mmol/L (22.0-30.0); Globulin 2.6 g/dL (1.3-3.2); Glucose 102 mg/dl (74-100); Magnesium 1.9 mg/dl (1.6-2.3); Total Protein,Serum 5.8 g/dl (6.3-8.2)
[2025-01-08] MEDS: FLUTICASONE/SALMETEROL 250/50MCG DISKUS 1 PUFF IH (06:20)
[2025-01-08 06:22] VITALS: O2SAT 91
--- NOTE | 2025-01-08 07:55 | EXP.PHA.PN ---
Subjective *Date: 01/08/25 *Time: 07:55 Medical Exam Vital signs and Labs for Last 24 Hours: Vital Signs Temp Pulse Pulse Resp BP Pulse Ox O2 Del Method 01/08/25 06:22 91 L Room Air 01/08/25 05:00 Nasal Cannula 01/08/25 04:00 70 01/08/25 04:00 98.1 F 74 22 114/64 96 Room Air 01/08/25 02:43 Room Air 01/08/25 01:00 Room Air 01/08/25 00:00 70 01/08/25 00:00 98.4 F 75 20 98/44 L 93 L Room Air 01/07/25 23:00 Room Air 01/07/25 21:00 Room Air 01/07/25 20:00 Room Air 01/07/25 20:00 70 01/07/25 19:52 98.4 F 78 20 98/52 L 94 L Room Air 01/07/25 18:55 Room Air 01/07/25 18:52 Room Air 01/07/25 17:00 Room Air 01/07/25 16:00 80 01/07/25 16:00 78 17 82/40 L 01/07/25 15:00 85 119/56 L 01/07/25 14:51 Room Air 01/07/25 14:00 83 83/49 L 01/07/25 13:00 77 95/62 L 01/07/25 13:00 Room Air 01/07/25 12:00 70 01/07/25 12:00 98.4 F 81 16 105/66 L 92 L Room Air 01/07/25 11:00 Room Air 01/07/25 09:00 Nasal Cannula 01/07/25 08:45 91 L Room Air 01/07/25 08:00 90 01/07/25 08:00 98.6 F 87 16 98/49 L 91 L Room Air O2 Flow Rate 01/08/25 06:22 01/08/25 05:00 1 01/08/25 04:00 01/08/25 04:00 01/08/25 02:43 01/08/25 01:00 01/08/25 00:00 01/08/25 00:00 01/07/25 23:00 01/07/25 21:00 01/07/25 20:00 01/07/25 20:00 01/07/25 19:52 01/07/25 18:55 01/07/25 18:52 01/07/25 17:00 01/07/25 16:00 01/07/25 16:00 01/07/25 15:00 01/07/25 14:51 01/07/25 14:00 01/07/25 13:00 01/07/25 13:00 01/07/25 12:00 01/07/25 12:00 01/07/25 11:00 01/07/25 09:00 1 01/07/25 08:45 01/07/25 08:00 01/07/25 08:00 Intake and Output 01/07/25 01/07/25 01/08/25 15:59 23:59 07:59 Intake Total 480 / 1595 635 / 1595 240 / 240 Output Total 200 / 200 150 / 150 Balance 480 / 1395 435 / 1395 90 / 90 Intake: Intake, Oral Amount 480 / 1200 240 / 1200 240 / 240 Intake, Total IV Amount 395 / 395 0.9 % Sodium Chloride 250 ml @ 250 / 250 999 mls/hr IV .Q16M ONE Rx#: [id number] Levofloxacin/D5w 750 mg/150 ml 145 / 145 750 mg In 150 ml @ 100 mls/hr IV Q48H [facility] Rx#:[id number] Output: Output, Urine Amount 200 / 200 150 / 150 Other: Number of Unmeasured Voids 0 Weight 58 kg 58.627 kg Patient Weight 01/08/25 23:59 Weight 58.627 kg Laboratory Results - last 24 hr 01/08/25 05:46: WBC 5.4, RBC 3.13 L, Hgb 9.9 L, Hct 31.2 L, MCV 99.7 H, MCH 31.6 H, MCHC 31.7 L, RDW 13.2, Plt Count 194, MPV 9.9, Neut % (Auto) 56.9, Lymph % (Auto) 25.8, [place] % (Auto) 13.0 H, Eos % (Auto) 3.5, Baso % (Auto) 0.6, Neut # (Auto) 3.1, Lymph # (Auto) 1.4, [place] # (Auto) 0.7, Eos # (Auto) 0.2, Baso # (Auto) 0.0, Sodium 137, Potassium 3.7, Chloride 98, Carbon Dioxide 34 H, Anion Gap 8.7, BUN 33 H D, Creatinine 1.40 H, Estimated Creat Clear 28, Estimated GFR 36 L, Est GFR ( Amer) 43 L, Glucose 102 H, Calcium 8.4, Magnesium 1.9, Total Bilirubin 0.6, AST 29, ALT 15, Alkaline Phosphatase 80, Total Protein 5.8 L, Albumin 3.2 L D, Globulin 2.6, Albumin/Globulin Ratio 1.2 I & O for Labs for Last 24 Hours: Intake & Output 01/05/25 01/06/25 01/07/25 01/08/25 23:59 23:59 23:59 23:59 Intake Total 910 / 910 280 / 520 1355 / 1595 240 / 240 Output Total 1999 / 2650 1850 / 1850 200 / 200 150 / 150 Balance -1090 / -1740 -1570 / -1330 1155 / 1395 90 / 90 Weight 59.421 kg 58 kg 58.627 kg The patient's infection will respond to the chosen ABx?: Yes (WHITE COUNT 5.4, AFEBRILE OVER 24 HR, SPUTUM PENDING) Is the patient receiving the right drug, dose, and route?: Yes Could a more targeted ABx be ordered?: No How long ABx needed (days)?: 7
[2025-01-08 08:00] VITALS: BP 106/53; PULSE 80; PULSE 81; RESP 16; TEMP 36.7; O2SAT 92
[2025-01-08 08:25] VITALS: O2SAT 92
[2025-01-08] MEDS: BUSPIRONE HCL 5 MG TABLET PO (08:48)
[2025-01-08] MEDS: ASPIRIN EC 81MG TABLET 81 MG PO (08:48)
[2025-01-08] MEDS: POLYETHYLENE GLYCOL 3350 17 GM PACKET PO (08:49)
[2025-01-08] MEDS: guaiFENesin 600 MG TAB.ER.12H PO (08:49)
[2025-01-08] MEDS: CLOPIDOGREL 75MG TAB 75 MG PO (08:49)
--- NOTE | 2025-01-08 11:06 | P.PN_ITS ---
Subjective Subjective Date: 01/08/25 Time: 08:00 Principal diagnosis: chest pain and soa Interval history: Patient reports she is feeling better today. Denies chest pain, reports shortness of breath is improved. Patient is maintaining oxygen saturations on room air. Morning labs reviewed. Exam Data for Last 24 hours Vital signs and Labs for Last 24 Hours: Temp Pulse Resp BP Pulse Ox O2 Del Method O2 Flow Rate 98.1 F 81 16 106/53 L 92 L Room Air 1 01/08/25 08:00 01/08/25 08:00 01/08/25 08:00 01/08/25 08:00 01/08/25 08:25 01/08/25 09:00 01/08/25 05:00 FiO2 40 01/03/25 21:00 Laboratory Results - last 24 hr 01/08/25 05:46: WBC 5.4, RBC 3.13 L, Hgb 9.9 L, Hct 31.2 L, MCV 99.7 H, MCH 31.6 H, MCHC 31.7 L, RDW 13.2, Plt Count 194, MPV 9.9, Neut % (Auto) 56.9, Lymph % (Auto) 25.8, [place] % (Auto) 13.0 H, Eos % (Auto) 3.5, Baso % (Auto) 0.6, Neut # (Auto) 3.1, Lymph # (Auto) 1.4, [place] # (Auto) 0.7, Eos # (Auto) 0.2, Baso # (Auto) 0.0, Sodium 137, Potassium 3.7, Chloride 98, Carbon Dioxide 34 H, Anion Gap 8.7, BUN 33 H D, Creatinine 1.40 H, Estimated Creat Clear 28, Estimated GFR 36 L, Est GFR ( Amer) 43 L, Glucose 102 H, Calcium 8.4, Magnesium 1.9, Total Bilirubin 0.6, AST 29, ALT 15, Alkaline Phosphatase 80, Total Protein 5.8 L, Albumin 3.2 L D, Globulin 2.6, Albumin/Globulin Ratio 1.2 I & O for Last 24 hours: Intake & Output 01/05/25 01/06/25 01/07/25 01/08/25 23:59 23:59 23:59 23:59 Intake Total 910 / 910 280 / 520 1355 / 1595 240 / 240 Output Total 1999 / 2649 1850 / 1850 200 / 200 150 / 150 Balance -1090 / -1740 -1570 / -1330 1155 / 1395 90 / 90 Weight 131 lb 127 lb 13.89 oz 129 lb 4 oz Constitutional Constitutional: no acute distress *Routine Respiratory Exam Respiratory: Present CTA bilaterally and symmetric chest movement *Routine Cardiovascular Exam Cardiovascular: Present RRR, Normal S1 and Normal S2 *Routine Abdominal Exam Abdominal: Present soft and normoactive bowel sounds; Absent tenderness *Routine Extremities Exam Extremities: Present full ROM and normal capillary refill; Absent edema *Routine Skin Exam Skin: Present intact, dry and warm Detailed Neck Exam: Thyroids Thyroid: Absent bruit Progress Note: A&P Assessment and plan (1) ACS (acute coronary syndrome): Status: Acute (2) Bilateral pleural effusion: Status: Acute (3) Edema: Status: Acute (4) Flash pulmonary edema: Status: Acute (5) Hypertensive emergency: Status: Acute (6) Heart failure with reduced ejection fraction: Status: Acute (7) Acute respiratory failure with hypoxia: Status: Acute (8) Coronary artery disease: Status: Chronic (9) Non-ST elevation [place] (NSTEMI): Status: Acute Assessment and Plan Assessment and Plan for All Diagnoses:: Coronary artery disease NSTEMI Status post 1 DEONNA to LAD 01/2025 Continue aspirin 81 mg p.o. daily and Plavix 75 mg p.o. daily and atorvastatin 80 mg p.o. daily. Acute HFrEF-Improving Pleural effusion Chest x-ray on admission showed mild bibasilar atelectasis and a small right- sided pleural effusion. Right basilar airspace disease may represent pneumonia. Defer to pulmonology Echo-mildly reduced LV systolic function of 45%, septal and inferoseptal LV sands are moderately hypokinetic, grade 2 diastolic dysfunction, mild RV dilation with mild reduction in RV function, elevated RVSP 35-40. We attempted guideline directed medical therapy for HFrEF yesterday, however, patient could not tolerate due to becoming hypotensive. Will hold beta-karla, Entresto and diuretics at this time as patient reports she is feeling better today off of them. Blood pressure and oxygen saturation both are stable. Patient states she would like to go home. CV summary 01/08/2025: Patient is CV stable for discharge home. Please have patie nt continue below listed medications and follow-up in cardiology clinic on Sunday for reevaluation with Dr. Sanches at which time we will attempt guideline directed medical therapy for HFrEF again. Cardiac meds: Aspirin 81 mg p.o. daily Atorvastatin 80 mg p.o. daily Plavix 75 mg p.o. daily Entresto 24/26 mg p.o. twice daily-hold due to hypotension Bisoprolol 10mg p.o. daily-hold due to hypotension Farxiga 10 mg p.o. daily-primary service holding due to recent UTI Aldactone 25 mg p.o. daily-hold due to hypotension
--- NOTE | 2025-01-08 11:06 | XR_ITS ---
FINAL REPORT CLINICAL HISTORY: Pleural effusion/pneumonia COMPARISON: 01/06/2025 FINDINGS: A portable view of the chest was obtained. The heart is mildly enlarged. The mediastinum is unremarkable. Retrocardiac opacity is concerning for hiatal hernia. There are bibasilar opacities and bilateral effusions, likely unchanged. IMPRESSION: No significant change. Reviewed, Interpreted and Dictated by Aleida Padilla MD Transcribed by Larissa Patricio Authenticated and [facility]
--- NOTE | 2025-01-08 11:06 | EXP.PULM.PN ---
Subjective *Date: 01/08/25 *Time: 14:17 Interval history: No acute respiratory events overnight. Patient denies any new respiratory complaints Pulmonology Exam Inpatient Vital signs and Labs for Last 24 Hours: Temp Pulse Resp BP Pulse Ox O2 Del Method O2 Flow Rate 98.1 F 81 16 106/53 L 92 L Room Air 1 01/08/25 08:00 01/08/25 08:00 01/08/25 08:00 01/08/25 08:00 01/08/25 08:25 01/08/25 09:00 01/08/25 05:00 FiO2 40 01/03/25 21:00 Laboratory Results - last 24 hr 01/08/25 05:46: WBC 5.4, RBC 3.13 L, Hgb 9.9 L, Hct 31.2 L, MCV 99.7 H, MCH 31.6 H, MCHC 31.7 L, RDW 13.2, Plt Count 194, MPV 9.9, Neut % (Auto) 56.9, Lymph % (Auto) 25.8, [place] % (Auto) 13.0 H, Eos % (Auto) 3.5, Baso % (Auto) 0.6, Neut # (Auto) 3.1, Lymph # (Auto) 1.4, [place] # (Auto) 0.7, Eos # (Auto) 0.2, Baso # (Auto) 0.0, Sodium 137, Potassium 3.7, Chloride 98, Carbon Dioxide 34 H, Anion Gap 8.7, BUN 33 H D, Creatinine 1.40 H, Estimated Creat Clear 28, Estimated GFR 36 L, Est GFR ( Amer) 43 L, Glucose 102 H, Calcium 8.4, Magnesium 1.9, Total Bilirubin 0.6, AST 29, ALT 15, Alkaline Phosphatase 80, Total Protein 5.8 L, Albumin 3.2 L D, Globulin 2.6, Albumin/Globulin Ratio 1.2 Temp Pulse Resp BP Pulse Ox O2 Del Method O2 Flow Rate 98.4 F 80 20 124/67 94 L Nasal Cannula 1 01/05/25 04:00 01/05/25 09:14 01/05/25 04:00 01/05/25 04:00 01/05/25 06:07 01/05/25 06:43 01/05/25 06:43 FiO2 40 01/03/25 21:00 Laboratory Results - last 24 hr 01/05/25 06:28: WBC 8.6 D, RBC 2.80 L, Hgb 9.3 L, Hct 28.4 L, MCV 101.4 H, MCH 33.2 H, MCHC 32.7, RDW 13.2, Plt Count 179, MPV 10.5 H, Neut % (Auto) 74.2, Lymph % (Auto) 14.7, [place] % (Auto) 10.1 H, Eos % (Auto) 0.5, Baso % (Auto) 0.2, Neut # (Auto) 6.4, Lymph # (Auto) 1.3, [place] # (Auto) 0.9, Eos # (Auto) 0.0, Baso # (Auto) 0.0, Sodium 137, Potassium 3.3 L, Chloride 104, Carbon Dioxide 30, Anion Gap 6.3, BUN 21 H, Creatinine 1.00 D, Estimated Creat Clear 48, Estimated GFR 53 L, Est GFR ( Amer) 64 D, Glucose 112 H D, Calcium 8.9, Magnesium 2.4 H D, Total Bilirubin 0.4, AST 36, ALT 19, Alkaline Phosphatase 90, Total Protein 6.1 L, Albumin 3.5, Globulin 2.6, Albumin/Globulin Ratio 1.3 I & O for Labs for Last 24 Hours: Intake & Output 01/05/25 01/06/25 01/07/25 01/08/25 23:59 23:59 23:59 23:59 Intake Total 910 / 910 280 / 520 1355 / 1595 240 / 240 Output Total 1999 / 2649 1850 / 1850 200 / 200 150 / 150 Balance -1090 / -1740 -1570 / -1330 1155 / 1395 90 / 90 Weight 131 lb 127 lb 13.89 oz 129 lb 4 oz Intake & Output 01/02/25 01/03/25 01/04/25 01/05/25 23:59 23:59 23:59 23:59 Intake Total 8.2 / 8.2 1172.2 / 1172.2 100 / 100 Output Total 1700 / 1700 100 / 100 Balance 8.2 / 8.2 -527.8 / -527.8 0 / 0 Weight 185 lb 159 lb 9.835 oz Constitutional: Present mild distress Head: Present normocephalic and atraumatic ENT: Present normal exam, normal oropharynx and mucous membranes moist Neck: Present normal inspection and full ROM Respiratory: Present prolonged expiratory phase, rhonchi, diminished air movement and able to speak in complete sentences; Absent wheezes Cardiac: Present S1/S2, Tachycardia and radial pulses present GI: Present soft and distention; Absent tenderness or guarding Rectal (female): Present deferred (female): Present deferred Skin: Present intact; Absent cyanosis or jaundice Neuro: Present alert, awake and oriented x 3 Extremities: Present normal inspection and edema; Absent clubbing or cyanosis Psychiatric: Present normal affect and cooperative Assessment and Plan *Assessment and plan (1) Bilateral pleural effusion: Status: Acute Category: Medical Code(s): J90 - Pleural effusion, not elsewhere classified (2) Pneumonia: Status: Acute Qualifiers: Laterality: right Lung location: lower lobe of lung Pneumonia type: due to unspecified organism Qualified Code(s): J18.9 - Pneumonia, unspecified organism Category: Medical Code(s): J18.9 - Pneumonia, unspecified organism (3) Acute respiratory failure with hypoxia: Status: Acute Category: Medical Code(s): J96.01 - Acute respiratory failure with hypoxia Plan Ms. Scherer is a 84-year-old female history of CAD status post stenting, hypertension, heart failure with preserved EF presented to the ER with concerning for hypertensive emergency with flash pulm edema bilateral pleural effusions and ACS and pulmonary was called for further evaluation and management. Patient denies any significant smoking history. Auscultation significant wheezing noted. Minutes worsening wheezing for the last 2 weeks Afebrile. Hemodynamically stable. Leukopenia, improving. Neutrophilic predominance noted. Chest x-ray upon admission predominantly right-sided moderate pleural effusion along with right lower lobe airspace disease. Prior history of bacteremia and UTI. Echo October 2024 normal EF at 65%. Diastolic function indeterminate. RV size and function grossly normal. Elevated RVSP On initial examination does not appear to be in any significant respiratory distress. Wheezing noted on auscultation weaned to room air with saturations maintained at 90% and above. The noted pleural effusion likely from volume overload. Less concern for parapneumonic effusion at this point of time given her continued improvement in her symptoms. Echocardiogram reduced EF now at 45% with grade 2 diastolic dysfunction. Regional wall motion abnormalities. RV dilated and hypokinetic. Repeat chest x-ray from 01/06/2025 continue to show noted right-sided pleural effusion improving from admission. LHC, Occlusive CAD status post stenting. Interval update: No acute respiratory events overnight. Stable oxygen requirements. Diuretics on hold secondary to worsening renal function. Chest x-ray from this morning continue to show right-sided pleural effusion. No airspace disease/consolidative changes noted. Continue to receive levofloxacin. Plan: Continue levofloxacin to complete a total of 5-day course Will hold off on performing thoracentesis at this point of time given given clinical stability. Will follow the patient in pulmonary clinic in 4 to 6 weeks with repeat chest x-ray PA and lateral. Patient family also discussing hospice care at this point of time. Will follow. Advair 250 inhaler along with DuoNebs 4 times daily as needed Volume optimization as per primary team and cardiology # Thank you for involving pulmonary in this patient care. Will continue to follow.
--- NOTE | 2025-01-08 12:18 | P.DS_ITS ---
General Admission date:: 01/04/25 Hospital Course Hospital Course Hospital Course: Ksenia Velazquez is a 84-year-old female who presented with generalized weakness, tachycardia. Taken for heart cath with no significant new blockages. Tonya ngraded from stepdown to MedSurg on telemetry. Responding to diuresis. Cardiology consulted and evaluating today. Problems addressed as follows: #NSTEMI type II #CAD with 5 stents #Acute HFrEF #Hypertension ? Left heart cath previously performed 01/03. Mild-moderate diffuse coronary artery disease. Discussed patient with cardiology, images reviewed however with concern for proximal LAD lesion. Repeat LHC with significant disease in LAD with 1 stent. ? ECHO showed wall motion abnormalities and reduction in EF to 45%. - Continue aspirin 81 mg daily, Lipitor 80 mg daily. ? Patient was becoming hypotensive with GDMT, holding Entresto, bisoprolol, Farxiga due to soft pressures/hypotension. In addition, patient and family discussed amongst themselves and elected to pursue hospice care for patient due to recurrent admissions for advanced comorbidities. ? Discharged home with hospice care. #Community-acquired pneumonia #Effusion on chest imaging with potential underlying pneumonia. - Pulmonology consulted, discussed case, recommend 5 days of levofloxacin ? Discharged with levofloxacin for 3 more days. #CKD 3 ? Kidney function at baseline with BUN 21, creatinine 1.0. Potassium 3.3, magnesium 2.4. Exam Data for Last 24 hours Vital signs and Labs for Last 24 Hours: Temp Pulse Resp BP Pulse Ox O2 Del Method O2 Flow Rate 98.1 F 81 16 106/53 L 92 L Room Air 1 01/08/25 08:00 01/08/25 08:00 01/08/25 08:00 01/08/25 08:00 01/08/25 08:25 01/08/25 09:00 01/08/25 05:00 FiO2 40 01/03/25 21:00 Laboratory Results - last 24 hr 01/08/25 05:46: WBC 5.4, RBC 3.13 L, Hgb 9.9 L, Hct 31.2 L, MCV 99.7 H, MCH 31.6 H, MCHC 31.7 L, RDW 13.2, Plt Count 194, MPV 9.9, Neut % (Auto) 56.9, Lymph % (Auto) 25.8, [place] % (Auto) 13.0 H, Eos % (Auto) 3.5, Baso % (Auto) 0.6, Neut # (Auto) 3.1, Lymph # (Auto) 1.4, [place] # (Auto) 0.7, Eos # (Auto) 0.2, Baso # (Auto) 0.0, Sodium 137, Potassium 3.7, Chloride 98, Carbon Dioxide 34 H, Anion Gap 8.7, BUN 33 H D, Creatinine 1.40 H, Estimated Creat Clear 28, Estimated GFR 36 L, Est GFR ( Amer) 43 L, Glucose 102 H, Calcium 8.4, Magnesium 1.9, Total Bilirubin 0.6, AST 29, ALT 15, Alkaline Phosphatase 80, Total Protein 5.8 L, Albumin 3.2 L D, Globulin 2.6, Albumin/Globulin Ratio 1.2 I & O for Last 24 hours: Intake & Output 01/05/25 01/06/25 01/07/25 01/08/25 23:59 23:59 23:59 23:59 Intake Total 910 / 910 280 / 520 1355 / 1595 240 / 240 Output Total 1999 / 2650 1850 / 1850 200 / 200 150 / 150 Balance -1090 / -1740 -1570 / -1330 1155 / 1395 90 / 90 Weight 59.421 kg 58 kg 58.627 kg Constitutional Constitutional: no acute distress *Routine Respiratory Exam Respiratory: Present CTA bilaterally and symmetric chest movement *Routine Cardiovascular Exam Cardiovascular: Present RRR, Normal S1 and Normal S2 *Routine Abdominal Exam Abdominal: Present soft and normoactive bowel sounds; Absent tenderness *Routine Extremities Exam Extremities: Present full ROM and normal capillary refill; Absent edema *Routine Skin Exam Skin: Present intact, dry and warm Detailed Neck Exam: Thyroids Thyroid: Absent bruit Results Data Completed and Pending Labs on day of discharge: Labs from last 24 hours 01/08/25 05:46 WBC 5.4 RBC 3.13 L Hgb 9.9 L Hct 31.2 L MCV 99.7 H MCH 31.6 H MCHC 31.7 L RDW 13.2 Plt Count 194 MPV 9.9 Neut % (Auto) 56.9 Lymph % (Auto) 25.8 [place] % (Auto) 13.0 H Eos % (Auto) 3.5 Baso % (Auto) 0.6 Neut # (Auto) 3.1 Lymph # (Auto) 1.4 [place] # (Auto) 0.7 Eos # (Auto) 0.2 Baso # (Auto) 0.0 Sodium 137 Potassium 3.7 Chloride 98 Carbon Dioxide 34 H Anion Gap 8.7 BUN 33 H D Creatinine 1.40 H Estimated Creat Clear 28 Estimated GFR 36 L Est GFR ( Amer) 43 L Glucose 102 H Calcium 8.4 Magnesium 1.9 Total Bilirubin 0.6 AST 29 ALT 15 Alkaline Phosphatase 80 Total Protein 5.8 L Albumin 3.2 L D Globulin 2.6 Albumin/Globulin Ratio 1.2 DS: Diagnosis Discharge Diagnosis (1) ACS (acute coronary syndrome): Status: Acute Code(s): I24.9 - Acute ischemic heart disease, unspecified (2) Bilateral pleural effusion: Status: Acute Code(s): J90 - Pleural effusion, not elsewhere classified (3) Edema: Status: Acute Code(s): R60.9 - Edema, unspecified Qualifiers: Edema type: unspecified Qualified Code(s): R60.9 - Edema, unspecified (4) Flash pulmonary edema: Status: Acute Code(s): J81.0 - Acute pulmonary edema (5) Hypertensive emergency: Status: Acute Code(s): I16.1 - Hypertensive emergency (6) Heart failure with reduced ejection fraction: Status: Acute Code(s): I50.20 - Unspecified systolic (congestive) heart failure (7) Acute respiratory failure with hypoxia: Status: Acute Code(s): J96.01 - Acute respiratory failure with hypoxia (8) Coronary artery disease: Status: Chronic Code(s): I25.10 - Atherosclerotic heart disease of [place] coronary artery without angina pectoris Qualifiers: Associated angina: without angina Coronary Disease-Associated Artery/Lesion type: [place] artery [place] vs. transplanted heart: [place] heart Qualified Code(s): I25.10 - Atherosclerotic heart disease of [place] coronary artery without angina pectoris (9) Non-ST elevation [place] (NSTEMI): Status: Acute Code(s): I21.4 - Non-ST elevation (NSTEMI) myocardial infarction (10) Pneumonia: Status: Acute Code(s): J18.9 - Pneumonia, unspecified organism Qualifiers: Laterality: right Lung location: lower lobe of lung Pneumonia type: due to unspecified organism Qualified Code(s): J18.9 - Pneumonia, unspecified organism Meds Home Medications and Allergies Home Medications ?Medication ?Instructions ?Recorded ?Confirmed ?Type buspirone 5 mg tablet 5 mg PO BID 03/12/20 5 History ferrous sulfate 325 mg (65 mg 325 mg PO MOWEFR anemia 09/30/20 01/03/25 History iron) tablet aspirin 81 mg tablet,delayed 81 mg PO DAILY 10/25/20 0 01/03/25 History release atorvastatin 80 mg tablet 80 mg PO HS 10/18/24 5 History cholecalciferol (vitamin D3) 25 25 mcg PO DAILY 01/03/25 History mcg (1,000 unit) capsule (Vitamin D3) omeprazole 40 mg capsule,delayed 40 mg PO HS 01/04/25 01/04/25 History release clopidogrel 75 mg tablet (Plavix) 75 mg PO DAILY #30 t abs 01/06/25 Rx fluticasone 250 mcg-salmeterol 50 1 inh inhalation BID RT 30 days #60 01/07/25 Rx mcg/dose blistr powdr for ea inhalation (Advair Diskus) levofloxacin 750 mg tablet 750 mg PO Q48H 3 days #2 ta bs 01/07/25 Rx New Prescriptions to Start Prescriptions: clopidogrel [Plavix] Uche Lopes fluticasone propion-salmeterol [Advair Diskus] Alex Quiroga levofloxacin Alex Quiroga Allergies Allergy/AdvReac Type Severity Reaction Status Date / Time No Known Allergies Allergy Verified 01/04/25 01:07 Discharge Plan Disposition Patient Disposition: Home, Self-Care Condition: Fair Discharge Order Discharge Orders: Discharge Order (Routine); Ordered 01/08/25 Ordered By: Alex Quiroga Follow up Plan Follow up with: Uche Lopes MD [Staff Physician, Cardiology] - 01/13/25 1:45 pm Jenny Felix MD [Physician, Pulmonology] - 01/30/25 11:20 am Prescriptions/Medication Reconciliation: New clopidogrel [Plavix] 75 mg Tablet 75 mg PO DAILY Qty: 30 6RF fluticasone propion-salmeterol [Advair Diskus] 250-50 mcg/dose Blister With Device 1 inh inhalation BIDRT 30 Days Qty: 60 0RF levofloxacin 750 mg tablet 750 mg PO Q48H 3 Days Qty: 2 0RF Continued buspirone 5 mg tablet 5 mg PO BID ferrous sulfate 325 mg (65 mg iron) tablet 325 mg PO MOWEFR aspirin 81 MG tablet,delayed release (DR/EC) 81 mg PO DAILY cholecalciferol (vitamin D3) [Vitamin D3] 25 mcg (1,000 unit) Capsule 25 mcg PO DAILY atorvastatin 80 mg tablet 80 mg PO HS omeprazole 40 mg capsule,delayed release(DR/EC) 40 mg PO HS Discontinued lisinopril 20 mg tablet 20 mg PO DAILY Qty: 30 5RF bisoprolol fumarate 10 mg Tablet 10 mg PO DAILY spironolactone 25 mg tablet 25 mg PO DAILY furosemide 20 mg tablet 20 mg PO DAILY Problem Reconciliation Problems Reviewed?: Yes Patient Discharge Instructions Patient Instructions: DI for Heart Failure, DI for Respiratory Failure, DI for Pleural Effusion, Stop Light Heart Failure, Stop Light Infection Print Language: Arabic Providers Primary Care Provider: Manuel Cho Admit Provider: Seth Olivera Attending Provider: Seth Olivera
--- NOTE | 2025-01-09 10:21 | SW/DCPLANNER ---
Spoke with patient on the phone. Patient stated that she is doing good. Patient stated that she is aware of her upcoming appointments and that they are having a meeting today and there is going to be some changes. Patient stated that she was able to get her new medicine picked up from [facility]. Patient stated that she has no concerns or questions at this time. Олег Hare
== END 2025-01-08 13:57 | disposition home or self-care (01) | DRG 321 ==
LOC: ER 21:39 → CATHLAB 23:51 → ICU 01-04 00:22 → 2ND 01-05 08:49
PROVIDERS: Internal Medicine; Internal Medicine Cardiovascular Disease; Nurse Practitioner; Nurse Practitioner Family; Student in an Organized Health Care Education/Training Program; Admitting Provider Internal Medicine Adolescent Medicine; Emergency Provider Student in an Organized Health Care Education/Training Program; PCP Family Medicine; Visit Provider Internal Medicine Adolescent Medicine
PROC: 4A023N7 Measurement of Cardiac Sampling and Pressure, Left Heart, Percutaneous Approach (ICD-10-PCS; CPT 93452; principal; 2025-01-03 23:30)
DX: I21.4 Non-ST elevation (NSTEMI) myocardial infarction (principal); I50.21 Acute systolic (congestive) heart failure; J96.01 Acute respiratory failure with hypoxia; J18.9 Pneumonia, unspecified organism; I16.1 Hypertensive emergency; I13.0 Hypertensive heart and chronic kidney disease with heart failure and stage 1 through stage 4 chronic kidney disease, or unspecified chronic kidney disease; Z66 Do not resuscitate; Z51.5 Encounter for palliative care; I25.10 Atherosclerotic heart disease of native coronary artery without angina pectoris; I95.9 Hypotension, unspecified; N18.30 Chronic kidney disease, stage 3 unspecified; Z79.82 Long term (current) use of aspirin; Z79.899 Other long term (current) drug therapy; Z95.5 Presence of coronary angioplasty implant and graft
CPT/HCPCS: 36415; 71045; 80048; 80053; 83735; 83880; 84484; 85007; 85025; 85347; 87070; 87205; 93005; 93306; 94640; 94660; 94760; 94761; 97110; 97163; 97166; 97530; 99152; C1725; C1760; C1769; C1874; C1894; J0131; J1200; J1450; J1644; J1885; J1938; J1939; J1956; J2003; J2250; J2405; J3010; J3475; J7040; J7050; Q9967